=== PATIENT | male | born 1970 | race Caucasian/White ===

== ENCOUNTER 2023-03-19 21:02 | Outpatient (OUT) | payer OTHER, SELFPAY | END 2023-03-19 21:03 | disposition home or self-care (01) | LOC: SLEEP 21:03 | PROVIDERS: Family Provider Family Medicine; PCP Nurse Practitioner Family; Visit Provider Nurse Practitioner Family | DX: G47.33 Obstructive sleep apnea (adult) (pediatric) (principal) | CPT/HCPCS: 95810 ==

== ENCOUNTER 2023-04-14 20:50 | Outpatient (OUT) | payer OTHER, SELFPAY ==
--- OUTSIDE RECORDS SUMMARY | 2023-04-14 20:52 | XMS_ITS | CCD ---
Author Name Unknown Address [address] [facility] [address] [place] [address] Organization [facility] Care Team Providers Care Engine Lathe Set Up Operator Name Role Phone Rosario Bruno Unavailable ROSETTA Bruno Primary Care Provider ROSETTA Bruno Attending Provider [phone] Rosario Bruno Attending Unavailable Rosario Bruno Primary Care Unavailable Rosario Bruno Admitting Unavailable Asaad, Imad Unavailable Medications Current Medications Medication Drug Class(es) Dates Sig (Normalized) Sig (Original) empagliflozin 25 mg oral tablet (4 sources) Sodium-Glucose Cotransporter 2 Inhibitor Start: 03-14-2023 take 1 tablet by mouth every twenty-four hours Jardiance 25 MG 1 tablet Orally Once a day for 90 days Feb, Active polyethylene glycol 3350 038762 mg / potassium chloride 2970 mg / sodium bicarbonate 6740 mg / sodium chloride 5860 mg / sodium sulfate 38414 mg powder for oral solution (1 source) Osmotic Laxative Start: 03-26-2023 take 4000 mL by mouth once daily Golytely 236 GM 4000 ML Orally once daily for 1 days Mar, Active pravastatin sodium 10 mg oral tablet (4 sources) HMG-CoA Reductase Inhibitor take 1 tablet by mouth every twenty-four hours Pravastatin Sodium 10 MG 1 tablet Orally Once a day for 90 days Active Problems Problem Classification Problem Date Documented Da te Episodic/Chronic Diabetes mellitus without complication (8 sources) Type 2 diabetes mellitus without complication; Translations: [Type 2 diabetes mellitus without complications] Onset: 03-14-2023 Chronic Disorders of lipid metabolism (6 sources) Mixed hyperlipidemia; Translations: [Mixed hyperlipidemia] Onset: 03-14-2023 Chronic Other screening for suspected conditions (not mental disorders or infectious disease) (3 sources) Encounter for screening for malignant neoplasm of prostate; Translations: [Encounter for screening for malignant neoplasm of colon] Onset: 03-14-2023 Episodic Residual codes; unclassified (4 sources) Obstructive sleep apnea syndrome; Translations: [Obstructive sleep apnea (adult) (pediatric)] Chronic Residual codes; unclassified (1 source) Obstructive sleep apnea (adult) (pediatric) Chronic Substance-related disorders (5 sources) Nicotine dependence; Translations: [Nicotine dependence, cigarettes, uncomplicated] Chronic Results Test Name Value Interpretation Reference Range Facility A1C with Estimated Average G nicki 03-14-2023 Glucose [Mass/Vol] 217 mg/dL Normal [facility] Comment on above: Order Comment: Reaso n for Exam Type 2 diabetes mellitus without complication, without long- Result Comment: PERF ORMED BY: [facility] [address] [place] [address] PATHOLOGIST SUPERVISOR [employer] PADMA MONTOYA M.D. Performed By: #### C MP, LIPID, PSAS, A1C WTH eA, CBC, URMACRERAT #### [facility] [address] HbA1c (Bld) [Mass fraction] 9.2 % High 4.3-5.6 [facility] Comment on above: Order Comment: Reaso n for Exam Type 2 diabetes mellitus without complication, without long- Result Comment: Incr eased risk for diabetes: 5.7 - 6.4 diabetes: >6.4 glycemic control for adults with diabetes: <7.0 Performed By: #### C MP, LIPID, PSAS, A1C WTH eA, CBC, URMACRERAT #### [facility] [address] [place] [address] [place] Alanine aminotransferase [En zymatic activity/volume] in Serum or PlasmaOrdered By: Rosario Bruno on 03-14-2023 ALT [Catalytic activity/Vol] 17 U/L 7-52 [facility] Albumin [Mass/volume] in Ser um or Plasma by Bromocresol green (BCG) dye binding methoOrdered By: Rosario Bruno on 03-14-2023 Albumin BCG dye [Mass/Vol] 4.1 g/dL 3.5-5.7 [facility] Alkaline phosphatase [Enzyma tic activity/volume] in Serum or PlasmaOrdered By: Rosario Bruno on 03-14-2023 ALP [Catalytic activity/Vol] 75 U/L 34-104 [facility] Aspartate aminotransferase [ Enzymatic activity/volume] in Serum or PlasmaOrdered By: Rosario Bruno on 03-14-2023 AST [Catalytic activity/Vol] 18 U/L 13-39 [facility] Basophils Auto (Bld) [#/Vol] Ordered By: Rosario Bruno on 03-14-2023 Basophils (Bld) [#/Vol] 0.1 10*3/uL 0.0-0.2 [facility] Basophils/100 WBC Auto (Bld) Ordered By: Rosario Bruno on 03-14-2023 Basophils/100 WBC (Bld) 1.3 % . [facility] Bilirubin.total [Mass/volume ] in Serum or PlasmaOrdered By: Rosario Bruno on 03-14-2023 Bilirubin [Mass/Vol] 0.7 mg/dL 0.3-1.0 [facility] Calcium [Mass/volume] in Ser um or PlasmaOrdered By: Rosario Bruno on 03-14-2023 Calcium [Mass/Vol] 9.1 mg/dL 8.6-10.3 [facility] Carbon dioxide, total [Moles /volume] in Serum or PlasmaOrdered By: Rosario Bruno on 03-14-2023 CO2 [Moles/Vol] 28.5 mmol/L 21.0-31.0 [facility] Chloride [Moles/volume] in S robert or PlasmaOrdered By: Rosario Bruno on 03-14-2023 Chloride [Moles/Vol] 105 mmol/L 98-107 [facility] Cholesterol [Mass/volume] in Serum or PlasmaOrdered By: Rosario Bruno on 03-14-2023 Cholesterol [Mass/Vol] 133 mg/dL 140-200 [facility] Comment on above: Chol less than 200 m g/dl low riskChol 201-239 mg/dl borderline riskChol 240 mg/dl and greater high risk Cholesterol in LDL Calc [Mas s/Vol]Ordered By: Rosario Bruno on 03-14-2023 Cholesterol in LDL [Mass/Vol] 79 mg/dL 0-100 [facility] Comment on above: LDL ATP III CLASSIFI CATIONLDL less than 100 mg/dL OptimalLDL 100-129 mg/dL Near or above optimalLDL 130-159 mg/dL Borderline highLDL 160-189 mg/dL HighLDL greater than 189 mg/dL Very high Cholesterol in VLDL Calc [Ma ss/Vol]Ordered By: Rosario Bruno on 03-14-2023 Cholesterol in VLDL [Mass/Vol] 19 mg/dL [facility] Complete Blood Count Auto Di ffon 03-14-2023 Basophils (Bld) [#/Vol] 0.1 10*3/uL Normal 0.0-0.2 [facility] Comment on above: Order Comment: Reaso n for Exam Type 2 diabetes mellitus without complication, without long- Result Comment: PERF ORMED BY: [place] [address] PATHOLOGIST SUPERVIS[employer] PADMA MONTOYA M.D. Performed By: #### C MP, LIPID, PSAS, A1C WTH eA, CBC, URMACRERAT #### [facility] [address] Basophils/100 WBC (Bld) 1.3 % Normal . [facility] Comment on above: Order Comment: Reaso n for Exam Type 2 diabetes mellitus without complication, without long- Performed By: #### C MP, LIPID, PSAS, A1C WTH eA, CBC, URMACRERAT #### [facility] [address] [place] [address] [place] Eosinophils (Bld) [#/Vol] 0.2 10*3/uL Normal 0.0-0.45 [facility] Comment on above: Order Comment: Reaso n for Exam Type 2 diabetes mellitus without complication, without long- Performed By: #### C MP, LIPID, PSAS, A1C WTH eA, CBC, URMACRERAT #### [facility] [address] [place] [address] [place] Eosinophils/100 WBC (Bld) 3.8 % Normal . [facility] Comment on above: Order Comment: Reaso n for Exam Type 2 diabetes mellitus without complication, without long- Performed By: #### C MP, LIPID, PSAS, A1C WTH eA, CBC, URMACRERAT #### [address] Erythrocyte distribution width (RBC) [Ratio] 12.6 % Normal 12.0-14.8 [facility] Comment on above: Order Comment: Reaso n for Exam Type 2 diabetes mellitus without complication, without long- Performed By: #### C MP, LIPID, PSAS, A1C WTH eA, CBC, URMACRERAT #### [address] Hematocrit (Bld) [Volume fraction] 40.7 % Normal 38.8-50.0 [facility] Comment on above: Order Comment: Reaso n for Exam Type 2 diabetes mellitus without complication, without long- Performed By: #### C MP, LIPID, PSAS, A1C WTH eA, CBC, URMACRERAT #### [address] Hemoglobin (Bld) [Mass/Vol] 14.0 g/dL Normal 13.0-17.0 [facility] Comment on above: Order Comment: Reaso n for Exam Type 2 diabetes mellitus without complication, without long- Performed By: #### C MP, LIPID, PSAS, A1C WTH eA, CBC, URMACRERAT #### [address] Lymphocytes (Bld) [#/Vol] 1.5 10*3/uL Normal 1.00-4.8 [facility] Comment on above: Order Comment: Reaso n for Exam Type 2 diabetes mellitus without complication, without long- Performed By: #### C MP, LIPID, PSAS, A1C WTH eA, CBC, URMACRERAT #### [address] Lymphocytes/100 WBC (Bld) 27.1 % Normal . [facility] Comment on above: Order Comment: Reaso n for Exam Type 2 diabetes mellitus without complication, without long- Performed By: #### C MP, LIPID, PSAS, A1C WTH eA, CBC, URMACRERAT #### [facility] [address] MCH (RBC) [Entitic mass] 31.0 pg Normal 27.5-35.2 [facility] Comment on above: Order Comment: Reaso n for Exam Type 2 diabetes mellitus without complication, without long- Performed By: #### C MP, LIPID, PSAS, A1C WTH eA, CBC, URMACRERAT #### [address] MCV (RBC) [Entitic vol] 90.4 fL Normal 83.5-101 [facility] Comment on above: Order Comment: Reaso n for Exam Type 2 diabetes mellitus without complication, without long- Performed By: #### C MP, LIPID, PSAS, A1C WTH eA, CBC, URMACRERAT #### [address] Mean Corpuscular HGB Conc 34.3 g/dL Normal 32.5-35.6 [facility] Comment on above: Order Comment: Reaso n for Exam Type 2 diabetes mellitus without complication, without long- Performed By: #### C MP, LIPID, PSAS, A1C WTH eA, CBC, URMACRERAT #### [address] Monocytes (Bld) [#/Vol] 0.3 10*3/uL Normal 0.0-0.8 [facility] Comment on above: Order Comment: Reaso n for Exam Type 2 diabetes mellitus without complication, without long- Performed By: #### C MP, LIPID, PSAS, A1C WTH eA, CBC, URMACRERAT #### [address] Monocytes/100 WBC (Bld) 6.2 % Normal . [facility] Comment on above: Order Comment: Reaso n for Exam Type 2 diabetes mellitus without complication, without long- Performed By: #### C MP, LIPID, PSAS, A1C WTH eA, CBC, URMACRERAT #### [facility] [address] [place] [address] [place] Neutrophils (Bld) [#/Vol] 3.4 10*3/uL Normal 1.8-7.7 [facility] Comment on above: Order Comment: Reaso n for Exam Type 2 diabetes mellitus without complication, without long- Performed By: #### C MP, LIPID, PSAS, A1C WTH eA, CBC, URMACRERAT #### [facility] [address] [place] [address] [place] Neutrophils/100 WBC (Bld) 61.6 % Normal . [facility] Comment on above: Order Comment: Reaso n for Exam Type 2 diabetes mellitus without complication, without long- Performed By: #### C MP, LIPID, PSAS, A1C WTH eA, CBC, URMACRERAT #### [facility] [address] [place] [address] [place] NRBC% 0.2 /100{WBC} Normal 0-0.5 [facility] Comment on above: Order Comment: Reaso n for Exam Type 2 diabetes mellitus without complication, without long- Performed By: #### C MP, LIPID, PSAS, A1C WTH eA, CBC, URMACRERAT #### [facility] [address] [place] [address] [place] Platelet mean volume (Bld) [Entitic vol] 9.0 fL Normal 6.6-10.1 [facility] Comment on above: Order Comment: Reaso n for Exam Type 2 diabetes mellitus without complication, without long- Performed By: #### C MP, LIPID, PSAS, A1C WTH eA, CBC, URMACRERAT #### [facility] [address] [place] [address] [place] Platelets (Bld) [#/Vol] 187 10*3/uL Normal 150-450 [facility] Comment on above: Order Comment: Reaso n for Exam Type 2 diabetes mellitus without complication, without long- Performed By: #### C MP, LIPID, PSAS, A1C WTH eA, CBC, URMACRERAT #### [facility] [address] RBC (Bld) [#/Vol] 4.51 10*6/uL Normal 3.90-5.60 [facility] Comment on above: Order Comment: Reaso n for Exam Type 2 diabetes mellitus without complication, without long- Performed By: #### C MP, LIPID, PSAS, A1C WTH eA, CBC, URMACRERAT #### [address] WBC (Bld) [#/Vol] 5.5 10*3/uL Normal 4.1-10.5 [facility] Comment on above: Order Comment: Reaso n for Exam Type 2 diabetes mellitus without complication, without long- Performed By: #### C MP, LIPID, PSAS, A1C WTH eA, CBC, URMACRERAT #### [address] Comprehensive Metabolic Pane delores 03-14-2023 Albumin [Mass/Vol] 4.1 g/dL Normal 3.5-5.7 [facility] Comment on above: Order Comment: Reaso n for Exam Type 2 diabetes mellitus without complication, without long- Performed By: #### C MP, LIPID, PSAS, A1C WTH eA, CBC, URMACRERAT #### [address] Albumin/Globulin [Mass ratio] 1.6 {ratio} Normal [facility] Comment on above: Order Comment: Reaso n for Exam Type 2 diabetes mellitus without complication, without long- Performed By: #### C MP, LIPID, PSAS, A1C WTH eA, CBC, URMACRERAT #### [address] ALP [Catalytic activity/Vol] 75 U/L Normal 34-104 [facility] Comment on above: Order Comment: Reaso n for Exam Type 2 diabetes mellitus without complication, without long- Performed By: #### C MP, LIPID, PSAS, A1C WTH eA, CBC, URMACRERAT #### [facility] [address] ALT [Catalytic activity/Vol] 17 U/L Normal 7-52 [facility] Comment on above: Order Comment: Reaso n for Exam Type 2 diabetes mellitus without complication, without long- Performed By: #### C MP, LIPID, PSAS, A1C WTH eA, CBC, URMACRERAT #### [facility] [address] Anion gap [Moles/Vol] 7.7 mmol/L Normal 6.0-15.0 [facility] Comment on above: Order Comment: Reaso n for Exam Type 2 diabetes mellitus without complication, without long- Performed By: #### C MP, LIPID, PSAS, A1C WTH eA, CBC, URMACRERAT #### [facility] [address] AST [Catalytic activity/Vol] 18 U/L Normal 13-39 [facility] Comment on above: Order Comment: Reaso n for Exam Type 2 diabetes mellitus without complication, without long- Performed By: #### C MP, LIPID, PSAS, A1C WTH eA, CBC, URMACRERAT #### [facility] [address] Bilirubin [Mass/Vol] 0.7 mg/dL Normal 0.3-1.0 [facility] Comment on above: Order Comment: Reaso n for Exam Type 2 diabetes mellitus without complication, without long- Performed By: #### C MP, LIPID, PSAS, A1C WTH eA, CBC, URMACRERAT #### [facility] [address] [place] [address] [place] Calcium [Mass/Vol] 9.1 mg/dL Normal 8.6-10.3 [facility] Comment on above: Order Comment: Reaso n for Exam Type 2 diabetes mellitus without complication, without long- Performed By: #### C MP, LIPID, PSAS, A1C WTH eA, CBC, URMACRERAT #### [facility] [address] Chloride [Moles/Vol] 105 mmol/L Normal 98-107 [facility] Comment on above: Order Comment: Reaso n for Exam Type 2 diabetes mellitus without complication, without long- Performed By: #### C MP, LIPID, PSAS, A1C WTH eA, CBC, URMACRERAT #### [facility] [address] CO2 [Moles/Vol] 28.5 mmol/L Normal 21.0-31.0 [facility] Comment on above: Order Comment: Reaso n for Exam Type 2 diabetes mellitus without complication, without long- Performed By: #### C MP, LIPID, PSAS, A1C WTH eA, CBC, URMACRERAT #### [address] Creatinine [Mass/Vol] 1.03 mg/dL Normal 0.70-1.30 [facility] Comment on above: Order Comment: Reaso n for Exam Type 2 diabetes mellitus without complication, without long- Performed By: #### C MP, LIPID, PSAS, A1C WTH eA, CBC, URMACRERAT #### [facility] [address] [place] [address] [place] GFR/1.73 sq M.predicted MDRD (S/P/Bld) [Vol rate/Area] mL/min/{1.73_m2} Normal [facility] Comment on above: Order Comment: Reaso n for Exam Type 2 diabetes mellitus without complication, without long- Performed By: #### C MP, LIPID, PSAS, A1C WTH eA, CBC, URMACRERAT #### [facility] [address] [place] [address] [place] Globulin (S) [Mass/Vol] 2.5 g/dL Normal [facility] Comment on above: Order Comment: Reaso n for Exam Type 2 diabetes mellitus without complication, without long- Performed By: #### C MP, LIPID, PSAS, A1C WTH eA, CBC, URMACRERAT #### [facility] [address] [place] [address] [place] Glucose [Mass/Vol] 175 mg/dL High 70-100 [facility] Comment on above: Order Comment: Reaso n for Exam Type 2 diabetes mellitus without complication, without long- Result Comment: [facility] Glucose Reference Range is dependent on time and content of last meal. Glucose of more than 200 mg/dL in a nonstressed, ambulatory subject supports the diagnosis of Diabetes Mellitus. ADA recommended reference range Performed By: #### C MP, LIPID, PSAS, A1C WTH eA, CBC, URMACRERAT #### [facility] [address] [place] [address] [place] Potassium [Moles/Vol] 4.2 mmol/L Normal 3.5-5.1 [facility] Comment on above: Order Comment: Reaso n for Exam Type 2 diabetes mellitus without complication, without long- Performed By: #### C MP, LIPID, PSAS, A1C WTH eA, CBC, URMACRERAT #### [facility] [address] [place] [address] [place] Protein [Mass/Vol] 6.6 g/dL Normal 6.4-8.9 [facility] Comment on above: Order Comment: Reaso n for Exam Type 2 diabetes mellitus without complication, without long- Performed By: #### C MP, LIPID, PSAS, A1C WTH eA, CBC, URMACRERAT #### [facility] [address] [place] [address] [place] Sodium [Moles/Vol] 137 mmol/L Normal 136-145 [facility] Comment on above: Order Comment: Reaso n for Exam Type 2 diabetes mellitus without complication, without long- Performed By: #### C MP, LIPID, PSAS, A1C WTH eA, CBC, URMACRERAT #### [facility] [address] [place] [address] [place] Urea nitrogen [Mass/Vol] 12 mg/dL Normal 7-25 [facility] Comment on above: Order Comment: Reaso n for Exam Type 2 diabetes mellitus without complication, without long- Performed By: #### C MP, LIPID, PSAS, A1C WTH eA, CBC, URMACRERAT #### [facility] [address] [place] [id number] [place] Creatinine [Mass/volume] in Serum or PlasmaOrdered By: Rosario Bruno on 03-14-2023 Creatinine [Mass/Vol] 1.03 mg/dL 0.70-1.30 [facility] Creatinine [Mass/volume] in UrineOrdered By: Rosario Bruno on 03-14-2023 Creatinine (U) [Mass/Vol] 80.0 mg/dL 14.0-26.0 [facility] Eosinophils Auto (Bld) [#/Vo l]Ordered By: Rosario Bruno on 03-14-2023 Eosinophils (Bld) [#/Vol] 0.2 10*3/uL 0.0-0.45 [facility] Eosinophils/100 WBC Auto (Bl d)Ordered By: Rosario Bruno on 03-14-2023 Eosinophils/100 WBC (Bld) 3.8 % . [facility] Erythrocyte distribution wid th Auto (RBC) [Ratio]Ordered By: Rosario Bruno on 03-14-2023 Erythrocyte distribution width (RBC) [Ratio] 12.6 % 12.0-14.8 [facility] Globulin Calc (S) [Mass/Vol] Ordered By: Rosario Bruno on 03-14-2023 Globulin (S) [Mass/Vol] 2.5 g/dL [facility] Glucose [Mass/volume] in Ser um or PlasmaOrdered By: Rosario Bruno on 03-14-2023 Glucose [Mass/Vol] 175 mg/dL 70-100 [facility] Comment on above: ADA recommended refe rence rangeRandom Glucose Reference Range is dependent on time and content of last meal. Glucose of more than 200 mg/dL in a nonstressed, ambulatory subject supports the diagnosis of Diabetes Mellitus. Glucose mean value [Mass/vol ume] in Blood Estimated from glycated hemoglobinOrdered By: Rosario Bruno on 03-14-2023 Average glucose Estimated from glycated hemoglobin (Bld) [Mass/Vol] 217 mg/dL [facility] Hematocrit Auto (Bld) [Volum e fraction]Ordered By: Rosario Bruno on 03-14-2023 Hematocrit (Bld) [Volume fraction] 40.7 % 38.8-50.0 [facility] Hemoglobin A1c percentageOrd ered By: Rosario Bruno on 03-14-2023 HbA1c (Bld) [Mass fraction] 9.2 % 4.3-5.6 [facility] Comment on above: Increased risk for d iabetes: 5.7 - 6.4diabetes: >6.4glycemic control for adults with diabetes: <7.0 Hemoglobin [Mass/volume] in BloodOrdered By: Rosario Bruno on 03-14-2023 Hemoglobin (Bld) [Mass/Vol] 14.0 g/dL 13.0-17.0 [facility] Leukocytes [#/volume] correc salazar for nucleated erythrocytes in Blood by Automated counOrdered By: Rosario Bruno on 03-14-2023 WBC corrected for nucl RBC Auto (Bld) [#/Vol] 5.5 10*3/uL 4.1-10.5 [facility] Lipid Panelon 03-14-2023 Cholesterol [Mass/Vol] 133 mg/dL Low 140-200 [facility] Comment on above: Order Comment: Reaso n for Exam Type 2 diabetes mellitus without complication, without long- Result Comment: Chol less than 200 mg/dl low risk Chol 201-239 mg/dl borderline risk Chol 240 mg/dl and greater high risk Performed By: #### C MP, LIPID, PSAS, A1C WTH eA, CBC, URMACRERAT #### [facility] [address] Cholesterol in HDL [Mass/Vol] 35 mg/dL Normal 23-92 [facility] Comment on above: Order Comment: Reaso n for Exam Type 2 diabetes mellitus without complication, without long- Result Comment: HDL CHOL ATP-III CLASSIFICATION Cardiovascular Risk HDL > or equal to 60 mg/dL LOW HDL < 40 mg/dL HIGH Performed By: #### C MP, LIPID, PSAS, A1C WTH eA, CBC, URMACRERAT #### [facility] [address] [place] [address] [place] Cholesterol.total/Choles terol in HDL [Mass ratio] 3.8 {ratio} Normal <5.0 [facility] Comment on above: Order Comment: Reaso n for Exam Type 2 diabetes mellitus without complication, without long- Result Comment: PERF ORMED BY: [place] [address] PATHOLOGIST SUPER[employer] PADMA MONTOYA M.D. Performed By: #### C MP, LIPID, PSAS, A1C WTH eA, CBC, URMACRERAT #### [address] LDL Cholesterol,Calculated 79 mg/dL Normal 0-100 [facility] Comment on above: Order Comment: Reaso n for Exam Type 2 diabetes mellitus without complication, without long- Result Comment: LDL ATP III CLASSIFICATION LDL less than 100 mg/dL Optimal LDL 100-129 mg/dL Near or above optimal LDL 130-159 mg/dL Borderline high LDL 160-189 mg/dL High LDL greater than 189 mg/dL Very high Performed By: #### C MP, LIPID, PSAS, A1C WTH eA, CBC, URMACRERAT #### [address] Triglyceride w/Reflex 97 mg/dL Normal 0-149 [facility] Comment on above: Order Comment: Reaso n for Exam Type 2 diabetes mellitus without complication, without long- Result Comment: TRIG ATP III CLASSIFICATION TRIG less than 150 mg/dL Normal TRIG 150-199 mg/dL Borderline high TRIG 200-500 mg/dL High TRIG greater than 500 mg/dL Very high Standard traceable to the Center for Disease Conrtrol and Prevention (CDC) test method. Performed By: #### C MP, LIPID, PSAS, A1C WTH eA, CBC, URMACRERAT #### [facility] [address] VLDL CHOLESTEROL 19 mg/dL Normal [facility] Comment on above: Order Comment: Reaso n for Exam Type 2 diabetes mellitus without complication, without long- Performed By: #### C MP, LIPID, PSAS, A1C WTH eA, CBC, URMACRERAT #### [facility] [address] Lymphocytes Auto (Bld) [#/Vo l]Ordered By: Rosario Bruno on 03-14-2023 Lymphocytes (Bld) [#/Vol] 1.5 10*3/uL 1.00-4.8 [facility] Lymphocytes/100 WBC Auto (Bl d)Ordered By: Rosario Bruno on 03-14-2023 Lymphocytes/100 WBC (Bld) 27.1 % . [facility] MCH Auto (RBC) [Entitic mass ]Ordered By: Rosario Bruno on 03-14-2023 MCH (RBC) [Entitic mass] 31.0 pg 27.5-35.2 [facility] MCHC Auto (RBC) [Mass/Vol]Or dered By: Rosario Bruno on 03-14-2023 MCHC (RBC) [Mass/Vol] 34.3 g/dL 32.5-35.6 [facility] MCV Auto (RBC) [Entitic vol] Ordered By: Rosario Bruno on 03-14-2023 MCV (RBC) [Entitic vol] 90.4 fL 83.5-101 [facility] MicroAlb Creat Ratio,Uon Albumin DL <= 20 mg/L (U) [Mass/Vol] mg/dL Normal 0.0-1.8 [facility] Comment on above: Order Comment: Reaso n for Exam Type 2 diabetes mellitus without complication, without long- Performed By: #### C MP, LIPID, PSAS, A1C WTH eA, CBC, URMACRERAT #### [facility] [address] [place] [address] [place] Creatinine, Urine (Random) 80.0 mg/dL High 14.0-26.0 [facility] Comment on above: Order Comment: Reaso n for Exam Type 2 diabetes mellitus without complication, without long- Performed By: #### C MP, LIPID, PSAS, A1C WTH eA, CBC, URMACRERAT #### [facility] [address] Microalbumin/Creatinine Ratio Not performed Normal 0.0-30.0 [facility] Comment on above: Order Comment: Reaso n for Exam Type 2 diabetes mellitus without complication, without long- Result Comment: PERF ORMED BY: [facility] [address] [place] [address] PATHOLOGIST SUPERVISOR [employer] PADMA MONTOYA M.D. Performed By: #### C MP, LIPID, PSAS, A1C WTH eA, CBC, URMACRERAT #### [facility] [address] Microalbumin [Mass/volume] i n UrineOrdered By: Rosario Bruno on 03-14-2023 Albumin DL <= 20 mg/L (U) [Mass/Vol] mg/dL 0.0-1.8 [facility] Monocytes Auto (Bld) [#/Vol] Ordered By: Rosario Bruno on 03-14-2023 Monocytes (Bld) [#/Vol] 0.3 10*3/uL 0.0-0.8 [facility] Monocytes/100 WBC Auto (Bld) Ordered By: Rosario Bruno on 03-14-2023 Monocytes/100 WBC (Bld) 6.2 % . [facility] Neutrophils Auto (Bld) [#/Vo l]Ordered By: Rosario Brnuo on 03-14-2023 Neutrophils (Bld) [#/Vol] 3.4 10*3/uL 1.8-7.7 [facility] Neutrophils/100 WBC Auto (Bl d)Ordered By: Rosario Bruno on 03-14-2023 Neutrophils/100 WBC (Bld) 61.6 % . [facility] No Panel InformationOrdered By: Rosario Bruno on 03-14-2023 Estimated GFR (CKD-EPI) > 60.0 mL/Min [facility] Creatinine Clearance (Chem N/A [facility] Nucleated erythrocytes [Pres ence] in Blood by Automated countOrdered By: Rosario Bruno on 03-14-2023 Nucleated RBC Auto Ql (Bld) 0.2 /100{WBC} 0-0.5 [facility] PSA Screen (Yearly Only)on PSA Screen (Yearly Only) 0.120 ng/mL Normal 0.000-4.00 0 [facility] Comment on above: Order Comment: Reaso n for Exam Screening for prostate cancer Result Comment: Seri al tumor marker results determined by assays using different manufacturers or methods may not be comparable. [facility] photonics engineering technician and method: Domain [employer] DXI, CHEMILUMINESCENT IMMUNOASSAY. PERFORMED BY: [facility] [address] [place] [address] PATHOLOGIST SUPERVISOR [employer] PADMA MONTOYA M.D. Performed By: #### C MP, LIPID, PSAS, A1C WTH eA, CBC, URMACRERAT #### [facility] [address] Platelet mean volume Auto (B ld) [Entitic vol]Ordered By: Rosario Bruno on 03-14-2023 Platelet mean volume (Bld) [Entitic vol] 9.0 fL 6.6-10.1 [facility] Platelets Auto (Bld) [#/Vol] Ordered By: Rosario Bruno on 03-14-2023 Platelets (Bld) [#/Vol] 187 10*3/uL 150-450 [facility] Potassium [Moles/volume] in Serum or PlasmaOrdered By: Rosario Bruno on 03-14-2023 Potassium [Moles/Vol] 4.2 mmol/L 3.5-5.1 [facility] Prostate specific Ag [Mass/v olume] in Serum or PlasmaOrdered By: Rosario Bruno on 03-14-2023 Prostate specific Ag [Mass/Vol] 0.120 ng/mL 0.000-4.000 [facility] Comment on above: Serial tumor marker results determined by assays using different manufacturers or methods may not be comparable.[facility] photonics engineering technician and method:[employer] DXI, CHEMILUMINESCENT IMMUNOASSAY. Protein [Mass/volume] in Ser um or PlasmaOrdered By: Rosario Bruno on 03-14-2023 Protein [Mass/Vol] 6.6 g/dL 6.4-8.9 [facility] RBC Auto (Bld) [#/Vol]Ordere d By: Rosario Bruno on 03-14-2023 RBC (Bld) [#/Vol] 4.51 10*6/uL 3.90-5.60 [facility] Serum or plasma albumin/glob ulin mass ratioOrdered By: Rosario Bruno on 03-14-2023 Albumin/Globulin [Mass ratio] 1.6 {ratio} [facility] Serum or plasma anion gap de terminationOrdered By: Rosario Bruno on 03-14-2023 Anion gap [Moles/Vol] 7.7 mmol/L 6.0-15.0 [facility] Serum or plasma high density lipoprotein (HDL) cholesterol measurementOrdered By: Rosario Bruno on 03-14-2023 Cholesterol in HDL [Mass/Vol] 35 mg/dL 23- [facility] Comment on above: HDL CHOL ATP-III CLA SSIFICATION Cardiovascular RiskHDL > or equal to 60 mg/dL LOWHDL < 40 mg/dL HIGH Serum or plasma total choles terol/high density lipoprotein (HDL) cholesterol mass ratOrdered By: Rosario Bruno on 03-14-2023 Cholesterol.total/Choles terol in HDL [Mass ratio] 3.8 {ratio} <5.0 [facility] Sodium [Moles/volume] in Ser um or PlasmaOrdered By: Rosario Bruno on 03-14-2023 Sodium [Moles/Vol] 137 mmol/L 136-145 [facility] Triglyceride [Mass/volume] i n Serum or PlasmaOrdered By: Rosario Bruno on 03-14-2023 Triglyceride [Mass/Vol] 97 mg/dL 0-149 [facility] Comment on above: TRIG ATP III CLASSIF ICATIONTRIG less than 150 mg/dL NormalTRIG 150-199 mg/dL Borderline highTRIG 200-500 mg/dL High TRIG greater than 500 mg/dL Very highStandard traceable to the Center for Disease Conrtrol and Prevention (CDC) test method. Urea nitrogen [Mass/volume] in Serum or PlasmaOrdered By: Rosario Bruno on 03-14-2023 Urea nitrogen [Mass/Vol] 12 mg/dL 7- [facility] Urine microalbumin/creatinin e mass ratioOrdered By: Rosario Bruno on 03-14-2023 Albumin/Creatinine DL <= 20 mg/L (U) [Mass ratio] [facility] Comment on above: Test not performed WBC Auto (Bld) [#/Vol]Ordere d By: Rosario Bruno on 03-14-2023 WBC (Bld) [#/Vol] 5.5 10*3/uL 4.1-10.5 [facility] Vital Signs Date Time Vital Sign Value Performing Clinician Facility 03-12-2023 14:30-0500 Body height 180.34 cm Rosario Bruno Other [facility] Other 03-12-2023 14:30-0500 Body mass index (BMI) [Ratio] 30.12 kg/m2 Rosario Bruno Other [facility] Other 03-12-2023 14:30-0500 Body weight 97.98 kg Rosario Bruno Other [facility] Other 03-12-2023 14:30-0500 Diastolic blood pressure 70 mm[Hg] Rosario Bruno Other [facility] Other 03-12-2023 14:30-0500 SaO2% (BldA) [Mass fraction] 98 % Rosario Bruno Other [facility] Other 03-12-2023 14:30-0500 Systolic blood pressure 112 mm[Hg] Rosario Bruno Other [facility] Other Encounters Encounter Date Encounter Type Care Provider Facility Start: 03-25-2023 End: 03-25-2023 ambulatory Imad Asaad Other [facility] Other Start: 03-25-2023 Telephone encounter Garrybernardino Cazares [facility] Start: 03-18-2023 End: 03-18-2023 ambulatory Rosario Kiana Other [facility] Other Start: 03-18-2023 Telephone encounter Rosario Davies her [facility] Start: 03-14-2023 End: 03-14-2023 ambulatory Rosario Bruno Facility:[facility] Start: 03-14-2023 End: 03-14-2023 ambulatory CHIEF INFORMATION OFFICER Rosarioeverardo Bruno Work Phone: [facility] Work Phone: Start: 03-14-2023 End: 03-14-2023 Patient encounter procedure CHIEF INFORMATION OFFICERRalph Bruno Work Phone: [facility] [place] Work Phone: Start: 03-13-2023 End: 03-13-2023 ambulatory Rosario Kiana Other [facility] Other Start: 03-13-2023 Telephone encounter Rosario Davies her [facility] Start: 03-12-2023 End: 03-12-2023 ambulatory Rosario Kiana Other [facility] Other Start: 03-12-2023 Office outpatient ne w 30 minutes Rosario Kiana [facility] Payers Date Payer Category Payer Medicaid [id number] 2023 Self-pay Private Health Insurance [facility] [id number] Unknown [id number] Social History Date Type Detail Facility Sex Assigned At [facility] Other Start: 1970 Sex Assigned At Male [facility] Medical Equipment Procedure Code Equipment Code Equipment Origin al Text Equipment Identifier Dates One Touch Ultra Test Strips Start: 03-19-2023 Evaluation note 03-18-2023 Note Date & Type Note Facility 03-18-2023 Evaluation note Encounter Date Diagnosis Assessment Notes Mar, Type 2 diabetes mellitus without complication, without long-term current use of insulin (ICD-10 - E11.9) [facility] Other Evaluation note 03-13-2023 Note Date & Type Note Facility 03-13-2023 Evaluation note Encounter Date Diagnosis Assessment Notes Feb, Type 2 diabetes mellitus without complication, without long-term current use of insulin (ICD-10 - E11.9) [facility] Other Evaluation note 03-12-2023 Note Date & Type Note Facility 03-12-2023 Evaluation note Encounter Date Diagnosis Assessment Notes Feb, Type 2 diabetes mellitus without complication, without long-term current use of insulin (ICD-10 - E11.9) Due for A1c Prior to your visit today we reviewed your chart and outlined the testing and treatment needed for your care. We discussed possible complications of diabetes including risk of heart disease, stroke, and kidney disease. Your goal is to keep uou HgA1C below 7 (preferably <6.5) and your blood pressure less than 130/85 (and preferably < 120/80) and mataining a healthy weight with a BMI less than 26. We are working together to acheive these goals with the following plan; healthier diet, understanding your medications, and your compliance. Barriers to these goals have been discussed. You have been given educational handouts. Feb, Mixed hyperlipidemia (ICD-10 - E78.2) Due for labs. No recent labs. Has been taking Pravastatin Feb, Obstructive sleep apnea (ICD-10 - G47.33) Due for new testing has not had a CPAP in quite some time. Continues to have loud snoring and daytime somelence, Will send for new sleep study. Feb, Screening for prostate cancer (ICD-10 - Z12.5) Risks and benefits of PSA screening discussed with patient today. Patient wishes to get PSA screening done. PSA screening lab ordered today. Feb, Screening for colon cancer (ICD-10 - Z12.11) Patient due for screening colonoscopy. Referral sent to GI today. Feb, Cigarette nicotine dependence without complication (ICD-10 - F17.210) We discussed possible complications of smoking including risk of heart disease, stroke, lung disease, and increase risk of cancer. Your goal is to quit smoking. The availability, risks, and benefits of medication used to treat nicotine addiction as releveant to you have been discussed. We are working together to achieve these goals with the following plan; barriers to these goals have been discussed. You have been given relevant education handouts and a summary of your care plan. Your next follow-up visit for this problem is six months, we will continue to ask progress for quitting and willingness to quit at each appointment. [facility] Other Evaluation note Note Date & Type Note Facility Evaluation note No assessment information [facility] Work Phone: Evaluation note Note Date & Type Note Facility Evaluation note No Information [employer] Other History general Narrative - Reported Note Date & Type Note Facility History general Narrative - Reported Type Medical History Type 2 Diabetes Medical History Sleep Apnea Medical History Hyperlipidemia Surgical History Oral Surgery [facility] Other Reason for Referral Reason due for screeni ng Diagnosis 1 Screening for colon cancer (Z12.11) Referral Organization [facility] Morales rodas Referring Provider First Name Rosario Referring Provider Last Name Kiana Referring Provider Specialty Nurse Iggy gupta Referred Organization [facility] Gastroenterolo gy Referred Provider Milena Cazares Referred Address [address] [address] ,[place], [place],[address] Referred Provider Specialty Gastroentero logy Referral Priority Routine General Notes Shey Morgan 10:33:26 AM >received today, referral faxed P2P Chief Complaint and Reason for Visit Chief Complaint Z12.5/E11.9/E78.2 Advance Directives Advance Directive Response Recorded Date/ Time Advance Directives No February 9:40am Summary Purpose Family History No Family History Records Found Additional Source Comments REASON FOR VISIT (unrecogniz ed section and content) Medication denialestablishla b resultsMAIL PPW Care Teams (unrecognized sec tion and content) Team Status: Active Member Role Status Dates Rosario Bruno APRN WELDING PROCESS ENGINEER-C Primary Care Provider Active Team Status: Inactive Member Role Status Dates Rosario Bruno APRN WELDING PROCESS ENGINEER-C Primary Care Provider, Attending Provider Active Goals (unrecognized section and content) Goals may be documented in a n alternate section (unrecognized sect ion and content) No Status Records Found INFORMATION SOURCE (unrecogn ized section and content) DATE CREATED AUTHOR 03/15/2023 [facility] FOR RECORDS PERTAINING TO PATIENTS WHO ARE OR HAVE BEEN ENROLLED IN A CHEMICAL DEPENDENCY/SUBSTANCEABUSE PROGRAM, SOME INFORMATION MAY BE OMITTED. This clinical summary was aggregated from multiple sources. Caution should be exercised in using it in the provision of clinical care. This summary normalizes information from multiple sources, and as a consequence, information in this document may materially change the coding, format and clinical context of patient data. In addition, data may be omitted in some cases. CLINICAL DECISIONS SHOULD BE BASED ON THE PRIMARY CLINICAL RECORDS. [facility] [employer] [facility]. provides no warranty or guarantee of the accuracy or completeness of information in this document.
== END 2023-04-14 20:51 | disposition home or self-care (01) ==
LOC: SLEEP 20:50
PROVIDERS: Family Provider Family Medicine; PCP Nurse Practitioner Family; Visit Provider Nurse Practitioner Family
DX: G47.33 Obstructive sleep apnea (adult) (pediatric) (principal)
CPT/HCPCS: 95811

== ENCOUNTER 2023-12-28 09:13 | Emergency (ER) | payer OTHER, SELFPAY ==
--- OUTSIDE RECORDS SUMMARY | 2023-12-28 09:20 | XMS_ITS | CCD ---
Author Organization [facility] Care Team Providers Care Director Patient Financial Services Name Role Phone Rosario Bruno Unavailable ROSETTA Bruno Primary Care Provider ROSETTA Bruno Attending Provider [phone] Asaad, Imad Unavailable MD Sage Imbernardino Attending Provider [phone] ROSETTA Bruno Primary Care Provider MD Milena Cazares Attending Provider Asaad, Imad Admitting Unavailable Asaad, Imad Attending Unavailable Kiana Rosario Primary Care Unavailable Asaad, Imad Attending Unavailable Ameliarbacher, Rosario Primary Care Unavailable Asaad, Imad Admitting Unavailable Rohrbacher, Rosario Admitting Unavailable Rohrbacher, Rosario Primary Care Unavailable Ameliarbmariano Rosario Attending Unavailable Rohrbacher TECHNICIAN TEST SYSTEMS, Rosario Primary Care Provider FITO BRUNONIFER Primary Care Unavailable HERNAN HAMMOND Attending Unavailable AMELIARBACHERROSARIO Referring Unavailable AMELIARBACHERFITOROSARIO Primary Care Unavailable MARILU TRINH Attending Unavailable ROHRBACHER, ROSARIO Primary Care Unavailable RUSSELL BROWN Attending Unavailable AMELIARBACHERROSARIO Referring Unavailable ROHRBACHER, ROSARIO Primary Care Unavailable HERNAN HAMMOND Attending Unavailable Allergies Allergy Classification Reported Allergen(s) Allergy Type Date of Onset Reaction(s) Facility (2 sources) Lactose; Translations: [LACTOSE] Drug Allergy 10-28-2023 [facility] Repository (4 sources) Lactose Drug Allergy 10-28-2023 GI Upset [facility] (5 sources) Latex; Translations: [LATEX] Drug Allergy 11-26-2023 Itching [facility] Medications Current Medications Medication Drug Class(es) Dates Sig (Normalized) Sig (Original) Blood-Glucose Meter (Onetouch Ultra2 Meter) misc (1 source) Start: 10-24-2023 Blood-Glucose Meter (Onetouch Ultra2 Meter) misc Active 0 .ROUTE .COMPLEX 1 October 24, 2023 1:35pm USE TO TEST BLOOD GLUCOSE TWICE A DAY NEEDED FOR TYPE 2 DIABETES doxepin hydrochloride 10 mg oral capsule (5 sources) Tricyclic Antidepressant Start: 10-22-2023 take 1-2 capsules by mouth once daily at bedtime doxepin capsule 10 mg TAKE 1 TO 2 CAPSULES BY MOUTH EVERY DAY AT BEDTIME 10/22/2023 Active 0.5 ml dulaglutide 3 mg/ml auto-injector (9 sources) GLP-1 Receptor Agonist Start: 10-28-2023 inject 1.5 mg by subcutaneous injection every week Dulaglutide Active 1.5 MG SUBCUT every week 2.5 October 28, 2023 1:15pm Start: 07-23-2023 End: 07-23-2023 inject 0.75 mg by subcutaneous injection every week Dulaglutide Discontinued 0.75 MG SUBCUT every week 1.25 30 July 23, 2023 2:21pm July 23, 2023 2:32pm Start: 06-26-2023 End: 10-28-2023 Dulaglutide (Trulicity) 0.75 mg/0.5 mL pen injector Discontinued 0.75 MG SUBCUT every week October 13, 2023 11:24am October 28, 2023 1:20pm empagliflozin 25 mg oral tablet (13 sources) Sodium-Glucose Cotransporter 2 Inhibitor Start: 05-05-2023 End: 10-28-2023 empagliflozin (JARDIANCE) 25 mg tablet once daily. 10/28/2023 Active Start: 03-14-2023 take 1 tablet by marcio th every twenty-four hours Jardiance 25 MG 1 tablet Orally Once a day for 90 days Feb, Active FLUoxetine 20 mg oral capsule (8 sources) Serotonin Reuptake Inhibitor Start: 07-23-2023 End: 10-28-2023 FLUoxetine (PROZAC) 20 mg capsule once daily. 10/28/2023 Active Start: 06-25-2023 End: 07-23-2023 take 1 capsule by mouth once daily Fluoxetine (Prozac) 10 mg capsule Discontinued 10 MG PO Daily June 25, 2023 12:00am July 23, 2023 2:21pm folic acid 1 mg / vitamin b12 0.5 mg oral tablet (2 sources) Vitamin B12 Start: 05-05-2023 take 1 tablet by mouth once daily Vitamin D72-Lvrxz Acid (Foltrate) 0.5-1 mg tablet Active 1 TAB PO Daily May 05, 2023 1:00am Multivitamin (Daily Multi-Vitamin) tablet (2 sources) Start: 05-05-2023 take 1 tablet by mouth once daily Multivitamin (Daily Multi-Vitamin) tablet Active 1 TAB PO Daily May 05, 2023 1:00am Start: 05-05-2023 take 1 tablet by marcio th once daily Multivitamin (Daily Multi-Vitamin) tablet Active 1 TAB PO Daily May 05, 2023 12:00am polyethylene glycol 3350 027501 mg / potassium chloride 2970 mg / sodium bicarbonate 6740 mg / sodium chloride 5860 mg / sodium sulfate 30452 mg powder for oral solution (1 source) Osmotic Laxative Start: 03-26-2023 take 4000 mL by mouth once daily Golytely 236 GM 4000 ML Orally once daily for 1 days Mar, Active pravastatin sodium 10 mg oral tablet (12 sources) HMG-CoA Reductase Inhibitor Start: 05-05-2023 End: 10-28-2023 take 10 mg by mouth once daily Pravastatin Active 10 MG PO Daily 90 October 28, 2023 1:16pm ramipril 1.25 mg oral capsule (4 sources) Angiotensin Converting Enzyme Inhibitor ramipril (ALTACE) 1.25 mg capsule 1 capsule. Active Completed/Discontinued Medications Medication Drug Class(es) Dates Sig (Normalized) Sig (Original) amoxicillin 875 mg / clavulanate 125 mg oral tablet (1 source) Penicillin-class Antibacterial Start: 06-25-2023 End: 07-23-2023 take 1 tablet by mouth twice daily Amoxicillin-Pot Clavulanate Discontinued 1 TAB PO Twice daily 03 01June 25, 2023 12:00am July 23, 2023 2:08pm Blood-Glucose Meter (1 source) Start: 06-25-2023 End: 10-24-2023 Blood-Glucose Meter Discontinued 0 .Route 1 June 25, 2023 12:00am October 24, 2023 1:36pm Use to test blood glucose twice daily as needed Semaglutide (1 source) Start: 06-25-2023 End: 06-26-2023 Semaglutide (Ozempic) 0.25 mg or 0.5 mg (2 mg/3 mL) pen injector Discontinued 0.25 MG SUBCUT every week 1.84 June 25, 2023 12:00am June 26, 2023 2:25pm for 4 weeks Sod Picosulf-Mag Ox-Citric Ac (1 source) Start: 06-19-2023 End: 07-23-2023 take 1 dose by mouth once daily Sod Picosulf-Mag Ox-Citric Ac (Clenpiq) 10 mg-3.5 gram- 12 gram/175 mL solution Discontinued 175 ML PO Daily 350 0 June 19, 2023 12:00am July 23, 2023 2:08pm take first dose at 3PM evening before colonoscopy; 2nd dose at 9pm the night before colonoscopy Problems Problem Classification Problem Date Documented Date Episodic/Chronic Anxiety disorders (1 source) Anxiety; Translations: [Anxiety disorder, unspecified] 06-25-2023 Chronic Conditions associated with dizziness or vertigo (7 sources) Vertigo; Translations: [Dizziness and giddiness] Onset: 11-26-2023 11-26-2023 Episodic Diabetes mellitus with complications (1 source) Hyperglycemia due to diabetes mellitus; Translations: [Type 2 diabetes mellitus with hyperglycemia] 06-26-2023 Chronic Diabetes mellitus without complication (10 sources) Type 2 diabetes mellitus without complication; Translations: [Type 2 diabetes mellitus without complications] Onset: 03-14-2023 Chronic Disorders of lipid metabolism (8 sources) Mixed hyperlipidemia; Translations: [Mixed hyperlipidemia] Onset: 03-14-2023 Chronic Disorders of teeth and jaw (1 source) Infection of tooth; Translations: [Periapical abscess without sinus] 06-26-2023 Episodic Mood disorders (2 sources) Depressive disorder; Translations: [Depression] 06-26-2023 Chronic Other ear and sense organ disorders (1 source) Hearing loss of right ear; Translations: [Unspecified hearing loss, right ear] 07-23-2023 Chronic Other ear and sense organ disorders (1 source) Decreased hearing ; Translations: [Unspecified hearing loss, unspecified ear] 07-23-2023 Chronic Other ear and sense organ disorders (7 sources) Asymmetrical sensorineural hearing loss; Translations: [Sensorineural hearing loss, bilateral] Onset: 11-26-2023 11-26-2023 Chronic Other ear and sense organ disorders (1 source) Impacted cerumen; Translations: [Impacted cerumen, unspecified ear] 06-05-2023 Episodic Other ear and sense organ disorders (2 sources) Impacted cerumen in left ear; Translations: [Impacted cerumen, left ear] 11-26-2023 Episodic Other ear and sense organ disorders (7 sources) Tinnitus of left ear; Translations: [Tinnitus, left ear] Onset: 11-26-2023 11-26-2023 Episodic Other ear and sense organ disorders (1 source) Ear pressure sensation; Translations: [Other specified disorders of right ear] 11-28-2023 Episodic Other ear and sense organ disorders (1 source) Tinnitus of right ear; Translations: [Tinnitus, right ear] 12-02-2023 Episodic Other nervous system disorders (1 source) Neuropathy; Translations: [Polyneuropathy, unspecified] 06-05-2023 Chronic Other nervous system disorders (1 source) Polyneuropathy, unspecified; Translations: [Mononeuritis of unspecified site] 10-28-2023 Chronic Other nervous system disorders (1 source) Impairment of balance; Translations: [Other abnormalities of gait and mobility] 11-26-2023 Episodic Other screening for suspected conditions (not mental disorders or infectious disease) (4 sources) Encounter for screening for malignant neoplasm of prostate; Translations: [Encounter for screening for malignant neoplasm of colon] Onset: 03-14-2023 Episodic Other skin disorders (1 source) Skin lesion; Translations: [Disorder of the skin and subcutaneous tissue, unspecified] 06-04-2023 Episodic Other upper respiratory infections (1 source) Maxillary sinusitis; Translations: [Chronic maxillary sinusitis] 06-26-2023 Chronic Residual codes; unclassified (5 sources) Obstructive sleep apnea syndrome; Translations: [Obstructive sleep apnea (adult) (pediatric)] 10-22-2023 Chronic Residual codes; unclassified (2 sources) Obstructive sleep apnea (adult) (pediatric); Translations: [Obstructive sleep apnea (adult)(pediatric)] Chronic Substance-related disorders (7 sources) Nicotine dependence; Translations: [Nicotine dependence, cigarettes, uncomplicated] Chronic Unclassified (1 source) Encounter for screening for malignant neoplasm of colon; Translations: [Encounter for screening for malignant neoplasm of colon] Onset: 05-06-2023 Results Test Name Value Interpretation Reference Range Facility CNOVon 12-24-2023 CNOV Office Visit (OTAULO ) FREDDY SANDOVAL ([id number]) 1970 M Date Time Provider Department 12/24/23 1:00 PM HERNAN HAMMOND During your visit today, we recorded the following information about you: Hernan Hammond, Keo, CCC-A 12/24/2023 1:58 PM Signed [facility] [place] [facility] ADULT COCHLEAR IMPLANT CANDIDACY EVALUATION Audiometric Testing Name: Freddy Sandoval [facility]#: [id number] Date of Service: December 22, 2023 Date of : 1970 Age: [age] year old Referred by: Russell Brown CNP This patient was referred for an evaluation to determine cochlear implant candidacy. Relevant case history includes the following: HISTORY: Audiologic Audiometric testing was completed at the [facility] on 11/28/23 with the following results: asymmetric SNHL; profound SNHL in the left ear with no responses at the limits of equipment and mild to moderate high frequency hearing loss in the right ear Hearing loss: sudden hearing loss in the left ear 4 years ago; told it was due to infection; he had an infection in his tooth prior to dizziness and loss of hearing Tinnitus: tinnitus in the left ear (constant) Dizziness: Continuous balance issues since loss of hearing (notices he has difficulty balancing without visual cues, in the dark, with eyes closed, etc.); Slight room-spinning/ disoriented sensation when in loud environments. Symptoms improve upon leaving those environments. 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 He is not driving right now. His sister takes him to appointments. Occupational: semi-retired; not currently working Phone: uses speaker phone Television: increases tv volume Other Family Support: yes ; sister and friend can help him with listening practice; has smart phone that he can use for listening practice. Concerns: Denied AUDIOMETRIC TESTING HEARING AID TEST RESULTS Left Phonak Vidhya Lumity 90-UP and Right Phonak Audeo [id number] clinic hearing aids were programmed to the patient?s most recent audiogram. Devices were verified utilizing the [employer] equipment to NAL-NL 1 fitting methods. AIDED SII Meeting Target NAL-NL1 Gain RIGHT Ear CLINIC Device 93 Yes LEFT Ear CLINIC Device 14 as much as possible given Degree of Hearing loss A CNC word list was administered in the right aided and left aided condition with the Clinic's hearing aids. AIDED SPEECH TESTING The contralateral ear was Plugged and Muffed and Masked during testing. Speech perception testing was completed using recorded stimuli in quiet in the sound field at conversational level (60 nursing care partner); results were: Left SDT: could not detect that speech was present at 80 dB HL (limits of equipment) Vwqkynstc-Zpwfuku-Owir onant Words (CNC) Test Condition List # Phonemes Words Right Ear (Clinic TEJEDA) 2 95% 84% Left Ear (Clinic TEJEDA) (Right ear masked) 4 0% 0% Bilateral 1 99% 96% AZ BIO (quiet) Test Condition List # Score Right Ear 3 98% Left Ear Right ear masked (Right ear masked) 6 0% Bilateral 1 99% AZ BIO (+5 SNR) Test Condition List # Score Right Ear 4 88% Bilateral 2 84% INTERPRETATION OF RESULTS Patient reported that he could not hear any speech with the left hearing aid. He thinks he possibly heard a beeping sound from the hearing aid when speech was present. The tinnitus in his left ear increased in intensity when listening for speech. Speech perception testing suggests no measurable benefit from a hearing aid in the left ear in all conditions tested. SUMMARY AND RECOMMENDATIONS Based on the audiometric testing, Candidate Based on audiometric testing,this patient would receive more benefit from a cochlear implant in the LEFT ear than a hearing aid can provide in both speech in quiet and speech in noise. Results of speech testing today suggest that limited benefit is received from a hearing aid for speech understanding in the LEFT ear. Additionally, the patient is an audiologic candidate for bimodal stimulation. There are several benefits to binaural hearing that unilateral implantation simply will not provide. A primary advantage inclu (more content not included)... [facility]) FREDDY SANDOVAL ([id number]) 1970 M Date Time Provider Department 12/12/23 RUSSELL BROWN [facility] During your visit today, we recorded the following information about you: Jennie Rodgers 12/12/2023 10:03 AM Signed Freddy Sandoval called today. : 1970 Allergies: Lactose and Latex (home) Reason for call: Patient calling in to get scheduled as requested by Russell Brown APRN.CHARGE ENTRY CLERK. Patient has been scheduled for an Implant Eval with Dr. Hammond and also for an appointment with an distance learning coordinator. Patient advised of all appointment details. Please review patient's appointments to ensure that he has been scheduled appropriately. Patient originally requested to see Russell Brown. Contact patient if scheduled incorrectly. Thank you! Patient last appointment: 12/02/2023 The patients preferred pharmacy has been captured for this encounter? [facility] December 12, 2023 10:00 AM Russell Brown APRN.CHARGE ENTRY CLERK 12/12/2023 11:51 AM Signed appts are correct. Thank you, Russell Brown CNP Allergies As of Date: 12/12/2023 Noted Allergy Reaction LACTOSE 10/28/2023 8 - GI Upset LATEX 11/26/2023 9 - Itching Date Reviewed: 11/26/2023 Reviewed by: Elizabeth Paz LPN - Fully Assessed Reason for Visit: Appointment [186] Prescriptions as of 12/12/2023 - doxepin capsule 10 mg TAKE 1 TO 2 CAPSULES BY MOUTH EVERY DAY AT BEDTIME - TRULICITY 1.5 mg/0.5 mL pen injector INJECT 1.5 MG SUBCUTANEOUSLY ONCE A WEEK - empagliflozin (JARDIANCE) 25 mg tablet once daily. - FLUoxetine (PROZAC) 20 mg capsule once daily. - ramipril (ALTACE) 1.25 mg capsule 1 capsule. - pravastatin (PRAVACHOL) 10 mg tablet Take 10 mg by mouth once daily. 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 Please let him know that I did receive the results of his hearing test. He does presently have extreme hearing loss on the left. Basically, his left ear is not functioning in any noticeable way. As we discussed in the office he is welcome to meet with one of our distance learning coordinator to discuss cochlear implant surgery which potentially could help restore hearing in the left ear. If he is interested in seeing one of the doctors to discuss this option please assist with scheduling an appointment at the patient's earliest convenience with otology. He may also be able to discuss some of his balance difficulties with otology to see if any other further options are available to him. If he is not interested in surgical options he could consider a cross hearing aid. He basically would wear a device in both ears however all of the sound to be transmitted over to his right ear so that he can hear anything that is occurring on the left side of his body in his right ear. As we discussed during his office appointment the cross hearing aid could potentially help with his tinnitus management. If he has any questions regarding the test results or the plan please let me know. Russell Brown APRN.Elizabeth Boss LPN 12/02/2023 2:48 PM Signed Called patient twice. calls are being forwarded. No Answer. Unable to leave RAMESH Johnson Rosalynn, RN 12/12/2023 9:07 AM Signed Patient called back. Below message was relayed. Pt stated he would like to find out which one will his insurance cover. Advised to reach out to his insurance to inquire about coverage. Patient also inquiring what Russell recommends and which one will overall be better for him. Please advise. Russell Brown APRN.CNP 12/12/2023 9:30 AM Signed Please call patient. Please let him know because he is so young I would highly recommend that he sees the distance learning coordinator to discuss options including cochlear implant. They may also be able to shed further light on his dizziness. I have placed a consultation, please assist with an appointment at the patient's earliest convenience. Thank you, HUMBERTO Dumont Kristin R, APRN.HUMBERTO 12/12/2023 11:50 AM Signed Thank you, Russell Brown CNP Allergies As of Date: 12/02/2023 Noted Allergy Reaction LACTOSE 10/28/2023 8 - GI Upset LATEX 11/26/2023 9 - Itching Date Reviewed: 11/26/2023 Reviewed by: Elizabeth Paz LPN - Fully Assessed Reason for Visit: Results [95] Primary Visit Diagnosis:Asymmetric sensorineural deafness [H90.3] Other Visit Diagnosis:Tinnitus, right ear [H93.11] Order(s):CONSULT TO ENT [9008] Order #: [id number]: 1 FUTURE CONSULT TO ENT [9007] Order #: [id number]: 1 FUTURE Prescriptions as of 12/12/2023 - doxepin capsule 10 mg TAKE 1 TO 2 CAPSULES BY MOUTH EVERY DAY AT BEDTIME - TRULICITY 1.5 mg/0.5 mL pen injector INJECT 1.5 MG SUBCUTANEOUSLY ONCE A WEEK - empagliflozin (JARDIANCE) 25 mg tablet once daily. - FLUoxetine (PROZAC) 20 mg capsule once daily. - ramipril (ALTACE) 1.25 mg capsule 1 capsule. - pravastatin (PRAVACHOL) 10 mg tablet Take 10 mg by mouth once daily. 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] 11/26/2023 Letter Text Encounter Status:Closed by RUSSELL BROWN on 12/12/23 [facility] CNOVon 11-28-2023 CNOV Office Visit (CDISMN ) FREDDY SANDOVAL ([id number]) 1970 M Date Time Provider Department 11/28/23 11:30 AM [facility] During your visit today, we recorded the following information about you: Marilu Trinh AUD 11/28/2023 4:39 PM Signed [facility] [place] [facility] Department Section of Audiology AUDIOLOGIC EVALUATION REPORT Name: Freddy Sandoval [facility]#: [id number] Date of Service: 11/28/2023 Date of : 1970 Age: [age] year old Referred by: Self Referred for: Evaluation of suspected change in hearing, tinnitus, or balance. Referral documented: No referral on file Patient's major complaints: Reduced hearing in the left ear, Tinnitus in the left ear, Dizziness/vertigo/imba alyssa, Pressure/fullness in the right ear Freddy Sandoval was seen for a recheck audiologic evaluation. Previous audiologic evaluation was scheduled yesterday 11/26/2023. However, testing was deferred due impacted cerumen in the left ear. Cerumen removed by ENT Russell Brown CNP on 11/26/2023. Known history of sudden hearing loss in the left ear 4 years ago accompanied by vertigo, nausea and vomiting following tooth infection. Today the patient reported that MRI conducted at onset of sudden hearing loss in the left ear was inconclusive. Patient was reportedly later told that his tooth infection had gone to his ear and wiped out his hearing . Additionally, he reported the following: Hearing loss: No hearing in left ear since sudden loss 4 years ago. Denied perceived hearing loss in the right ear. Tinnitus: Constant tinnitus left ear; denied pulsatile Dizziness: Continuous balance issues since loss of hearing (notices he has difficulty balancing without visual cues); Slight room-spinning/ disoriented sensation when in loud environments. Symptoms improve upon leaving those environments. Otalgia: Denied Otorrhea:Denied Aural Pressure: Intermittent aural pressure/fullness in the right ear that he relates to ongoing sinus issues. 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 Family History of Hearing Loss: Mother at an older age. History of ear infections: History of ear infections as a child Otologic Surgical History: Denied History of chemotherapy/ radiation: Denied Head trauma: History of 5-6 concussions throughout his lifetime. Significant medical history: Type 2 diabetes. Hearing aids: Denied history of device use. Refer to audiogram under Procedures tab for results. IMPRESSIONS RIGHT EAR: Sensorineural hearing loss LEFT EAR: Sensorineural hearing loss AUDIOLOGIC EVALUATION Following is a brief interpretation of the obtained findings from the audiologic evaluation. Refer to the Auditory Test Record for complete audiometric results. The patient was counseled about the test findings and appropriate audiologic recommendations were made. SUMMARY: Audiogram can be viewed under Procedures tab. OTOSCOPY RIGHT EAR: Otoscopic inspection revealed ear canal was clear. LEFT EAR: Otoscopic inspection revealed ear canal was clear. TYMPANOMETRY Description of procedure: This test is an objective evaluation of middle ear function. CPT code: 56658 RIGHT EAR: Negative (-184 daPa) pressure with reduced TM compliance (mobility). LEFT EAR: Negative (-120 daPa) pressure with reduced TM compliance (mobility). ACOUSTIC REFLEXES Description of procedure: This test is an objective measure of auditory and facial nerve pathways. CPT code: 29443, 77809 RIGHT EAR PROBE EAR: (ipsi right stimulus ear; contralateral left stimulus ear): Acoustic Reflex Pattern Did not test. Acoustic Reflex Decay (left stimulus ear): Did not test. LEFT EAR PROBE EAR: (ipsi left stimulus ear; contralateral right stimulus ear): Acoustic Reflex Pattern Did not test. Acoustic Reflex Decay (right stimulus ear):Did not test. PURE TONE AUDIOMETRY AND SPEECH TESTING Description of procedure: This test is an objective evaluation hearing sensitivity via air and bone conduction and speech recognition testing. CPT code:25818 RIGHT EAR: Hearing Sensitivity: WNL 250-2000 Hz sloping to moderately severe SNHL at 8000 Hz. Word Recognition Score: Excellent (100%). WRS is consistent with hearing sensitivity. Words were presented at 55 dB HL approximates (45-55 dB HL) intensity level for average conversational speech.The NU-6 Ordered by Difficulty Word List (10 words) was used for testing. LEFT EAR: Hearing Sensitivity: No response at the levels of the equipment 125-8000 Hz. Word Recognition Score: Could not test due to degree of hearing loss. RECOMMENDATIONS * Continue medical follow-up with Russell Brown CNP. * Consider otologic referral to Otology for medical evaluation. * The patient was counseled regarding the need (more content not included)... Normal [facility] HEARING TEST/AUDIOGRAMon [facility] CNOVon 11-26-2023 CNOV Office Visit (OTOLCC ) FREDDY SANDOVAL ([id number]) 1970 M Date Time Provider Department 11/26/23 8:50 AM [facility] During your visit today, we recorded the following information about you: Pulse Respiration 95/minute 17/minute Russell Brown, FURNACE PUNCHER.CHARGE ENTRY CLERK 11/26/2023 3:37 PM Signed Mr. Sandoval is a 53 year old male who comes in for evaluation of hearing loss. Apparently 4 years ago he had sudden onset of hearing loss in the left ear. This was accompanied by tinnitus and vertigo. He was evaluated at that time at an outside vice president of talent acquisition and ENT office. He did have MRI which was negative for acoustic neuroma. There was significant infection from a dental infection that traveled to the ear. Unfortunately his hearing was basically absent in the left ear at that time. He was advised to obtain a cross hearing aid or cochlear implant however at the time this was not covered by his insurance so he has been not using any sort of amplification since that time for the left ear. His infection in the tooth eventually resolved but he isn't sure about the infection in the left ear. He noticed that he continues to have significant difficulties with his balance especially in a dark environment. He continues to have significant left-sided tinnitus. 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 He was referred to audiology for increased hearing loss in both ears. He was seen today and unfortunately noted to have significant cerumen impaction in the left ear. He was advised to have his ears cleaned and have repeat hearing testing once the earwax has been removed. He denies any other significant head or neck complaints at this time Past history : No past medical history on file. Current medication: No current outpatient medications on file. No current facility-administered medications for this visit. Allergies: ALLERGIES Allergen Reactions Lactose GI Upset Latex Itching Social history: Social History Tobacco Use Smoking status: Every Day Types: Cigarettes Smokeless tobacco: Current Types: Snuff Vaping Use Vaping status: Some Days Substances: Flavoring Devices: Disposable Substance Use Topics Alcohol use: Not Currently Drug use: Yes Types: Marijuana Comment: for sleep Family history: No family history on file. There are no exam notes on file for this visit. Physical exam: General Appearance: 53 year old male is alert, oriented, not in acute distress. Hearing is grossly normal, voice is clear. There is no tenderness with percussion over the paranasal sinuses. Eyes: PEERLA, extraocular movements are full. Neck: No masses palpated. Thyroid is not enlarged. Trachea is in the midline. Ears: Right ear canal is clean. Left ear canal has significant cerumen impaction which was removed with suction and alligator forceps. Both TMs are intact and mobile. Schulz is lateralizing to the right. Rinne is positive bilaterally. Air conduction is greater on the right than the left. Impression: Asymmetric left sensorineural hearing loss with history of sudden hearing loss in the remote past. Left-sided tinnitus. Left cerumen impaction. Plan of management: Left ear canal was cleaned. He is advised to have hearing testing. Based on hearing test we will discuss further options including possible consultation to otology to discuss cochlear implant versus cross hearing aid. 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 - FLUoxetine (PROZAC) 20 mg capsule once daily. - ramipril (ALTACE) 1.25 mg capsule 1 capsule. - pravastatin (PRAVACHOL) 10 mg tablet Take 10 mg by mouth once daily. 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 Office Visit (OTAULO ) FREDDY SANDOVAL ([id number]) 1970 M Date Time Provider Department 11/26/23 8:00 AM HERNAN HAMMOND During your visit today, we recorded the following information about you: Hernan Hammond, Keo, CCC-A 11/26/2023 8:19 AM Signed [facility] [place] [facility] Section of Audiology AUDIOLOGIC EVALUATION REPORT Name: Freddy Sandoval [facility]#: [id number] Date of Service: 11/26/2023 Date of : 1970 Age: [age] year old Referred by: Rosario Bruno, CHARGE ENTRY CLERK [address] [address] Referred for: Evaluation of suspected change in hearing, tinnitus, or balance. Referral documented: In an order in [facility] Patient's major complaints: Reduced hearing in the left ear; tinnitus, sudden hearing loss and vertigo 4 years ago (noted change in hearing and vertigo after tooth infection); MRI ruled out acoustic neuroma at the time and hearing test indicated no hearing in the left ear He could not afford treatment (CROS, Cochlear implant) at the time as it was not covered by his insurance. 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 He denied ear pain (0/10 in both ears), otorrhea, history of ear surgery, and chemotherapy/radiation . Freddy Sandoval was seen for an initial audiologic evaluation. Refer to audiogram under Procedures tab for results. Risk of Falls Documentation for over 65 years old: Does not apply IMPRESSIONS RIGHT EAR: Did not test LEFT EAR: Did not test due to cerumen impaction AUDIOLOGIC EVALUATION Following is a brief interpretation of the obtained findings from the audiologic evaluation. Refer to the Auditory Test Record for complete audiometric results. The patient was counseled about the test findings and appropriate audiologic recommendations were made. SUMMARY: Audiogram can be viewed under Procedures tab. OTOSCOPY RIGHT EAR: Otoscopic inspection revealed ear canal was clear but the TM appeared to be dull/parker. LEFT EAR: Otoscopic inspection revealed ear canal has significant amount of cerumen which appeared to be occluding preventing visualization of the tympanic membrane. TYMPANOMETRY Description of procedure: This test is an objective evaluation of middle ear function. CPT code: 99107 RIGHT EAR: Flat with minimal TM mobility consistent with possible presence of ME fluid. LEFT EAR: Reduced ear canal volume and flat tympanogram consistent with impacted cerumen. Discontinued testing after tympanometry. RECOMMENDATIONS * Continue medical follow-up with ENT for cerumen management. * Test hearing after cerumen management Keo Martinez, [facility] Abbrev- iation Definition Degree of hearing sensitivity dB range WNL within normal limits WNL 0 - 20 SNHL sensorineural hearing loss Mild 20-40 CHL conductive hearing loss Moderate 40-55 MHL mixed hearing loss Moderately-Severe 55-70 WRS word recognition score Severe 70-90 ME middle ear Profound 90 + TM tympanic membrane Referring Provider: ROSARIO BRUNO [[id number]] Allergies As of Date: 11/26/2023 (Not on File) Date Reviewed: Never Reviewed Primary Visit Diagnosis:Impacted cerumen of left ear [H61.22] Other Visit Diagnoses:Left-sided tinnitus [H93.12] Vertigo [R42] Order(s):HEARING TEST/AUDIOGRAM [[id number]] Order #: [id number]: 1 Problem List As Of Date: 11/26/2023 (None) Encounter Status:Closed by HERNAN HAMMOND on 11/26/23 [facility] Capillary blood glucose amy urement by glucometer (mass/volume)Ordered By: Milena Cazares on 11-04-2023 Glucose [Mass/Vol] 183 mg/dL Normal [facility] Comment on above: Random Glucose Refer ence Range is dependent on time and content of last meal. Glucose of more than 200 mg/dL in a nonstressed, ambulatory subject supports the diagnosis of Diabetes Mellitus. Result Comment: [place] om Glucose Reference Range is dependent on time and content of last meal. Glucose of more than 200 mg/dL in a nonstressed, ambulatory subject supports the diagnosis of Diabetes Mellitus. PERFORMED BY: [place] [address] PATHOLOGIST SANDER OPERATOR PADMA MONTOYA M.D. Performed By: #### G LULS #### Point of Care testing , Pathology Request for Lab Co rpon 11-04-2023 Pathology Request for Lab Amy Normal [facility] Comment on above: Order Comment: PATHO LOGY GI SPECIMEN Result Comment: See report. Scanned copy available in EMR. PERFORMED BY: [place] [address] PATHOLOGIST SANDER OPERATOR PADMA MONTOYA M.D. Performed By: #### P ATH TO [facility] #### [address] HbA1c HPLC (Bld) [Mass fract ion]on 10-28-2023 HbA1c (Bld) [Mass fraction] 9.2 % [facility] Capillary blood glucose amy urement by glucometer (mass/volume)Ordered By: Milena Cazares on 05-06-2023 Glucose [Mass/Vol] 170 mg/dL Normal [facility] Comment on above: Random Glucose Refer ence Range is dependent on time and content of last meal. Glucose of more than 200 mg/dL in a nonstressed, ambulatory subject supports the diagnosis of Diabetes Mellitus. Result Comment: [place] om Glucose Reference Range is dependent on time and content of last meal. Glucose of more than 200 mg/dL in a nonstressed, ambulatory subject supports the diagnosis of Diabetes Mellitus. PERFORMED BY: [facility] [place] [address] PATHOLOGIST SANDER OPERATOR PADMA MONTOYA M.D. Performed By: #### G SAUMYA #### Point of Care testing , Pito 05-06-2023 L Specimen: [id number] Received: 05/06/23 Status: ROSENDO Req Num: [id number] Spec Type: Surgical Subm Dr: Milena Cazares MD Tissues: A Colon Biopsy (RECTAL POLYP) Procedures: HE/2, Gross/Micro L4 Age/ Patient Sex Location Account Attending Physician Freddy Sandoval 53/M [id number] Milena Cazares MD SPEC NUM: [id number] RECD: 05/06/23 STATUS: ROSENDO MOORE NUM: [id number] CRISTOFER: 05/06/23 DR: Milena Cazares MD ENTERED: 05/06/23 [facility] DR: SPEC TYPE: Surgical DEPT: S ORDERED: HE/2, Gross/Micro L4 ORDERED: HE/2, Gross/Micro L4 Pathological Diagnosis Polyp, Rectum, Biopsy: Hyperplastic Polyp. Clinical Information Screening Gross Description Received in formalin labeled with the patient's name, date of and rectal polyp is a 1.3 x 1.0 x 0.2 cm aggregate of hays soft tissue and vegetative material. Entirely submitted in one cassette labeled A1. CPT Codes 42234 ---- ---- Specimen: [id number] Received: 05/06/23 Status: ROSENDO Moore Num: [id number] Spec Type: Surgical Subm Dr: Milena Cazares MD Tissues: A Colon Biopsy (RECTAL POLYP) Procedures: HE/2, Gross/Micro L4 ---- Patient: Freddy Sandoval [id number] (Continued) ---- Signed (signature on file) Morgan Cristina MD 05/08/232235 Normal [facility] A1C with Estimated Average G nickikayley 03-14-2023 Glucose [Mass/Vol] 217 mg/dL Normal [facility] Comment on above: Order Comment: Reaso n for Exam Type 2 diabetes mellitus without complication, without long- Result Comment: PERF ORMED BY: [place] [address] PATHOLOGIST SANDER OPERATOR PADMA MONTOYA M.D. Performed By: #### U RMACRERAT, CMP, LIPID, PSAS, A1C WT eA, CBC #### [facility] [address] Alanine aminotransferase [En zymatic activity/volume] in Serum or PlasmaOrdered By: Rosario Bruno on 03-14-2023 ALT [Catalytic activity/Vol] 17 U/L Normal 7-52 [facility] Comment on above: Order Comment: Reaso n for Exam Type 2 diabetes mellitus without complication, without long- Performed By: #### U RMACRERAT, CMP, LIPID, PSAS, A1C WTH eA, CBC #### [facility] [address] [id number] [place] Albumin [Mass/volume] in Ser um or Plasma by Bromocresol green (BCG) dye binding methoOrdered By: Rosario Bruno on 03-14-2023 Albumin BCG dye [Mass/Vol] 4.1 g/dL 3.5-5.7 [facility] Alkaline phosphatase [Enzyma tic activity/volume] in Serum or PlasmaOrdered By: Rosario Bruno on 03-14-2023 ALP [Catalytic activity/Vol] 75 U/L Normal 34-104 [facility] Comment on above: Order Comment: Reaso n for Exam Type 2 diabetes mellitus without complication, without long- Performed By: #### U RMACRERAT, CMP, LIPID, PSAS, A1C WTH eA, CBC #### [facility] [address] [place] [address] [place] Aspartate aminotransferase [ Enzymatic activity/volume] in Serum or PlasmaOrdered By: Rosario Bruno on 03-14-2023 AST [Catalytic activity/Vol] 18 U/L Normal 13-39 [facility] Comment on above: Order Comment: Reaso n for Exam Type 2 diabetes mellitus without complication, without long- Performed By: #### U RMACRERAT, CMP, LIPID, PSAS, A1C WTH eA, CBC #### [facility] [address] [id number] [place] Automated basophil %Ordered By: Rosario Bruno on 03-14-2023 Basophils/100 WBC (Bld) 1.3 % Normal . [facility] Comment on above: Order Comment: Reaso n for Exam Type 2 diabetes mellitus without complication, without long- Performed By: #### U RMACRERAT, CMP, LIPID, PSAS, A1C WTH eA, CBC #### [facility] [address] [id number] [place] Automated basophil countOrde red By: Rosario Bruno on 03-14-2023 Basophils (Bld) [#/Vol] 0.1 10*3/uL Normal 0.0-0.2 [facility] Comment on above: Order Comment: Reaso n for Exam Type 2 diabetes mellitus without complication, without long- Result Comment: PERF ORMED BY: [place] [address] PATHOLOGIST SANDER OPERATOR PADMA MONTOYA M.D. Performed By: #### U RMACRERAT, CMP, LIPID, PSAS, A1C WTH eA, CBC #### [facility] [address] [place] [address] Automated blood monocyte cou ntOrdered By: Rosario Bruno on 03-14-2023 Monocytes (Bld) [#/Vol] 0.3 10*3/uL Normal 0.0-0.8 [facility] Comment on above: Order Comment: Reaso n for Exam Type 2 diabetes mellitus without complication, without long- Performed By: #### U RMACRERAT, CMP, LIPID, PSAS, A1C WTH eA, CBC #### [facility] [address] [place] [address] Automated eosinophil %Ordere d By: Rosario Bruno on 03-14-2023 Eosinophils/100 WBC (Bld) 3.8 % Normal . [facility] Comment on above: Order Comment: Reaso n for Exam Type 2 diabetes mellitus without complication, without long- Performed By: #### U RMACRERAT, CMP, LIPID, PSAS, A1C WTH eA, CBC #### [facility] [address] Automated eosinophil countOr dered By: Rosario Bruno on 03-14-2023 Eosinophils (Bld) [#/Vol] 0.2 10*3/uL Normal 0.0-0.45 [facility] Comment on above: Order Comment: Reaso n for Exam Type 2 diabetes mellitus without complication, without long- Performed By: #### U RMACRERAT, CMP, LIPID, PSAS, A1C WTH eA, CBC #### [facility] [address] [place] [address] [place] Automated monocyte %Ordered By: Rosario Bruno on 03-14-2023 Monocytes/100 WBC (Bld) 6.2 % Normal . F [facility] Comment on above: Order Comment: Reaso n for Exam Type 2 diabetes mellitus without complication, without long- Performed By: #### U RMACRERAT, CMP, LIPID, PSAS, A1C WTH eA, CBC #### [facility] [address] [id number] [facility] Automated neutrophil %Ordere d By: Rosario Bruno on 03-14-2023 Neutrophils/100 WBC (Bld) 61.6 % Normal . [facility] Comment on above: Order Comment: Reaso n for Exam Type 2 diabetes mellitus without complication, without long- Performed By: #### U RMACRERAT, CMP, LIPID, PSAS, A1C WTH eA, CBC #### [facility] [address] [place] [address] [place] Bilirubin.total [Mass/volume ] in Serum or PlasmaOrdered By: Rosario Bruno on 03-14-2023 Bilirubin [Mass/Vol] 0.7 mg/dL Normal 0.3-1.0 [facility] Comment on above: Order Comment: Reaso n for Exam Type 2 diabetes mellitus without complication, without long- Performed By: #### U RMACRERAT, CMP, LIPID, PSAS, A1C WTH eA, CBC #### [facility] [address] [phone] [place] Calcium [Mass/volume] in Ser um or PlasmaOrdered By: Rosario Bruno on 03-14-2023 Calcium [Mass/Vol] 9.1 mg/dL Normal 8.6-10.3 [facility] Comment on above: Order Comment: Reaso n for Exam Type 2 diabetes mellitus without complication, without long- Performed By: #### U RMACRERAT, CMP, LIPID, PSAS, A1C WTH eA, CBC #### [facility] [address] [phone] [place] Carbon dioxide, total [Moles /volume] in Serum or PlasmaOrdered By: Rosario Bruno on 03-14-2023 CO2 [Moles/Vol] 28.5 mmol/L Normal 21.0-31.0 [facility] Comment on above: Order Comment: Reaso n for Exam Type 2 diabetes mellitus without complication, without long- Performed By: #### U RMACRERAT, CMP, LIPID, PSAS, A1C WTH eA, CBC #### [facility] [address] [phone] [place] Chloride [Moles/volume] in S robert or PlasmaOrdered By: Rosario Bruno on 03-14-2023 Chloride [Moles/Vol] 105 mmol/L Normal 98-107 [facility] Comment on above: Order Comment: Reaso n for Exam Type 2 diabetes mellitus without complication, without long- Performed By: #### U RMACRERAT, CMP, LIPID, PSAS, A1C WT eA, CBC #### [facility] [address] [phone] [place] Cholesterol [Mass/volume] in Serum or PlasmaOrdered By: Rosario Bruno on 03-14-2023 Cholesterol [Mass/Vol] 133 mg/dL Low 140-200 [facility] Comment on above: Chol less than 200 m g/dl low riskChol 201-239 mg/dl borderline riskChol 240 mg/dl and greater high risk Order Comment: Reaso n for Exam Type 2 diabetes mellitus without complication, without long- Result Comment: Chol less than 200 mg/dl low risk Chol 201-239 mg/dl borderline risk Chol 240 mg/dl and greater high risk Performed By: #### U RMACRERAT, CMP, LIPID, PSAS, A1C WTH eA, CBC #### [facility] [address] [place] [address] [place] Cholesterol in LDL Calc [Mas s/Vol]Ordered By: Rosario Bruno on 03-14-2023 Cholesterol in LDL [Mass/Vol] 79 mg/dL 0-100 [facility] Comment on above: LDL ATP III CLASSIFI CATIONLDL less than 100 mg/dL OptimalLDL 100-129 mg/dL Near or above optimalLDL 130-159 mg/dL Borderline highLDL 160-189 mg/dL HighLDL greater than 189 mg/dL Very high Cholesterol in VLDL Calc [Ma ss/Vol]Ordered By: Rosario Bruno on 03-14-2023 Cholesterol in VLDL [Mass/Vol] 19 mg/dL [facility] Complete Blood Count Auto Di ffon 03-14-2023 Mean Corpuscular HGB Conc 34.3 g/dL Normal 32.5-35.6 [facility] Comment on above: Order Comment: Reaso n for Exam Type 2 diabetes mellitus without complication, without long- Performed By: #### U RMACRERAT, CMP, LIPID, PSAS, A1C WTH eA, CBC #### [facility] [address] NRBC% 0.2 /100{WBC} Normal 0-0.5 [facility] Comment on above: Order Comment: Reaso n for Exam Type 2 diabetes mellitus without complication, without long- Performed By: #### U RMACRERAT, CMP, LIPID, PSAS, A1C WTH eA, CBC #### [facility] [address] Comprehensive Metabolic Pane pito 03-14-2023 Albumin [Mass/Vol] 4.1 g/dL Normal 3.5-5.7 [facility] Comment on above: Order Comment: Reaso n for Exam Type 2 diabetes mellitus without complication, without long- Performed By: #### U RMACRERAT, CMP, LIPID, PSAS, A1C WTH eA, CBC #### [facility] [address] [place] [address] [place] GFR/1.73 sq M.predicted MDRD (S/P/Bld) [Vol rate/Area] mL/min/{1.73_m2} Normal [facility] Comment on above: Order Comment: Reaso n for Exam Type 2 diabetes mellitus without complication, without long- Performed By: #### U RMACRERAT, CMP, LIPID, PSAS, A1C WTH eA, CBC #### [facility] [address] [place] [phone] [place] Creatinine [Mass/volume] in Serum or PlasmaOrdered By: Rosario Bruno on 03-14-2023 Creatinine [Mass/Vol] 1.03 mg/dL Normal 0.70-1.30 [facility] Comment on above: Order Comment: Reaso n for Exam Type 2 diabetes mellitus without complication, without long- Performed By: #### U RMACRERAT, CMP, LIPID, PSAS, A1C WTH eA, CBC #### [facility] [address] [place] [phone] [place] Creatinine [Mass/volume] in UrineOrdered By: Rosario Bruno on 03-14-2023 Creatinine (U) [Mass/Vol] 80.0 mg/dL 14.0-26.0 [facility] Erythrocyte distribution wid th [Ratio] by Automated countOrdered By: Rosario Bruno on 03-14-2023 Erythrocyte distribution width (RBC) [Ratio] 12.6 % Normal 12.0-14.8 [facility] Comment on above: Order Comment: Reaso n for Exam Type 2 diabetes mellitus without complication, without long- Performed By: #### U RMACRERAT, CMP, LIPID, PSAS, A1C WTH eA, CBC #### [facility] [address] [place] [phone] [place] Erythrocytes [#/volume] in B lood by Automated countOrdered By: Rosario Bruno on 03-14-2023 RBC (Bld) [#/Vol] 4.51 10*6/uL Normal 3.90-5.60 [facility] Comment on above: Order Comment: Reaso n for Exam Type 2 diabetes mellitus without complication, without long- Performed By: #### U RMACRERAT, CMP, LIPID, PSAS, A1C WTH eA, CBC #### [facility] [address] [place] [phone] [place] Glucose [Mass/volume] in Ser um or PlasmaOrdered By: Rosario Bruno on 03-14-2023 Glucose [Mass/Vol] 175 mg/dL High 70-100 [facility] Comment on above: ADA recommended refe rence rangeRandom Glucose Reference Range is dependent on time and content of last meal. Glucose of more than 200 mg/dL in a nonstressed, ambulatory subject supports the diagnosis of Diabetes Mellitus. Order Comment: Reaso n for Exam Type 2 diabetes mellitus without complication, without long- Result Comment: [facility] Glucose Reference Range is dependent on time and content of last meal. Glucose of more than 200 mg/dL in a nonstressed, ambulatory subject supports the diagnosis of Diabetes Mellitus. ADA recommended reference range Performed By: #### U RMACRERAT, CMP, LIPID, PSAS, A1C WTH eA, CBC #### [facility] [address] Glucose mean value [Mass/vol ume] in Blood Estimated from glycated hemoglobinOrdered By: Rosario Bruno on 03-14-2023 Average glucose Estimated from glycated hemoglobin (Bld) [Mass/Vol] 217 mg/dL [facility] Hematocrit [Volume Fraction] of Blood by Automated countOrdered By: Rosario Bruno on 03-14-2023 Hematocrit (Bld) [Volume fraction] 40.7 % Normal 38.8-50.0 [facility] Comment on above: Order Comment: Reaso n for Exam Type 2 diabetes mellitus without complication, without long- Performed By: #### U RMACRERAT, CMP, LIPID, PSAS, A1C WTH eA, CBC #### [facility] [address] [place] [address] [place] Hemoglobin A1c percentageOrd ered By: Rosario Bruno on 03-14-2023 HbA1c (Bld) [Mass fraction] 9.2 % High 4.3-5.6 [facility] Comment on above: Increased risk for d iabetes: 5.7 - 6.4diabetes: >6.4glycemic control for adults with diabetes: <7.0 Order Comment: Reaso n for Exam Type 2 diabetes mellitus without complication, without long- Result Comment: Incr eased risk for diabetes: 5.7 - 6.4 diabetes: >6.4 glycemic control for adults with diabetes: <7.0 Performed By: #### U RMACRERAT, CMP, LIPID, PSAS, A1C WTH eA, CBC #### [facility] [address] [place] [id number] [place] Hemoglobin [Mass/volume] in BloodOrdered By: Rosario Bruno on 03-14-2023 Hemoglobin (Bld) [Mass/Vol] 14.0 g/dL Normal 13.0-17.0 [facility] Comment on above: Order Comment: Reaso n for Exam Type 2 diabetes mellitus without complication, without long- Performed By: #### U RMACRERAT, CMP, LIPID, PSAS, A1C WTH eA, CBC #### [facility] [address] Leukocytes [#/volume] correc salazar for nucleated erythrocytes in Blood by Automated counOrdered By: Rosario Bruno on 03-14-2023 WBC corrected for nucl RBC Auto (Bld) [#/Vol] 5.5 10*3/uL 4.1-10.5 [facility] Leukocytes [#/volume] in Blo od by Automated countOrdered By: Rosario Bruno on 03-14-2023 WBC (Bld) [#/Vol] 5.5 10*3/uL Normal 4.1-10.5 [facility] Comment on above: Order Comment: Reaso n for Exam Type 2 diabetes mellitus without complication, without long- Performed By: #### U RMACRERAT, CMP, LIPID, PSAS, A1C WTH eA, CBC #### [facility] [address] Lipid Panelon 03-14-2023 LDL Cholesterol,Calculated 79 mg/dL Normal 0-100 [facility] Comment on above: Order Comment: Reaso n for Exam Type 2 diabetes mellitus without complication, without long- Result Comment: LDL ATP III CLASSIFICATION LDL less than 100 mg/dL Optimal LDL 100-129 mg/dL Near or above optimal LDL 130-159 mg/dL Borderline high LDL 160-189 mg/dL High LDL greater than 189 mg/dL Very high Performed By: #### U RMACRERAT, CMP, LIPID, PSAS, A1C WTH eA, CBC #### [facility] [address] Triglyceride w/Reflex 97 mg/dL Normal 0-149 [facility] Comment on above: Order Comment: Reaso n for Exam Type 2 diabetes mellitus without complication, without long- Result Comment: TRIG ATP III CLASSIFICATION TRIG less than 150 mg/dL Normal TRIG 150-199 mg/dL Borderline high TRIG 200-500 mg/dL High TRIG greater than 500 mg/dL Very high Standard traceable to the Center for Disease Conrtrol and Prevention (CDC) test method. Performed By: #### U RMACRERAT, CMP, LIPID, PSAS, A1C WTH eA, CBC #### [address] VLDL CHOLESTEROL 19 mg/dL Normal [facility] Comment on above: Order Comment: Reaso n for Exam Type 2 diabetes mellitus without complication, without long- Performed By: #### U RMACRERAT, CMP, LIPID, PSAS, A1C WTH eA, CBC #### [address] Lymphocytes [#/volume] in Bl ood by Automated countOrdered By: Rosario Bruno on 03-14-2023 Lymphocytes (Bld) [#/Vol] 1.5 10*3/uL Normal 1.00-4.8 [facility] Comment on above: Order Comment: Reaso n for Exam Type 2 diabetes mellitus without complication, without long- Performed By: #### U RMACRERAT, CMP, LIPID, PSAS, A1C WTH eA, CBC #### [address] Lymphocytes/100 leukocytes i n Blood by Automated countOrdered By: Rosario Bruno on 03-14-2023 Lymphocytes/100 WBC (Bld) 27.1 % Normal . [facility] Comment on above: Order Comment: Reaso n for Exam Type 2 diabetes mellitus without complication, without long- Performed By: #### U RMACRERAT, CMP, LIPID, PSAS, A1C WTH eA, CBC #### [place] [address] [place] MCH [Entitic mass] by Automa salazar countOrdered By: Rosario Bruno on 03-14-2023 MCH (RBC) [Entitic mass] 31.0 pg Normal 27.5-35.2 [facility] Comment on above: Order Comment: Reaso n for Exam Type 2 diabetes mellitus without complication, without long- Performed By: #### U RMACRERAT, CMP, LIPID, PSAS, A1C WTH eA, CBC #### [facility] [address] MCHC Auto (RBC) [Mass/Vol]Or dered By: Rosario Bruno on 03-14-2023 MCHC (RBC) [Mass/Vol] 34.3 g/dL 32.5-35.6 [facility] MCV [Entitic volume] by Auto mated countOrdered By: Rosario Bruno on 03-14-2023 MCV (RBC) [Entitic vol] 90.4 fL Normal 83.5-101 F [facility] Comment on above: Order Comment: Reaso n for Exam Type 2 diabetes mellitus without complication, without long- Performed By: #### U RMACRERAT, CMP, LIPID, PSAS, A1C WTH eA, CBC #### [facility] [address] [place] [address] [place] MicroAlb Creat Ratio,Uon Creatinine, Urine (Random) 80.0 mg/dL High 14.0-26.0 [facility] Comment on above: Order Comment: Reaso n for Exam Type 2 diabetes mellitus without complication, without long- Performed By: #### U RMACRERAT, CMP, LIPID, PSAS, A1C WTH eA, CBC #### [facility] [address] Microalbumin/Creatinine Ratio Not performed Normal 0.0-30.0 [facility] Comment on above: Order Comment: Reaso n for Exam Type 2 diabetes mellitus without complication, without long- Result Comment: PERF ORMED BY: [place] [address] PATHOLOGIST SANDER OPERATOR PADMA MONTOYA M.D. Performed By: #### U RMACRERAT, CMP, LIPID, PSAS, A1C WTH eA, CBC #### [facility] [address] Microalbumin [Mass/volume] i n UrineOrdered By: Rosario Bruno on 03-14-2023 Albumin DL <= 20 mg/L (U) [Mass/Vol] mg/dL Normal 0.0-1.8 [facility] Comment on above: Order Comment: Reaso n for Exam Type 2 diabetes mellitus without complication, without long- Performed By: #### U RMACRERAT, CMP, LIPID, PSAS, A1C WTH eA, CBC #### [facility] [address] [place] [address] Neutrophils [#/volume] in Bl ood by Automated countOrdered By: Rosario Bruno on 03-14-2023 Neutrophils (Bld) [#/Vol] 3.4 10*3/uL Normal 1.8-7.7 [facility] Comment on above: Order Comment: Reaso n for Exam Type 2 diabetes mellitus without complication, without long- Performed By: #### U RMACRERAT, CMP, LIPID, PSAS, A1C WT eA, CBC #### [facility] [address] [place] [address] No Panel InformationOrdered By: Rosario Bruno on 03-14-2023 Estimated GFR (CKD-EPI) > 60.0 mL/Min [facility] Creatinine Clearance (Chem N/A [facility] Nucleated erythrocytes [Pres ence] in Blood by Automated countOrdered By: Rosario Bruno on 03-14-2023 Nucleated RBC Auto Ql (Bld) 0.2 /100{WBC} 0-0.5 [facility] PSA Screen (Yearly Only)on PSA Screen (Yearly Only) 0.120 ng/mL Normal 0.000-4.00 0 [facility] Comment on above: Order Comment: Reaso n for Exam Screening for prostate cancer Result Comment: Larisa farooq tumor marker results determined by assays using different manufacturers or methods may not be comparable. [facility] web ui developer and method: [employer] UNICEL DXI, CHEMILUMINESCENT IMMUNOASSAY. PERFORMED BY: [place] [address] PATHOLOGIST SANDER OPERATOR PADMA MONTOYA M.D. Performed By: #### U RMACRERAT, CMP, LIPID, PSAS, A1C WTH eA, CBC #### [facility] [address] [place] [address] [place] Platelet mean volume [Entiti c volume] in Blood by Automated countOrdered By: Rosario Bruno on 03-14-2023 Platelet mean volume (Bld) [Entitic vol] 9.0 fL Normal 6.6-10.1 [facility] Comment on above: Order Comment: Reaso n for Exam Type 2 diabetes mellitus without complication, without long- Performed By: #### U RMACRERAT, CMP, LIPID, PSAS, A1C WTH eA, CBC #### [facility] [address] [place] [id number] [place] Platelets [#/volume] in Bloo d by Automated countOrdered By: Rosario Bruno on 03-14-2023 Platelets (Bld) [#/Vol] 187 10*3/uL Normal 150-450 [facility] Comment on above: Order Comment: Reaso n for Exam Type 2 diabetes mellitus without complication, without long- Performed By: #### U RMACRERAT, CMP, LIPID, PSAS, A1C WTH eA, CBC #### [facility] [address] [place] [id number] [place] Potassium [Moles/volume] in Serum or PlasmaOrdered By: Rosario Bruno on 03-14-2023 Potassium [Moles/Vol] 4.2 mmol/L Normal 3.5-5.1 [facility] Comment on above: Order Comment: Reaso n for Exam Type 2 diabetes mellitus without complication, without long- Performed By: #### U RMACRERAT, CMP, LIPID, PSAS, A1C WTH eA, CBC #### [facility] [address] [place] [id number] [place] Prostate specific Ag [Mass/v olume] in Serum or PlasmaOrdered By: Rosario Bruno on 03-14-2023 Prostate specific Ag [Mass/Vol] 0.120 ng/mL 0.000-4.000 [facility] Comment on above: Serial tumor marker results determined by assays using different manufacturers or methods may not be comparable.[facility] web ui developer and method:[employer] UNICEL DXI, CHEMILUMINESCENT IMMUNOASSAY. Protein [Mass/volume] in Ser um or PlasmaOrdered By: Rosario Bruno on 03-14-2023 Protein [Mass/Vol] 6.6 g/dL Normal 6.4-8.9 [facility] Comment on above: Order Comment: Reaso n for Exam Type 2 diabetes mellitus without complication, without long- Performed By: #### U RMACRERAT, CMP, LIPID, PSAS, A1C WTH eA, CBC #### [facility] [address] Serum globulin measurement b y calculation (mass/volume)Ordered By: Rosario Bruno on 03-14-2023 Globulin (S) [Mass/Vol] 2.5 g/dL Normal [facility] Comment on above: Order Comment: Reaso n for Exam Type 2 diabetes mellitus without complication, without long- Performed By: #### U RMACRERAT, CMP, LIPID, PSAS, A1C WTH eA, CBC #### [facility] [address] Serum or plasma albumin/glob ulin mass ratioOrdered By: Rosario Bruno on 03-14-2023 Albumin/Globulin [Mass ratio] 1.6 {ratio} Normal [facility] Comment on above: Order Comment: Reaso n for Exam Type 2 diabetes mellitus without complication, without long- Performed By: #### U RMACRERAT, CMP, LIPID, PSAS, A1C WTH eA, CBC #### [facility] [address] Serum or plasma anion gap de terminationOrdered By: Rosario Bruno on 03-14-2023 Anion gap [Moles/Vol] 7.7 mmol/L Normal 6.0-15.0 [facility] Comment on above: Order Comment: Reaso n for Exam Type 2 diabetes mellitus without complication, without long- Performed By: #### U RMACRERAT, CMP, LIPID, PSAS, A1C WTH eA, CBC #### [facility] [address] Serum or plasma high density lipoprotein (HDL) cholesterol measurementOrdered By: Rosario Bruno on 03-14-2023 Cholesterol in HDL [Mass/Vol] 35 mg/dL Normal 23-92 [facility] Comment on above: HDL CHOL ATP-III CLA SSIFICATION Cardiovascular RiskHDL > or equal to 60 mg/dL LOWHDL < 40 mg/dL HIGH Order Comment: Reaso n for Exam Type 2 diabetes mellitus without complication, without long- Result Comment: HDL CHOL ATP-III CLASSIFICATION Cardiovascular Risk HDL > or equal to 60 mg/dL LOW HDL < 40 mg/dL HIGH Performed By: #### U RMACRERAT, CMP, LIPID, PSAS, A1C WTH eA, CBC #### [facility] [address] Serum or plasma total choles terol/high density lipoprotein (HDL) cholesterol mass ratOrdered By: Rosario Bruno on 03-14-2023 Cholesterol.total/Choles terol in HDL [Mass ratio] 3.8 {ratio} Normal <5.0 [facility] Comment on above: Order Comment: Reaso n for Exam Type 2 diabetes mellitus without complication, without long- Result Comment: PERF ORMED BY: [place] [address] PATHOLOGIST SANDER OPERATOR PADMA MONTOYA M.D. Performed By: #### U RMACRERAT, CMP, LIPID, PSAS, A1C WTH eA, CBC #### [facility] [address] [place] [address] [place] Sodium [Moles/volume] in Ser um or PlasmaOrdered By: Rosario Bruno on 03-14-2023 Sodium [Moles/Vol] 137 mmol/L Normal 136-145 [facility] Comment on above: Order Comment: Reaso n for Exam Type 2 diabetes mellitus without complication, without long- Performed By: #### U RMACRERAT, CMP, LIPID, PSAS, A1C WTH eA, CBC #### [facility] [address] [place] [phone] [place] Triglyceride [Mass/volume] i n Serum or PlasmaOrdered By: Rosario Bruno on 03-14-2023 Triglyceride [Mass/Vol] 97 mg/dL 0-149 F [facility] Comment on above: TRIG ATP III CLASSIF ICATIONTRIG less than 150 mg/dL NormalTRIG 150-199 mg/dL Borderline highTRIG 200-500 mg/dL High TRIG greater than 500 mg/dL Very highStandard traceable to the Center for Disease Conrtrol and Prevention (CDC) test method. Urea nitrogen [Mass/volume] in Serum or PlasmaOrdered By: Rosario Bruno on 03-14-2023 Urea nitrogen [Mass/Vol] 12 mg/dL Normal 7-25 [facility] Comment on above: Order Comment: Reaso n for Exam Type 2 diabetes mellitus without complication, without long- Performed By: #### U RMACRERAT, CMP, LIPID, PSAS, A1C [facility] eA, CBC #### [facility] [address] Urine microalbumin/creatinin e mass ratioOrdered By: Rosario Bruno on 03-14-2023 Albumin/Creatinine DL <= 20 mg/L (U) [Mass ratio] TNP [facility] Comment on above: Test not performed Vital Signs Date Time Vital Sign Value Performing Clinician Facility 11-26-2023 09:05-0400 Heart rate 95 /min Russell Brown APRN.CNP Work Phone: [facility] 11-26-2023 09:05-0400 Respiratory rate 17 /min Russell Brown APRN.CHARGE ENTRY CLERK Work Phone: [facility] 11-26-2023 09:05-0400 SaO2% (BldA) [Mass fraction] 99 % Russell Brown APRN.CHARGE ENTRY CLERK Work Phone: [facility] 11-04-2023 12:50-0400 Diastolic blood pressure 69 mm[Hg] ROSETTA Bruno Work Phone: [facility] 11-04-2023 12:50-0400 Heart rate 66 /min ROSETTA Bruno Work Phone: [facility] 11-04-2023 12:50-0400 Respiratory rate 16 /min ROSETTA Bruno Work Phone: [facility] 11-04-2023 12:50-0400 SaO2% (BldA) [Mass fraction] 96 % FURNACE PUNCHER Rosario Dohertyrbacher Work Phone: [facility] 11-04-2023 12:50-0400 Systolic blood pressure 115 mm[Hg] FURNACE PUNCHER Rosario Ameliarbacher Work Phone: [facility] 11-04-2023 10:53-0400 Body height 180.34 cm FURNACE PUNCHER Rosario Dohertyrbacher Work Phone: [facility] 11-04-2023 10:53-0400 Body temperature 98.1 [degF] FURNACE PUNCHER Rosario Ameliarbacher Work Phone: [facility] 11-04-2023 10:53-0400 Body weight 102 kg FURNACE PUNCHER Rosario Barreraacher Work Phone: [facility] 10-28-2023 13:01-0400 Body height 180.34 cm FURNACE PUNCHER Rosario Dohertyrbacher Work Phone: [facility] 10-28-2023 13:01-0400 Body mass index (BMI) [Ratio] 32.8 kg/m2 FURNACE PUNCHERKayley Dohertyrbacher Work Phone: [facility] 10-28-2023 13:01-0400 Body weight 106.59 kg FURNACE PUNCHER Rosario Ameliadaquanacher Work Phone: [facility] 10-28-2023 13:01-0400 Diastolic blood pressure 74 mm[Hg] FURNACE PUNCHER Rosario Ameliarbacher Work Phone: [facility] 10-28-2023 13:01-0400 Heart rate 101 /min FURNACE PUNCHER Rosario Ameliarbacher Work Phone: [facility] 10-28-2023 13:01-0400 SaO2% (BldA) [Mass fraction] 96 % FURNACE PUNCHER Rosario Ameliarbacher Work Phone: [facility] 10-28-2023 13:01-0400 Systolic blood pressure 116 mm[Hg] FURNACE PUNCHERKayley Barreraacher Work Phone: [facility] 05-06-2023 09:26-0500 Diastolic blood pressure 68 mm[Hg] FURNACE PUNCHERKayley Dohertyrbacher Work Phone: [facility] 05-06-2023 09:26-0500 Heart rate 68 /min FURNACE PUNCHERKayley Dohertyrbacher Work Phone: [facility] 05-06-2023 09:26-0500 Respiratory rate 16 /min FURNACE PUNCHERKayley Dohertyrbacher Work Phone: [facility] 05-06-2023 09:26-0500 SaO2% (BldA) [Mass fraction] 98 % FURNACE PUNCHER Rosario Barreraacher Work Phone: [facility] 05-06-2023 09:26-0500 Systolic blood pressure 149 mm[Hg] FURNACE PUNCHERKayley Dohertyrbacher Work Phone: [facility] 05-06-2023 07:19-0500 Body height 180.34 cm FURNACE PUNCHERKayley Dohertyrbacher Work Phone: [facility] 05-06-2023 07:19-0500 Body weight 99.79 kg FURNACE PUNCHER Rosario Hollyacher Work Phone: [facility] 03-12-2023 14:30-0500 Body height 180.34 cm Rosario Artisr Other [facility] 03-12-2023 14:30-0500 Body mass index (BMI) [Ratio] 30.12 kg/m2 Rosario Bruno Other [facility] Other 03-12-2023 14:30-0500 Body weight 97.98 kg Rosario Bruno Other [facility] Other 03-12-2023 14:30-0500 Body weight 97.97 kg FURNACE PUNCHER Rosario Artismonster Work Phone: [facility] 03-12-2023 14:30-0500 Diastolic blood pressure 70 mm[Hg] Rosario Bruno Other [facility] 03-12-2023 14:30-0500 SaO2% (BldA) [Mass fraction] 98 % Rosario Bruno Other [facility] Other 03-12-2023 14:30-0500 Systolic blood pressure 112 mm[Hg] Rosario Bruno Other [facility] Encounters Encounter Date Encounter Type Care Provider Facility Start: 12-24-2023 End: 12-24-2023 ambulatory ROSARIO BRUNO Facility:[facility] Start: 12-12-2023 End: 12-12-2023 Telephone encounter Russell Brown APRN.CHARGE ENTRY CLERK Work Phone: Otolaryngology Comment on above: Appointment Start: 12-02-2023 End: 12-12-2023 Telephone encounter Russell Brown APRN.CHARGE ENTRY CLERK Work Phone: Otolaryngology Comment on above: Results Start: 11-28-2023 End: 11-28-2023 ambulatory ROSARIO BRUNO Facility:[facility] Start: 11-28-2023 End: 11-28-2023 Patient encounter procedure Marilu CROWLEY Work Phone: Audiology Comment on above: 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 [facility] Start: 11-26-2023 End: 11-26-2023 Patient encounter procedure Hernan Crowley, CCC-A Work Phone: Audiology Comment on above: Impacted cerumen of left ear (Primary Dx); Left-sided tinnitus; Vertigo Asymmetrical sensori neural hearing loss (Primary Dx); Tinnitus, left ear; Balance problem; Vestibular hypofunction of left ear; Impacted cerumen of left ear Start: 11-04-2023 Non-patient / Non-visit ROSETTA Bruno Work Phone: [facility] Work Phone: Start: 11-04-2023 End: 11-04-2023 Admission to same day surgery center ROSETTA Bruno Work Phone: [facility] Work Phone: Start: 11-04-2023 End: 11-04-2023 ambulatory ROSETTA Bruno Work Phone: [facility] Work Phone: Start: 10-28-2023 End: 10-28-2023 Patient encounter procedure ROSETTA Bruno Work Phone: [facility] Work Phone: Start: 05-06-2023 Non-patient / Non-visit ROSETTA Bruno Work Phone: [facility] Work Phone: Start: 05-06-2023 End: 05-06-2023 Admission to same day surgery center ROSETTA Bruno Work Phone: [facility] Work Phone: Start: 05-06-2023 End: 05-06-2023 ambulatory ROSETTA Bruno Work Phone: [facility] Work Phone: Start: 03-25-2023 End: 03-25-2023 ambulatory Imad Asaad Other [facility] Other Start: 03-25-2023 Telephone encounter Milena Sage [employer] Assembly Manager Start: 03-18-2023 End: 03-18-2023 ambulatory Rosario Bruno Other [facility] Other Start: 03-18-2023 Telephone encounter Rosario casas [facility] Start: 03-14-2023 End: 03-14-2023 Patient encounter procedure FURNACE PUNCHER Rosario Kiana Work Phone: [facility] [place] Work Phone: Start: 03-14-2023 End: 03-14-2023 ambulatory FURNACE PUNCHERKayley Ponce Kiana Work Phone: [facility] Work Phone: Start: 03-13-2023 End: 03-13-2023 ambulatory Rosario Dohertysanaz Other [facility] Other Start: 03-13-2023 Telephone encounter Rosario casas [facility] Start: 03-12-2023 End: 03-12-2023 ambulatory Rosario Dohertysanaz Other [facility] Other Start: 03-12-2023 Office outpatient ne w 30 minutes Rosario Bruno [facility] Start: 03-12-2023 End: 03-12-2023 Patient encounter procedure FURNACE PUNCHER Roasrioeverardo Bruno Work Phone: [facility] Work Phone: Procedures Date Procedure Procedure Detail Performing Clinician Start: 11-28-2023 HEARING TEST/AUDIOGRAM Marilu CROWLEY Work Phone: Start: 11-26-2023 HEARING TEST/AUDIOGRAM Hernan Crowley, [facility] Work Phone: Start: 11-04-2023 Screening colonoscopy A BRYSON Bruno Work Phone: Start: 05-06-2023 Screening colonoscopy A PRN Rosario Bruno Work Phone: Plan of Treatment Date Care Activity Detail Author Start: 01-14-2024 End: 01-14-2024 Patient encounter procedure 01/14/2024 2:30 PM EDT Office Visit Otolaryngology [address] 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]; Tinnitus, right ear [H93.11] Audiology Comment on above: Dx: Asymmetric senso rineural deafness [H90.3]; Tinnitus, right ear [H93.11] Start: 11-28-2023 End: 11-28-2023 Patient encounter procedure 11/28/2023 11:30 AM EDT Office Visit Audiology [address] [address] Marilu Trinh, KEO [address] [place] [address] Audiogram Audiology Comment on above: Audiogram Start: 11-16-2023 Covid-19 Vaccine () Covid-19 Vaccine ( season) [facility] Start: 11-16-2023 Covid-19 Vaccine ( season) Covid-19 Vaccine ( season) [facility] Start: 11-16-2023 Influenza vaccination Influenza Vacc ine (#1) [facility] Start: 11-04-2023 [facility] [facility] Start: 10-28-2023 Patient referral [facility] Work Phone: Start: 09-18-2023 Shingrix Vaccine (2 of 2) Shingrix Vaccine (2 of 2) [facility] Start: 05-06-2023 [facility] Start: 2015 Diabetes Screening Diabetes Screenin g [facility] Start: 2015 Screening for malignant neoplasm of colon [facility] Start: 04-12-2011 Pneumococcal vaccination Pneumococcal Vaccine (2 of 2 - PCV) [facility] Start: 2005 Lipid panel Lipid Screening [facility] Start: 1989 Hepatitis B Vaccine (1 of 3 - 19+ 3-dose series) Hepatitis B Vaccine (1 of 3 - 19+ 3-dose series) [facility] Start: 1989 Urine microalbumin profile DTaP,Tdap,Td Vaccine (1 - Tdap) [facility] Start: 01-07-1988 Anxiety Screening Anxiety Screening [facility] Start: 01-07-1988 Depression Screening Depression Scre ening [facility] Start: 01-07-1988 Hepatitis C screening Hepatitis C Sc reening [facility] Start: 01-07-1988 HIV screening HIV Screening [facility] Patient Education [facility] Work Phone: Patient referral [facility] Work Phone: Immunizations Immunization Date Immunization Notes Care Provider Fa ilya 02-04-2019 influenza virus vacc ine, unspecified formulation Hernan Crowley, [facility] Work Phone: [facility] Payers Date Payer Category Payer Self-pay 2023 Medicaid [facility] [id number] 2023-Present [phone] [place] [address] Medicaid [id number] 2023 Medicaid [id number] Private Health Insurance [facility] [id number] Unknown [id number] Unknown [id number] Unknown [id number] Social History Date Type Detail Facility Start: 11-26-2023 End: 11-28-2023 Sex Assigned At [facility] [address] Other Start: 1970 Sex Assigned At Male F [facility] Start: 05-06-2023 End: 11-04-2023 Tobacco smoking status NCIS Smoker (finding) [facility] Start: 11-26-2023 Tobacco smoking stat [facility] Smokes tobacco daily [facility] History of tobacco use Cigarette Smoker C [facility] Start: 11-26-2023 Tobacco use and exposure User of smokeless tobacco [facility] History of tobacco use Snuff User [facility] Start: 11-26-2023 Alcoholic beverage intake Ex-drinker (finding) [facility] Start: 11-26-2023 End: 11-28-2023 History of Social function [facility] Start: 1970 Sex assigned at Not on file C [facility] National Score (1-100), lower number is lower risk 80 [facility] Medical Equipment Procedure Code Equipment Code Equipment Origin al Text Equipment Identifier Dates One Touch Ultra Test Strips Start: 03-19-2023 Goals Date Patient Goal Desired Activity /State Clinical Notes 03-12-2023 to 12-24-2023 Telephone Encounter - Russell Brown APRN.[facility] 12/12/2023 11:51 AM EDTTelephone Encounter - Russell Brown APRN.[facility] 12/12/2023 11:51 AM Marilu Oh AUD - 11/28/2023 11:30 AM EDT Note Date & Type Note Facility 12-24-2023 Note HNO ID: [id number] Author: HERNAN HAMMOND AuD, [facility] Service: ? Author Type: Image Processing Engineer Type: Progress Notes Filed: 12/24/2023 13:58 Note Text: [facility] [place] [facility], Speech [facility] Balance Services ADULT COCHLEAR IMPLANT CANDIDACY EVALUATION Audiometric Testing Name: Freddy Sandoval [facility]#: [id number] Date of Service: December 22, 2023 Date of : 1970 Age: [age] year old Referred by: Russell Brown CNP This patient was referred for an evaluation to determine cochlear implant candidacy. Relevant case history includes the following: HISTORY: Audiologic Audiometric testing was completed at the [facility] on 11/28/23 with the following results: asymmetric SNHL; profound SNHL in the left ear with no responses at the limits of equipment and mild to moderate high frequency hearing loss in the right ear Hearing loss: sudden hearing loss in the left ear 4 years ago; told it was due to infection; he had an infection in his tooth prior to dizziness and loss of hearing Tinnitus: tinnitus in the left ear (constant) Dizziness: Continuous balance issues since loss of hearing (notices he has difficulty balancing without visual cues, in the dark, with eyes closed, etc.); Slight room-spinning/ disoriented sensation when in loud environments. Symptoms improve upon leaving those environments. 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 He is not driving right now. His sister takes him to appointments. Occupational: semi-retired; not currently working Phone: uses speaker phone Television: increases tv volume Other Family Support: yes ; sister and friend can help him with listening practice; has smart phone that he can use for listening practice. Concerns: Denied AUDIOMETRIC TESTING HEARING AID TEST RESULTS Left Phonak Vidhya Lumity 90-UP and Right Phonak Audeo [id number] clinic hearing aids were programmed to the patient?s most recent audiogram. Devices were verified utilizing the Audioscan verifit equipment to NAL-NL 1 fitting methods. AIDED SII Meeting Target NAL-NL1 Gain RIGHT Ear CLINIC Device 93 Yes LEFT Ear CLINIC Device 14 as much as possible given Degree of Hearing loss A CNC word list was administered in the right aided and left aided condition with the Clinic's hearing aids. AIDED SPEECH TESTING The contralateral ear was Plugged and Muffed and Masked during testing. Speech perception testing was completed using recorded stimuli in quiet in the sound field at conversational level (60 nursing care partner); results were: Left SDT: could not detect that speech was present at 80 dB HL (limits of equipment) Wwcmgvwek-Enekkzd-Bupxgphns Words (CNC) Test Condition List # Phonemes Words Right Ear (Clinic TEJEDA) 2 95% 84% Left Ear (Clinic TEJEDA) (Right ear masked) 4 0% 0% Bilateral 1 99% 96% AZ BIO (quiet) Test Condition List # Score Right Ear 3 98% Left Ear Right ear masked (Right ear masked) 6 0% Bilateral 1 99% AZ BIO (+5 SNR) Test Condition List # Score Right Ear 4 88% Bilateral 2 84% INTERPRETATION OF RESULTS Patient reported that he could not hear any speech with the left hearing aid. He thinks he possibly heard a beeping sound from the hearing aid when speech was present. The tinnitus in his left ear increased in intensity when listening for speech. Speech perception testing suggests no measurable benefit from a hearing aid in the left ear in all conditions tested. SUMMARY AND RECOMMENDATIONS Based on the audiometric testing, Candidate Based on audiometric testing,this patient would receive more benefit from a cochlear implant in the LEFT ear than a hearing aid can provide in both speech in quiet and speech in noise. Results of speech testing today suggest that limited benefit is received from a hearing aid for speech understanding in the LEFT ear. Additionally, the patient is an audiologic candidate for bimodal stimulation. There are several benefits to binaural hearing that unilateral implantation simply will not provide. A primary advantage includes improved speech perception ability in the presence of background noise. The natural auditory system relies on input to both ears in order to separate speech from background noise, which (more content not included)... [facility] 12-12-2023 Telephone encounter Note appts are correct. Thank you, Russell Brown CNP [facility] 12-12-2023 Miscellaneous Notes appts are correct. Thank you, Russell Brown CNP Freddy Sandoval called today. : 1970 Allergies: Lactose and Latex (home) Reason for call: Patient calling in to get scheduled as requested by Russell Brown APRN.CNP. Patient has been scheduled for an Implant Eval with Dr. Hammond and also for an appointment with an distance learning coordinator. Patient advised of all appointment details. Please review patient's appointments to ensure that he has been scheduled appropriately. Patient originally requested to see Russell Brown. Contact patient if scheduled incorrectly. Thank you! Patient last appointment: 12/02/2023 The patients preferred pharmacy has been captured for this encounter? DE[facility] Mandujano December 12, 2023 10:00 AM documented in this encounter [facility] 12-12-2023 Telephone encounter Note Thank you, Russell Brown CNP [facility] 12-12-2023 Miscellaneous Notes Thank you, Russell Brown CNP Please call patient. Please let him know because he is so young I would highly recommend that he sees the distance learning coordinator to discuss options including cochlear implant. They may also be able to shed further light on his dizziness. I have placed a consultation, please assist with an appointment at the patient's earliest convenience. Thank you, Russell Brown CNP Patient called back. Below message was relayed. Pt stated he would like to find out which one will his insurance cover. Advised to reach out to his insurance to inquire about coverage. Patient also inquiring what Russell recommends and which one will overall be better for him. Please advise. Called patient twice. calls are being forwarded. No Answer. Unable to leave RAMESH Johnson Please call patient. Please let him know that I did receive the results of his hearing test. He does presently have extreme hearing loss on the left. Basically, his left ear is not functioning in any noticeable way. As we discussed in the office he is welcome to meet with one of our distance learning coordinator to discuss cochlear implant surgery which potentially could help restore hearing in the left ear. If he is interested in seeing one of the doctors to discuss this option please assist with scheduling an appointment at the patient's earliest convenience with otology. He may also be able to discuss some of his balance difficulties with otology to see if any other further options are available to him. If he is not interested in surgical options he could consider a cross hearing aid. He basically would wear a device in both ears however all of the sound to be transmitted over to his right ear so that he can hear anything that is occurring on the left side of his body in his right ear. As we discussed during his office appointment the cross hearing aid could potentially help with his tinnitus management. If he has any questions regarding the test results or the plan please let me know. Russell Brown APRN.CHARGE ENTRY CLERK documented in this encounter [facility] 12-12-2023 Telephone encounter Note Freddy Sandoval called today. : 1970 Allergies: Lactose and Latex (home) Reason for call: Patient calling in to get scheduled as requested by Russell Brown APRN.CNP. Patient has been scheduled for an Implant Eval with Dr. Hammond and also for an appointment with an distance learning coordinator. Patient advised of all appointment details. Please review patient's appointments to ensure that he has been scheduled appropriately. Patient originally requested to see Russell Brown. Contact patient if scheduled incorrectly. Thank you! Patient last appointment: 12/02/2023 The patients preferred pharmacy has been captured for this encounter? DEB Mandujano December 12, 2023 10:00 AM [facility] 12-12-2023 Telephone encounter Note Please call patient. Please let him know because he is so young I would highly recommend that he sees the distance learning coordinator to discuss options including cochlear implant. They may also be able to shed further light on his dizziness. I have placed a consultation, please assist with an appointment at the patient's earliest convenience. Thank you, Russell Brown CNP [facility] 12-12-2023 Telephone encounter Note Patient called back. Below message was relayed. Pt stated he would like to find out which one will his insurance cover. Advised to reach out to his insurance to inquire about coverage. Patient also inquiring what Russell recommends and which one will overall be better for him. Please advise. [facility] 12-02-2023 Telephone encounter Note Called patient twice. calls are being forwarded. No Answer. Unable to leave RAMESH Johnson [facility] 12-02-2023 Telephone encounter Note Please call patient. Please let him know that I did receive the results of his hearing test. He does presently have extreme hearing loss on the left. Basically, his left ear is not functioning in any noticeable way. As we discussed in the office he is welcome to meet with one of our distance learning coordinator to discuss cochlear implant surgery which potentially could help restore hearing in the left ear. If he is interested in seeing one of the doctors to discuss this option please assist with scheduling an appointment at the patient's earliest convenience with otology. He may also be able to discuss some of his balance difficulties with otology to see if any other further options are available to him. If he is not interested in surgical options he could consider a cross hearing aid. He basically would wear a device in both ears however all of the sound to be transmitted over to his right ear so that he can hear anything that is occurring on the left side of his body in his right ear. As we discussed during his office appointment the cross hearing aid could potentially help with his tinnitus management. If he has any questions regarding the test results or the plan please let me know. Russell Brown APRN.CHARGE ENTRY CLERK [facility] 11-28-2023 History of Presen t illness Narrative Images from the original note were not included. [facility] [place] [facility] Neck Department Section of Audiology AUDIOLOGIC EVALUATION REPORT Name: Freddy Sandoval [facility]#: [id number] Date of Service: 11/28/2023 Date of : 1970 Age: [age] year old Referred by: Self Referred for: Evaluation of suspected change in hearing, tinnitus, or balance. Referral documented: No referral on file Patient's major complaints: Reduced hearing in the left ear, Tinnitus in the left ear, Dizziness/vertigo/imbalance, Pressure/fullness in the right ear Freddy Sandoval was seen for a recheck audiologic evaluation. Previous audiologic evaluation was scheduled yesterday 11/26/2023. However, testing was deferred due impacted cerumen in the left ear. Cerumen removed by ENT Russell Brown CNP on 11/26/2023. Known history of sudden hearing loss in the left ear 4 years ago accompanied by vertigo, nausea and vomiting following tooth infection. Today the patient reported that MRI conducted at onset of sudden hearing loss in the left ear was inconclusive. Patient was reportedly later told that his tooth infection had gone to his ear and wiped out his hearing . Additionally, he reported the following: Hearing loss: No hearing in left ear since sudden loss 4 years ago. Denied perceived hearing loss in the right ear. Tinnitus: Constant tinnitus left ear; denied pulsatile Dizziness: Continuous balance issues since loss of hearing (notices he has difficulty balancing without visual cues); Slight room-spinning/ disoriented sensation when in loud environments. Symptoms improve upon leaving those environments. Otalgia: Denied Otorrhea:Denied Aural Pressure: Intermittent aural pressure/fullness in the right ear that he relates to ongoing sinus issues. 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 Family History of Hearing Loss: Mother at an older age. History of ear infections: History of ear infections as a child Otologic Surgical History: Denied History of chemotherapy/ radiation: Denied Head trauma: History of 5-6 concussions throughout his lifetime. Significant medical history: Type 2 diabetes. Hearing aids: Denied history of device use. Refer to audiogram under Procedures tab for results. IMPRESSIONS RIGHT EAR: Sensorineural hearing loss LEFT EAR: Sensorineural hearing loss AUDIOLOGIC EVALUATION Following is a brief interpretation of the obtained findings from the audiologic evaluation. Refer to the Auditory Test Record for complete audiometric results. The patient was counseled about the test findings and appropriate audiologic recommendations were made. SUMMARY: Audiogram can be viewed under Procedures tab. OTOSCOPY RIGHT EAR: Otoscopic inspection revealed ear canal was clear. LEFT EAR: Otoscopic inspection revealed ear canal was clear. TYMPANOMETRY Description of procedure: This test is an objective evaluation of middle ear function. CPT code: 92653 RIGHT EAR: Negative (-184 daPa) pressure with reduced TM compliance (mobility). LEFT EAR: Negative (-120 daPa) pressure with reduced TM compliance (mobility). ACOUSTIC REFLEXES Description of procedure: This test is an objective measure of auditory and facial nerve pathways. CPT code: 08278, 90606 RIGHT EAR PROBE EAR: (ipsi right stimulus ear; contralateral left stimulus ear): Acoustic Reflex Pattern Did not test. Acoustic Reflex Decay (left stimulus ear): Did not test. LEFT EAR PROBE EAR: (ipsi left stimulus ear; contralateral right stimulus ear): Acoustic Reflex Pattern Did not test. Acoustic Reflex Decay (right stimulus ear):Did not test. PURE TONE AUDIOMETRY AND SPEECH TESTING Description of procedure: This test is an objective evaluation hearing sensitivity via air and bone conduction and speech recognition testing. CPT code:13847 RIGHT EAR: Hearing Sensitivity: WNL 250-2000 Hz sloping to moderately severe SNHL at 8000 Hz. Word Recognition Score: Excellent (100%). WRS is consistent with hearing sensitivity. Words were presented at 55 dB HL approximates (45-55 dB HL) intensity level for average conversational speech.The NU-6 Ordered by Difficulty Word List (10 words) was used for testing. LEFT EAR: Hearing Sensitivity: No response at the levels of the equipment 125-8000 Hz. Word Recognition Score: Could not test due to degree of hearing loss. RECOMMENDATIONS * Continue medical follow-up with Russell Brown CNP. * Consider otologic referral to Otology for medical evaluation. * The patient was counseled regarding the need to continue to monitor hearing and have regular hearing assessments. * The patient was counseled about hearing conservation and use of noise protectors. Information about hearing protection devices was provided to the patient. If custom HPDs are desired, please call [phone] to schedule an [facility] appointment. * Pending medical evaluation and clearance, call [phone] to schedule an appointment for an implantable hearing device evaluation to discuss SSD options. * Consider assessment of vestibular and balance system (Vestibular Battery). * Re-evaluation as medically indicated, or sooner, if a change in hearing is noted. Keo Burroughs, CCC/A Hearing Implant Fellow [facility] Abbrev- iation Definition Degree of hearing sensitivity dB range WNL within normal limits WNL 0 - 20 SNHL sensorineural hearing loss Mild 20-40 CHL conductive hearing loss Moderate 40-55 MHL mixed hearing loss Moderately-Severe 55-70 WRS word recognition score Severe 70-90 ME middle ear Profound 90 + TM tympanic membrane documented in this encounter [facility] 11-28-2023 Note HNO ID: [id number] Author: MARILU TRINH AUD Service: ? Author Type: Image Processing Engineer Type: Progress Notes Filed: 11/28/2023 16:39 Note Text: [facility] Head and Neck Department Section of Audiology AUDIOLOGIC EVALUATION REPORT Name: Freddy Sandoval [facility]#: [id number] Date of Service: 11/28/2023 Date of : 1970 Age: [age] year old Referred by: Self Referred for: Evaluation of suspected change in hearing, tinnitus, or balance. Referral documented: No referral on file Patient's major complaints: Reduced hearing in the left ear, Tinnitus in the left ear, Dizziness/vertigo/imbalance, Pressure/fullness in the right ear Freddy Sandoval was seen for a recheck audiologic evaluation. Previous audiologic evaluation was scheduled yesterday 11/26/2023. However, testing was deferred due impacted cerumen in the left ear. Cerumen removed by ENT Russell Brown CNP on 11/26/2023. Known history of sudden hearing loss in the left ear 4 years ago accompanied by vertigo, nausea and vomiting following tooth infection. Today the patient reported that MRI conducted at onset of sudden hearing loss in the left ear was inconclusive. Patient was reportedly later told that his tooth infection had gone to his ear and wiped out his hearing . Additionally, he reported the following: Hearing loss: No hearing in left ear since sudden loss 4 years ago. Denied perceived hearing loss in the right ear. Tinnitus: Constant tinnitus left ear; denied pulsatile Dizziness: Continuous balance issues since loss of hearing (notices he has difficulty balancing without visual cues); Slight room-spinning/ disoriented sensation when in loud environments. Symptoms improve upon leaving those environments. Otalgia: Denied Otorrhea:Denied Aural Pressure: Intermittent aural pressure/fullness in the right ear that he relates to ongoing sinus issues. 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 Family History of Hearing Loss: Mother at an older age. History of ear infections: History of ear infections as a child Otologic Surgical History: Denied History of chemotherapy/ radiation: Denied Head trauma: History of 5-6 concussions throughout his lifetime. Significant medical history: Type 2 diabetes. Hearing aids: Denied history of device use. Refer to audiogram under Procedures tab for results. IMPRESSIONS RIGHT EAR: Sensorineural hearing loss LEFT EAR: Sensorineural hearing loss AUDIOLOGIC EVALUATION Following is a brief interpretation of the obtained findings from the audiologic evaluation. Refer to the Auditory Test Record for complete audiometric results. The patient was counseled about the test findings and appropriate audiologic recommendations were made. SUMMARY: Audiogram can be viewed under Procedures tab. OTOSCOPY RIGHT EAR: Otoscopic inspection revealed ear canal was clear. LEFT EAR: Otoscopic inspection revealed ear canal was clear. TYMPANOMETRY Description of procedure: This test is an objective evaluation of middle ear function. CPT code: 76127 RIGHT EAR: Negative (-184 daPa) pressure with reduced TM compliance (mobility). LEFT EAR: Negative (-120 daPa) pressure with reduced TM compliance (mobility). ACOUSTIC REFLEXES Description of procedure: This test is an objective measure of auditory and facial nerve pathways. CPT code: 39347, 94024 RIGHT EAR PROBE EAR: (ipsi right stimulus ear; contralateral left stimulus ear): Acoustic Reflex Pattern Did not test. Acoustic Reflex Decay (left stimulus ear): Did not test. LEFT EAR PROBE EAR: (ipsi left stimulus ear; contralateral right stimulus ear): Acoustic Reflex Pattern Did not test. Acoustic Reflex Decay (right stimulus ear):Did not test. PURE TONE AUDIOMETRY AND SPEECH TESTING Description of procedure: This test is an objective evaluation hearing sensitivity via air and bone conduction and speech recognition testing. CPT code:14680 RIGHT EAR: Hearing Sensitivity: WNL 250-2000 Hz sloping to moderately severe SNHL at 8000 Hz. Word Recognition Score: Excellent (100%). WRS is consistent with hearing sensitivity. Words were presented at 55 dB HL approximates (45-55 dB HL) intensity level for average conversational speech.The NU-6 Ordered by Difficulty Word List (10 words) was used for testing. LEFT EAR: Hearing Sensitivity: No response at the levels of the equipment 125-8000 Hz. Word Recognition Score: Could not test due to degree of hearing loss. RECOMMENDATIONS * Continue medical follow-up with Russell Brown CNP. * Consider otologic referral to Otology for medical evaluation. * The patient was counseled regarding the need to continue to monitor hearing and have regular hearing assessments. * The patient was counseled about hearing conservation and use of noise protectors. Information about hearing protect (more content not included)... [facility] 11-26-2023 Note HNO ID: [id number] Author: RUSSELL BROWN APRN.HUMBERTO Service: ? Author Type: Nurse Practitioner Type: Progress Notes Filed: 11/26/2023 15:37 Note Text: Mr. Sandoval is a 53 year old male who comes in for evaluation of hearing loss. Apparently 4 years ago he had sudden onset of hearing loss in the left ear. This was accompanied by tinnitus and vertigo. He was evaluated at that time at an outside vice president of talent acquisition and ENT office. He did have MRI which was negative for acoustic neuroma. There was significant infection from a dental infection that traveled to the ear. Unfortunately his hearing was basically absent in the left ear at that time. He was advised to obtain a cross hearing aid or cochlear implant however at the time this was not covered by his insurance so he has been not using any sort of amplification since that time for the left ear. His infection in the tooth eventually resolved but he isn't sure about the infection in the left ear. He noticed that he continues to have significant difficulties with his balance especially in a dark environment. He continues to have significant left-sided tinnitus. 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 He was referred to audiology for increased hearing loss in both ears. He was seen today and unfortunately noted to have significant cerumen impaction in the left ear. He was advised to have his ears cleaned and have repeat hearing testing once the earwax has been removed. He denies any other significant head or neck complaints at this time Past history : No past medical history on file. Current medication: No current outpatient medications on file. No current facility-administered medications for this visit. Allergies: ALLERGIES Allergen Reactions Lactose GI Upset Latex Itching Social history: Social History Tobacco Use Smoking status: Every Day Types: Cigarettes Smokeless tobacco: Current Types: Snuff Vaping Use Vaping status: Some Days Substances: Flavoring Devices: Disposable Substance Use Topics Alcohol use: Not Currently Drug use: Yes Types: Marijuana Comment: for sleep Family history: No family history on file. There are no exam notes on file for this visit. Physical exam: General Appearance: 53 year old male is alert, oriented, not in acute distress. Hearing is grossly normal, voice is clear. There is no tenderness with percussion over the paranasal sinuses. Eyes: PEERLA, extraocular movements are full. Neck: No masses palpated. Thyroid is not enlarged. Trachea is in the midline. Ears: Right ear canal is clean. Left ear canal has significant cerumen impaction which was removed with suction and alligator forceps. Both TMs are intact and mobile. Schulz is lateralizing to the right. Rinne is positive bilaterally. Air conduction is greater on the right than the left. Impression: Asymmetric left sensorineural hearing loss with history of sudden hearing loss in the remote past. Left-sided tinnitus. Left cerumen impaction. Plan of management: Left ear canal was cleaned. He is advised to have hearing testing. Based on hearing test we will discuss further options including possible consultation to otology to discuss cochlear implant versus cross hearing aid. Russell Brown APRN.[facility] [place] 11-26-2023 History of Presen t illness Narrative Mr. Sandoval is a 53 year old male who comes in for evaluation of hearing loss. Apparently 4 years ago he had sudden onset of hearing loss in the left ear. This was accompanied by tinnitus and vertigo. He was evaluated at that time at an outside vice president of talent acquisition and ENT office. He did have MRI which was negative for acoustic neuroma. There was significant infection from a dental infection that traveled to the ear. Unfortunately his hearing was basically absent in the left ear at that time. He was advised to obtain a cross hearing aid or cochlear implant however at the time this was not covered by his insurance so he has been not using any sort of amplification since that time for the left ear. His infection in the tooth eventually resolved but he isn't sure about the infection in the left ear. He noticed that he continues to have significant difficulties with his balance especially in a dark environment. He continues to have significant left-sided tinnitus. 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 He was referred to audiology for increased hearing loss in both ears. He was seen today and unfortunately noted to have significant cerumen impaction in the left ear. He was advised to have his ears cleaned and have repeat hearing testing once the earwax has been removed. He denies any other significant head or neck complaints at this time Past history : No past medical history on file. Current medication: No current outpatient medications on file. No current facility-administered medications for this visit. Allergies: ALLERGIES Allergen Reactions Lactose GI Upset Latex Itching Social history: Social History Tobacco Use Smoking status: Every Day Types: Cigarettes Smokeless tobacco: Current Types: Snuff Vaping Use Vaping status: Some Days Substances: Flavoring Devices: Disposable Substance Use Topics Alcohol use: Not Currently Drug use: Yes Types: Marijuana Comment: for sleep Family history: No family history on file. There are no exam notes on file for this visit. Physical exam: General Appearance: 53 year old male is alert, oriented, not in acute distress. Hearing is grossly normal, voice is clear. There is no tenderness with percussion over the paranasal sinuses. Eyes: PEERLA, extraocular movements are full. Neck: No masses palpated. Thyroid is not enlarged. Trachea is in the midline. Ears: Right ear canal is clean. Left ear canal has significant cerumen impaction which was removed with suction and alligator forceps. Both TMs are intact and mobile. Schulz is lateralizing to the right. Rinne is positive bilaterally. Air conduction is greater on the right than the left. Impression: Asymmetric left sensorineural hearing loss with history of sudden hearing loss in the remote past. Left-sided tinnitus. Left cerumen impaction. Plan of management: Left ear canal was cleaned. He is advised to have hearing testing. Based on hearing test we will discuss further options including possible consultation to otology to discuss cochlear implant versus cross hearing aid. Russell Brown APRN.HUMBERTO documented in this encounter [facility] 11-26-2023 History of Presen t illness Narrative Images from the original note were not included. [facility] [place] [facility] Section of Audiology AUDIOLOGIC EVALUATION REPORT Name: Freddy Sandoval [facility]#: [id number] Date of Service: 11/26/2023 Date of : 1970 Age: [age] year old Referred by: Rosario Bruno, CHARGE ENTRY CLERK [address] [facility] [address] Referred for: Evaluation of suspected change in hearing, tinnitus, or balance. Referral documented: In an order in [facility] Patient's major complaints: Reduced hearing in the left ear; tinnitus, sudden hearing loss and vertigo 4 years ago (noted change in hearing and vertigo after tooth infection); MRI ruled out acoustic neuroma at the time and hearing test indicated no hearing in the left ear He could not afford treatment (CROS, Cochlear implant) at the time as it was not covered by his insurance. 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 He denied ear pain (0/10 in both ears), otorrhea, history of ear surgery, and chemotherapy/radiation. Freddy Sandoval was seen for an initial audiologic evaluation. Refer to audiogram under Procedures tab for results. Risk of Falls Documentation for over 65 years old: Does not apply IMPRESSIONS RIGHT EAR: Did not test LEFT EAR: Did not test due to cerumen impaction AUDIOLOGIC EVALUATION Following is a brief interpretation of the obtained findings from the audiologic evaluation. Refer to the Auditory Test Record for complete audiometric results. The patient was counseled about the test findings and appropriate audiologic recommendations were made. SUMMARY: Audiogram can be viewed under Procedures tab. OTOSCOPY RIGHT EAR: Otoscopic inspection revealed ear canal was clear but the TM appeared to be dull/parker. LEFT EAR: Otoscopic inspection revealed ear canal has significant amount of cerumen which appeared to be occluding preventing visualization of the tympanic membrane. TYMPANOMETRY Description of procedure: This test is an objective evaluation of middle ear function. CPT code: 40488 RIGHT EAR: Flat with minimal TM mobility consistent with possible presence of ME fluid. LEFT EAR: Reduced ear canal volume and flat tympanogram consistent with impacted cerumen. Discontinued testing after tympanometry. RECOMMENDATIONS * Continue medical follow-up with ENT for cerumen management. * Test hearing after cerumen management Hernan Hammond, Keo, [facility] [place] Abbrev- iation Definition Degree of hearing sensitivity dB range WNL within normal limits WNL 0 - 20 SNHL sensorineural hearing loss Mild 20-40 CHL conductive hearing loss Moderate 40-55 MHL mixed hearing loss Moderately-Severe 55-70 WRS word recognition score Severe 70-90 ME middle ear Profound 90 + TM tympanic membrane documented in this encounter [facility] 11-26-2023 Note HNO ID: [id number] Author: HERNAN HAMMOND AuD, CCC-A Service: ? Author Type: Image Processing Engineer Type: Progress Notes Filed: 11/26/2023 08:19 Note Text: [facility] [place] [facility] Section of Audiology AUDIOLOGIC EVALUATION REPORT Name: Freddy Sandoval CC#: [id number] Date of Service: 11/26/2023 Date of : 1970 Age: [age] year old Referred by: Rosario Bruno, CHARGE ENTRY CLERK [address] [facility] [address] Referred for: Evaluation of suspected change in hearing, tinnitus, or balance. Referral documented: In an order in [facility] Patient's major complaints: Reduced hearing in the left ear; tinnitus, sudden hearing loss and vertigo 4 years ago (noted change in hearing and vertigo after tooth infection); MRI ruled out acoustic neuroma at the time and hearing test indicated no hearing in the left ear He could not afford treatment (CROS, Cochlear implant) at the time as it was not covered by his insurance. 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 He denied ear pain (0/10 in both ears), otorrhea, history of ear surgery, and chemotherapy/radiation. Freddy Sandoval was seen for an initial audiologic evaluation. Refer to audiogram under Procedures tab for results. Risk of Falls Documentation for over 65 years old: Does not apply IMPRESSIONS RIGHT EAR: Did not test LEFT EAR: Did not test due to cerumen impaction AUDIOLOGIC EVALUATION Following is a brief interpretation of the obtained findings from the audiologic evaluation. Refer to the Auditory Test Record for complete audiometric results. The patient was counseled about the test findings and appropriate audiologic recommendations were made. SUMMARY: Audiogram can be viewed under Procedures tab. OTOSCOPY RIGHT EAR: Otoscopic inspection revealed ear canal was clear but the TM appeared to be dull/parker. LEFT EAR: Otoscopic inspection revealed ear canal has significant amount of cerumen which appeared to be occluding preventing visualization of the tympanic membrane. TYMPANOMETRY Description of procedure: This test is an objective evaluation of middle ear function. CPT code: 41490 RIGHT EAR: Flat with minimal TM mobility consistent with possible presence of ME fluid. LEFT EAR: Reduced ear canal volume and flat tympanogram consistent with impacted cerumen. Discontinued testing after tympanometry. RECOMMENDATIONS * Continue medical follow-up with ENT for cerumen management. * Test hearing after cerumen management Hernan Hammond, eKo, CCC-A [place] Abbrev- iation Definition Degree of hearing sensitivity dB range WNL within normal limits WNL 0 - 20 SNHL sensorineural hearing loss Mild 20-40 CHL conductive hearing loss Moderate 40-55 MHL mixed hearing loss Moderately-Severe 55-70 WRS word recognition score Severe 70-90 ME middle ear Profound 90 + TM tympanic membrane [facility] 11-04-2023 Procedure note [facility] 05-06-2023 Procedure note [facility] 03-18-2023 Evaluation note Encounter Date Diagnosis Assessment Notes Mar, Type 2 diabetes mellitus without complication, without long-term current use of insulin (ICD-10 - E11.9) [facility] Other 12-28-2023 Evaluation note* Encounter Date Diagnosis Assessment Notes Treatment Notes Treatment Clinical Notes Feb, Type 2 diabetes mellitus without complication, without long-term current use of insulin (ICD-10 - E11.9) [facility] Other 12-27-2023 Evaluation note* Encounter Date Diagnosis Assessment Notes Treatment Notes Treatment Clinical Notes Feb, Type 2 diabetes mellitus without [...] and willingness to quit at each appointment. [place] [employer] Other Evaluation noteNo assessment information available [facility] Work Phone: Evaluation noteNo InformationNortPho[facility] Other Evaluation note* Diagnosis Onset Date Resolution Status Cigarette nicotine dependence without complication acute Depression acute Mixed hyperlipidemia acute Neuropathy acute Obstructive sleep apnea acut e [id number] [facility] Work Phone: Evaluation note* Diagnosis Impacted cerumen of left ear- Primary Impacted cerumen Left-sided tinnitus Unspecified tinnitus Vertigo Dizziness and giddiness [facility] Diagnosis Asymmetrical sensorineural hearing loss- Primary Sensorineural hearing loss, asymmetrical Tinnitus, left ear Balance problem Other symptoms involving nervous and musculoskeletal systems Vestibular hypofunction of left ear Impacted cerumen of left ear Impacted cerumen [facility] Asymmetric SNHL (sensorineural hearing loss)- Primary Sensorineural hearing loss, asymmetrical Tinnitus of left ear Unspecified tinnitus Ear pressure, right Dizziness Dizziness and giddiness [facility] Diagnosis Asymmetric sensorineural deafness- Primary Tinnitus, right ear [facility] Author Milena Cazares [facility] May 06, 2023 8:28am Note Date/Time May 06, 2023 8:28am [facility] ENTER [address] [place] [address] Gastroenterology H&P Signed Patient: Freddy Sandoval MR#: [id number] : 1970 Acct:[id number] Age/Sex: 53 / M Adm Date: 4 Loc: Room: Type: [facility] Attending Dr: Milena Cazares MD Copies to: MD Rosario Bowen APRN, CHARGE ENTRY CLERK~ Date of Service: 05/06/2023 HISTORY & PHYSICAL: Patient's history with special attention to the cardiovascular, pulmonary systems and the current problem was reviewed with the patient immediately prior to the procedure. Present medications and doses reviewed in the EMR. Allergies and pertinent laboratory tests were also reviewedat this time in the EMR. The physical examination, as below, was then performed. Indication, assessment and HPI: 53-year-old man here for screening colonoscopy Family history of GI malignancy? No PHYSICAL EXAMINATION Mouth and Pharynx : Moist mucus membranes, normal dentition Cardiac: Regular rate, regular rhythm Pulmonary: Clear to auscultation bilaterally, no wheezing Neurological: Alert and oriented x3, no focal deficits noted Abdomen: Abdomen soft, non-tender REVIEW OF SYSTEMS Constitutional: Denies malaise, fevers Cardiovascular: Denies chest pain, palpitations Respiratory: Denies shortness of breath, wheezing Gastrointestinal: Per HPI Genitourinary: Denies dysuria, polyuria Musculoskeletal: Denies joint swelling, joint stiffness Neurological: Denies numbness, tingling Integumentary: Denies rashes, skin lesions Endocrine: Denies fatigue, weight loss Written informed consent obtained from the patient. Risks (including but not limited to perforation, infection, bloating, bleeding, need for emergent surgeryand loss of life), benefits and alternatives explained and questions answered. The patient verbalized understanding. Based on history patient is an appropriate candidate for the procedure. Milena Cazares M.D. Documented By: Milena Cazares MD 05/06/23826 Signed By: <Electronically signed by Milena Cazares MD> 05/06/[address] [facility] Work Phone: History and physical note Author Milena Cazares [facility] November 04, 2023 11:54am Note Date/Time November 04, 2023 11 :54am [facility] [address] [place] [address] Gastroenterology H&P Signed Patient: Freddy Sandoval MR#: [id number] : 1970 Acct:[id number] Age/Sex: 53 / M Adm Date: 4 Loc: Room: Type: [facility] Attending Dr: Milena Cazares MD Copies to: MD Rosario Bowen APRN, CHARGE ENTRY CLERK~ Date of Service: 11/04/2023 HISTORY & PHYSICAL: Patient's history with special attention to the cardiovascular, pulmonary systems and the current problem was reviewed with the patient immediately prior to the procedure. Present medications and doses reviewed in the EMR. Allergies and pertinent laboratory tests were also reviewedat this time in the EMR. The physical examination, as below, was then performed. Indication, assessment and HPI: 53-year-old man here for screening colonoscopy Family history of GI malignancy? No PHYSICAL EXAMINATION General appearance: NAD Skin: No jaundice Head: NC/AT Eyes: Anicteric Neck: Supple Lungs: Normal respiratory effort, no use of accessory muscles Abdomen: nondistended Neuro: Ox3. REVIEW OF SYSTEMS Constitutional: Denies malaise, fevers Cardiovascular: Denies chest pain, palpitations Respiratory: Denies shortness of breath, wheezing Gastrointestinal: As per HPI Genitourinary: Denies dysuria, polyuria Musculoskeletal: Denies joint swelling, joint stiffness Neurological: Denies confusion, numbness, tingling Endocrine: Denies fatigue Written informed consent obtained from the patient. Risks (including but not limited to perforation, infection, bloating, bleeding, need for emergent surgeryand loss of life), benefits and alternatives explained and questions answered. The patient verbalized understanding. Based on history patient is an appropriate candidate for the procedure. Milena Cazares M.D. Documented By: Milena Cazares MD 11/04/23 1153 Signed By: <Electronically signed by Milena Cazares MD> 11/04/[address] [facility] Work Phone: History general Narrative - Reported* Type Description Date Medical History Type 2 Diabetes Medical History Sleep Apnea Medical History Hyperlipidemia Surgical History Oral Surgery [facility] Other Hospital Discharge instructions Additional Instructions DISCHARGE INSTRUCTIONS FOR COLONOSCOPY WHAT TO EXPECT: - You may feel full, gassy or cramping after your procedure. In some cases, this may be from a few hours to a day. Walking may help relieve the discomfort. - If you have polyp(s) removed you may note some minor bloody discharge after your first bowel movements. - You should begin to recover from anesthesia within 1 hour of the procedure, however may feel groggy for the next 24 hours. DO's AND DON'Ts: - Call your doctor right away if you have a hard abdomen, severe pain, are passing lots of bright red blood or clots. - Call your doctor if you develop any rashes, hives or difficulty breathing. - Let your doctor know if you have not had a bowel movement by 3 days after your procedure. - If you take 81 mg aspirin for your heart it is safe to resume this medication. - If you take other blood thinner medications your doctor will instruct you when these can safely be resumed. - Do NOT drive for 24 hours. - Do NOT operate machinery such as power tools, lawn mowers, snow blowers, sewing machines, etc. for 24 hours. - Avoid alcoholic beverages and drugs for allergies, nerves, or sleep. - Do NOT stay alone. Do NOT leave your child unattended. - Do NOT make important personal or business decisions or sign any legal documents. - Eat solid foods and drink liquids in smaller amounts than usual until normal appetite returns. If you should experience an upset stomach, liquids high in sugar content (soda, Elmer-Aid, non-acid juices) are recommended. - You can resume normal activities tomorrow. FOLLOW UP & RECOMMENDATIONS: -Notify the doctor if you have any problems. -Repeat colonoscopy due to inadequate prep -Office number [phone]. [facility] Work Phone: Reason for Referral Specialty Diagnoses / Procedures Referred By Contac t Referred To Contact Ent - Otolaryngology Diagnoses Asymmetric sensorineural deafness Tinnitus, right ear Procedures CONSULT TO ENT Russell Brown APRN.[place] [address] [place] [address] Dante Moon MD [address] [place] [address] Referral ID Status Reason Start Date Expiration Date Visits Requested Visits Authorized [id number] Ref Not Required PCP Requested Referral 12/12/2023 12/11/2024 1 1 Specialty Diagnoses / Procedures Referred By Contac t Referred To Contact Ent - Otolaryngology Diagnoses Asymmetric sensorineural deafness Tinnitus, right ear Procedures CONSULT TO ENT Russell Brown APRN.CHARGE ENTRY CLERK [facility] [address] [address] Lorena Antony MD [address] [place] [id number] Referral ID Status Reason Start Date Expiration Date Visits Requested Visits Authorized [id number] Ref Not Required PCP Requested Referral 12/02/2023 12/01/2024 1 1 Specialty Diagnoses / Procedures Referred By Contac t Referred To Contact Procedures HEARING TEST/AUDIOGRAM COMPRE AUDIOMETRY THRESHOLD JUDYAL Hernan Cancino, AuD, CCC-A [address] [place] [address], [address] [place] [address] [facility] [place] [address] Referral ID Status Reason Start Date Expiration Date Visits Requested Visits Authorized [id number] New Request Auto-Generat ed Referral 11/26/2023 11/26/2024 1 1 Reason due for screeni ng Diagnosis 1 Screening for colon cancer (Z12.11) Referral Organization [facility] [facility] Referring Provider First Name Rosario Referring Provider Last Name Kiana Referring Provider Specialty Nurse Iggy gupta Referred Organization [facility] Gastroenterolo gy Referred Provider Milena Cazares Referred Address [address],[facility] [address] ,[place], [place],[address] Referred Provider Specialty Gastroentero logy Referral Priority Routine General Notes Shey Morgan 10:33:26 AM >received today, referral faxed P2P Chief Complaint and Reason for Visit Chief Complaint Z12.5/E11.9/E78.2 Chief Complaint Establish Z12.5/E11.9/E78.2 Screening Screening Chief Complaint follow up Screening Screening Reason for Visit Cigarette nicotine d ependence without complication Depression Mixed hyperlipidemia Neuropathy Obstructive sleep apnea [id number] Advance Directives No Advanced Directives Records Found Advance Directive Response Recorded Date/ Time Advance Directives No February 9:40am Advance Directive Response Recorded Date/ Time Advance Directives No February 10:40am Summary Purpose Family History No Family History Records Found Additional Source Comments REASON FOR VISIT (unrecogniz ed section and content) Reason Comments Earwax Reason Comments Hearing Loss Reason Comments Results Reason Comments Appointment Care Teams (unrecognized sec tion and content) Team Status: Active Member Role Status Dates Rosario Bruno APRN [employer] Primary Care Provider Active Team Status: Inactive Member Role Status Dates Rosario Bruno APRN [employer] Primary Care Provider, Attending Provider Active Team Status: Inactive Member Role Status Dates Rosario Bruno APRN [employer] Attending Provider Act romel Start: March 12, 2023 End: March 12, 2023 Team Status: Inactive Member Role Status Dates Rosario Bruno APRN [employer] Primary Care Provider, Attending Provider Active Start: March 14, 2023 End: March 14, 2023 Team Status: Inactive Member Role Status Dates Rosario Bruno APRN [employer] Primary Care Provider Active Start: May 062023 End: May 06, 2023 Milena Cazares MD Attending Provider Active Start: May 06, 2023 End: May 06, 2023 Team Status: Active Member Role Status Dates Rosario Bruno APRN [employer] Primary Care Provider Active Start: May 062023 Milena Cazares MD Attending Provider, Other Provider Active Start: May 06, 2023 Team Status: Inactive Member Role Status Dates Rosario Bruno APRN [employer] Primary Care Provider, Attending Provider Active Start: October 28, 2023 End: October 28, 2023 Team Status: Inactive Member Role Status Dates Rosario Bruno APRN [employer] Primary Care Provider Active Start: November 04, 2023 End: November 04, 2023 Milena Cazares MD Attending Provider Active Start: November 04, 2023 End: November 04, 2023 Team Status: Active Member Role Status Dates Rosario Bruno APRN [employer] Primary Care Provider Active Start: October Milena Cazares MD Attending Provider, Other Provider Active Start: November 04, 2023 Director Patient Financial Services Relationship Specialty Start Date End Date Rosario Bruno NP [address] [place], [place] [id number] PCP - General Nurse Practitioner 07/30/23 Director Patient Financial Services Relationship Specialty Start Date End Date Rosario Bruno NP [address] [place] [id number] PCP - General Nurse Practitioner 07/30/23 Director Patient Financial Services Relationship Specialty Start Date End Date Rosario Bruno NP [address] [place] [id number] PCP - General Nurse Practitioner 07/30/23 Director Patient Financial Services Relationship Specialty Start Date End Date Rosario Bruno NP [address] [facility] [address] PCP - General Nurse Practitioner 07/30/23 Director Patient Financial Services Relationship Specialty Start Date End Date Rosario Bruno NP [address] [facility] [place] [address] PCP - General Nurse Practitioner 07/30/23 Goals (unrecognized section and content) Goals may be documented in a n alternate section (unrecognized sect ion and content) No Status Records FoundNo Status Records Found INFORMATION SOURCE (unrecogn ized section and content) DATE CREATED AUTHOR 11/11/2023 [facility] DATE CREATED AUTHOR AUTHOR'S JESSICA ATION 12/26/2023 [facility] Source Comments (unrecognize d section and content) In the event this informatio n is protected by the Federal Confidentiality of Alcohol and Drug Abuse Patient Records regulations: The Federal rules restrict any use of the information to criminally investigate or prosecute any alcohol or drug abuse patient.[facility] the event this information is protected by the Federal Confidentiality of Alcohol and Drug Abuse Patient Records regulations: The Federal rules restrict any use of the information to criminally investigate or prosecute any alcohol or drug abuse patient.[facility] the event this information is protected by the Federal Confidentiality of Alcohol and Drug Abuse Patient Records regulations: The Federal rules restrict any use of the information to criminally investigate or prosecute any alcohol or drug abuse patient.[facility] the event this information is protected by the Federal Confidentiality of Alcohol and Drug Abuse Patient Records regulations: The Federal rules restrict any use of the information to criminally investigate or prosecute any alcohol or drug abuse patient.[facility] the event this information is protected by the Federal Confidentiality of Alcohol and Drug Abuse Patient Records regulations: The Federal rules restrict any use of the information to criminally investigate or prosecute any alcohol or drug abuse patient.[facility] FOR RECORDS PERTAINING TO PATIENTS WHO [...] BE BASED ON THE PRIMARY CLINICAL RECORDS. [facility]. provides no warranty or guarantee of the accuracy or completeness of information in this document.
[2023-12-28 09:27] VITALS: BP 102/81; PULSE 90; TEMP 36.8; O2SAT 99; BMI 35.8
[2023-12-28 09:45] LABS: Glucometer 275 mg/dL (74-106)
--- NOTE | 2023-12-28 09:47 | ED.EXTPRO1 ---
HPI - Extremity Problem General Chief complaint: Extremity Problem, Nontraumatic Stated complaint: LOWER EXTREMITY, RIGHT, TOE Time Seen by Provider: 12/28/23 09:29 Source: patient Mode of arrival: walk-in Limitations: no limitations History of Present Illness HPI Narrative: The patient is a diabetic type II with what he mentioned not well-controlled diabetes coming to the ER with a right foot ulcer that he noticed over the last 3 days, although he thinks it could have been before that He denies any trauma or any bleeding at any time he also denies any fever or chills or any localized pain because he have neuropathy in his feet Related Data Allergies Allergy/AdvReac Type Severity Reaction Status Date / Time No Known Drug Allergies Allergy Verified 12/28/23 09:47 Review of Systems ROS Status of ROS 10 or more systems reviewed and unremarkable except as noted in history and below PFSH PFSH Social History Little interest or pleasure in doing things: not at all Feeling down, depressed, or hopeless: not at all Exam Narrative Exam Narrative: Nurses notes and vital signs reviewed and patient is not hypoxic. Bilateral lower extremity examination: The patient have a good anterior tibial pulse on the left foot in addition to no ulcers or any pathology detected On the right foot the patient have an ulcer at the solar aspect of the toe measuring 1 cm in diameter it is a not show any acute signs of infection at the moment there is no redness surrounding it and there is no induration on the dorsum of the big toe the patient had redness and mild warmth mostly limited to the distal interphalangeal joint The anterior tibial pulse in the right foot is dopplerable General: Well-appearing and in no apparent distress. Skin: Warm, dry, no pallor noted. No rash. Head: Normocephalic, atraumatic. Neck: Supple, non-tender. Eye: Pupils are equal, round and EOMI. No scleral icterus. Ears, Nose, Mouth, and Throat: TM are clear, no nasal mucosal hypertrophy. Oral mucosa is moist, no posterior oropharynx erythema, uvula is mid-line Cardiovascular: Regular Rate and Rhythm without murmur, gallop or rub. Respiratory: No accessory muscle use or respiratory distress. Lungs are clear to auscultation, no wheezing, rales or rhonchi Chest Wall: no tenderness Back: No midline thoracic or lumbar vertebral tenderness. No CVA tenderness GI: Abdomen is soft, non-distended. Normal bowel sounds. No masses appreciated. No tenderness to palpation. No rebound, guarding, or rigidity noted. Neurological: A&O x4. No cranial nerve dysfunction observed. No truncal ataxia. Moves all extremities. Sensation intact. Psychiatric: Cooperative and interactive. Normal mood and affect. Constitutional Vital Signs, click to edit/add: Last Vital Signs Temp 98.2 F 12/28/23 09:27 Pulse 90 12/28/23 09:27 Resp 18 12/28/23 09:27 BP 102/81 12/28/23 09:27 Pulse Ox 99 12/28/23 09:27 Course Vital Signs Vital signs: Vital Signs Temperature 98.2 F 12/28/23 09:27 Pulse Rate 90 12/28/23 09:27 Respiratory Rate 18 12/28/23 09:27 Blood Pressure 102/81 12/28/23 09:27 Pulse Oximetry 99 12/28/23 09:27 Temperature 98.2 F 12/28/23 09:27 Pulse Rate 90 12/28/23 09:27 Respiratory Rate 18 12/28/23 09:27 Blood Pressure 102/81 12/28/23 09:27 Pulse Oximetry 99 12/28/23 09:27 MDM - Extremity (Nontraumatic) MDM Narrative Medical decision making narrative: The patient presented with a diabetic foot ulcer with a mild cellulitis of the right big toe and there is no signs of systemic infection The patient was started on Bactrim and Keflex treatment and provided with a postop shoes and dressing with referred to podiatry as outpatient I spoke extensively with the patient regarding monitoring and making sure that his symptoms will get better and there is no progression of his redness or any new signs of infection Patient to follow-up with podiatry as outpatient within few days The patient is to follow up with primary care physician in next 2-3 days or to return to the emergency department should any of the signs or symptoms worsen or new symptoms develop. The patient agrees with the following Diagnosis and Treatment plan and the patient will be discharged home. Lab Data Labs: Lab Results 12/28/23 Range/Units 09:25 POC Glucose 275 H (74-106) mg/dL Discharge Plan Discharge Chief Complaint: Extremity Problem, Nontraumatic Clinical Impression: Diabetic foot ulcer Qualifiers: Diabetic foot ulcer location: toe Diabetes mellitus type: type 2 Laterality: right Non-pressure ulcer stage: limited to breakdown of skin Qualified Code(s): E11.621 - Type 2 diabetes mellitus with foot ulcer Cellulitis Qualifiers: Site of cellulitis: extremity Site of cellulitis of extremity: toe Laterality: right Qualified Code(s): L03.031 - Cellulitis of right toe Patient Disposition: Home, Self-Care Time of Disposition Decision: 09:45 Condition: Good Print Language: Tristanian Referrals: SILVINA HARRELL [Primary Care Provider] - 1 week
[2023-12-28] MEDS: BACITRACIN 0.9 GM PACKET 1 PACKET TOPICAL (10:08)
[2023-12-28] MEDS: SULFAMETHOXAZOLE/TRIMETHOPRIM 800-160 MG TABLET 1 TAB PO (10:09)
[2023-12-28] MEDS: CEPHALEXIN 500 MG CAPSULE PO (10:09)
== END 2023-12-28 10:13 | disposition home or self-care (01) ==
PROVIDERS: Emergency Provider Emergency Medicine; Family Provider Family Medicine; PCP Nurse Practitioner Family
DX: E11.621 Type 2 diabetes mellitus with foot ulcer (principal); L03.031 Cellulitis of right toe
CPT/HCPCS: 36415; 99284

== ENCOUNTER 2023-12-30 11:19 | Outpatient (OUT) | payer OTHER, SELFPAY ==
--- NOTE | 2023-12-30 | XR_ITS ---
The [address] [address] Patient Name: PAPITO SANDOVAL MRN: [id number] date: 1970 Sex: M Assigned Patient Location: [facility] Current Patient Location: Accession/Order Number: [id number] Exam Date: 12/30/2023 11:37 Report Date: 12/31/2023 07:48 At the request of: AMANDA LERNER Procedure: XR foot RT min 3V PROCEDURE: XR foot RT min 3V COMPARISON: None. HISTORY: RIGHT FOOT PAIN FINDINGS: BONES:No acute fracture or dislocation. Mild degenerative changes with marginal osteophyte formation. No focal lytic or sclerotic changes SOFT TISSUES:Soft tissue swelling of the first toe EFFUSION:None visible. OTHER: Negative. XR/XR foot RT min 3V IMPRESSION: No plain film evidence of osteomyelitis Electronically authenticated by: DAVID WASHINGTON Date: 12/31/2023 07:48
--- OUTSIDE RECORDS SUMMARY | 2023-12-30 11:39 | XMS_ITS | CCD ---
Author Organization [facility] Care Team Providers Care Bioengineer Name Role Phone Rosario Bruno Unavailable ROSETTA Bruno Primary Care Provider ROSETTA Bruno Attending Provider Asaad, Imad Unavailable MD Sage Imbernardino Attending Provider [phone] ROSETTA Bruno Primary Care Provider MD Milena Cazares Attending Provider Asaad, Imad Admitting Unavailable Asaad, Imad Attending Unavailable Kiana Rosario Primary Care Unavailable Asaad, Imad Attending Unavailable Ameliarbacher, Rosario Primary Care Unavailable Asaad, Imad Admitting Unavailable Rohrbacher, Rosario Admitting Unavailable Rohrbacher, Rosario Primary Care Unavailable Ameliarbmariano Rosario Attending Unavailable Rohrbacher FLOW FLOOR ATTENDANT, Rosario Primary Care Provider [phone] FITO BRUNONIFER Primary Care Unavailable HERNAN HAMMOND Attending Unavailable AMELIARBACHERROSARIO Referring Unavailable AMELIARBACHERFITOROSARIO Primary Care Unavailable MARILU TRINH Attending Unavailable ROHRBACHER, ROSARIO Primary Care Unavailable RUSSELL BROWN Attending Unavailable AMELIARBACHERROSARIO Referring Unavailable ROHRBACHER, ROSARIO Primary Care Unavailable HERNAN HAMMOND Attending Unavailable Allergies Allergy Classification Reported Allergen(s) Allergy Type Date of Onset Reaction(s) Facility (2 sources) Lactose; Translations: [LACTOSE] Drug Allergy 10-28-2023 [facility] Repository (5 sources) Lactose Drug Allergy 10-28-2023 GI Upset [facility] (6 sources) Latex; Translations: [LATEX] Drug Allergy 11-26-2023 Itching [facility] Medications Current Medications Medication Drug Class(es) Dates Sig (Normalized) Sig (Original) Blood-Glucose Meter (Onetouch Ultra2 Meter) misc (1 source) Start: 10-24-2023 Blood-Glucose Meter (Onetouch Ultra2 Meter) misc Active 0 .ROUTE .COMPLEX 1 October 24, 2023 1:35pm USE TO TEST BLOOD GLUCOSE TWICE A DAY NEEDED FOR TYPE 2 DIABETES doxepin hydrochloride 10 mg oral capsule (6 sources) Tricyclic Antidepressant Start: 10-22-2023 take 1-2 capsules by mouth once daily at bedtime doxepin capsule 10 mg TAKE 1 TO 2 CAPSULES BY MOUTH EVERY DAY AT BEDTIME 10/22/2023 Active 0.5 ml dulaglutide 3 mg/ml auto-injector (10 sources) GLP-1 Receptor Agonist Start: 10-28-2023 inject [...] 2023 1:20pm empagliflozin 25 mg oral tablet (14 sources) Sodium-Glucose Cotransporter 2 Inhibitor Start: 05-05-2023 End: 10-28-2023 empagliflozin (JARDIANCE) 25 mg tablet once daily. 10/28/2023 Active Start: 03-14-2023 take 1 tablet by marcio th every twenty-four hours Jardiance 25 MG 1 tablet Orally Once a day for 90 days Feb, Active FLUoxetine 20 mg oral capsule (9 sources) Serotonin Reuptake Inhibitor Start: 07-23-2023 End: [...] 1 tablet by mouth once daily Vitamin F62-Lmcgq Acid (Foltrate) 0.5-1 mg tablet Active 1 [...] May 05, 2023 12:00am polyethylene glycol 3350 051828 mg / potassium chloride 2970 mg / sodium bicarbonate 6740 mg / sodium chloride 5860 mg / sodium sulfate 99186 mg powder for oral solution (1 source) Osmotic Laxative Start: 03-26-2023 take 4000 mL by mouth once daily Golytely 236 GM 4000 ML Orally once daily for 1 days Mar, Active pravastatin sodium 10 mg oral tablet (13 sources) HMG-CoA Reductase Inhibitor Start: 05-05-2023 End: 10-28-2023 take 10 mg by mouth once daily Pravastatin Active 10 MG PO Daily October 28, 2023 1:16pm ramipril 1.25 mg oral capsule (5 sources) Angiotensin Converting Enzyme Inhibitor ramipril (ALTACE) [...] Chronic Conditions associated with dizziness or vertigo (9 sources) Vertigo; Translations: [Dizziness and giddiness] Onset: [...] Chronic Other ear and sense organ disorders (9 sources) Asymmetrical sensorineural hearing loss; Translations: [Sensorineural hearing loss, bilateral] Onset: 11-26-2023 11-26-2023 Chronic Other ear and sense organ disorders (1 source) Impacted cerumen; Translations: [Impacted cerumen, unspecified ear] 06-05-2023 Episodic Other ear and sense organ disorders (2 sources) Impacted cerumen in left ear; Translations: [Impacted cerumen, left ear] 11-26-2023 Episodic Other ear and sense organ disorders (9 sources) Tinnitus of left ear; Translations: [Tinnitus, [...] CNOV Office Visit (OTAULO ) FREDDY SANDOVAL ([id number]) 1970 M Date Time Provider Department 12/24/23 1:00 PM HERNAN HAMMOND During your visit today, we recorded the following information about you: Hernan Hammond, Bowen, CCC-A 12/24/2023 1:58 PM Signed [facility] Section of Allied Hearing, Speech and Balance Services ADULT COCHLEAR IMPLANT CANDIDACY EVALUATION Audiometric Testing Name: Freddy Sandoval [facility]#: [id number] Date of Service: December 22, 2023 Date of : 1970 Age: [age] year old Referred by: Russell Brown CNP This patient was referred for an evaluation to determine cochlear implant candidacy. 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 Devices were verified utilizing the [employer] equipment to NAL-NL 1 fitting methods. AIDED [...] the sound field at conversational level (60 general internal medicine doctor); results were: Left SDT: could not detect that speech was present at 80 dB HL (limits of equipment) Nurcmsmml-Axxviih-Jfhm onant Words (CNC) Test Condition List # [...] advantage inclu (more content not included)... [facility] FREDDY SANDOVAL ([id number]) 1970 M Date Time Provider Department 12/12/23 RUSSELL BROWN [facility] During your visit today, we recorded the following information about you: Jennie Rodgers 12/12/2023 10:03 AM Signed Freddy Sandoval called today. : 1970 Allergies: Lactose and Latex (home) Reason for call: Patient calling in to get scheduled as requested by Russell Brown APRN.PROOF TECHNICIAN HELPER. Patient has been scheduled for an Implant Eval with Dr. Hammond and also for an appointment with an nuclear monitoring technician. Patient advised of all appointment details. Please review patient's appointments to ensure that he has been scheduled appropriately. Patient originally requested to see Russell Brown. Contact patient if scheduled incorrectly. Thank you! Patient last appointment: 12/02/2023 The patients preferred pharmacy has been captured for this encounter? [facility] December 12, 2023 10:00 AM Russell Brown APRN.PROOF TECHNICIAN HELPER 12/12/2023 11:51 AM Signed appts are correct. [...] Encounter Status:Closed by RUSSELL BROWN on 12/12/23 [facility] FREDDY SANDOVAL ([id number]) 1970 M Date Time Provider Department 12/02/23 [facility] During your visit today, we [...] welcome to meet with one of our nuclear monitoring technician to discuss cochlear implant surgery which potentially [...] would highly recommend that he sees the nuclear monitoring technician to discuss options including cochlear implant. They [...] [H93.11] Order(s):CONSULT TO ENT [9008] Order #: [id number]: 1 FUTURE CONSULT TO ENT [9007] Order #: [id number]: 1 FUTURE Prescriptions as of 12/12/2023 - [...] Encounter Status:Closed by RUSSELL BROWN on 12/12/23 [facility] CNOVon 11-28-2023 CNOV Office Visit (CDISMN ) FREDDY SANDOVAL ([id number]) 1970 M Date Time Provider Department 11/28/23 11:30 AM [facility] TRINH [facility] During your visit today, we recorded the following information about you: Marilu Trinh AUD 11/28/2023 4:39 PM Signed [facility] Head and Neck Department Section of Audiology AUDIOLOGIC EVALUATION REPORT Name: Freddy Sandoval [facility]#: [id number] Date of Service: 11/28/2023 Date of : [...] evaluation of middle ear function. CPT code: 51909 RIGHT EAR: Negative (-184 daPa) pressure with reduced TM compliance (mobility). LEFT EAR: Negative (-120 daPa) pressure with reduced TM compliance (mobility). ACOUSTIC REFLEXES Description of procedure: This test is an objective measure of auditory and facial nerve pathways. CPT code: 04540, 73478 RIGHT EAR PROBE EAR: (ipsi right stimulus [...] bone conduction and speech recognition testing. CPT code:00271 RIGHT EAR: Hearing Sensitivity: WNL 250-2000 Hz [...] the need (more content not included)... Normal [facility] HEARING TEST/AUDIOGRAMon [facility] CNOVon 11-26-2023 CNOV Office Visit (OTOLCC ) FREDDY SANDOVAL ([id number]) 1970 M Date Time Provider Department 11/26/23 8:50 AM [facility]OWN [facility] During your visit today, we recorded the following information about you: Pulse Respiration 95/minute 17/minute Russell Brown, FOREMAN/PROJECT MANAGER.PROOF TECHNICIAN HELPER 11/26/2023 3:37 PM Signed Mr. Sandoval is a 53 year old male who comes in for evaluation of hearing loss. Apparently 4 years ago he had sudden onset of hearing loss in the left ear. This was accompanied by tinnitus and vertigo. He was evaluated at that time at an outside van helper and ENT office. 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 Russell Brown APRN.PROOF TECHNICIAN HELPER Allergies As of Date: 11/26/2023 Noted Allergy [...] by RUSSELL BROWN on 11/26/23 [facility] Office Visit (OTAULO ) FREDDY SANDOVAL ([id number]) 1970 M Date Time Provider Department 11/26/23 8:00 AM HERNAN HAMMOND During your visit today, we recorded the following information about you: Hernan Hammond, Bowen, CCC-A 11/26/2023 8:19 AM Signed [facility] Head and Neck Department Section of Audiology AUDIOLOGIC EVALUATION REPORT Name: Freddy Sandoval [facility]#: [id number] Date of Service: 11/26/2023 Date of : 1970 Age: [age] year old Referred by: Rosario Bruno, PROOF TECHNICIAN HELPER [address] [address] Referred for: Evaluation of suspected change in hearing, tinnitus, or balance. 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 He [...] evaluation of middle ear function. CPT code: 23984 RIGHT EAR: Flat with minimal TM mobility consistent with possible presence of ME fluid. LEFT EAR: Reduced ear canal volume and flat tympanogram consistent with impacted cerumen. Discontinued testing after tympanometry. RECOMMENDATIONS * Continue medical follow-up with ENT for cerumen management. * Test hearing after cerumen management Bowen Martinez, [facility] Abbrev- iation Definition Degree of hearing sensitivity dB range WNL within normal limits WNL 0 - 20 SNHL sensorineural hearing loss Mild 20-40 CHL conductive hearing loss Moderate 40-55 MHL mixed hearing loss Moderately-Severe 55-70 WRS word recognition score Severe 70-90 ME middle ear Profound 90 + TM tympanic membrane Referring Provider: ROSARIO BRUNO [[id number]] Allergies As of Date: 11/26/2023 (Not on File) Date Reviewed: Never Reviewed Primary Visit Diagnosis:Impacted cerumen of left ear [H61.22] Other Visit Diagnoses:Left-sided tinnitus [H93.12] Vertigo [R42] Order(s):HEARING TEST/AUDIOGRAM [7108704] Order #: [id number]: 1 Problem List As Of Date: 11/26/2023 (None) Encounter Status:Closed by HERNAN HAMMOND on 11/26/23 [facility] Capillary blood glucose amy urement by glucometer (mass/volume)Ordered By: Milena Cazares on 11-04-2023 Glucose [Mass/Vol] 183 mg/dL Normal [facility] Comment on above: Random Glucose Refer ence Range is dependent on time and content of last meal. Glucose of more than 200 mg/dL in a nonstressed, ambulatory subject supports the diagnosis of Diabetes Mellitus. Result Comment: [place] om Glucose Reference Range is dependent on time and content of last meal. Glucose of more than 200 mg/dL in a nonstressed, ambulatory subject supports the diagnosis of Diabetes Mellitus. PERFORMED BY: [place] [address] PATHOLOGIST AUTO RADIATOR SPECIALIST PADMA MONTOYA M.D. Performed By: #### G LULS #### Point of Care testing , Pathology Request for Lab Co rpon 11-04-2023 Pathology Request for Lab Amy Normal [facility] Comment on above: Order Comment: PATHO LOGY GI SPECIMEN Result Comment: See report. Scanned copy available in EMR. PERFORMED BY: [place] [address] PATHOLOGIST AUTO RADIATOR SPECIALIST PADMA MONTOYA M.D. Performed By: #### P ATH TO [facility] #### [address] HbA1c HPLC (Bld) [Mass fract ion]on 10-28-2023 HbA1c (Bld) [Mass fraction] 9.2 % [facility] Capillary blood glucose amy urement by glucometer (mass/volume)Ordered By: Milena Cazares on 05-06-2023 Glucose [Mass/Vol] 170 mg/dL Normal [facility] Comment on above: Random Glucose Refer ence Range is dependent on time and content of last meal. Glucose of more than 200 mg/dL in a nonstressed, ambulatory subject supports the diagnosis of Diabetes Mellitus. Result Comment: [place] om Glucose Reference Range is dependent on time and content of last meal. Glucose of more than 200 mg/dL in a nonstressed, ambulatory subject supports the diagnosis of Diabetes Mellitus. PERFORMED BY: [facility] [place] [address] PATHOLOGIST AUTO RADIATOR SPECIALIST PADMA MONTOYA M.D. Performed By: #### G SAUMYA #### Point of Care testing , Pito 05-06-2023 L Specimen: [id number] Received: 05/06/23 Status: ROSENDO Req Num: [id number] Spec Type: Surgical Subm Dr: Milena Cazares MD Tissues: A Colon Biopsy (RECTAL POLYP) Procedures: HE/2, Gross/Micro L4 Age/ Patient Sex Location Account Attending Physician Freddy Sandoval 53/M [id number] Milena Cazares MD SPEC NUM: [id number] RECD: 05/06/23 STATUS: ROSENDO MOORE NUM: [id number] CRISTOFER: 05/06/23 DR: Milena Cazares MD ENTERED: 05/06/23 [facility] DR: SPEC TYPE: Surgical DEPT: S ORDERED: [...] in one cassette labeled A1. CPT Codes 31265 ---- ---- Specimen: [id number] Received: 05/06/23 Status: ROSENDO Moore Num: [id number] Spec Type: Surgical Subm Dr: Milena Cazares MD Tissues: A Colon Biopsy (RECTAL POLYP) Procedures: HE/2, Gross/Micro L4 ---- Patient: Freddy Sandoval [id number] (Continued) ---- Signed (signature on file) Morgan Cristina MD 05/08/232235 Normal [facility] A1C with Estimated Average G nickikayley 03-14-2023 Glucose [Mass/Vol] 217 mg/dL Normal [facility] Comment on above: Order Comment: Reaso n for Exam Type 2 diabetes mellitus without complication, without long- Result Comment: PERF ORMED BY: [place] [address] PATHOLOGIST AUTO RADIATOR SPECIALIST PADMA MONTOYA M.D. Performed By: #### U RMACRERAT, CMP, LIPID, PSAS, A1C WT eA, CBC #### [facility] [address] Alanine aminotransferase [En zymatic activity/volume] in Serum or PlasmaOrdered By: Rosario Bruno on 03-14-2023 ALT [Catalytic activity/Vol] 17 U/L Normal 7-52 [facility] Comment on above: Order Comment: Reaso n for Exam Type 2 diabetes mellitus without complication, without long- Performed By: #### U RMACRERAT, CMP, LIPID, PSAS, A1C WTH eA, CBC #### [facility] [address] [place] [id number] [place] Albumin [Mass/volume] in Ser um or Plasma by Bromocresol green (BCG) dye binding methoOrdered By: Rosario Bruno on 03-14-2023 Albumin BCG dye [Mass/Vol] 4.1 g/dL 3.5-5.7 [facility] Alkaline phosphatase [Enzyma tic activity/volume] in Serum or PlasmaOrdered By: Rosario Bruno on 03-14-2023 ALP [Catalytic activity/Vol] 75 U/L Normal 34-104 [facility] Comment on above: Order Comment: Reaso n for Exam Type 2 diabetes mellitus without complication, without long- Performed By: #### U RMACRERAT, CMP, LIPID, PSAS, A1C WTH eA, CBC #### [facility] [address] [place] [address] [place] Aspartate aminotransferase [ Enzymatic activity/volume] in Serum or PlasmaOrdered By: Rosario Bruno on 03-14-2023 AST [Catalytic activity/Vol] 18 U/L Normal 13-39 [facility] Comment on above: Order Comment: Reaso n for Exam Type 2 diabetes mellitus without complication, without long- Performed By: #### U RMACRERAT, CMP, LIPID, PSAS, A1C WTH eA, CBC #### [facility] [address] [place] [id number] [place] Automated basophil %Ordered By: Rosario Bruno on 03-14-2023 Basophils/100 WBC (Bld) 1.3 % Normal . F [facility] Comment on above: Order Comment: Reaso n for Exam Type 2 diabetes mellitus without complication, without long- Performed By: #### U RMACRERAT, CMP, LIPID, PSAS, A1C WTH eA, CBC #### [facility] [address] [phone] [place] Automated basophil countOrde red By: Rosario Bruno on 03-14-2023 Basophils (Bld) [#/Vol] 0.1 10*3/uL Normal 0.0-0.2 [facility] Comment on above: Order Comment: Reaso n for Exam Type 2 diabetes mellitus without complication, without long- Result Comment: PERF ORMED BY: [place] [address] PATHOLOGIST AUTO RADIATOR SPECIALIST PADMA MONTOYA M.D. Performed By: #### U RMACRERAT, CMP, LIPID, PSAS, A1C WTH eA, CBC #### [facility] [address] [place] [address] Automated blood monocyte cou ntOrdered By: Rosario Bruno on 03-14-2023 Monocytes (Bld) [#/Vol] 0.3 10*3/uL Normal 0.0-0.8 [facility] Comment on above: Order Comment: Reaso n for Exam Type 2 diabetes mellitus without complication, without long- Performed By: #### U RMACRERAT, CMP, LIPID, PSAS, A1C WTH eA, CBC #### [facility] [address] [place] [address] Automated eosinophil %Ordere d By: Rosario Bruno on 03-14-2023 Eosinophils/100 WBC (Bld) 3.8 % Normal . [facility] Comment on above: Order Comment: Reaso n for Exam Type 2 diabetes mellitus without complication, without long- Performed By: #### U RMACRERAT, CMP, LIPID, PSAS, A1C WTH eA, CBC #### [facility] [address] Automated eosinophil countOr dered By: Rosario Bruno on 03-14-2023 Eosinophils (Bld) [#/Vol] 0.2 10*3/uL Normal 0.0-0.45 [facility] Comment on above: Order Comment: Reaso n for Exam Type 2 diabetes mellitus without complication, without long- Performed By: #### U RMACRERAT, CMP, LIPID, PSAS, A1C WTH eA, CBC #### [facility] [address] [place] [address] [place] Automated monocyte %Ordered By: Rosario Bruno on 03-14-2023 Monocytes/100 WBC (Bld) 6.2 % Normal . F [facility] Comment on above: Order Comment: Reaso n for Exam Type 2 diabetes mellitus without complication, without long- Performed By: #### U RMACRERAT, CMP, LIPID, PSAS, A1C WTH eA, CBC #### [facility] [address] [phone] [facility] Automated neutrophil %Ordere d By: Rosario Bruno on 03-14-2023 Neutrophils/100 WBC (Bld) 61.6 % Normal . [facility] Comment on above: Order Comment: Reaso n for Exam Type 2 diabetes mellitus without complication, without long- Performed By: #### U RMACRERAT, CMP, LIPID, PSAS, A1C WTH eA, CBC #### [facility] [address] [place] [address] [place] Bilirubin.total [Mass/volume ] in Serum or PlasmaOrdered By: Rosario Bruno on 03-14-2023 Bilirubin [Mass/Vol] 0.7 mg/dL Normal 0.3-1.0 [facility] Comment on above: Order Comment: Reaso n for Exam Type 2 diabetes mellitus without complication, without long- Performed By: #### U RMACRERAT, CMP, LIPID, PSAS, A1C WTH eA, CBC #### [facility] [address] [place] [phone] [place] Calcium [Mass/volume] in Ser um or PlasmaOrdered By: Rosario Bruno on 03-14-2023 Calcium [Mass/Vol] 9.1 mg/dL Normal 8.6-10.3 [facility] Comment on above: Order Comment: Reaso n for Exam Type 2 diabetes mellitus without complication, without long- Performed By: #### U RMACRERAT, CMP, LIPID, PSAS, A1C WTH eA, CBC #### [facility] [address] [place] [phone] [place] Carbon dioxide, total [Moles /volume] in Serum or PlasmaOrdered By: Rosario Bruno on 03-14-2023 CO2 [Moles/Vol] 28.5 mmol/L Normal 21.0-31.0 [facility] Comment on above: Order Comment: Reaso n for Exam Type 2 diabetes mellitus without complication, without long- Performed By: #### U RMACRERAT, CMP, LIPID, PSAS, A1C WTH eA, CBC #### [facility] [address] [place] [phone] [place] Chloride [Moles/volume] in S robert or PlasmaOrdered By: Rosario Bruno on 03-14-2023 Chloride [Moles/Vol] 105 mmol/L Normal 98-107 [facility] Comment on above: Order Comment: Reaso n for Exam Type 2 diabetes mellitus without complication, without long- Performed By: #### U RMACRERAT, CMP, LIPID, PSAS, A1C WT eA, CBC #### [facility] [address] [place] [phone] [place] Cholesterol [Mass/volume] in Serum or PlasmaOrdered By: Rosario Bruno on 03-14-2023 Cholesterol [Mass/Vol] 133 mg/dL Low 140-200 [facility] Comment on above: Chol less than [...] LIPID, PSAS, A1C WTH eA, CBC #### [facility] [address] [place] [address] [place] Cholesterol in LDL Calc [Mas s/Vol]Ordered By: Rosario Bruno on 03-14-2023 Cholesterol in LDL [Mass/Vol] 79 mg/dL 0-100 [facility] Comment on above: LDL ATP III CLASSIFI CATIONLDL less than 100 mg/dL OptimalLDL 100-129 mg/dL Near or above optimalLDL 130-159 mg/dL Borderline highLDL 160-189 mg/dL HighLDL greater than 189 mg/dL Very high Cholesterol in VLDL Calc [Ma ss/Vol]Ordered By: Rosario Bruno on 03-14-2023 Cholesterol in VLDL [Mass/Vol] 19 mg/dL [facility] Complete Blood Count Auto Di ffon 03-14-2023 Mean Corpuscular HGB Conc 34.3 g/dL Normal 32.5-35.6 [facility] Comment on above: Order Comment: Reaso n for Exam Type 2 diabetes mellitus without complication, without long- Performed By: #### U RMACRERAT, CMP, LIPID, PSAS, A1C WTH eA, CBC #### [facility] [address] NRBC% 0.2 /100{WBC} Normal 0-0.5 [facility] Comment on above: Order Comment: Reaso n for Exam Type 2 diabetes mellitus without complication, without long- Performed By: #### U RMACRERAT, CMP, LIPID, PSAS, A1C WTH eA, CBC #### [facility] [address] Comprehensive Metabolic Pane pito 03-14-2023 Albumin [Mass/Vol] 4.1 g/dL Normal 3.5-5.7 [facility] Comment on above: Order Comment: Reaso n for Exam Type 2 diabetes mellitus without complication, without long- Performed By: #### U RMACRERAT, CMP, LIPID, PSAS, A1C WTH eA, CBC #### [facility] [address] [place] [address] [place] GFR/1.73 sq M.predicted MDRD (S/P/Bld) [Vol rate/Area] mL/min/{1.73_m2} Normal [facility] Comment on above: Order Comment: Reaso n for Exam Type 2 diabetes mellitus without complication, without long- Performed By: #### U RMACRERAT, CMP, LIPID, PSAS, A1C WTH eA, CBC #### [facility] [address] [id number] [place] Creatinine [Mass/volume] in Serum or PlasmaOrdered By: Rosario Bruno on 03-14-2023 Creatinine [Mass/Vol] 1.03 mg/dL Normal 0.70-1.30 [facility] Comment on above: Order Comment: Reaso n for Exam Type 2 diabetes mellitus without complication, without long- Performed By: #### U RMACRERAT, CMP, LIPID, PSAS, A1C WTH eA, CBC #### [facility] [address] [id number] [place] Creatinine [Mass/volume] in UrineOrdered By: Rosario Bruno on 03-14-2023 Creatinine (U) [Mass/Vol] 80.0 mg/dL 14.0-26.0 [facility] Erythrocyte distribution wid th [Ratio] by Automated countOrdered By: Rosario Bruno on 03-14-2023 Erythrocyte distribution width (RBC) [Ratio] 12.6 % Normal 12.0-14.8 [facility] Comment on above: Order Comment: Reaso n for Exam Type 2 diabetes mellitus without complication, without long- Performed By: #### U RMACRERAT, CMP, LIPID, PSAS, A1C WTH eA, CBC #### [facility] [address] [id number] [place] Erythrocytes [#/volume] in B lood by Automated countOrdered By: Rosario Bruno on 03-14-2023 RBC (Bld) [#/Vol] 4.51 10*6/uL Normal 3.90-5.60 [facility] Comment on above: Order Comment: Reaso n for Exam Type 2 diabetes mellitus without complication, without long- Performed By: #### U RMACRERAT, CMP, LIPID, PSAS, A1C WTH eA, CBC #### [facility] [address] [id number] [place] Glucose [Mass/volume] in Ser um or PlasmaOrdered By: Rosario Bruno on 03-14-2023 Glucose [Mass/Vol] 175 mg/dL High 70-100 [facility] Comment on above: ADA recommended refe rence rangeRandom Glucose Reference Range is dependent on time and content of last meal. Glucose of more than 200 mg/dL in a nonstressed, ambulatory subject supports the diagnosis of Diabetes Mellitus. Order Comment: Reaso n for Exam Type 2 diabetes mellitus without complication, without long- Result Comment: [facility] Glucose Reference Range is dependent on time and content of last meal. Glucose of more than 200 mg/dL in a nonstressed, ambulatory subject supports the diagnosis of Diabetes Mellitus. ADA recommended reference range Performed By: #### U RMACRERAT, CMP, LIPID, PSAS, A1C WTH eA, CBC #### [facility] [address] Glucose mean value [Mass/vol ume] in Blood Estimated from glycated hemoglobinOrdered By: Rosario Bruno on 03-14-2023 Average glucose Estimated from glycated hemoglobin (Bld) [Mass/Vol] 217 mg/dL [facility] Hematocrit [Volume Fraction] of Blood by Automated countOrdered By: Rosario Bruno on 03-14-2023 Hematocrit (Bld) [Volume fraction] 40.7 % Normal 38.8-50.0 [facility] Comment on above: Order Comment: Reaso n for Exam Type 2 diabetes mellitus without complication, without long- Performed By: #### U RMACRERAT, CMP, LIPID, PSAS, A1C WTH eA, CBC #### [facility] [address] [place] [address] [place] Hemoglobin A1c percentageOrd ered By: Rosario Bruno on 03-14-2023 HbA1c (Bld) [Mass fraction] 9.2 % High 4.3-5.6 [facility] Comment on above: Increased risk for d [...] LIPID, PSAS, A1C WTH eA, CBC #### [facility] [address] [id number] [place] Hemoglobin [Mass/volume] in BloodOrdered By: Rosario Bruno on 03-14-2023 Hemoglobin (Bld) [Mass/Vol] 14.0 g/dL Normal 13.0-17.0 [facility] Comment on above: Order Comment: Reaso n for Exam Type 2 diabetes mellitus without complication, without long- Performed By: #### U RMACRERAT, CMP, LIPID, PSAS, A1C WTH eA, CBC #### [facility] [address] Leukocytes [#/volume] correc salazar for nucleated erythrocytes in Blood by Automated counOrdered By: Rosario Bruno on 03-14-2023 WBC corrected for nucl RBC Auto (Bld) [#/Vol] 5.5 10*3/uL 4.1-10.5 [facility] Leukocytes [#/volume] in Blo od by Automated countOrdered By: Rosario Bruno on 03-14-2023 WBC (Bld) [#/Vol] 5.5 10*3/uL Normal 4.1-10.5 [facility] Comment on above: Order Comment: Reaso n for Exam Type 2 diabetes mellitus without complication, without long- Performed By: #### U RMACRERAT, CMP, LIPID, PSAS, A1C WTH eA, CBC #### [facility] [address] Lipid Panelon 03-14-2023 LDL Cholesterol,Calculated 79 mg/dL Normal 0-100 [facility] Comment on above: Order Comment: [...] LIPID, PSAS, A1C WTH eA, CBC #### [facility] [address] Triglyceride w/Reflex 97 mg/dL Normal 0-149 [facility] Comment on above: Order Comment: [...] LIPID, PSAS, A1C WTH eA, CBC #### [address] VLDL CHOLESTEROL 19 mg/dL Normal [facility] Comment on above: Order Comment: Reaso n for Exam Type 2 diabetes mellitus without complication, without long- Performed By: #### U RMACRERAT, CMP, LIPID, PSAS, A1C WTH eA, CBC #### [address] Lymphocytes [#/volume] in Bl ood by Automated countOrdered By: Rosario Bruno on 03-14-2023 Lymphocytes (Bld) [#/Vol] 1.5 10*3/uL Normal 1.00-4.8 [facility] Comment on above: Order Comment: Reaso n for Exam Type 2 diabetes mellitus without complication, without long- Performed By: #### U RMACRERAT, CMP, LIPID, PSAS, A1C WTH eA, CBC #### [address] Lymphocytes/100 leukocytes i n Blood by Automated countOrdered By: Rosario Bruno on 03-14-2023 Lymphocytes/100 WBC (Bld) 27.1 % Normal . [facility] Comment on above: Order Comment: Reaso n for Exam Type 2 diabetes mellitus without complication, without long- Performed By: #### U RMACRERAT, CMP, LIPID, PSAS, A1C WTH eA, CBC #### [place] [address] [place] MCH [Entitic mass] by Automa salazar countOrdered By: Rosario Bruno on 03-14-2023 MCH (RBC) [Entitic mass] 31.0 pg Normal 27.5-35.2 [facility] Comment on above: Order Comment: Reaso n for Exam Type 2 diabetes mellitus without complication, without long- Performed By: #### U RMACRERAT, CMP, LIPID, PSAS, A1C WTH eA, CBC #### [facility] [address] MCHC Auto (RBC) [Mass/Vol]Or dered By: Rosario Bruno on 03-14-2023 MCHC (RBC) [Mass/Vol] 34.3 g/dL 32.5-35.6 [facility] MCV [Entitic volume] by Auto mated countOrdered By: Rosario Bruno on 03-14-2023 MCV (RBC) [Entitic vol] 90.4 fL Normal 83.5-[address] [facility] Comment on above: Order Comment: Reaso n for Exam Type 2 diabetes mellitus without complication, without long- Performed By: #### U RMACRERAT, CMP, LIPID, PSAS, A1C WTH eA, CBC #### [facility] [address] [place] [address] [place] MicroAlb Creat Ratio,Uon Creatinine, Urine (Random) 80.0 mg/dL High 14.0-26.0 [facility] Comment on above: Order Comment: Reaso n for Exam Type 2 diabetes mellitus without complication, without long- Performed By: #### U RMACRERAT, CMP, LIPID, PSAS, A1C WTH eA, CBC #### [facility] [address] Microalbumin/Creatinine Ratio Not performed Normal 0.0-30.0 [facility] Comment on above: Order Comment: Reaso n for Exam Type 2 diabetes mellitus without complication, without long- Result Comment: PERF ORMED BY: [place] [id number] PATHOLOGIST AUTO RADIATOR SPECIALIST PADMA MONTOYA M.D. Performed By: #### U RMACRERAT, CMP, LIPID, PSAS, A1C WTH eA, CBC #### [facility] [address] Microalbumin [Mass/volume] i n UrineOrdered By: Rosario Bruno on 03-14-2023 Albumin DL <= 20 mg/L (U) [Mass/Vol] mg/dL Normal 0.0-1.8 [facility] Comment on above: Order Comment: Reaso n for Exam Type 2 diabetes mellitus without complication, without long- Performed By: #### U RMACRERAT, CMP, LIPID, PSAS, A1C WTH eA, CBC #### [facility] [address] [place] [address] Neutrophils [#/volume] in Bl ood by Automated countOrdered By: Rosario Bruno on 03-14-2023 Neutrophils (Bld) [#/Vol] 3.4 10*3/uL Normal 1.8-7.7 [facility] Comment on above: Order Comment: Reaso n for Exam Type 2 diabetes mellitus without complication, without long- Performed By: #### U RMACRERAT, CMP, LIPID, PSAS, A1C WT eA, CBC #### [facility] [address] [place] [address] No Panel InformationOrdered By: Rosario Bruno on 03-14-2023 Estimated GFR (CKD-EPI) > 60.0 mL/Min [facility] Creatinine Clearance (Chem N/A [facility] Nucleated erythrocytes [Pres ence] in Blood by Automated countOrdered By: Rosario Bruno on 03-14-2023 Nucleated RBC Auto Ql (Bld) 0.2 /100{WBC} 0-0.5 [facility] PSA Screen (Yearly Only)on PSA Screen (Yearly Only) 0.120 ng/mL Normal 0.000-4.00 0 [facility] Comment on above: Order Comment: Reaso n for Exam Screening for prostate cancer Result Comment: Larisa farooq tumor marker results determined by assays using different manufacturers or methods may not be comparable. [facility] infantry assaultman and method: [facility] UNICEL DXI, CHEMILUMINESCENT IMMUNOASSAY. PERFORMED BY: [place] [address] PATHOLOGIST AUTO RADIATOR SPECIALIST PADMA MONTOYA M.D. Performed By: #### U RMACRERAT, CMP, LIPID, PSAS, A1C WTH eA, CBC #### [facility] [address] [place] [address] [place] Platelet mean volume [Entiti c volume] in Blood by Automated countOrdered By: Rosario Bruno on 03-14-2023 Platelet mean volume (Bld) [Entitic vol] 9.0 fL Normal 6.6-10.1 [facility] Comment on above: Order Comment: Reaso n for Exam Type 2 diabetes mellitus without complication, without long- Performed By: #### U RMACRERAT, CMP, LIPID, PSAS, A1C WTH eA, CBC #### [facility] [address] [phone] [place] Platelets [#/volume] in Bloo d by Automated countOrdered By: Rosario Bruno on 03-14-2023 Platelets (Bld) [#/Vol] 187 10*3/uL Normal 150-450 [facility] Comment on above: Order Comment: Reaso n for Exam Type 2 diabetes mellitus without complication, without long- Performed By: #### U RMACRERAT, CMP, LIPID, PSAS, A1C WTH eA, CBC #### [facility] [address] [phone] [place] Potassium [Moles/volume] in Serum or PlasmaOrdered By: Rosario Bruno on 03-14-2023 Potassium [Moles/Vol] 4.2 mmol/L Normal 3.5-5.1 [facility] Comment on above: Order Comment: Reaso n for Exam Type 2 diabetes mellitus without complication, without long- Performed By: #### U RMACRERAT, CMP, LIPID, PSAS, A1C WTH eA, CBC #### [facility] [address] [phone] [place] Prostate specific Ag [Mass/v olume] in Serum or PlasmaOrdered By: Rosario Bruno on 03-14-2023 Prostate specific Ag [Mass/Vol] 0.120 ng/mL 0.000-4.000 [facility] Comment on above: Serial tumor marker results determined by assays using different manufacturers or methods may not be comparable.[facility] infantry assaultman and method:DAVID UNICEL DXI, CHEMILUMINESCENT IMMUNOASSAY. Protein [Mass/volume] in Ser um or PlasmaOrdered By: Rosario Bruno on 03-14-2023 Protein [Mass/Vol] 6.6 g/dL Normal 6.4-8.9 [facility] Comment on above: Order Comment: Reaso n for Exam Type 2 diabetes mellitus without complication, without long- Performed By: #### U RMACRERAT, CMP, LIPID, PSAS, A1C WTH eA, CBC #### [facility] [address] Serum globulin measurement b y calculation (mass/volume)Ordered By: Rosario Bruno on 03-14-2023 Globulin (S) [Mass/Vol] 2.5 g/dL Normal [facility] Comment on above: Order Comment: Reaso n for Exam Type 2 diabetes mellitus without complication, without long- Performed By: #### U RMACRERAT, CMP, LIPID, PSAS, A1C WTH eA, CBC #### [facility] [address] Serum or plasma albumin/glob ulin mass ratioOrdered By: Rosario Bruno on 03-14-2023 Albumin/Globulin [Mass ratio] 1.6 {ratio} Normal [facility] Comment on above: Order Comment: Reaso n for Exam Type 2 diabetes mellitus without complication, without long- Performed By: #### U RMACRERAT, CMP, LIPID, PSAS, A1C WTH eA, CBC #### [facility] [address] Serum or plasma anion gap de terminationOrdered By: Rosario Bruno on 03-14-2023 Anion gap [Moles/Vol] 7.7 mmol/L Normal 6.0-15.0 [facility] Comment on above: Order Comment: Reaso n for Exam Type 2 diabetes mellitus without complication, without long- Performed By: #### U RMACRERAT, CMP, LIPID, PSAS, A1C WTH eA, CBC #### [facility] [address] Serum or plasma high density lipoprotein (HDL) cholesterol measurementOrdered By: Rosario Bruno on 03-14-2023 Cholesterol in HDL [Mass/Vol] 35 mg/dL Normal 23-92 [facility] Comment on above: HDL CHOL ATP-III CLA [...] LIPID, PSAS, A1C WTH eA, CBC #### [facility] [address] Serum or plasma total choles terol/high density lipoprotein (HDL) cholesterol mass ratOrdered By: Rosario Bruno on 03-14-2023 Cholesterol.total/Choles terol in HDL [Mass ratio] 3.8 {ratio} Normal <5.0 [facility] Comment on above: Order Comment: Reaso n for Exam Type 2 diabetes mellitus without complication, without long- Result Comment: PERF ORMED BY: [place] [address] PATHOLOGIST AUTO RADIATOR SPECIALIST PADMA MONTOYA M.D. Performed By: #### U RMACRERAT, CMP, LIPID, PSAS, A1C WTH eA, CBC #### [facility] [address] [place] [address] [place] Sodium [Moles/volume] in Ser um or PlasmaOrdered By: Rosario Bruno on 03-14-2023 Sodium [Moles/Vol] 137 mmol/L Normal 136-145 [facility] Comment on above: Order Comment: Reaso n for Exam Type 2 diabetes mellitus without complication, without long- Performed By: #### U RMACRERAT, CMP, LIPID, PSAS, A1C WTH eA, CBC #### [facility] [address] [phone] [place] Triglyceride [Mass/volume] i n Serum or PlasmaOrdered By: Rosario Bruno on 03-14-2023 Triglyceride [Mass/Vol] 97 mg/dL 0-[address] [facility] Comment on above: TRIG ATP III CLASSIF ICATIONTRIG less than 150 mg/dL NormalTRIG 150-199 mg/dL Borderline highTRIG 200-500 mg/dL High TRIG greater than 500 mg/dL Very highStandard traceable to the Center for Disease Conrtrol and Prevention (CDC) test method. Urea nitrogen [Mass/volume] in Serum or PlasmaOrdered By: Rosario Bruno on 03-14-2023 Urea nitrogen [Mass/Vol] 12 mg/dL Normal 7-25 [facility] Comment on above: Order Comment: Reaso n for Exam Type 2 diabetes mellitus without complication, without long- Performed By: #### U RMACRERAT, CMP, LIPID, PSAS, A1C [facility] eA, CBC #### [facility] [address] Urine microalbumin/creatinin e mass ratioOrdered By: Rosario Bruno on 03-14-2023 Albumin/Creatinine DL <= 20 mg/L (U) [Mass ratio] TNP [facility] Comment on above: Test not performed Vital Signs Date Time Vital Sign Value Performing Clinician Facility 11-26-2023 09:05-0400 Heart rate 95 /min Russell Brown APRN.CNP Work Phone: [facility] 11-26-2023 09:05-0400 Respiratory rate 17 /min Russell Brown APRN.PROOF TECHNICIAN HELPER Work Phone: [facility] 11-26-2023 09:05-0400 SaO2% (BldA) [Mass fraction] 99 % Russell Brown APRN.PROOF TECHNICIAN HELPER Work Phone: [facility] 11-04-2023 12:50-0400 Diastolic blood pressure 69 mm[Hg] ROSETTA Bruno Work Phone: [facility] 11-04-2023 12:50-0400 Heart rate 66 /min ROSETTA Bruno Work Phone: [facility] 11-04-2023 12:50-0400 Respiratory rate 16 /min ROSETTA Bruno Work Phone: [facility] 11-04-2023 12:50-0400 SaO2% (BldA) [Mass fraction] 96 % FOREMAN/PROJECT MANAGER Rosario Dohertyrbacher Work Phone: [facility] 11-04-2023 12:50-0400 Systolic blood pressure 115 mm[Hg] FOREMAN/PROJECT MANAGER Rosario Ameliarbacher Work Phone: [facility] 11-04-2023 10:53-0400 Body height 180.34 cm FOREMAN/PROJECT MANAGER Rosario Dohertyrbacher Work Phone: [facility] 11-04-2023 10:53-0400 Body temperature 98.1 [degF] FOREMAN/PROJECT MANAGER Rosario Ameliarbacher Work Phone: [facility] 11-04-2023 10:53-0400 Body weight 102 kg FOREMAN/PROJECT MANAGER Rosario Barreraacher Work Phone: [facility] 10-28-2023 13:01-0400 Body height 180.34 cm FOREMAN/PROJECT MANAGER Rosario Dohertyrbacher Work Phone: [facility] 10-28-2023 13:01-0400 Body mass index (BMI) [Ratio] 32.8 kg/m2 FOREMAN/PROJECT MANAGERKayley Dohertyrbacher Work Phone: [facility] 10-28-2023 13:01-0400 Body weight 106.59 kg FOREMAN/PROJECT MANAGER Rosario Ameliadaquanacher Work Phone: [facility] 10-28-2023 13:01-0400 Diastolic blood pressure 74 mm[Hg] FOREMAN/PROJECT MANAGER Rosario Ameliarbacher Work Phone: [facility] 10-28-2023 13:01-0400 Heart rate 101 /min FOREMAN/PROJECT MANAGER Rosario Ameliarbacher Work Phone: [facility] 10-28-2023 13:01-0400 SaO2% (BldA) [Mass fraction] 96 % FOREMAN/PROJECT MANAGER Rosario Ameliarbacher Work Phone: [facility] 10-28-2023 13:01-0400 Systolic blood pressure 116 mm[Hg] FOREMAN/PROJECT MANAGERKayley Barreraacher Work Phone: [facility] 05-06-2023 09:26-0500 Diastolic blood pressure 68 mm[Hg] FOREMAN/PROJECT MANAGERKayley Dohertyrbacher Work Phone: [facility] 05-06-2023 09:26-0500 Heart rate 68 /min FOREMAN/PROJECT MANAGERKayley Dohertyrbacher Work Phone: [facility] 05-06-2023 09:26-0500 Respiratory rate 16 /min FOREMAN/PROJECT MANAGERKayley Dohertyrbacher Work Phone: [facility] 05-06-2023 09:26-0500 SaO2% (BldA) [Mass fraction] 98 % FOREMAN/PROJECT MANAGER Rosario Barreraacher Work Phone: [facility] 05-06-2023 09:26-0500 Systolic blood pressure 149 mm[Hg] FOREMAN/PROJECT MANAGERKayley Dohertyrbacher Work Phone: [facility] 05-06-2023 07:19-0500 Body height 180.34 cm FOREMAN/PROJECT MANAGERKayley Dohertyrbacher Work Phone: [facility] 05-06-2023 07:19-0500 Body weight 99.79 kg FOREMAN/PROJECT MANAGER Rosario Hollyacher Work Phone: [facility] 03-12-2023 14:30-0500 Body height 180.34 cm Rosario Artisr Other [facility] 03-12-2023 14:30-0500 Body mass index (BMI) [Ratio] 30.12 kg/m2 Rosario Bruno Other [employer] Other 03-12-2023 14:30-0500 Body weight 97.98 kg Rosario Bruno Other [facility] [employer] Other 03-12-2023 14:30-0500 Body weight 97.97 kg ROSETTA Rosario Artisnaldo Work Phone: [facility] 03-12-2023 14:30-0500 Diastolic blood pressure 70 mm[Hg] Rosario Barrerakaterinanaldo Other [facility] 03-12-2023 14:30-0500 SaO2% (BldA) [Mass fraction] 98 % Rosario Barrerakaterinanaldo Other 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); Tinnitus of left ear; Vertigo Start: 12-12-2023 End: 12-12-2023 Telephone encounter Russell Brown APRN.PROOF TECHNICIAN HELPER Work Phone: Otolaryngology Comment on above: Appointment Start: 12-02-2023 End: 12-12-2023 Telephone encounter Russell Brown APRN.PROOF TECHNICIAN HELPER Work Phone: Otolaryngology Comment on above: Results Start: 11-28-2023 End: 11-28-2023 ambulatory ROSARIO BRUNO Facility:[facility] Start: 11-28-2023 End: 11-28-2023 Patient encounter procedure Marilu CROWLEY Work Phone: Audiology Comment on above: 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); Tinnitus of left ear; Ear pressure, right; Dizziness Start: 11-26-2023 End: 11-26-2023 ambulatory ROSARIO BRUNO Facility:[facility] Start: 11-26-2023 End: 11-26-2023 Patient encounter procedure Hernan Hammond [facility] Work Phone: Audiology Comment on above: Impacted cerumen of left ear (Primary Dx); Left-sided tinnitus; Vertigo Asymmetrical sensori neural hearing loss (Primary Dx); Tinnitus, left ear; Balance problem; Vestibular hypofunction of left ear; Impacted cerumen of left ear Start: 11-04-2023 Non-patient / Non-visit ROSETTA Bruno Work Phone: [facility] Work Phone: Start: 11-04-2023 End: 11-04-2023 Admission to same day surgery center ROSETTA Bruno Work Phone: [facility] Work Phone: Start: 11-04-2023 End: 11-04-2023 ambulatory ROSETTA Bruno Work Phone: [facility] Work Phone: Start: 10-28-2023 End: 10-28-2023 Patient encounter procedure ROSETTA Bruno Work Phone: [facility] Work Phone: Start: 05-06-2023 Non-patient / Non-visit ROSETTA Bruno Work Phone: [facility] Work Phone: Start: 05-06-2023 End: 05-06-2023 Admission to same day surgery center ROSETTA Bruno Work Phone: [facility] Work Phone: Start: 05-06-2023 End: 05-06-2023 ambulatory FOREMAN/PROJECT MANAGER Rosario Kiana Work Phone: [facility] Work Phone: Start: 03-25-2023 End: 03-25-2023 ambulatory Imad Asaad Other [employer] Other Start: 03-25-2023 Telephone encounter Imad Asaad [facility] [employer] Start: 03-18-2023 End: 03-18-2023 ambulatory Rosario Kiana Other [employer] Other Start: 03-18-2023 Telephone encounter Rosario Dohertyalvino her [facility] Start: 03-14-2023 End: 03-14-2023 Patient encounter procedure FOREMAN/PROJECT MANAGER Rosarioeverardo Bruno Work Phone: [facility] [place] Work Phone: Start: 03-14-2023 End: 03-14-2023 ambulatory FOREMAN/PROJECT MANAGER Rosario Kiana Work Phone: [facility] Work Phone: Start: 03-13-2023 End: 03-13-2023 ambulatory Rosario Kiana Other [employer] Other Start: 03-13-2023 Telephone encounter Rosario Keke [facility] Start: 03-12-2023 End: 03-12-2023 ambulatory Rosario Kiana Other [employer] Other Start: 03-12-2023 Office outpatient ne w 30 minutes Rosario Bruno [facility] Start: 03-12-2023 End: 03-12-2023 Patient encounter procedure FOREMAN/PROJECT MANAGER Rosario Bruno Work Phone: [facility] Work Phone: Procedures Date Procedure Procedure Detail Performing Clinician Start: 11-28-2023 HEARING TEST/AUDIOGRAM Marilu CROWLEY Work Phone: Start: 11-26-2023 HEARING TEST/AUDIOGRAM Hernan Crowley, CCC-A Work Phone: Start: 11-04-2023 Screening colonoscopy A PRN Rosario Bruno Work Phone: Start: 05-06-2023 Screening colonoscopy A PRN Rosario Bruno Work Phone: Plan of Treatment Date Care Activity Detail Author Start: 01-14-2024 End: 01-14-2024 Patient encounter procedure 01/14/2024 2:30 PM EDT Office Visit Otolaryngology [address] [address] [place] [address] [place] [address], [place] [address] Implant Eval review Otolaryngology Comment on above: Implant Eval review Start: 12-31-2023 End: 12-31-2023 Patient encounter procedure 12/31/2023 10:30 AM EDT Office Visit Otolaryngology [address] [address] [place] [address] [place] [address] Implant Eval review Otolaryngology Comment on above: Implant Eval review Start: 12-24-2023 End: 12-24-2023 Patient encounter procedure 12/24/2023 1:00 PM EDT Office Visit Audiology [address] 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]; Tinnitus, right ear [H93.11] Audiology Comment on above: Dx: Asymmetric senso rineural deafness [H90.3]; Tinnitus, right ear [H93.11] Start: 11-28-2023 End: 11-28-2023 Patient encounter procedure 11/28/2023 11:30 AM EDT Office Visit Audiology [address] [address] Marilu Trinh, AUD [address] [place] [address] Audiogram Audiology Comment on above: Audiogram Start: 11-16-2023 Covid-19 Vaccine ( season) Covid-19 Vaccine ( season) [facility] Start: 11-16-2023 Covid-19 Vaccine () Covid-19 Vaccine () [facility] Start: 11-16-2023 Influenza vaccination Influenza Vacc ine (#1) [facility] Start: 11-04-2023 [facility] Start: 10-28-2023 Patient referral [facility] Work Phone: Start: 09-18-2023 Shingrix Vaccine (2 of 2) Shingrix Vaccine (2 of 2) [facility] Start: 05-06-2023 [facility] Start: 2015 Diabetes Screening Diabetes Screenin g [facility] Start: 2015 Screening for malignant neoplasm of colon [facility] Start: 04-12-2011 Pneumococcal vaccination Pneumococcal Vaccine (2 of 2 - PCV) [facility] Start: 2005 Lipid panel Lipid Screening [facility] Start: 1989 Hepatitis B Vaccine (1 of 3 - 19+ 3-dose series) Hepatitis B Vaccine (1 of 3 - 19+ 3-dose series) [facility] Start: 1989 Urine microalbumin profile DTaP,Tdap,Td Vaccine (1 - Tdap) [facility] Start: 01-07-1988 Anxiety Screening Anxiety Screening [facility] Start: 01-07-1988 Depression Screening Depression Scre ening [facility] Start: 01-07-1988 Hepatitis C screening Hepatitis C Sc jeff [facility] Start: 01-07-1988 HIV screening HIV Screening [facility] Patient Education [facility] Work Phone: Patient referral [facility] Work Phone: Immunizations Immunization Date Immunization Notes Care Provider Blane caraballo 02-04-2019 influenza virus vacc ine, unspecified formulation Hernan Hammond AuD, [facility] Work Phone: [facility] Payers Date Payer Category Payer Self-pay 2023 Medicaid [facility] [id number] 2023-Present [phone] [place] [address] Medicaid [id number] 2023 Medicaid [id number] Private Health Insurance [facility] [id number] Unknown [id number] Unknown [id number] Unknown [id number] Social History Date Type Detail Facility Start: 11-26-2023 End: 11-28-[address] [facility] [employer] Other Start: 1970 Sex Assigned At Male F [facility] Start: 05-06-2023 End: 11-04-2023 Tobacco smoking status NHIS Smoker (finding) [facility] Start: 11-26-2023 Tobacco smoking stat us NMIS Smokes tobacco daily [facility] History of tobacco use Cigarette Smoker C [facility] Start: 11-26-2023 Tobacco use and exposure User of smokeless tobacco [facility] History of tobacco use Snuff User [facility] Start: 11-26-2023 Alcoholic beverage intake Ex-drinker (finding) [facility] Start: 11-26-2023 End: 11-28-2023 History of Social function [facility] Start: 1970 Sex assigned at Not on file C [facility] National Score (1-100), lower number is lower risk 80 [facility] Medical Equipment Procedure Code Equipment Code Equipment Origin al Text Equipment Identifier Dates One Touch Ultra Test Strips Start: 03-19-2023 Goals Date Patient Goal Desired Activity /State Clinical Notes 03-12-2023 to 12-24-2023 Hernan Hammond, Bowen, RAMO-A - 12/24/2023 1:00 PM EDTTelephone Encounter - Russell Brown APRN.HUMBERTO - 12/12/2023 11:51 AM EDTTelephone Encounter - Jennie Rodgers - 12/12/2023 9:57 AM EDT Note Date & Type Note Facility 12-24-2023 History of Presen t illness Narrative Images from the original note were not included. [facility] Section of Allied Hearing, Speech and Balance Services ADULT COCHLEAR IMPLANT CANDIDACY EVALUATION Audiometric Testing Name: Freddy Sandoval [facility]#: [id number] Date of Service: December 22, 2023 Date of : 1970 Age: [age] year old Referred by: Russell Brown CNP This patient was referred for an evaluation to determine cochlear implant candidacy. 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 Devices were verified utilizing the AudioscE.M.A.R.C. equipment to NAL-NL 1 fitting methods. AIDED [...] the sound field at conversational level (60 general internal medicine doctor); results were: Left SDT: could not detect that speech was present at 80 dB HL (limits of equipment) Quokkyynf-Alblltn-Gstseyvhr Words (CNC) Test Condition List # Phonemes [...] to separate speech from background noise, which is the norm rather than an exception. With input to both ears, an individual is also able to perceive sound at a softer level, thereby further improving speech understanding over the use of only one ear. Another advantage involves sound localization ability. With only one ear, the ability to identify where a sound is coming from is very difficult. This can be a safety concern in situations where a sound source needs to be quickly identified. Overall, in order for these advantages to be achieved, the brain relies on the differences in the signal arriving at both ears to provide localization ability, noise suppression, and improved speech understanding. For this patient, the use both a cochlear implant and a hearing aid is the best option for optimal auditory performance. Potential Candidate Left Hearing Preservation No (*Hearing preservation candidates have low-frequency (125, 250, 500 Hz) air thresholds of less than 80 dB ) EAS candidate: No Pre-Activation Audio: No Activation: 2 Weeks Bimodal candidate: Yes The patient appears cognitively able to use auditory cues and is able to undergo an extensive rehabilitation process. He is able to participate in a post-cochlear implant rehabilitation program in order to achieve benefit from the cochlear implant device. This case will be discussed at the next scheduled Hearing Implant Program (HIP) team meeting. The patient understands that determination of candidacy is an interdisciplinary process and final determination of candidacy will be communicated via certified mail following team review. TOTAL TIME: 60 minutes Evaluation of auditory status: 15 minutes programming/verifying hearing aid(s) + 40 minutes aided testing = 55 minutes TOTAL Hernan Vovos, AuD, CCC/A copied to: MD Tereza Bartholomew, HIP Coordinator documented in this encounter [facility] 12-24-2023 Note HNO ID: [id number] Author: HERNAN HAMMOND AuD, CCC-A Service: ? Author Type: Potato Chip Fryer Type: Progress Notes Filed: 12/24/2023 13:58 Note Text: [facility], Speech and Balance Services ADULT COCHLEAR IMPLANT CANDIDACY EVALUATION Audiometric Testing Name: Freddy Sandoval [facility]#: [id number] Date of Service: December 22, 2023 Date of : 1970 Age: [age] year old Referred by: Russell Brown CNP This patient was referred for an evaluation to determine cochlear implant candidacy. 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 Devices were verified utilizing the AudioscE.M.A.R.C. equipment to NAL-NL 1 fitting methods. AIDED [...] the sound field at conversational level (60 general internal medicine doctor); results were: Left SDT: could not detect that speech was present at 80 dB HL (limits of equipment) Flwjrgeci-Qqleuzx-Txcxkhqcl Words (CNC) Test Condition List # Phonemes [...] background noise, which (more content not included)... [facility] 12-12-2023 Telephone encounter Note appts are correct. Thank you, Russell Brown CNP [facility] 12-12-2023 Miscellaneous Notes appts are correct. Thank you, Russell Brown CNP Freddy Sandoval called today. : 1970 Allergies: Lactose and Latex (home) Reason for call: Patient calling in to get scheduled as requested by Russell Brown APRN.CNP. Patient has been scheduled for an Implant Eval with Dr. Hammond and also for an appointment with an nuclear monitoring technician. Patient advised of all appointment details. Please review patient's appointments to ensure that he has been scheduled appropriately. Patient originally requested to see Russell Brown. Contact patient if scheduled incorrectly. Thank you! Patient last appointment: 12/02/2023 The patients preferred pharmacy has been captured for this encounter? [facility] December 12, 2023 10:00 AM documented in this encounter [facility] 12-12-2023 Telephone encounter Note Thank you, Russell Brown CNP [facility] 12-12-2023 Miscellaneous Notes Thank you, Russell Brown CNP Please call patient. Please let him know because he is so young I would highly recommend that he sees the nuclear monitoring technician to discuss options including cochlear implant. They [...] welcome to meet with one of our nuclear monitoring technician to discuss cochlear implant surgery which potentially [...] plan please let me know. Russell Brown APRN.CNP documented in this encounter [facility] 12-12-2023 Telephone encounter Note Freddy Sandoval called today. : 1970 Allergies: Lactose and Latex (home) Reason for call: Patient calling in to get scheduled as requested by Russell Brown APRN.CNP. Patient has been scheduled for an Implant Eval with Dr. Hammond and also for an appointment with an nuclear monitoring technician. Patient advised of all appointment details. Please review patient's appointments to ensure that he has been scheduled appropriately. Patient originally requested to see Russell Brown. Contact patient if scheduled incorrectly. Thank you! Patient last appointment: 12/02/2023 The patients preferred pharmacy has been captured for this encounter? [facility]ano December 12, 2023 10:00 AM [facility] 12-12-2023 Telephone encounter Note Please call patient. Please let him know because he is so young I would highly recommend that he sees the nuclear monitoring technician to discuss options including cochlear implant. They may also be able to shed further light on his dizziness. I have placed a consultation, please assist with an appointment at the patient's earliest convenience. Thank you, Russell Brown CNP [facility] 12-12-2023 Telephone encounter Note Patient called back. Below message was relayed. Pt stated he would like to find out which one will his insurance cover. Advised to reach out to his insurance to inquire about coverage. Patient also inquiring what Russell recommends and which one will overall be better for him. Please advise. [facility] 12-02-2023 Telephone encounter Note Called patient twice. calls are being forwarded. No Answer. Unable to leave RAMESH Johnson [facility] 12-02-2023 Telephone encounter Note Please call patient. Please let him know that I did receive the results of his hearing test. He does presently have extreme hearing loss on the left. Basically, his left ear is not functioning in any noticeable way. As we discussed in the office he is welcome to meet with one of our nuclear monitoring technician to discuss cochlear implant surgery which potentially [...] plan please let me know. Russell Brown APRN.PROOF TECHNICIAN HELPER T [facility] 11-28-2023 History of Presen t illness Narrative Images from the original note were not included. [facility] Head and Neck Department Section of Audiology AUDIOLOGIC EVALUATION REPORT Name: Freddy Sandoval [facility]#: [id number] Date of Service: 11/28/2023 Date of : [...] evaluation of middle ear function. CPT code: 34498 RIGHT EAR: Negative (-184 daPa) pressure with reduced TM compliance (mobility). LEFT EAR: Negative (-120 daPa) pressure with reduced TM compliance (mobility). ACOUSTIC REFLEXES Description of procedure: This test is an objective measure of auditory and facial nerve pathways. CPT code: 69614, 91287 RIGHT EAR PROBE EAR: (ipsi right stimulus [...] bone conduction and speech recognition testing. CPT code:77451 RIGHT EAR: Hearing Sensitivity: WNL 250-2000 Hz [...] If custom HPDs are desired, please call [phone] to schedule an EARMOLD IMPRESSION appointment. * Pending medical evaluation and clearance, call [phone] to schedule an appointment for an implantable hearing device evaluation to discuss SSD options. * Consider assessment of vestibular and balance system (Vestibular Battery). * Re-evaluation as medically indicated, or sooner, if a change in hearing is noted. Bowen Burroughs, CCC/A Hearing Implant Fellow [facility] Abbrev- iation Definition Degree of hearing sensitivity dB range WNL within normal limits WNL 0 - 20 SNHL sensorineural hearing loss Mild 20-40 CHL conductive hearing loss Moderate 40-55 MHL mixed hearing loss Moderately-Severe 55-70 WRS word recognition score Severe 70-90 ME middle ear Profound 90 + TM tympanic membrane documented in this encounter [facility] 11-28-2023 Note HNO ID: [id number] Author: MARILU TRINH AUD Service: ? Author Type: Potato Chip Fryer Type: Progress Notes Filed: 11/28/2023 16:39 Note Text: [facility] Head [facility] Neck Department Section of Audiology AUDIOLOGIC EVALUATION REPORT Name: Freddy Sandoval [facility]#: [id number] Date of Service: 11/28/2023 Date of : [...] evaluation of middle ear function. CPT code: 09541 RIGHT EAR: Negative (-184 daPa) pressure with reduced TM compliance (mobility). LEFT EAR: Negative (-120 daPa) pressure with reduced TM compliance (mobility). ACOUSTIC REFLEXES Description of procedure: This test is an objective measure of auditory and facial nerve pathways. CPT code: 58069, 83646 RIGHT EAR PROBE EAR: (ipsi right stimulus [...] bone conduction and speech recognition testing. CPT code:03189 RIGHT EAR: Hearing Sensitivity: WNL 250-2000 Hz [...] about hearing protect (more content not included)... [facility] 11-26-2023 Note HNO ID: [id number] Author: RUSSELL BROWN APRN.HUMBERTO Service: ? Author [...] evaluated at that time at an outside van helper and ENT office. 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 Russell Brown APRN.[facility] 11-26-2023 History of Presen t illness Narrative Mr. Sandoval is a 53 year old male who comes in for evaluation of hearing loss. Apparently 4 years ago he had sudden onset of hearing loss in the left ear. This was accompanied by tinnitus and vertigo. He was evaluated at that time at an outside van helper and ENT office. 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 Russell Brown APRN.PROOF TECHNICIAN HELPER documented in this encounter [facility] 11-26-2023 History of Presen t illness Narrative Images from the original note were not included. [facility] Head [facility] Neck Department Section of Audiology AUDIOLOGIC EVALUATION REPORT Name: Freddy Sandoval [facility]#: [id number] Date of Service: 11/26/2023 Date of : 1970 Age: [age] year old Referred by: Rosario Bruno, PROOF TECHNICIAN HELPER [address] [facility] [address] Referred for: Evaluation of suspected change in hearing, tinnitus, or balance. 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 He [...] evaluation of middle ear function. CPT code: 00347 RIGHT EAR: Flat with minimal TM mobility consistent with possible presence of ME fluid. LEFT EAR: Reduced ear canal volume and flat tympanogram consistent with impacted cerumen. Discontinued testing after tympanometry. RECOMMENDATIONS * Continue medical follow-up with ENT for cerumen management. * Test hearing after cerumen management Bowen Martinez CCC-A [facility] Abbrev- iation Definition Degree of hearing sensitivity dB range WNL within normal limits WNL 0 - 20 SNHL sensorineural hearing loss Mild 20-40 CHL conductive hearing loss Moderate 40-55 MHL mixed hearing loss Moderately-Severe 55-70 WRS word recognition score Severe 70-90 ME middle ear Profound 90 + TM tympanic membrane documented in this encounter [facility] 11-26-2023 Note HNO ID: [id number] Author: HERNAN HAMMOND AuD, CCC-A Service: ? Author Type: Potato Chip Fryer Type: Progress Notes Filed: 11/26/2023 08:19 Note Text: [facility] Head and Neck Department Section of Audiology AUDIOLOGIC EVALUATION REPORT Name: Freddy Sandoval CC#: [id number] Date of Service: 11/26/2023 Date of : 1970 Age: [age] year old Referred by: Rosario Bruno, PROOF TECHNICIAN HELPER [address] [facility] [address] Referred for: Evaluation of suspected change in hearing, tinnitus, or balance. 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 He [...] evaluation of middle ear function. CPT code: 72012 RIGHT EAR: Flat with minimal TM mobility consistent with possible presence of ME fluid. LEFT EAR: Reduced ear canal volume and flat tympanogram consistent with impacted cerumen. Discontinued testing after tympanometry. RECOMMENDATIONS * Continue medical follow-up with ENT for cerumen management. * Test hearing after cerumen management Hernan Hammond, AuD, CCC-A [facility] Abbrev- iation Definition Degree of hearing sensitivity dB range WNL within normal limits WNL 0 - 20 SNHL sensorineural hearing loss Mild 20-40 CHL conductive hearing loss Moderate 40-55 MHL mixed hearing loss Moderately-Severe 55-70 WRS word recognition score Severe 70-90 ME middle ear Profound 90 + TM tympanic membrane [facility] 11-04-2023 Procedure note [facility] 05-06-2023 Procedure note [facility] 03-18-2023 Evaluation note Encounter Date Diagnosis Assessment Notes Mar, Type 2 diabetes mellitus without complication, without long-term current use of insulin (ICD-10 - E11.9) [facility] Other 12-28-2023 Evaluation note* Encounter Date Diagnosis Assessment Notes Treatment Notes Treatment Clinical Notes Feb, Type 2 diabetes mellitus without complication, without long-term current use of insulin (ICD-10 - E11.9) [facility] Other 12-27-2023 Evaluation note* Encounter Date Diagnosis [...] and willingness to quit at each appointment. [facility] Other Evaluation noteNo assessment information available [facility] Work Phone: Evaluation noteNo [employer] Other Evaluation note* Diagnosis Onset Date Resolution Status Cigarette nicotine dependence without complication acute Depression acute Mixed hyperlipidemia acute Neuropathy acute Obstructive sleep apnea toya borja [id number] acute [facility] Work Phone: Evaluation note* Diagnosis Impacted cerumen of left ear- Primary Impacted cerumen Left-sided tinnitus Unspecified tinnitus Vertigo Dizziness and giddiness documented in [facility] Diagnosis Asymmetrical sensorineural hearing loss- Primary Sensorineural hearing loss, asymmetrical Tinnitus, left ear Balance problem Other symptoms involving nervous and musculoskeletal systems Vestibular hypofunction of left ear Impacted cerumen of left ear Impacted cerumen [facility] Diagnosis Asymmetric SNHL (sensorineural hearing loss)- Primary Sensorineural hearing loss, asymmetrical Tinnitus of left ear Unspecified tinnitus Ear pressure, right Dizziness Dizziness and giddiness documented [facility] Diagnosis Asymmetric sensorineural deafness- Primary Tinnitus, right ear [facility] Diagnosis Asymmetric SNHL (sensorineural hearing loss)- Primary Sensorineural hearing loss, asymmetrical Tinnitus of left ear Unspecified tinnitus Vertigo Dizziness and giddiness documented [facility] Author Milena Cazares [facility] May 06, 2023 8:28am Note Date/Time May 06, 2023 8:28am [facility] [address] [place] [address] Gastroenterology H&P Signed Patient: Freddy Sandoval MR#: [id number] : 1970 Acct:[id number] Age/Sex: 53 / M Adm Date: 4 Loc: Room: Type: [facility] Attending Dr: Milena Cazares MD Copies to: MD Rosario Bowen APRN, HUMBERTO~ Date of Service: 05/06/2023 HISTORY & PHYSICAL: [...] <Electronically signed by Milena Cazares MD> 05/06/23827 [facility] Work Phone: History and physical note Author Milena Cazares [facility] November 04, 2023 11:54am Note Date/Time November 04, 2023 11 :54am [facility] [address] [place] [address] Gastroenterology H&P Signed Patient: Freddy Sandoval MR#: [id number] : 1970 Acct:[id number] Age/Sex: 53 / M Adm Date: 4 Loc: Room: Type: [facility] Attending Dr: Milena Cazares MD Copies to: MD Rosario Bowen APRN, PROOF TECHNICIAN HELPER~ Date of Service: 11/04/2023 HISTORY & PHYSICAL: [...] <Electronically signed by Milena Cazares MD> 11/04/23 1151 [facility] Work Phone: History general Narrative - Reported* Type Description Date Medical History Type 2 Diabetes Medical History Sleep Apnea Medical History Hyperlipidemia Surgical History Oral Surgery [facility] Other Hospital Discharge instructions Additional Instructions DISCHARGE [...] colonoscopy due to inadequate prep -Office number [phone]. [facility] Work Phone: Reason for Referral Specialty Diagnoses / Procedures Referred By Contac t Referred To Contact Ent - Otolaryngology Diagnoses Asymmetric sensorineural deafness Tinnitus, right ear Procedures CONSULT TO ENT Russell Brown APRN.PROOF TECHNICIAN HELPER [address] [place] [address] Dante Moon MD [address] [place] [id number] Referral ID Status Reason Start Date Expiration Date Visits Requested Visits Authorized [id number] Ref Not Required PCP Requested Referral 12/12/2023 12/11/2024 1 1 Specialty Diagnoses / Procedures Referred By Contac t Referred To Contact Ent - Otolaryngology Diagnoses Asymmetric sensorineural deafness Tinnitus, right ear Procedures CONSULT TO ENT Russell Brown APRN.PROOF TECHNICIAN HELPER [address] [place] [address] Lorena Antony MD [address] [place] [address] Referral ID Status Reason Start Date Expiration Date Visits Requested Visits Authorized [id number] Ref Not Required PCP Requested Referral 12/02/2023 12/01/2024 1 1 Specialty Diagnoses / Procedures Referred By Oli pappas Referred To Contact Procedures HEARING TEST/AUDIOGRAM COMPRE AUDIOMETRY THRESHOLD EVAL Hernan Cancino, AuD, CCC-A [address] [facility], [address] [place] [address] [facility] [address] [place] [address] Referral ID Status Reason Start Date Expiration Date Visits Requested Visits Authorized [id number] New Request Auto-Generat ed Referral 11/26/2023 11/26/2024 1 1 Reason due for screeni ng Diagnosis 1 Screening for colon cancer (Z12.11) Referral Organization [facility] Referring Provider First Name Rosario Referring Provider Last Name Kiana Referring Provider Specialty Nurse Pract itioner Referred Organization [facility] Referred Provider Milena Cazares Referred Address [address] [place] [phone] Referred Provider Specialty Gastroentero logy Referral Priority Routine General Notes Shey Morgan 10:33:26 AM >received today, referral faxed P2P Chief Complaint and Reason for Visit Chief Complaint Z12.5/E11.9/E78.2 Chief Complaint Establish Z12.5/E11.9/E78.2 Screening Screening Chief Complaint follow up Screening Screening Reason for Visit Cigarette nicotine d ependence without complication Depression Mixed hyperlipidemia Neuropathy Obstructive sleep apnea [id number] Advance Directives Advance Directive Response Recorded Date/ [...] Member Role Status Dates Rosario Bruno APRN FLOW FLOOR ATTENDANT-C Primary Care Provider Active Team Status: Inactive Member Role Status Dates Rosario Bruno APRN FLOW FLOOR ATTENDANT-C Primary Care Provider, Attending Provider Active Team Status: Inactive Member Role Status Dates Rosario Bruno APRN FLOW FLOOR ATTENDANT-C Attending Provider Act romel Start: March 12, 2023 End: March 12, 2023 Team Status: Inactive Member Role Status Dates Rosario Bruno APRN FLOW FLOOR ATTENDANT-C Primary Care Provider, Attending Provider Active Start: March 14, 2023 End: March 14, 2023 Team Status: Inactive Member Role Status Dates Rosario Bruno APRN FLOW FLOOR ATTENDANT-C Primary Care Provider Active Start: May 062023 End: May 06, 2023 Milena Cazares MD Attending Provider Active Start: May 06, 2023 End: May 06, 2023 Team Status: Active Member Role Status Dates Rosario Bruno APRN FLOW FLOOR ATTENDANT-C Primary Care Provider Active Start: May 062023 Milena Cazares MD Attending Provider, Other Provider Active Start: May 06, 2023 Team Status: Inactive Member Role Status Dates Rosario Bruno APRN FLOW FLOOR ATTENDANT-C Primary Care Provider, Attending Provider Active Start: October 28, 2023 End: October 28, 2023 Team Status: Inactive Member Role Status Dates Rosario Bruno APRN FLOW FLOOR ATTENDANT-C Primary Care Provider Active Start: November 04, 2023 End: November 04, 2023 Milena Cazares MD Attending Provider Active Start: November 04, 2023 End: November 04, 2023 Team Status: Active Member Role Status Dates Rosario Bruno APRN FLOW FLOOR ATTENDANT-C Primary Care Provider Active Start: October Milena Cazares MD Attending Provider, Other Provider Active Start: November 04, 2023 Bioengineer Relationship Specialty Start Date End Date Rosario Bruno NP [address] [place] [address] PCP - General Nurse Practitioner 07/30/23 Bioengineer Relationship Specialty Start Date End Date Rosario Bruno NP [address] [place] [address] PCP - General Nurse Practitioner 07/30/23 Bioengineer Relationship Specialty Start Date End Date Rosario Bruno NP [address] [place] [place] [address] PCP - General Nurse Practitioner 07/30/23 Bioengineer Relationship Specialty Start Date End Date Rosario Bruno NP [address] [place] [address] PCP - General Nurse Practitioner 07/30/23 Bioengineer Relationship Specialty Start Date End Date Rosario Bruno NP [address] [place] [address] PCP - General Nurse Practitioner 07/30/23 Goals (unrecognized section and content) Goals may be documented in a n alternate section (unrecognized sect ion and content) No Status Records FoundNo Status Records Found INFORMATION SOURCE (unrecogn ized section and content) DATE CREATED AUTHOR 11/11/2023 [facility] DATE CREATED AUTHOR AUTHOR'S ORGANIZ ATION 12/26/2023 [facility] Source Comments (unrecognize d section and content) In the event this informatio n is protected by the Federal Confidentiality of Alcohol and Drug Abuse Patient Records regulations: The Federal rules restrict any use of the information to criminally investigate or prosecute any alcohol or drug abuse patient.[facility] the event this information is protected by the Federal Confidentiality of Alcohol and Drug Abuse Patient Records regulations: The Federal rules restrict any use of the information to criminally investigate or prosecute any alcohol or drug abuse patient.[facility] Company[facility] the event this information is protected by the Federal Confidentiality of Alcohol and Drug Abuse Patient Records regulations: The Federal rules restrict any use of the information to criminally investigate or prosecute any alcohol or drug abuse patient.[facility] Company[facility] the event this information is protected by the Federal Confidentiality of Alcohol and Drug Abuse Patient Records regulations: The Federal rules restrict any use of the information to criminally investigate or prosecute any alcohol or drug abuse patient.[facility] Company[facility] the event this information is protected by the Federal Confidentiality of Alcohol and Drug Abuse Patient Records regulations: The Federal rules restrict any use of the information to criminally investigate or prosecute any alcohol or drug abuse patient.[facility] Company[facility] the event this information is protected by the Federal Confidentiality of Alcohol and Drug Abuse Patient Records regulations: The Federal rules restrict any use of the information to criminally investigate or prosecute any alcohol or drug abuse patient.[facility] FOR RECORDS PERTAINING TO PATIENTS WHO ARE [...] BE BASED ON THE PRIMARY CLINICAL RECORDS. [facility] [employer] [facility]. provides no warranty or guarantee of the accuracy or completeness of information in this document.
== END 2023-12-30 11:20 | disposition home or self-care (01) ==
LOC: RAD 11:19
PROVIDERS: Family Provider Family Medicine; PCP Nurse Practitioner Family; Visit Provider Podiatrist Foot & Ankle Surgery
DX: M79.671 Pain in right foot (principal)
CPT/HCPCS: 73630

== ENCOUNTER 2024-01-13 15:29 | Outpatient (OUT) | payer OTHER, SELFPAY | END 2024-01-13 15:30 | disposition home or self-care (01) | LOC: WC 15:29 | PROVIDERS: Family Provider Family Medicine; PCP Nurse Practitioner Family; Visit Provider Physician Assistant | DX: E11.621 Type 2 diabetes mellitus with foot ulcer (principal); L97.518 Non-pressure chronic ulcer of other part of right foot with other specified severity | CPT/HCPCS: G0463 ==

== ENCOUNTER 2024-02-03 15:50 | Outpatient (OUT) | payer OTHER, SELFPAY | END 2024-02-03 15:51 | disposition home or self-care (01) | LOC: WC 15:50 | PROVIDERS: Family Provider Family Medicine; PCP Nurse Practitioner Family; Visit Provider Physician Assistant | DX: E11.621 Type 2 diabetes mellitus with foot ulcer (principal); L97.518 Non-pressure chronic ulcer of other part of right foot with other specified severity | CPT/HCPCS: 11042 ==

== ENCOUNTER 2024-04-14 15:39 | Outpatient (OUT) | payer OTHER, SELFPAY ==
--- NOTE | 2024-04-14 15:53 | XR_ITS ---
[address] [address] Patient Name: PAPITO SANDOVAL MRN: [id number] date: 1970 Sex: M Assigned Patient Location: [facility] Current Patient Location: Accession/Order Number: [id number] Exam Date: 04/14/2024 15:48 Report Date: 04/16/2024 07:15 At the request of: SILVINA HARRELL Procedure: XR shoulder RT min 2V PROCEDURE: XR shoulder RT min 2V COMPARISON: None. HISTORY: Right shoulder pain, M25.511 FINDINGS: BONES:No fracture, acute abnormality, or significant arthropathy. SOFT TISSUES:Negative. No visible soft tissue swelling. EFFUSION:None visible. OTHER: Negative. XR/XR shoulder RT min 2V IMPRESSION: No acute cardiopulmonary process Electronically authenticated by: DAVID WASHINGTON Date: 04/16/2024 07:15
== END 2024-04-14 15:40 | disposition home or self-care (01) ==
LOC: RAD 15:39
PROVIDERS: Family Provider Family Medicine; PCP Nurse Practitioner Family; Visit Provider Nurse Practitioner Family
DX: M25.511 Pain in right shoulder (principal)
CPT/HCPCS: 73030

== ENCOUNTER 2024-05-21 10:08 | Outpatient (OUT) | payer OTHER, SELFPAY ==
[2024-05-21 11:06] LABS: Creatinine Urine Random 67.34 mg/dL (20.00-300.00); Microalbumin Urine Random <1.3 mg/dL (<=30.0)
[2024-05-21 11:10] LABS: Chol HDL Ratio 3.3; Cholesterol 139 mg/dL (<=200); HDL Cholesterol 42 mg/dL (40-60); Triglycerides 150 mg/dL (<=150)
[2024-05-21 11:18] LABS: Estimated Average Glucose 243 mg/dL; Glycohemoglobin A1C 10.1 % (4.5-6.2)
== END 2024-05-21 10:09 | disposition home or self-care (01) ==
LOC: LAB 10:10
PROVIDERS: Family Provider Family Medicine; PCP Nurse Practitioner Family; Visit Provider Nurse Practitioner Family
DX: E11.9 Type 2 diabetes mellitus without complications (principal)
CPT/HCPCS: 36415; 80061; 82043; 82570; 83036

== ENCOUNTER 2024-06-02 17:49 | Emergency (ER) | payer OTHER, SELFPAY ==
[2024-06-02 18:06] VITALS: BP 115/76; PULSE 93; TEMP 36.8; O2SAT 98; BMI 32.8
--- NOTE | 2024-06-02 19:23 | ED.GENADUL1 ---
HPI HPI - General Adult General Chief complaint: Skin/Abscess/Foreign Body Stated complaint: possible pressure ulcer on left foot Time Seen by Provider: 06/02/24 18:25 Source: patient Mode of arrival: walk-in History of Present Illness HPI narrative: 54-year male presented to the emergency department for an area of erythema on the dorsum of his left foot which has been there for 2 days. No history of trauma. He is diabetic and recently had a similar lesion on the plantar aspect of his left great toe which is now healed up. He had taken antibiotics. He tried to see his process engineering technician but was unable to do so and tried to see his PCP and was unable to do so. No drainage or fever. He did not want the infection to get worse so he came here. Related Data Previous Rx's ?Medication ?Instructions ?Recorded bacitracin 500 unit/gram topical 1 applic topical BID #14 grams 12/28/23 ointment cephalexin 500 mg capsule 500 mg PO Q8H 7 days #21 caps 12/28/23 sulfamethoxazole 800 1 tab PO BID 7 days #14 tabs 12/28/23 mg-trimethoprim 160 mg tablet (Bactrim DS) cephalexin 500 mg capsule 500 mg PO QID 10 days #40 caps 06/02/24 sulfamethoxazole 800 1 tab PO BID 10 days #20 tabs 06/02/24 mg-trimethoprim 160 mg tablet (Bactrim DS) Allergies Allergy/AdvReac Type Severity Reaction Status Date / Time No Known Drug Allergies Allergy Verified 12/28/23 09:47 Opioid HPI Opioid Management Most Recent Opioid Data: No Data to Display Review of Systems ROS Narrative A ten point review of systems is negative except as noted above. PFSH PFSH Social History Little interest or pleasure in doing things: not at all Feeling down, depressed, or hopeless: not at all Exam Narrative Exam Narrative: Nurses note and vital signs reviewed and patient is not hypoxic. General: The patient appears well and in no apparent distress. Patient is resting comfortably on cart. Skin: Warm, dry, no pallor noted. There is a quarter sized area of erythema on the dorsum of his left foot. No open area or drainage. The left great toe lesion has healed completely. No other lesions are noted. No lymphangitis or calf swelling Head: Normocephalic, atraumatic Eye: Normal conjunctiva, no drainage Ears, Nose, Mouth, and Throat: oral mucosa is moist. Nares patent. Cardiovascular: Regular Rate and Rhythm, lungs are clear to auscultation, no wheezing, rales or rhonchi Back: non-tender GI: Nontender Musculoskeletal: The patient has no evidence of calf tenderness, no pitting edema, symmetrical pulses noted bilaterally Neurological: A&O, normal speech Psychiatric: Cooperative Constitutional Vital Signs, click to edit/add: Last Vital Signs Temp 98.2 F 06/02/24 18:06 Pulse 93 H 06/02/24 18:06 Resp 18 06/02/24 18:06 BP 115/76 06/02/24 18:06 Pulse Ox 98 06/02/24 18:06 Course Vital Signs Vital signs: Vital Signs Temperature 98.2 F 06/02/24 18:06 Pulse Rate 93 H 06/02/24 18:06 Respiratory Rate 18 06/02/24 18:06 Blood Pressure 115/76 06/02/24 18:06 Pulse Oximetry 98 06/02/24 18:06 Temperature 98.2 F 06/02/24 18:06 Pulse Rate 93 H 06/02/24 18:06 Respiratory Rate 18 06/02/24 18:06 Blood Pressure 115/76 06/02/24 18:06 Pulse Oximetry 98 06/02/24 18:06 Medical Decision Making [facility] Narrative Medical decision making narrative: He is prescribed Bactrim and Keflex. There is no indication for x-rays or blood work. I have no clinical suspicion of osteomyelitis. He will follow-up with his process engineering technician when he is able to do so. Treatment diagnosis and follow-up were discussed with the patient. The patient has [employer] that he has at home that he can utilize. Differential Diagnosis Differential Diagnosis: Cellulitis, abscess Discharge Plan Discharge Chief Complaint: Skin/Abscess/Foreign Body Clinical Impression: Cellulitis Qualifiers: Site of cellulitis: extremity Site of cellulitis of extremity: toe Laterality: right Qualified Code(s): L03.031 - Cellulitis of right toe Patient Disposition: Home, Self-Care Time of Disposition Decision: 19:21 Condition: Good Mode of Transportation: Private Vehicle Prescriptions / Home Meds: New sulfamethoxazole-trimethoprim [Bactrim DS] 800-160 mg tablet 1 tab PO BID 10 Days Qty: 20 0RF cephalexin 500 mg capsule 500 mg PO QID 10 Days Qty: 40 0RF No Action sulfamethoxazole-trimethoprim [Bactrim DS] 800-160 mg tablet 1 tab PO BID 7 Days Qty: 14 0RF cephalexin 500 mg capsule 500 mg PO Q8H 7 Days Qty: 21 0RF bacitracin 500 unit/gram ointment 1 applic topical BID Qty: 14 0RF Print Language: Colombian Instructions: Cellulitis (ED) Referrals: SILVINA HARRELL [Primary Care Provider] - 1 week Irineo Salter DPM [Physician] - 1 week
[2024-06-02] MEDS: CEPHALEXIN 500 MG CAPSULE PO (19:41)
[2024-06-02] MEDS: SULFAMETHOXAZOLE/TRIMETHOPRIM 800-160 MG TABLET 1 TAB PO (19:41)
== END 2024-06-02 19:45 | disposition home or self-care (01) ==
PROVIDERS: Emergency Provider Emergency Medicine; Family Provider Family Medicine; PCP Nurse Practitioner Family
DX: L03.031 Cellulitis of right toe (principal); E11.9 Type 2 diabetes mellitus without complications
CPT/HCPCS: 99283

== ENCOUNTER 2024-06-10 13:36 | Outpatient (OUT) | payer OTHER, SELFPAY | END 2024-06-10 13:37 | disposition home or self-care (01) | LOC: WC 13:37 | PROVIDERS: Family Provider Family Medicine; PCP Nurse Practitioner Family; Visit Provider Physician Assistant | DX: E11.621 Type 2 diabetes mellitus with foot ulcer (principal); L97.518 Non-pressure chronic ulcer of other part of right foot with other specified severity; L97.422 Non-pressure chronic ulcer of left heel and midfoot with fat layer exposed | CPT/HCPCS: G0463 ==

== ENCOUNTER 2024-06-28 13:00 | Outpatient (OUT) | payer OTHER, SELFPAY ==
--- NOTE | 2024-06-28 13:00 | CA_ITS ---
[facility] Test Date: 2024-06-28 Pat Name: PAPITO SANDOVAL Department: Room: - Gender: Male Seat Trimmer: : 1970 Requested By: Rubia Trujillo Order Number: [id number] Reading MD: NERISSA LIVINGSTON M.D. Interpretive Statements Summary of the findings: Right leg: ANGELITO= 1.33; TBI= 0.65. Doppler waveforms demonstrate monophasic flow at the posterior tibial and dorsalis pedis arteries. Left leg: ANGELITO= 1.89; TBI= 0.66. Doppler waveforms demonstrate monophasic flow at the posterior tibial and dorsalis pedis arteries. Segmental pressures: Segmental pressures are normal on the right with calcified vessels on the left. Pulse volume recordings: PVRs at the high thigh, below knee, and ankle levels show normal waveforms. Conclusion: Right ankle-brachial indices are suggestive of normal overall arterial flow at rest. Left ankle-brachial indices are suggestive of calcified vessels. Toe-brachial indices are suggestive of bilateral PAD. Pulse volume recordings indicate good overall resting arterial flow. The study shows evidence of PAD with preserved overall arterial flow at rest and calcified left sided arteries. Additional testing such as duplex ultrasound would help further characterize the disease. Electronically Signed On 06-28-2024 20:14:27 EDT by NERISSA LIVINGSTON M.D.
== END 2024-06-28 13:01 | disposition home or self-care (01) ==
LOC: CARD 13:00
PROVIDERS: Family Provider Family Medicine; PCP Nurse Practitioner Family; Visit Provider Physician Assistant
DX: R09.89 Other specified symptoms and signs involving the circulatory and respiratory systems (principal)
CPT/HCPCS: 93923

== ENCOUNTER 2024-06-29 13:23 | Outpatient (OUT) | payer OTHER, SELFPAY | END 2024-06-29 13:24 | disposition home or self-care (01) | LOC: WC 13:23 | PROVIDERS: Family Provider Family Medicine; PCP Nurse Practitioner Family; Visit Provider Physician Assistant | DX: E11.621 Type 2 diabetes mellitus with foot ulcer (principal); L97.518 Non-pressure chronic ulcer of other part of right foot with other specified severity; L97.422 Non-pressure chronic ulcer of left heel and midfoot with fat layer exposed | CPT/HCPCS: G0463 ==

== ENCOUNTER 2024-07-13 13:30 | Outpatient (OUT) | payer OTHER, SELFPAY | END 2024-07-13 13:31 | disposition home or self-care (01) | LOC: WC 13:30 | PROVIDERS: Family Provider Family Medicine; PCP Nurse Practitioner Family; Visit Provider Physician Assistant | DX: E11.621 Type 2 diabetes mellitus with foot ulcer (principal); L97.518 Non-pressure chronic ulcer of other part of right foot with other specified severity; L97.422 Non-pressure chronic ulcer of left heel and midfoot with fat layer exposed | CPT/HCPCS: 11043 ==

== ENCOUNTER 2024-08-04 13:58 | Outpatient (OUT) | payer OTHER, SELFPAY ==
--- OUTSIDE RECORDS SUMMARY | 2024-08-04 14:00 | XMS_ITS | Encounter Summary ---
Author Organization [facility] Address [address] [place] [address] Care Team Providers Care Life Agent Name Role Phone HollykaterinaRosario hitchcock [place] CUSTOMER SERVICE CONSULTANT Primary Care Provider Source Comments In the event this information is protected by the Federal Confidentiality of Alcohol and Drug AbusePatient Records regulations: The Federal rules restrict any use of the information to criminally investigate or prosecute any alcohol or drug abuse patient.[facility] Encounter Details Date Type Department Care Team (Late st Contact Info) Description 03/31/2024 Patient Msg [facility] [address] [place] [id number] Provider, Ccf Update Social History Tobacco Use Types Packs/Day Years Used Date Smoking Tobacco: Every Day Cigarettes Smokeless Tobacco: Current Snuff Alcohol Use Standard Drinks/Week Comments Not Currently 0 (1 standard drink = 0.6 oz pur e alcohol) Area Deprivation Index Answer Date Gregory rded National Score (1-100), lower number is lower ri sk 80 11/28/2023 State Score (1-10), lower number is lower risk 7 11/28/2023 Data from: https://www.neighborhoodatlas.medicine.[facility].edu/. Last address used for calculation [address] [place] [address] 11/28/2023 Sex and Gender Information Value Date Recorded Sex Assigned at Not on file Legal Sex Male 8:48 PM EDT Gender Identity Not on file Sexual Orientation Not on file documented as of this encounter Plan of Treatment Not on file documented as of this encounter Visit Diagnoses Not on filedocumented in this encounter Care Teams Life Agent Relationship Specialty Start Date End Date Rosario Bruno NP [address] [place] [address] PCP - General Nurse Practitioner 07/30/23 documented as of this encounter
--- OUTSIDE RECORDS SUMMARY | 2024-08-04 14:00 | XMS_ITS | Clinical Summary ---
Author Organization [facility] Address [address] [place] [address] Care Team Providers Care Regional Hr Manager Name Role Phone Rosario Bruno NP Primary Care Provider Allergies Active Allergy Reactions Criticality Noted Date Comments Lactose GI intolerance 06/04/2023 Latex Itching 11/26/2023 Medications doxepin (SINEquan) 10 MG capsuleIndication s:Primary insomnia TAKE 1 TO 2 CAPSULES BY MOUTH EVERY DAY AT BEDTIME 60 capsule 2 4 Active Blood Glucose Monitoring Suppl (ONE TOUCH ULTRA 2) w/Device kit 4 Active Cobalamin Combinations (Vitamin E39-Mrdka Acid) 500-400 MCG tablet Take 1 tablet by mouth Daily 4 Active Auvelity 45-105 MG tablet controlled-releas e Take 1 tablet by mouth in the morning and 1 tablet before bedtime. 4 Active empagliflozin (Jardiance) 25 MG Take 25 mg by mouth in the morning. 4 Active FLUoxetine (PROzac) 40 MG capsule Take 40 mg by mouth Daily 4 Active pravastatin (Pravachol) 10 MG tablet Take 10 mg by mouth Daily Active OneTouch Ultra test strip 1 each by Other route if needed 4 Active metFORMIN (Glucophage) 500 MG tablet Take 500 mg by mouth in the morning and 500 mg in the evening. Take with meals. PATIENT NOT SURE OF STRENGHT. Active Dulaglutide (Trulicity) 3 MG/0.5ML solution auto-injectorIndi cations:Type 2 diabetes mellitus with hyperglycemia, without long-term current use of insulin ([facility]) Inject 3 mg under the skin every 7 (seven) days 6 mL 1 5 09/08/19 25 Active insulin glargine (Toujeo Solostar, 1 unit dial,) 300 UNIT/ML injectionIndicati ons:Type 2 diabetes mellitus with hyperglycemia, without long-term current use of insulin (CMS/HCC) Inject 30 Units under the skin at bedtime 9 mL 1 5 12/07/19 25 Active Continuous Glucose Sensor (FreeStyle Carina 3 Plus Sensor) miscIndications:T ype 2 diabetes mellitus with hyperglycemia, without long-term current use of insulin (CMS/HCC) 1 Bar Every 15 Days 6 each 1 5 09/08/19 25 Active Encounters Date Type Department Care Team Description 07/14/2024 10:20 AM EDT Office Visit [facility] [address] [place] [phone] Devora Arvizu MD Type 2 diabetes mellitus with hyperglycemia, without long-term current use of insulin ([facility]) (Primary Dx); Vitamin D deficiency; Encounter for dietary consultation 07/14/2024 Bamboo flowsheet [facility] [address] [place] [address] Devora Arvizu MD 07/12/2024 [facility] [address] [place] [address] Devora Arvizu MD 06/09/2024 10:40 AM EDT Office Visit [facility] [address] [place] [address] Devora Arvizu MD Type 2 diabetes mellitus with hyperglycemia, without long-term current use of insulin ([facility]) (Primary Dx); Vitamin D deficiency; Encounter for dietary consultation; Class 1 obesity due to excess calories with serious comorbidity and body mass index (BMI) of 33.0 to 33.9 in adult 06/09/2024 Bamboo flowsheet [facility] [address] [place] [phone] Devora Arvizu MD from Last 3 Months Family History Medical History Relation Name Comments Diabetes Mother Heart disease Mother Lupus Mother Relation Name Status Comments Mother Social History Tobacco Use Types Packs/Day Years Used Date Smoking Tobacco: Never Assessed Sex and Gender Information Value Date Recorded Sex Assigned at Not on file Legal Sex Male 3:19 PM EDT Gender Identity Not on file Sexual Orientation Not on file Last Filed Vital Signs Vital Sign Reading Time Taken Comments Blood Pressure 110/70 07/14/2024 10:37 AM EDT Pulse 92 07/14/2024 10:37 AM EDT Temperature - - Respiratory Rate 18 07/14/2024 10:37 AM EDT Oxygen Saturation 99% 07/14/2024 10:37 AM EDT Inhaled Oxygen Concentration - - Weight 110 kg (243 lb) 07/14/2024 10:37 AM EDT Height 180.3 cm (5' 11 ) 07/14/2024 10:37 AM EDT Body Mass Index 33.89 07/14/2024 10:37 AM EDT Plan of Treatment Upcoming Encounters Date Type Department Care Team (Late st Contact Info) Description 11/10/2024 10:10 AM EDT [facility] [address] [place] [address] Devora Arvizu MD [address] [place] [address] Procedures Procedure Name Priority Date/Time Associated Diagnosis Comments POCT GLYCOSYLATED HEMOGLOBIN (HGB A1C) Routine 07/14/2024 10:40 AM EDT Type 2 diabetes mellitus with hyperglycemia, without long-term current use of insulin ([facility]) POCT GLUCOSE Routine 07/14/2024 10:40 AM EDT Type 2 diabetes mellitus with hyperglycemia, without long-term current use of insulin ([facility]) TESTOSTERONE, FREE Routine 07/12/2024 8: 03 AM EDT C-PEPTIDE Routine 07/12/2024 8:00 AM EDT Type 2 diabetes mellitus with hyperglycemia, without long-term current use of insulin ([facility]) RENAL FUNCTION PANEL Routine 07/09/2024 8:08 AM EDT Type 2 diabetes mellitus with hyperglycemia, without long-term current use of insulin ([facility]) LIPID PANEL Routine 07/09/2024 8:08 AM EDT Type 2 diabetes mellitus with hyperglycemia, without long-term current use of insulin ([facility]) MICROALBUMIN / CREATININE URINE RATIO Routine 07/09/2024 8:08 AM EDT Type 2 diabetes mellitus with hyperglycemia, without long-term current use of insulin ([facility]) VITAMIN D 25 HYDROXY TOTAL Routine 07/09/2024 8:08 AM EDT Type 2 diabetes mellitus with hyperglycemia, without long-term current use of insulin ([facility]) POCT GLUCOSE Routine 06/09/2024 10:31 AM EDT Type 2 diabetes mellitus with hyperglycemia, without long-term current use of insulin ([facility]) from Last 3 Months Results * POCT glycosylated hemoglobin (Hb A1C) docked device (07/14/2024 10:40 AM EDT) Hemoglobin A1C 7.3 Blood Venous blood specimen / Unknown 07/14/2024 10:40 AM EDT us Devora Arvizu MD POINT OF CARE TEST ENTER/EDIT ORDERABLES Final Result * POCT glucose manually resulted (07/14/2024 10:40 AM EDT) Only the most recent of2 resultswithin the time period is included. Glucose Blood, POC 164 mg/dL Blood Capillary blood specimen / Unknown 07/14/2024 10:40 AM EDT us Devora Arvizu MD POINT OF CARE TEST ENTER/EDIT ORDERABLES Final Result * TESTOSTERONE, FREE (07/12/2024 8:03 AM EDT) us Devora Arvizu MD LAB BLOOD ORDERABLES Final Re sult * C-peptide (07/12/2024 8:00 AM EDT) Blood Venous blood specimen / Unknown Devora Arvizu MD LAB BLOOD ORDERABLES Final Re sult Performing Organization Address [facility] de Phone Number [facility] * Microalbumin / creatinine urine ratio (07/09/2024 8:08 AM EDT) Urine Urine specimen obtained by clean catch procedure / Unknown Devora Arvizu MD LAB URINE ORDERABLES Final Re sult Performing Organization Address [facility] de Phone Number [facility] * Vitamin D 25 hydroxy Total (07/09/2024 8:08 AM EDT) Blood Venous blood specimen / Unknown Devora Arvizu MD LAB BLOOD ORDERABLES Final Re sult Performing Organization Address [facility] de Phone Number [facility] * Renal function panel (07/09/2024 8:08 AM EDT) Blood Venous blood specimen / Unknown Devora Arvizu MD LAB BLOOD ORDERABLES Final Re sult Performing Organization Address [facility] de Phone Number [facility] * Lipid panel (07/09/2024 8:08 AM EDT) Blood Venous blood specimen / Unknown Devora Arivzu MD LAB BLOOD ORDERABLES Final Re sult Performing Organization Address [facility] de Phone Number [facility] from Last 3 Months Insurance Care Teams Regional Hr Manager Relationship Specialty Start Date End Date Rosario Bruno NP [address] [place] [id number] PCP - General Family Medicine 08/01/23
--- OUTSIDE RECORDS SUMMARY | 2024-08-04 14:00 | XMS_ITS | Clinical Summary ---
Author Organization [facility] Address [address] [place], [place] [id number] Care Team Providers Care Shampoo Technician Name Role Phone Rosario Bruno WILDLIFE OFFICER Primary Care Provider Allergies Active Allergy Reactions Criticality Noted Date Comments Lactose GI Upset 10/28/2023 Latex Itching 11/26/2023 Medications doxepin capsule 10 mg TAKE 1 TO 2 CAPSULES BY MOUTH EVERY DAY AT BEDTIME 4 Active TRULICITY 1.5 mg/0.5 mL pen injector INJECT 1.5 MG SUBCUTANEOUSLY ONCE A WEEK Active empagliflozin (JARDIANCE) 25 mg tablet once daily. 4 Active FLUoxetine (PROZAC) 20 mg capsule once daily. 4 Active pravastatin (PRAVACHOL) 10 mg tablet Take 10 mg by mouth once daily. Active Active Problems Problem Noted Date Diagnosed Date Anxiety 02/04/2024 Assessment & Plan (02/04/2024 8:57 AM EST): Assessment: Pt. reports mood is stable with medication Depression 02/04/2024 Assessment & Plan (02/04/2024 8:58 AM EST): Assessment: Pt. reports mood is stable with medication Mixed hyperlipidemia 02/04/2024 Assessment & Plan (02/04/2024 8:56 AM EST): Assessment: Managed with Statin , Follows with PCP Nicotine dependence, cigaret jake, with unspecified nicotine-induced disorders 02/04/2024 Assessment & Plan (02/04/2024 8:59 AM EST): Assessment: Cigarette smoker for 30 years, was at 3 ppd, now down to 1 ppd Cessation with strategies encouraged. Obstructive sleep apnea 02/04/2024 Assessment & Plan (02/04/2024 8:58 AM EST): Assessment: Compliant with CPAP Type 2 diabetes mellitus wit h diabetic neuropathy, unspecified 02/04/2024 Assessment & Plan (02/04/2024 8:56 AM EST): Assessment: Managed with empagliflozin (JARDIANCE) , dulaglutide (TRULICITY) weekly injection, last dose Friday01/31/2024 Pt. aware to hold dulaglutide (TRULICITY) weekly injection one full week prior to scheduled surgery date Managed by PCP updated HgbA1c, BMP Marijuana use 02/04/2024 Assessment & Plan (02/04/2024 9:00 AM EST): Assessment: Nightly for sleep, gummies Pt. aware cessation week prior to surgery Obesity (BMI 30-39.9) 02/04/2024 Assessment & Plan (02/04/2024 9:03 AM EST): Assessment: Body mass index is 33.52 kg/m . Weight reduction encouraged. Asymmetrical sensorineural hearing loss 11/26/19 24 Tinnitus, left ear 11/26/2023 Vestibular hypofunction of left ear 11/26/2023 Encounters Date Type Department Care Team Description 05/11/2024 Telephone [facility] [place] [address] [place] [address] Tereza Issa Quotation Checker - Other from Last 3 Months Immunizations Immunization Administration Dates Next Due COVID-19 original vaccine, a ge 12+ yr, monovalent ([employer] - PURPLE TOP) 07/20/2020,06/27/2020 influenza (IIV4) vaccine, ag e 6 mo - 64 yr, quadrivalent, PF (AFLURIA, FLUARIX, FLULAVAL, FLUZONE) 02/04/2019 pneumococcal conjugate (PCV2 0) vaccine, 20 valent (PREVNAR 20) 12/31/2023 pneumococcal polysaccharide (PPV23) vaccine, 23 valent (PNEUMOVAX 23) 04/12/2010 zoster (RZV) vaccine, recombinant (SHINGRIX) 11/2023 Family History Medical History Relation Comments Arthritis Father Diabetes Mother Systemic Lupus Erythematosus Mother Relation Status Comments Father Mother Social History Tobacco Use Types Packs/Day [...] is lower risk 7 11/28/2023 Data from: https://www.neighborhoodatlas.medicine.[facility].edu/. Last address used for calculation [address] 11/28/2023 Sex and Gender Information Value Date Recorded Sex Assigned at Not on file Legal Sex Male 8:48 PM EDT Gender Identity Not on file Sexual Orientation Not on file Last Filed Vital Signs Vital Sign Reading Time Taken Comments Blood Pressure 103/66 02/04/2024 8:10 AM EST MAP : 78 Pulse 82 02/04/2024 8:10 AM EST Temperature 36.2 C (97.1 F) 02/04/2024 8:10 AM EST Respiratory Rate 18 02/04/2024 8:10 AM EST Oxygen Saturation 98% 02/04/2024 8:10 AM EST Inhaled Oxygen Concentration - - Weight 109 kg (240 lb 4.8 oz) 02/04/2024 8:10 AM EST Height 180.3 cm (5' 11 ) 02/04/2024 8:10 AM EST Body Mass Index 33.52 02/04/2024 8:10 AM EST Plan of Treatment Health Maintenance Due Date Last Done Comments Diabetic Foot Exam 01/07/1980 Dilated Retinal Exam 01/07/1980 Urine Albumin:Creatinine Ratio 01/07/1980 Annual PCP Team Chronic Disease Visit 01/07/1988 HIV Screening 01/07/1988 Hepatitis C Screening 01/07/1988 LDL Cholesterol 01/07/1988 DTaP,Tdap,Td Vaccine (1 - Tdap) 1989 Hepatitis B Vaccine (1 of 3 - 19+ 3-dose series) 1989 CT Colonography 2015 Cologuard (FIT-DNA) 2015 Colonoscopy 2015 Colorectal Cancer Screening 2015 Fecal Occult Blood 2015 Sigmoidoscopy 2015 Shingrix Vaccine (2 of 2) 09/18/2023 07/24/2023 Covid-19 Vaccine (3 - season) 11/16/202308/2020, 06/27/2020 HbA1C 05/06/2024 02/04/2024 Influenza Vaccine (Season Ended) 2024 02/05/20 Pneumococcal Vaccine: 50+ Completed 12/31/2023, Procedures Procedure Name Priority Date/Time Associated Diagnosis Comments HEMOGLOBIN A1C Routine 02/04/2024 9:21 AM EST Pre-op evaluation from Last 3 Months or Most Recently Relevant to Health Maintenance Results * (ABNORMAL) HEMOGLOBIN A1C (02/04/2024 9:21 AM EST) Hemoglobin A1C 10.1(H) 4.3 - 5.6 % 02/04/2024 4:40 PM EST [facility] Comment:Vietnamese Diabetes As sociation guidelines indicate that patients with HgbA1c in the range 5.7-6.4% are at increased risk for development of diabetes, and intervention by lifestyle modification may be beneficial. HgbA1c greater or equal to 6.5% is considered diagnostic of diabetes. Estimated Average Glucose 243 mg/dL 02/04/2024 4:40 PM EST [facility] Comment:eAG: (Estimated aver age glucose) is a calculated value from HgbA1c and is litigation claim representative of the average blood glucose level in the last 2-3 month period. Blood BLOOD SPECIMEN / Unknown Venipuncture / Unknown 02/04/2024 9:21 AM EST 02/04/2024 9:21 AM EST us Nia Cervantes MOLD PARTER.MANAGER PERSONAL LABORATORY Final Resul t [facility] [address] [place] [address], from Last 3 Months or Most Recently Relevant to Health Maintenance Insurance [facility] Care Teams Shampoo Technician Relationship Specialty Start Date End Date Rosario Bruno NP [address] [place] [address] PCP - General Nurse Practitioner 07/30/23
--- OUTSIDE RECORDS SUMMARY | 2024-08-04 14:00 | XMS_ITS | Encounter Summary ---
Author Organization [facility] Address [address] [place] [address] Care Team Providers Care Agriculture Teacher Name Role Phone Kiana Rosario Dalton DYE RANGE TENDER Primary Care Provider Encounter Details Date Type Department Care Team (Late st Contact Info) Description 07/12/2024 Orders Only [facility] [address] [place] [phone] Devora Arvizu MD [address] [place] [address] Social History Tobacco Use Types Packs/Day Years Used Date Smoking Tobacco: Never Assessed Sex and Gender Information Value Date Recorded Sex Assigned at Not on file Legal Sex Male 3:19 PM EDT Gender Identity Not on file Sexual Orientation Not on file documented as of this encounter Plan of Treatment Upcoming Encounters Date Type Department Care Team (Late st Contact Info) Description 11/10/2024 10:10 AM EDT Office Visit [facility] [address] [place] [phone] Devora Arvizu MD [address] [place] [address] documented as of this encounter Procedures Procedure Name Priority Date/Time Associated Diagnosis Comments TESTOSTERONE, FREE Routine 07/12/2024 8:03 AM EDT documented in this encounter Results * TESTOSTERONE, FREE (07/12/2024 8:03 AM EDT) us Devora Arvizu MD LAB BLOOD ORDERABLES Final Re sult documented in this encounter Visit Diagnoses Not on filedocumented in this encounter Care Teams Agriculture Teacher Relationship Specialty Start Date End Date Rosario Bruno, RADHAMES [facility] [place] [phone] PCP - General Family Medicine 08/01/23 documented as of this encounter
--- OUTSIDE RECORDS SUMMARY | 2024-08-04 14:00 | XMS_ITS | Encounter Summary ---
Author Organization [facility] Address [address] [place] [address] Care Team Providers Care Business Librarian Name Role Phone Rosario Bruno Dalton COUNSELING DEPARTMENT CHAIR Primary Care Provider Source Comments In the event this information is protected by the Federal Confidentiality of Alcohol and Drug AbusePatient Records regulations: The Federal rules restrict any use of the information to criminally investigate or prosecute any alcohol or drug abuse patient.[facility] Reason for Visit * Reason Comments HIP 01/13/24 Encounter Details Date Type Department Care Team (Late st Contact Info) Description 01/13/2024 Patient Update Audiology [address] [address] Lorena Antony MD [address] [place] [address] [address] [place] [address] HIP 01/13/24 Social History Tobacco Use Types Packs/Day Years [...] is lower risk 7 11/28/2023 Data from: https://www.neighborhoodatlas.medicine.[facility]/. Last address used for calculation [address] 11/28/2023 Sex and Gender Information Value Date Recorded Sex Assigned at Not on file Legal Sex Male 8:48 PM EDT Gender Identity Not on file Sexual Orientation Not on file documented as of this encounter Miscellaneous Notes * Multi-Disc Team Plan - Tereza Issa - 01/15/2024 3:26 PM EDT Codes for pre-determination: 67410 Cochlear implant device implantation, with or without mastoidectomy L8614 Cochlear device, includes all internal and external components Patient was approved for left cochlear implant at Hearing Implant Program team meeting on January 15, 2024. Recommended internal device: 632/632. Audiogram date Latest Speech Audiometry Last edited by Marilu Hou AUD on 11/28/2023 4:31 PM Speech Audiometry Ear Method DISTRICT LEADER SAT SRT [facility] Test/List Score (%) Intensity Mask/Noise Notes right recorded 15 15 NU-6 Difficulty 100 55 left recorded 80 NR: SAT/SRT at 110 Comments: CNT LE WRS due to degree of hearing loss. Cochlear implant evaluation date 12/24/[address] Hammond Qualifying Score in ear to be implanted: Luxpcqwrz-Brwjxbp-Zecfhovxb Words (CNC) Test Condition List # Phonemes [...] Right Ear 4 88% Bilateral 2 84% Imaging MRI future CT CT Brain Report - Impression No resulted procedures found. EAS CANDIDATE? No. HEARING PRESERVATION CANDIDATE? No. Okay for 2 week activation, no further audiograms required. PRE-OP VESTIBULAR TESTING: Yes, future Bimodal VACCINATION NEEDS: No Immunization History Administered Date(s) Administered COVID-19 original vaccine, age 12+ yr, monovalent ([employer] Resistant [employer] - PURPLE TOP) 06/27/2020 07/20/2020 influenza (IIV4) vaccine, age 6 mo - 64 yr, quadrivalent, PF (AFLURIA, FLUARIX, FLULAVAL, FLUZONE) 02/04/2019 pneumococcal conjugate (PCV20) vaccine, 20 valent (PREVNAR 20) 12/31/2023 pneumococcal polysaccharide (PPV23) vaccine, 23 valent (PNEUMOVAX 23) 04/12/2010 zoster (RZV) vaccine, recombinant (SHINGRIX) 07/24/2023 Tereza Issa *Hearing preservation candidates have low-frequency (125, 250, 500 Hz) air thresholds of less than 80 dB documented in this encounter Plan of Treatment Not on file documented as of this encounter Visit Diagnoses Not on filedocumented in this encounter Care Teams Business Librarian Relationship Specialty Start Date End Date Rosario Bruno NP [address] [place] [address] PCP - General Nurse Practitioner 07/30/23 documented as of this encounter
--- OUTSIDE RECORDS SUMMARY | 2024-08-04 14:00 | XMS_ITS | Encounter Summary ---
Author Organization [facility] Address [address] [place] [address] Phone Care Team Providers Care Satellite Tv Technician Name Role Phone Generic Provider, No Assigned Pcp Primary Car e Provider Unavailable Encounter Details Date Type Department Care Team (Late st Contact Info) Description 06/18/2024 Scanned Document [facility] 4 [address] [facility] [address] [place] [phone] Sharan Dubose MD [address] [facility] [address] [place] [address] Social History Tobacco Use Types Packs/Day Years Used Date Smoking Tobacco: Every Day Cigarettes Passive Smoke Exposure: Current Smokeless Tobacco: Current Chew Alcohol Use Standard Drinks/Week Comments Not Currently 0 (1 standard drink = 0.6 oz pur e alcohol) Sex and Gender Information Value Date Recorded Sex Assigned at Not on file Legal Sex Male 3:33 PM EST Gender Identity Not on file Sexual Orientation Not on file COVID-19 Exposure Response Date Recorded In the last 10 days, have yo u been in contact with someone who was confirmed or suspected to have Coronavirus/COVID-19? No / Unsure 06/17/2024 12:47 PM EDT documented as of this encounter Plan of Treatment Not on file documented as of this encounter Visit Diagnoses Not on filedocumented in this encounter Additional Health Concerns Assessment Noted Time A fall risk assessment has been complete d for the patient 05/24/2024 10:04 AM EDT documented as of this encounter Care Teams Satellite Tv Technician Relationship Specialty Start Date End Date Generic Provider, No Assigned Pcp, [place] [address] PCP - General Rn Ambulatory 06/09/24 documented as of this encounter
== END 2024-08-04 13:59 | disposition home or self-care (01) ==
LOC: WC 13:58
PROVIDERS: Family Provider Family Medicine; PCP Nurse Practitioner Family; Visit Provider Physician Assistant
DX: E11.621 Type 2 diabetes mellitus with foot ulcer (principal); L97.518 Non-pressure chronic ulcer of other part of right foot with other specified severity; L97.422 Non-pressure chronic ulcer of left heel and midfoot with fat layer exposed
CPT/HCPCS: G0463

== ENCOUNTER 2024-08-11 10:50 | Outpatient (OUT) | payer OTHER, SELFPAY ==
--- NOTE | 2024-08-11 10:53 | US_ITS ---
The [address] [address] Patient Name: PAPITO SANDOVAL MRN: [id number] date: 1970 Sex: M Assigned Patient Location: [place] Current Patient Location: Accession/Order Number: [id number] Exam Date: 08/11/2024 11:28 Report Date: 08/11/2024 11:31 At the request of: SILVINA HARRELL Procedure: US right upper quadrant LIMITED RIGHT UPPER QUADRANT ABDOMINAL ULTRASOUND CLINICAL HISTORY: Right upper quadrant abdominal pain, nausea and diarrhea COMPARISON: None The gallbladder is physiologically distended without shadowing calculi, wall thickening or pericholecystic fluid. No intra- or extrahepatic biliary dilatation is evident. The common duct measures 2 mm. The liver parenchyma shows coarsened increased echogenicity suggesting fatty infiltration. Potential fatty sparing is seen near the gallbladder fossa. There is appropriate hepatopetal flow within the main portal vein. The pancreas shows no significant sonographic abnormality. Cursory evaluation of the right kidney reveals no hydronephrosis or fluid within Patino's pouch. US/US right upper quadrant IMPRESSION: NO GALLBLADDER PATHOLOGY. FATTY LIVER. Impression dictated by: Yesenia Duenas M.D. 08/11/2024 11:31 AM Dictation Location: [place] [address] Electronically authenticated by: [id number] Date: 08/11/2024 11:31
--- OUTSIDE RECORDS SUMMARY | 2024-08-11 11:09 | XMS_ITS | CCD ---
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 Name Role Phone Rosario Bruno Unavailable ROSETTA Bruno Primary Care Provider ROSETTA rBuno Attending Provider [phone] Milena Cazares Unavailable MD Milena Cazares Attending Provider ROSETTA Bruno Primary Care Provider MD Milena Cazares Attending Provider Rohrbmariano STILL CLEANER TUBE, Rosario Primary Care Provider Kiana STILL CLEANER TUBE, Rosario Hoffman Primary Care Provider LORENA BEARD Attending Unavailable ROHRBACHER, ROSARIO Primary Care Unavailable HERNAN HAMMOND Attending Unavailable ROHRBACHER, ROSARIO Primary Care Unavailable MARILU HOU Attending Unavailable ROHRBACHER, ROSARIO Referring Unavailable ROHRBACHER, ROSARIO Primary Care Unavailable RUSSELL PARRA Attending Unavailable ROHRBACHER, ROSARIO Primary Care Unavailable HERNAN HAMMOND Attending Unavailable ROHRBACHER, ROSARIO Referring Unavailable ROHRBACHER, ROSARIO Primary Care Unavailable NUPUR LAI Attending Unavailable ROHRBACHER, ROSARIO Primary Care Unavailable LORENA BEARD Referring Unavailable ROHRBACHER, ROSARIO Primary Care Unavailable NIA MONTOYA Referring Unavailable ROHRBACHER, ROSARIO Primary Care Unavailable CARVALHOENEDINA BERNSTEIN, LORENA Referring Unavailable ROHRBACHER, ROSARIO Primary Care Unavailable JO-ANN MAHAJAN Attending Unavailable ROHRBACHER, ROSARIO Primary Care Unavailable Unavailable Primary Care Provider Unavailabl e ELI DUBOSE Attending Unavailable Generic Provider MD, No Assigned Pcp Primary Car e Provider Unavailable ELI DUBOSE Referring Unavailable GENERIC PROVIDER, NO ASSIGNED PCP Primary Care Unavailable ELI DUBOSE Referring Unavailable GENERIC PROVIDER, NO ASSIGNED PCP Primary Care Unavailable ELI DUBOSE Referring Unavailable GENERIC PROVIDER, NO ASSIGNED PCP Primary Care Unavailable ELI DUBOSE Referring Unavailable GENERIC PROVIDER, NO ASSIGNED PCP Primary Care Unavailable Rosario Bruno APRN Primary Care Provider Gurinder Millan MD Attending Provider Devora Arvizu MD Attending Provider DEVORA ARVIZU Attending Unavailable JONATHAN ARVIZUMAMargareth F Referring Unavailable NOLBERTO, AHMAD F Attending Unavailable JONATHAN ARVIZUMAMargareth F Referring Unavailable Asaad, Imad Attending Unavailable Rosario Bruno Primary Care Unavailable Asaad, Imad Admitting Unavailable Rosario Bruno Primary Care Unavailable Jonathan Arvizumamargareth Admitting Unavailable Devora Arvizu Attending Unavailable Rosario Bruno Primary Care Unavailable Gurinder Millan Admitting Unavailab le Gurinder Millan Attending Unavailab le Allergies Allergy Classification Reported Allergen(s) Allergy Type Date of Onset Reaction(s) Facility (15 sources) Lactose; Translations: [LACTOSE] Drug Allergy 4 GI Upset [facility] (15 sources) Latex; Translations: [LATEX] Drug Allergy 4 Itching [facility] (5 sources) Lactose (non-medical use) Allergy to substance 4 GI intolerance [facility] (5 sources) Latex Allergy to substance 4 Itching [facility] (1 source) Lactose Drug Allergy 5 [facility] Repository Medications Current Medications Medication Drug Class(es) Dates Sig (Normalized) Sig (Original) Auvelity 45-105 MG tablet controlled-release (5 sources) Start: 02-11-2024 take 1 tablet by mouth in the morning Auvelity 45-105 MG tablet controlled-release Take 1 tablet by mouth in the morning and 1 tablet before bedtime. 02/11/2024 Active Auvelity 45-105 mg tablet, IR and ER, biphasic (5 sources) Start: 02-11-2024 take 1 tablet by mouth twice daily Auvelity 45-105 mg tablet, IR and ER, biphasic Take 1 tablet by mouth twice a day. 02/11/2024 Active Blood Glucose Monitoring Suppl (ONE TOUCH ULTRA 2) w/Device kit (5 sources) Start: 06-25-2023 Blood Glucose Monitoring Suppl (ONE TOUCH ULTRA 2) w/Device kit 06/25/2023 Active Start: 06-25-2023 Blood Glucose Monitoring Suppl (ONE TOUCH ULTRA 2) w/Device kit USE TO TEST BLOOD GLUCOSE TWICE A DAY NEEDED FOR TYPE 2 DIABETES 06/25/2023 Active Blood-Glucose Meter (Onetouc h Ultra2 Meter) [facility] (7 sources) Start: 05-13-2024 Blood-Glucose Meter (Onetouch Ultra2 Meter) [facility] Active 0 .ROUTE .COMPLEX 1 May 13, 2024 12:04pm USE TO TEST BLOOD GLUCOSE TWICE A DAY NEEDED FOR TYPE 2 DIABETES Start: 10-24-2023 End: 05-13-2024 Blood-Glucose Meter (Onetouc h Ultra2 Meter) [facility] Discontinued 0 .ROUTE .COMPLEX 1 October 24, 2023 1:35pm May 13, 2024 12:04pm USE TO TEST BLOOD GLUCOSE TWICE A DAY NEEDED FOR TYPE 2 DIABETES Start: 10-24-2023 Blood-Glucose Meter (Onetouch Ultra2 Meter) [facility] Active 0 .ROUTE .COMPLEX 1 October 24, 2023 1:35pm USE TO TEST BLOOD GLUCOSE TWICE A DAY NEEDED FOR TYPE 2 DIABETES Continuous Glucose Sensor (FreeStyle Carina 3 Plus Sensor) misc (5 sources) Start: 06-09-2024 End: 09-07-2024 Continuous Glucose Sensor (FreeStyle Carina 3 Plus Sensor) [facility] Indications: Type 2 diabetes mellitus with hyperglycemia, without long-term current use of insulin ([facility]) 1 Bar Every 15 Days 6 each 1 06/09/2024 09/07/2024 Active Dextromethorphan-Bu propion (3 sources) Start: 04-14-2024 take 1 tablet by mouth once daily Dextromethorphan-Bu propion (Auvelity) 45-105 mg tablet, IR and ER, biphasic Active 1 TAB PO daily April 14, 2024 1:00am doxepin hydrochloride 10 mg oral capsule (20 sources) Tricyclic Antidepressant Start: 02-23-2024 take 1 capsule by mouth once daily at bedtime as needed Doxepin 10 mg capsule Active 10 MG PO Daily at bedtime as needed April 14, 2024 1:00am Start: 10-22-2023 End: 02-13-2024 Doxepin 10 mg capsule Discon tinued 10 MG PO As Directed October 22, 2023 12:00am February 13, 2024 12:06pm 0.5 ml dulaglutide 3 mg/ml auto-injector (20 sources) GLP-1 Receptor Agonist Start: 06-02-2024 Dulaglutide 1.5 mg/0 .5 mL pen injector Active 3 MG SUBCUT every week 5 June 02, 2024 11:56am Start: 04-14-2024 End: 05-12-2024 Dulaglutide (Trulicity) 0.75 mg/0.5 mL pen injector Discontinued 0.75 MG SUBCUT every week 2.5 April 14, 2024 1:00am May 12, 2024 2:07pm Start: 10-28-2023 End: 06-09-2024 Dulaglutide 1.5 mg/0.5 mL pe n injector Discontinued 1.5 MG SUBCUT every week 2.5 May 12, 2024 2:07pm June 02, 2024 11:57am Start: 07-23-2023 End: 07-23-2023 Dulaglutide 1.5 mg/0.5 mL pe n injector Discontinued 0.75 MG SUBCUT every week 1.25 July 23, 2023 2:21pm July 23, 2023 2:32pm Start: 07-23-2023 End: 07-23-2023 inject 0.75 mg by subcutaneous injection every week Dulaglutide Discontinued 0.75 MG SUBCUT every week 1.25 July 23, 2023 2:21pm July 23, 2023 2:32pm Start: 06-26-2023 End: 10-28-2023 Dulaglutide (Trulicity) 0.75 mg/0.5 mL pen injector Discontinued 0.75 MG SUBCUT every week July 23, 2023 12:00am October 13, 2023 11:24am Dulaglutide (Trulicity) 3 MG/0.5ML solution auto-injector (5 sources) Start: 06-09-2024 End: 09-07-2024 Dulaglutide (Trulicity) 3 MG/0.5ML solution auto-injector Indications: Type 2 diabetes mellitus with hyperglycemia, without long-term current use of insulin (CMS/HCC) Inject 3 mg under the skin every 7 (seven) days 6 mL 1 06/09/2024 09/07/2024 Active FLUoxetine 40 mg oral capsule (20 sources) Serotonin Reuptake Inhibitor Start: 02-19-2024 take 1 capsule by mouth once daily FLUoxetine (PROzac) 40 MG capsule Take 40 mg by mouth Daily 02/19/2024 Active Start: 07-23-2023 End: 02-13-2024 take 1 capsule by mouth once daily Fluoxetine 20 mg capsule Discontinued 20 MG PO Daily 90 90 October 28, 2023 1:16pm February 13, 2024 12:07pm Start: 06-25-2023 End: 07-23-2023 take 1 capsule by mouth once daily Fluoxetine (Prozac) 10 mg capsule Discontinued 10 MG PO Daily 30 June 25, 2023 12:00am July 23, 2023 2:21pm folic acid 0.8 mg / vitamin b12 1 mg disintegrating oral tablet (10 sources) Vitamin B12 Start: 05-05-2023 take 1 tablet by mouth once daily Cobalamin Combinations (Vitamin Z81-Ljboh Acid) 500-400 MCG tablet Take 1 tablet by mouth Daily 05/05/2023 Active Start: 05-05-2023 take 1 tablet by [facility] once daily Vitamin O60-Cmrhe Acid (Foltrate) 0.5-1 mg tablet Active 1 TAB PO Daily May 05, 2023 1:00am 1.5 ml insulin glargine 300 unt/ml pen injector (5 sources) Insulin Analog Start: 06-09-2024 End: 12-06-2024 inject 30 [IU] by subcutaneous injection at bedtime insulin glargine (Tounitin Solostar, 1 unit dial,) 300 UNIT/ML injection Indications: Type 2 diabetes mellitus with hyperglycemia, without long-term current use of insulin (CMS/HCC) Inject 30 Units under the skin at bedtime 9 mL 1 06/09/2024 12/06/2024 Active Insulin Glargine U-300 Conc (Toujeo Max U-300 Solostar) 300 unit/mL (3 mL) insulin pen (3 sources) Start: 06-09-2024 inject 30 [IU] by subcutaneous injection once daily at bedtime Insulin Glargine U-300 Conc (Toujeo Max U-300 Solostar) 300 unit/mL (3 mL) insulin pen Active 30 UNIT SUBCUT Daily at bedtime June 09, 2024 12:00am osmotic 24 hr metFORMIN hydrochloride 1000 mg extended release oral tablet (14 sources) Biguanide Start: 07-29-2024 take 1 tablet by mouth twice daily Metformin 1,000 mg tablet extended release 24hr Active 1000 MG PO Twice daily 180 90 July 29, 2024 12:00am Start: 04-14-2024 End: 07-29-2024 take 1 tablet by mouth twice daily at mealtime Metformin 1,000 mg tablet Discontinued 1000 MG PO Twice daily with meals 180 90 April 14, 2024 1:00am July 29, 2024 1:25pm take 1 tablet by marcio th in the morning metFORMIN (Glucophage) 500 MG tablet Take 500 mg by mouth in the morning and 500 mg in the evening. Take with meals. PATIENT NOT SURE OF STRENGHT. Active Multivitamin (Daily Multi-Vitamin) tablet (5 sources) Start: 05-05-2023 take 1 tablet by mouth once daily Multivitamin (Daily Multi-Vitamin) tablet Active 1 TAB PO Daily May 05, 2023 1:00am Start: 05-05-2023 take 1 tablet by marcio th once daily Multivitamin (Daily Multi-Vitamin) tablet Active 1 TAB PO Daily May 05, 2023 12:00am polyethylene glycol 3350 924221 mg / potassium chloride 2970 mg / sodium bicarbonate 6740 mg / sodium chloride 5860 mg / sodium sulfate 32396 mg powder for oral solution (1 source) Osmotic Laxative Start: 03-26-2023 take 4000 mL by mouth once daily Golytely 236 GM 4000 ML Orally once daily for 1 days Mar, Active ramipril 1.25 mg oral capsule (9 sources) Angiotensin Converting Enzyme Inhibitor End: 02-04-2024 ramipril (ALTACE) 1.25 mg capsule 1 capsule. 02/04/2024 Discontinued Completed/Discontinued Medications Medication Drug Class(es) Dates Sig (Normalized) Sig (Original) amoxicillin 875 mg / clavulanate 125 mg oral tablet (4 sources) Penicillin-class Antibacterial Start: 06-25-2023 End: 07-23-2023 take 1 tablet by mouth twice daily Amoxicillin-Pot Clavulanate 875-125 mg tablet Discontinued 1 TAB PO Twice daily 03 01June 25, 2023 12:00am July 23, 2023 2:08pm Blood-Glucose Meter (1 source) Start: 06-25-2023 End: 10-24-2023 Blood-Glucose Meter Discontinued 0 .Route June 25, 2023 12:00am October 24, 2023 1:36pm Use to test blood glucose twice daily as needed Blood-Glucose Meter kit (3 sources) Start: 06-25-2023 End: 10-24-2023 Blood-Glucose Meter kit Discontinued 0 .Route June 25, 2023 12:00am October 24, 2023 1:36pm Use to test blood glucose twice daily as needed empagliflozin 25 mg oral tablet (20 sources) Sodium-Glucose Cotransporter 2 Inhibitor Start: 05-05-2023 End: 04-14-2024 take 1 tablet by mouth once daily Empagliflozin 25 mg tablet Discontinued 25 MG PO Daily October 28, 2023 1:16pm April 14, 2024 2:49pm Start: 03-14-2023 take 1 tablet by marcio th every twenty-four hours Jardiance 25 MG 1 tablet Orally Once a day for 90 days Feb, Active pravastatin sodium 10 mg oral tablet (20 sources) HMG-CoA Reductase Inhibitor Start: 05-05-2023 End: 04-16-2024 take 1 tablet by mouth once daily Pravastatin 10 mg tablet Discontinued 10 MG PO Daily April 14, 2024 2:48pm April 16, 2024 9:47am Semaglutide (7 sources) Start: 02-13-2024 End: 04-14-2024 Semaglutide (Ozempic) 0.25 mg or 0.5 mg (2 mg/3 mL) pen injector Discontinued 0.25 MG SUBCUT every week 3 February 13, 2024 1:00am April 14, 2024 2:34pm for 4 weeks Start: 06-25-2023 End: 06-26-2023 Semaglutide (Ozempic) 0.25 m g or 0.5 mg (2 mg/3 mL) pen injector Discontinued 0.25 MG SUBCUT every week 1.84 30 June 25, 2023 12:00am June 26, 2023 2:25pm for 4 weeks Sod Picosulf-Mag Ox-Citric Ac (4 sources) Start: 06-19-2023 End: 07-23-2023 take 1 dose by mouth once daily Sod Picosulf-Mag Ox-Citric Ac (Clenpiq) 10 mg-3.5 gram- 12 gram/175 mL solution Discontinued 175 ML PO Daily 350 0 June 19, 2023 12:00am July 23, 2023 2:08pm take first dose at 3PM evening before colonoscopy; 2nd dose at 9pm the night before colonoscopy 24 hr venlafaxine 37.5 mg extended release oral capsule (3 sources) Serotonin and Norepinephrine Reuptake Inhibitor Start: 02-13-2024 End: 04-14-2024 Venlafaxine (Effexor Xr) 37.5 mg capsule,extended release 24hr Discontinued 37.5 MG PO .3 TIMES PER DAY February 13, 2024 1:00am April 14, 2024 2:35pm Problems Active Problems Problem Classification Problem Date Documented Da te Episodic/Chronic Abdominal pain (2 sources) Right upper quadrant pain; Translations: [Right upper quadrant pain] 07-29-2024 Episodic Administrative/social admission (4 sources) Patient encounter status; Translations: [Dietary counseling and surveillance] 06-09-2024 Episodic Anxiety disorders (11 sources) Anxiety; Translations: [Anxiety disorder, unspecified] Onset: 02-04-2024 06-25-2023 Chronic Chronic ulcer of skin (4 sources) Non-pressure chronic ulcer of other part of right foot with unspecified severity; Translations: [Ulcer of right foot] 07-22-2024 Chronic Diabetes mellitus with complications (20 sources) Hyperglycemia due to diabetes mellitus; Translations: [Type 2 diabetes mellitus with hyperglycemia] Onset: 02-04-2024 06-26-2023 Chronic Diabetes mellitus without complication (14 sources) Type 2 diabetes mellitus without complication; Translations: [Type 2 diabetes mellitus without complications] Chronic Disorders of lipid metabolism (17 sources) Mixed hyperlipidemia; Translations: [Mixed hyperlipidemia] Onset: 02-04-2024 Chronic Disorders of teeth and jaw (4 sources) Infection of tooth; Translations: [Periapical abscess without sinus] 06-26-2023 Episodic Immunizations and screening for infectious disease (1 source) Encounter for immunization; Translations: [Other specified vaccinations against streptococcus pneumoniae [pneumococcus]] 12-31-2023 Episodic Miscellaneous mental health disorders (1 source) Primary insomnia; Translations: [Primary insomnia] 11-18-2023 Chronic Mood disorders (12 sources) Depressive disorder; Translations: [Depression] Onset: 02-04-2024 06-26-2023 Chronic Nutritional deficiencies (4 sources) Vitamin D deficiency; Translations: [Vitamin D deficiency, unspecified] 06-09-2024 Chronic Other ear and sense organ disorders (4 sources) Hearing loss of right ear; Translations: [Unspecified hearing loss, right ear] 07-23-2023 Chronic Other ear and sense organ disorders (4 sources) Decreased hearing ; Translations: [Unspecified hearing loss, unspecified ear] 07-23-2023 Chronic Other ear and sense organ disorders (20 sources) Asymmetrical sensorineural hearing loss; Translations: [Sensorineural hearing loss, bilateral] Onset: 11-26-2023 11-26-2023 Chronic Other ear and sense organ disorders (3 sources) Sensorineural hearing loss, bilateral; Translations: [Sensorineural hearing loss, bilateral] 12-31-2023 Chronic Other ear and sense organ disorders (4 sources) Impacted cerumen; Translations: [Impacted cerumen, unspecified ear] [...] Translations: [Tinnitus, right ear] 12-02-2023 Episodic Other gastrointestinal disorders (1 source) Diarrhea; Translations: [Diarrhea, unspecified] 07-29-2024 Episodic Comment on above: Concerned its relate d to ozempic use Other gastrointestinal disorders (1 source) Diarrhea, unspecified; Translations: [Diarrhea] 07-29-2024 Episodic Other nervous system disorders (4 sources) Neuropathy; Translations: [Polyneuropathy, unspecified] 06-05-2023 Chronic Other nervous system disorders (1 source) Polyneuropathy, unspecified; Translations: [Mononeuritis of unspecified site] 10-28-2023 Chronic Other nervous system disorders (7 sources) Impairment of balance; Translations: [Other abnormalities of gait and mobility] 11-26-2023 Episodic Other nervous system disorders (13 sources) Abnormal gait; Translations: [Unsteadiness on feet] 05-24-2024 Episodic Other nervous system disorders (4 sources) Unsteadiness on feet; Translations: [Unsteadiness on feet] Onset: 05-24-2024 Episodic Other non-traumatic joint disorders (4 sources) Pain in right shoulder; Translations: [Right shoulder pain] 04-14-2024 Episodic Other nutritional; endocrine; and metabolic disorders (7 sources) Body mass index 30+ - obesity; Translations: [Obesity, unspecified] Onset: 02-04-2024 02-04-2024 Chronic Other nutritional; endocrine; and metabolic disorders (2 sources) Obesity caused by energy imbalance; Translations: [Class 1 obesity due to excess calories with serious comorbidity and body mass index (BMI) of 33.0 to 33.9 in adult] 06-09-2024 Chronic Other skin disorders (4 sources) Skin lesion; Translations: [Disorder of the skin and subcutaneous tissue, unspecified] 06-04-2023 Episodic Other upper respiratory infections (4 sources) Maxillary sinusitis; Translations: [Chronic maxillary sinusitis] 06-26-2023 Chronic Peripheral and visceral atherosclerosis (2 sources) Peripheral vascular disease, unspecified; Translations: [Peripheral arterial disease] 07-22-2024 Chronic Residual codes; unclassified (16 sources) Obstructive sleep apnea syndrome; Translations: [Obstructive sleep apnea (adult) (pediatric)] Onset: 02-04-2024 10-22-2023 Chronic Residual codes; unclassified (4 sources) Obstructive sleep apnea (adult) (pediatric); Translations: [Obstructive sleep apnea (adult)(pediatric)] Onset: 05-24-2024 Chronic Residual codes; unclassified (3 sources) Memory impairment; Translations: [Other amnesia] 02-19-2024 Episodic Substance-related disorders (19 sources) Nicotine dependence; Translations: [Nicotine dependence, cigarettes, uncomplicated] Onset: 02-04-2024 Chronic Past or Other Problems Problem Classification Problem Date Documented Da te Episodic/Chronic Conditions associated with dizziness or vertigo (20 sources) Vertigo; Translations: [Dizziness and giddiness] Onset: 11-26-2023 11-26-2023 Episodic Other ear and sense organ disorders (20 sources) Tinnitus of left ear; Translations: [Tinnitus, left ear] Onset: 11-26-2023 11-26-2023 Episodic Other screening for suspected conditions (not mental disorders or infectious disease) (3 sources) Encounter for screening for malignant neoplasm of prostate; Translations: [Encounter for screening for malignant neoplasm of colon] Onset: 11-04-2023 Episodic Substance-related disorders (7 sources) Marijuana user; Translations: [Cannabis use, unspecified, uncomplicated] Onset: 02-04-2024 02-04-2024 Episodic Unclassified (5 sources) Onset: 05-24-2024 05-24-2024 Results Test Name Value Interpretation Reference Range Facility Glucose (Bld) [Mass/Vol]Orde red By: Angelia Woods on 07-14-2024 Glucose Blood, POC 164 mg/dL [facility] - Hematology and Cell countson 07-14-2024 HbA1c (Bld) [Mass fraction] 7.3 % [facility] No Panel InformationOrdered By: Angelia Woods on 07-14-2024 [facility] Albumin [Mass/volume] in Ser um or Plasma by Bromocresol green (BCG) dye binding methoOrdered By: Devora Arvizu on 07-08-2024 Albumin BCG dye [Mass/Vol] Albumin [Mass/volume] in Serum or Plasma by Bromocresol green (BCG) dye binding metho 3.5-5.7 [facility] C-PeptideOrdered By: Devora silvestre on 07-08-2024 C-Peptide 3.0 ng/mL 1.1-4.4 [facility] Comment on above: Result Comment: C-Pe ptide reference interval is for fasting patients. Performed at: [facility] [address] [id number] Reliability Technician: Blaine Keenan PhD, Phone: [phone] PERFORMED BY: [facility] [address] [place] [address] PATHOLOGIST JEWELRY MODEL MAKER KEITH MOSER M.D. Performed By: #### V [id number], LIPID, RENAL, URMACRERAT #### [place] [address] [place] #### CPEP #### [facility] , C-Peptide reference interval is for fasting patients.Performed at: - [facility] [address] [id number] Director: Blaine Keenan PhD, Phone: [phone] Calcium [Mass/volume] in Ser um or PlasmaOrdered By: Devora Arvizu on 07-08-2024 Calcium [Mass/Vol] Calcium [Mass/volume ] in Serum or Plasma 8.6-10.3 [facility] Carbon dioxide, total [Moles /volume] in Serum or PlasmaOrdered By: Devora Arvizu on 07-08-2024 CO2 [Moles/Vol] Carbon dioxide, tota l [Moles/volume] in Serum or Plasma High 21.0-31.0 [facility] Chloride [Moles/volume] in S robert or PlasmaOrdered By: Devora Arvizu on 07-08-2024 Chloride [Moles/Vol] Chloride [Moles/volume] in Serum or Plasma 98-107 [facility] Cholesterol [Mass/volume] in Serum or PlasmaOrdered By: Devora Arvizu on 07-08-2024 Cholesterol [Mass/Vol] Cholesterol [Mass/volume] in Serum or Plasma Low 140-200 [facility] Comment on above: Chol less than 200 m g/dl low riskChol 201-239 mg/dl borderline riskChol 240 mg/dl and greater high risk Cholesterol in HDL [Mass/vol ume] in Serum or PlasmaOrdered By: Devora Arvizu on 07-08-2024 Cholesterol in HDL [Mass/Vol] Serum or plasma high density lipoprotein (HDL) cholesterol measurement 23- [facility] Comment on above: HDL CHOL ATP-III CLA SSIFICATION Cardiovascular RiskHDL > or equal to 60 mg/dL LOWHDL < 40 mg/dL HIGH Cholesterol in LDL Calc [Mas s/Vol]Ordered By: Devora Arvizu on 07-08-2024 Cholesterol in LDL [Mass/Vol] Cholesterol in LDL [Mass/volume] in Serum or Plasma by calculation 0-100 [facility] Comment on above: LDL ATP III CLASSIFI CATIONLDL less than 100 mg/dL OptimalLDL 100-129 mg/dL Near or above optimalLDL 130-159 mg/dL Borderline highLDL 160-189 mg/dL HighLDL greater than 189 mg/dL Very high Cholesterol in VLDL Calc [Ma ss/Vol]Ordered By: Devora Arvizu on 07-08-2024 Cholesterol in VLDL [Mass/Vol] Cholesterol in VLDL [Mass/volume] in Serum or Plasma by calculation [facility] Creatinine [Mass/volume] in Serum or PlasmaOrdered By: Devora Arvizu on 07-08-2024 Creatinine [Mass/Vol] Creatinine [Mass/volume] in Serum or Plasma 0.70-1.30 [facility] Creatinine [Mass/volume] in UrineOrdered By: Devora Arvizu on 07-08-2024 Creatinine (U) [Mass/Vol] Creatinine [Mass/volume] in Urine [facility] Comment on above: No reference range e stablished Glucose [Mass/volume] in Ser um or PlasmaOrdered By: Devora Arvizu on 07-08-2024 Glucose [Mass/Vol] Glucose [Mass/volume ] in Serum or Plasma High 70-100 [facility] Comment on above: ADA recommended refe rence rangeRandom Glucose Reference Range is dependent on time and content of last meal. Glucose of more than 200 mg/dL in a nonstressed, ambulatory subject supports the diagnosis of Diabetes Mellitus. Lipid Panelon 07-08-2024 Cholesterol [Mass/Vol] 138 mg/dL Low 140-200 [facility] Comment on above: Result Comment: Chol less than 200 mg/dl low risk Chol 201-239 mg/dl borderline risk Chol 240 mg/dl and greater high risk Performed By: #### V [id number], LIPID, RENAL, URMACRERAT #### [address] #### CPEP #### [facility] , Cholesterol in HDL [Mass/Vol] 41 mg/dL Normal 23-92 [facility] Comment on above: Result Comment: HDL CHOL ATP-III CLASSIFICATION Cardiovascular Risk HDL > or equal to 60 mg/dL LOW HDL < 40 mg/dL HIGH Performed By: #### V [id number], LIPID, RENAL, URMACRERAT #### [place] [address] [place] #### CPEP #### [facility] , Cholesterol.total/Choles terol in HDL [Mass ratio] 3.4 {ratio} Normal <5.0 [facility] Comment on above: Performed By: #### V [id number], LIPID, RENAL, URMACRERAT #### [address] #### CPEP #### [facility] , LDL Cholesterol,Calculated 67 mg/dL Normal 0-100 [facility] Comment on above: Result Comment: LDL ATP III CLASSIFICATION LDL less than 100 mg/dL Optimal LDL 100-129 mg/dL Near or above optimal LDL 130-159 mg/dL Borderline high LDL 160-189 mg/dL High LDL greater than 189 mg/dL Very high Performed By: #### V [id number], LIPID, RENAL, URMACRERAT #### [place] [address] [place] #### CPEP #### [facility] , Triglyceride w/Reflex 149 mg/dL Normal 0-149 [facility] Comment on above: Result Comment: TRIG ATP III CLASSIFICATION TRIG less than 150 mg/dL Normal TRIG 150-199 mg/dL Borderline high TRIG 200-500 mg/dL High TRIG greater than 500 mg/dL Very high Standard traceable to the Center for Disease Conrtrol and Prevention (CDC) test method. Performed By: #### V [id number], LIPID, RENAL, URMACRERAT #### [place] [address] [place] #### CPEP #### [facility] , VLDL CHOLESTEROL 29 mg/dL Normal [facility] Comment on above: Performed By: #### V [id number], LIPID, RENAL, URMACRERAT #### [facility] [address] [place] [address] #### CPEP #### [facility] , MicroAlb Creat Ratio,Uon Albumin DL <= 20 mg/L (U) [Mass/Vol] mg/dL Normal 0.0-1.8 [facility] Comment on above: Performed By: #### V [id number], LIPID, RENAL, URMACRERAT #### [facility] [address] [place] [address] #### CPEP #### [facility] , Creatinine, Urine (Random) 69.00 mg/dL Normal [facility] Comment on above: Result Comment: No r eference range established Performed By: #### V [id number], LIPID, RENAL, URMACRERAT #### [address] #### CPEP #### [facility] , Microalbumin/Creatinine Ratio Not performed Normal 0.0-30.0 [facility] Comment on above: Result Comment: PERF ORMED BY: [place] [address] PATHOLOGIST JEWELRY MODEL MAKER KEITH MOSER M.D. Performed By: #### V [id number], LIPID, RENAL, URMACRERAT #### [facility] [address] [place] [address] [place] #### CPEP #### [facility] , Microalbumin [Mass/volume] i n UrineOrdered By: Devora Arvizu on 07-08-2024 Albumin DL <= 20 mg/L (U) [Mass/Vol] Microalbumin [Mass/volume] in Urine 0.0-1.8 [facility] No Panel InformationOrdered By: Devora Arvizu on 07-08-2024 Estimated GFR (CKD-EPI) > 60.0 mL/Min [facility] Creatinine Clearance (Chem N/A [facility] Phosphate [Mass/volume] in S robert or PlasmaOrdered By: Devora Arvizu on 07-08-2024 Phosphate [Mass/Vol] Phosphate [Mass/volume] in Serum or Plasma 2.5-4.5 [facility] Potassium [Moles/volume] in Serum or PlasmaOrdered By: Devora Shawgh on 07-08-2024 Potassium [Moles/Vol] Potassium [Moles/volume] in Serum or Plasma 3.5-5.1 [facility] Renal Function Panelon 07-08 Albumin [Mass/Vol] 4.5 g/dL Normal 3.5-5.7 [facility] Comment on above: Performed By: #### V [id number], LIPID, RENAL, URMACRERAT #### [place] [address] [place] #### CPEP #### [facility] , Anion gap [Moles/Vol] 10.0 mmol/L Normal 6.0-15.0 [facility] Comment on above: Performed By: #### V [id number], LIPID, RENAL, URMACRERAT #### [address] #### CPEP #### [facility] , Calcium [Mass/Vol] 9.5 mg/dL Normal 8.6-10.3 [facility] Comment on above: Performed By: #### V [id number], LIPID, RENAL, URMACRERAT #### [place] [address] [place] #### CPEP #### [facility] , Chloride [Moles/Vol] 102 mmol/L Normal 98-107 [facility] Comment on above: Performed By: #### V [id number], LIPID, RENAL, URMACRERAT #### [address] #### CPEP #### [facility] , CO2 [Moles/Vol] 32.8 mmol/L High 21.0-31.0 [facility] Comment on above: Performed By: #### V [id number], LIPID, RENAL, URMACRERAT #### [place] [address] [place] #### CPEP #### [facility] , Creatinine [Mass/Vol] 1.05 mg/dL Normal 0.70-1.30 [facility] Comment on above: Performed By: #### V [id number], LIPID, RENAL, URMACRERAT #### [address] #### CPEP #### [facility] , GFR/1.73 sq M.predicted MDRD (S/P/Bld) [Vol rate/Area] mL/min/{1.73_m2} Normal [facility] Comment on above: Performed By: #### V [id number], LIPID, RENAL, URMACRERAT #### [address] #### CPEP #### [facility] , Glucose [Mass/Vol] 158 mg/dL High 70-100 [facility] Comment on above: Result Comment: [facility] Glucose Reference Range is dependent on time and content of last meal. Glucose of more than 200 mg/dL in a nonstressed, ambulatory subject supports the diagnosis of Diabetes Mellitus. ADA recommended reference range Performed By: #### V [id number], LIPID, RENAL, URMACRERAT #### [place] [address] [place] #### CPEP #### [facility] , Phosphate [Mass/Vol] 3.6 mg/dL Normal 2.5-4.5 [facility] Comment on above: Performed By: #### V [id number], LIPID, RENAL, URMACRERAT #### [facility] [address] [place] [address] [place] #### CPEP #### [facility] , Potassium [Moles/Vol] 4.8 mmol/L Normal 3.5-5.1 [facility] Comment on above: Performed By: #### V [id number], LIPID, RENAL, URMACRERAT #### [facility] [address] [place] [address] [place] #### CPEP #### [facility] , Sodium [Moles/Vol] 140 mmol/L Normal 136-145 [facility] Comment on above: Performed By: #### V [id number], LIPID, RENAL, URMACRERAT #### [facility] [address] [place] [address] [place] #### CPEP #### [facility] , Urea nitrogen [Mass/Vol] 12 mg/dL Normal 7-25 [facility] Comment on above: Performed By: #### V [id number], LIPID, RENAL, URMACRERAT #### [facility] [address] [place] [address] [place] #### CPEP #### [facility] , Serum or plasma anion gap de terminationOrdered By: Devora Arvizu on 07-08-2024 Anion gap [Moles/Vol] Serum or plasma an ion gap determination 6.0-15.0 [facility] Serum or plasma total choles terol/high density lipoprotein (HDL) cholesterol mass ratOrdered By: Devora Arvizu on 07-08-2024 Cholesterol.total/Choles terol in HDL [Mass ratio] Serum or plasma total cholesterol/high density lipoprotein (HDL) cholesterol mass rat <5.0 [facility] Sodium [Moles/volume] in Ser um or PlasmaOrdered By: Devora Arvizu on 07-08-2024 Sodium [Moles/Vol] Sodium [Moles/volume ] in Serum or Plasma 136-145 [facility] Triglyceride [Mass/volume] i n Serum or PlasmaOrdered By: Devora Arvizu on 07-08-2024 Triglyceride [Mass/Vol] Triglyceride [Mass/volume] in Serum or Plasma 0-149 [facility] Comment on above: TRIG ATP III CLASSIF ICATIONTRIG less than 150 mg/dL NormalTRIG 150-199 mg/dL Borderline highTRIG 200-500 mg/dL High TRIG greater than 500 mg/dL Very highStandard traceable to the Center for Disease Conrtrol and Prevention (CDC) test method. Urea nitrogen [Mass/volume] in Serum or PlasmaOrdered By: Devora Arvizu on 07-08-2024 Urea nitrogen [Mass/Vol] Urea nitrogen [Mass/volume] in Serum or Plasma 7-25 [facility] Urine microalbumin/creatinin e mass ratioOrdered By: Devora Arvizu on 07-08-2024 Albumin/Creatinine DL <= 20 mg/L (U) [Mass ratio] Urine microalbumin/creatini ne mass ratio [facility] Comment on above: Test not performed Vitamin D 25 Hydroxy Totalon 07-08-2024 Vitamin D 25 Hydroxy Total 30.5 ng/mL Normal 30-100 [facility] Comment on above: Result Comment: CALOS MIN D STATUS 25(OH)VITAMIN D RANGE (ng/mL) Deficient <20 Insufficient 20 to <30 Sufficient 30 to 100 Reference: Chelita MF,Abdirizak NC, Alycia TEJEDA, et al. Evaluation,treatment, and prevention of vitamin D deficiency; an Endocrine Society clinical practice guideline. JCEM. 2010; 96(7):1911-30. PERFORMED BY: [place] [address] PATHOLOGIST JEWELRY MODEL MAKER KEITH MOSER M.D. Performed By: #### V [id number], LIPID, RENAL, URMACRERAT #### [address] #### CPEP #### [facility] , Vitamin D+Metabolites [Mass/ volume] in Serum or PlasmaOrdered By: Devora Arvizu on 07-08-2024 Vitamin D+Metabolites [Mass/Vol] Vitamin D+Metabolites [Mass/volume] in Serum or Plasma 30-100 [facility] Comment on above: VITAMIN D STATUS 25( OH)VITAMIN D RANGE (ng/mL) Deficient <20 Insufficient 20 to <30Sufficient 30 to 100Reference: Chelita MF,Abdirizak NC, Alycia TEJEDA, et al. Evaluation,treatment, and prevention of vitamin D deficiency; an Endocrine Society clinical practice guideline. JCEM. 2010; 96(7):1911-30. MR BRAIN WO IV CONTRASTon MR BRAIN WO IV CONTRAST Interpreted By: Kolby Matias, STUDY: MR BRAIN WO IV CONTRAST; 07/01/2024 5:24 pm INDICATION: Signs/Symptoms:The patient has history of hearing loss and unsteady gait.. ,R26.81 Unsteadiness on feet COMPARISON: None. ACCESSION NUMBER(S): [id number] ORDERING CLINICIAN: ELI DUBOSE TECHNIQUE: Multiplaner, multisequence MRI were obtained without contrast FINDINGS: Parenchyma: Multiple small punctate foci of white matter demyelination are present. Some changes are periventricular in distribution. Ventricles: There is no hydrocephalus. Extra-axial spaces: No abnormal extra-axial fluid collection. Basal cisterns are patent. Vessels: T2 flow voids are maintained. Orbits: The imaged orbits are unremarkable. Paranasal sinuses and mastoid air cells: Diffuse mucoperiosteal thickening is present within the paranasal sinuses. Skull: There is normal T1 marrow signal without evidence of aggressive lesion. Soft tissues: Unremarkable IMPRESSION: 1. Negative brain MRI examination for acute change. 2. Multiple small punctate foci of white matter demyelination are present. Some changes are periventricular in distribution. These changes are nonspecific and statistically are most commonly related underlying microvascular change such as from the patient's uncontrolled diabetes. That being stated, given the some changes are periventricular in nature a primary demyelinating process is not excluded. MACRO: None Signed by: Kolby Matias 07/02/2024 7:54 AM Dictation workstation: [id number] [facility] MR CERVICAL SPINE WO IV CONT RASTon 07-01-2024 MR CERVICAL SPINE WO IV CONTRAST Interpreted By: Kolby Matias, STUDY: MR CERVICAL SPINE WO IV CONTRAST; 07/01/2024 5:27 pm INDICATION: Signs/Symptoms:The patient has an unsteady gait and urinary incontinence.. ,R26.81 Unsteadiness on feet ACCESSION NUMBER(S): [id number] ORDERING CLINICIAN: ELI DUBOSE TECHNIQUE: Multiplanar, multisequence MRI images were obtained through the cervical spine without contrast. FINDINGS: Alignment: Anatomic relationship between the dens, the anterior arch of C1, the foramen magnum is unremarkable. The atlantooccipital and atlantoaxial joint spaces measure within normal limits. There is straightening of the cervical curvature which can be seen with positioning. Vertebrae: Overall T1 marrow signal is normal. Vertebral body height is maintained. Modic degenerative endplate changes type 2 are present at C5. Disc: There is mild loss of disc height and disc desiccation. Spinal cord:There are no areas of abnormal signal that can be correlated in two planes. Overall signal is therefore considered normal normal. Spinal canal: The AP diameter of the spinal canal measures 9 mm at C 5-C6 secondary to disc material encroachment. C2-C3: There is no significant lateral recess, neural foraminal, or spinal canal narrowing. C3-C4: There is there is a mild broad-based disc protrusion with a more prominent right paracentral segment. There is gbrykeuz-eg-eedohu right neural foraminal narrowing.. C4-C5: There is a mild broad-based disc protrusion. There is mild right neural foraminal narrowing.. C5-C6: There is a mild broad-based disc protrusion. There is mild to moderate left and moderate to severe right neural foraminal narrowing. C6-C7: There is a mild broad-based disc protrusion. There is mild bilateral neural foraminal narrowing. C7-T1: There is no significant lateral recess, neural foraminal, or spinal canal narrowing. Soft tissues: The prevertebral and posterior paraspinous soft tissues are within normal limits. IMPRESSION: 1. There are diffuse degenerative changes cervical spine. This includes izmkajoq-cn-nwllza neural foraminal narrowing on the right at C3-C4 and on the right at C5-C6.. MACRO: None Signed by: Kolby Matias 07/02/2024 8:00 AM Dictation workstation: [id number] [facility] MR LUMBAR SPINE WO IV CONTRA STon 07-01-2024 MR LUMBAR SPINE WO IV CONTRAST Interpreted By: Kolby Matias, STUDY: MRI of the lumbar spine without IV contrast; 07/01/2024 5:27 pm INDICATION: Signs/Symptoms:The patient has an unsteady gait and urinary incontinence.. ,R26.81 Unsteadiness on feet COMPARISON: None. ACCESSION NUMBER(S): [id number] ORDERING CLINICIAN: ELI DUBOSE TECHNIQUE: Multiplanar, multisequence imaging obtained through the lumbar spine without contrast FINDINGS: The L5-S1 level be defined as axial T2 series 13 image 18. Alignment: There is no significant subluxation. Vertebrae: T1 marrow signal is normal. Vertebral body height is maintained. Discs: There is mild loss of disc height and disc desiccation at L5-S1. Spinal cord: Signal within the spinal cord is normal. The conus medullaris terminates at L1. Spinal canal: There is no significant spinal canal narrowing. L1-L2: There is no significant lateral recess, neural foraminal narrowing or spinal canal narrowing. L2-L3: There is no significant lateral recess, neural foraminal narrowing or spinal canal narrowing. L3-L4: There is a very mild circumferential disc bulge. There is mild right neural foraminal narrowing. L4-L5: There is a mild circumferential disc bulge. There is mild to moderate right neural foraminal narrowing. L5-S1: There is a mild circumferential disc bulge. There are degenerative changes of the facet joints, especially on the right. There is very mild bilateral neural foraminal narrowing. Soft tissues: The paraspinal soft tissues are normal. IMPRESSION: 1. There are mild degenerative changes of the lower lumbar spine. This includes mild to moderate right neural foraminal narrowing at L4-L5. MACRO: None Signed by: Kolby Matias 07/02/2024 8:06 AM Dictation workstation: [id number] [facility] EMG & nerve conductionon Impression: NEUROLOGY Isaak Sorenson MD - 06/17/2024 IMPRESSION: Impression: [facility] Work Phone: EMG & nerve conductionOrdere d By: Isaak Sorenson on 06-17-2024 [facility] Work Phone: Glucose (Bld) [Mass/Vol]Orde red By: Angelia Woods on 06-09-2024 Glucose Blood, POC 228 mg/dL [facility] Cholesterol in LDL Calc [Mas s/Vol]on 05-21-2024 Cholesterol in LDL [Mass/Vol] Cholesterol in LDL [Mass/volume] in Serum or Plasma by calculation [facility] Comment on above: <100 mg/dl [id number] 0-129 mg/dl NEAR OR ABOVE [id number] mg/dl BORDERLINE [id number] mg/dl HIGH>190 mg/dl VERY HIGH Cholesterol in VLDL Calc [Ma ss/Vol]on 05-21-2024 Cholesterol in VLDL [Mass/Vol] Cholesterol in VLDL [Mass/volume] in Serum or Plasma by calculation [facility] Glucose mean value [Mass/vol ume] in Blood Estimated from glycated hemoglobinon 05-21-2024 Average glucose Estimated from glycated hemoglobin (Bld) [Mass/Vol] Glucose mean value [Mass/volume] in Blood Estimated from glycated hemoglobin [facility] Hemoglobin A1c percentageon 05-21-2024 HbA1c (Bld) [Mass fraction] Hemoglobin A1c percentage High 4.5-6.2 [facility] Comment on above: ADA RECOMMENDED LIMI T 4.0 - 6.0ADA THERAPEUTIC TARGET < 7.0ACTION SUGGESTED> 7.0 Laboratory - Chemistry and C hemistry - challengeon 05-21-2024 Cholesterol [Mass/Vol] 139 mg/dL <=200 Fi [facility] Cholesterol in HDL [Mass/Vol] 42 mg/dL 40-60 [facility] Comment on above: > or =60 mg/dl - LOW CARDIOVASCULAR RISK<40 mg/dl - HIGH CARDIOVASCULAR RISK Triglyceride [Mass/Vol] 150 mg/dL <=150 F [facility] Microalbumin [Mass/volume] i n Urineon 05-21-2024 Albumin DL <= 20 mg/L (U) [Mass/Vol] Microalbumin [Mass/volume] in Urine <=30.0 [facility] No Panel Informationon 05-21 Urine Random Creatinine 67.34 mg/dL 20.00-300.0 0 [facility] Serum or plasma total choles terol/high density lipoprotein (HDL) cholesterol mass you 05-21-2024 Cholesterol.total/Choles terol in HDL [Mass ratio] Serum or plasma total cholesterol/high density lipoprotein (HDL) cholesterol mass [facility] Comment on above: 3.3 - 4.4 LOW RISK4. 4 - 7.1 AVERAGE RISK7.1 - 11.0 MODERATE RISK>11.0 [facility] Tele[facility] (HNQ) FREDDY JORGE ([id number]) 1970 M Date Time Provider Department 05/11/24 SHIRA ISSA HNQ During your visit today, we recorded the following information about you: Shira Issa 05/11/2024 9:22 AM Signed Reaching out to Freddy to see if he is interested in pursuing the cochlear implant again and whether his PCP feels that his diabetes is under control. Dr. Rhoda Bernstein needs his latest HgA1c result and for him to schedule a CT. Left vm. 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 - FLUoxetine (PROZAC) 20 mg capsule once daily. - pravastatin (PRAVACHOL) 10 mg tablet Take 10 mg by mouth once daily. 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] 11/26/2023 Anxiety [F41.9] 02/04/2024 Depression [F32.A] 02/04/2024 Mixed hyperlipidemia [E78.2] 02/04/2024 Nicotine dependence, cigarettes, with unspecifi*02/04/2024 Obstructive sleep apnea [G47.33] 02/04/2024 Type 2 diabetes mellitus with diabetic neuropat*02/04/2024 Marijuana use [F12.90] 02/04/2024 Obesity (BMI 30-39.9) [E66.9] 02/04/2024 Encounter Status:Closed by SHIRA ISSA on 05/11/24 [facility] CNOVon 02-05-2024 CNOV Office Visit (CDISMN ) FREDDY JORGE ([id number]) 1970 M Date Time Provider Department 02/05/24 10:00 AM [facility] During your visit today, we recorded the following information about you: Nupur Lai AUD 02/05/2024 12:55 PM Addendum [facility] [facility], Speech and Balance Services Audiology Device Selection Shared Medical Appointment (SMA) Patient Name: Freddy Jorge Date of : 1970 Visit Date: 02/05/2024 Referred by: Lorena Bernstein MD Patient signed the Shared Medical Waiver Form prior to the start of the session, acknowledging that the appointment was a group session and that all information presented in the group by other participants will be kept confidential. The patient was unaccompanied to today's visit. This visit was a 120 minute session that covered a variety of topics including cochlear implant expectations, device-specific information including the selected steel buffer, processor style and accessory options, and recommendations for next steps regarding hearing devices. AUDIOLOGIC AND MEDICAL HISTORY (obtained today and from previous chart notes): This patient was referred for the Audiology Device Selection SMA following completion of an audiologic evaluation, cochlear implant evaluation (results below), and an individual consultation with Lorena Bernstein MD. Recall the patient has asymmetric sensorineural hearing loss and is a candidate for cochlear implant in the left ear. The patient has had hearing loss for 4 year(s) and has not been wearing amplification. The patient does not have residual hearing that could be amplified acoustically in the ear to be implanted, if preserved. Based on the unaided audiogram, a contralateral hearing aid is recommended for bimodal configuration. Audiometric testing was completed at the [facility] on 11/28/2023 with the following results: RIGHT EAR: Hearing Sensitivity: WNL 250-2000 Hz [...] test due to degree of hearing loss. The patient completed a cochlear implant evaluation with Keo Overton on 12/24/2023. Aided speech perception scores revealed: Ogbzsmvfz-Halsmcp-Kdr sonant Words (CNC) Test Condition List # Phonemes [...] Right Ear 4 88% Bilateral 2 84% COUNSELING: At the time of this SMA, the patient has completed all pertinent medical and audiologic testing for cochlear implantation. They were approved for cochlear implantation at the HIP Team meeting on 01/15/2024. With respect to steel buffer, the care team selected [employer] and a [id number] Slim Modiolar electrode array. Today's appointment consisted of counseling from the mechanical technical service specialist regarding the following aspects of cochlear implantation: How cochlear implants work and how this differs from traditional amplification Expectations for a cochlear implant recipient relative to speech understanding, sound awareness, etc. We reviewed advantages and limitations of cochlear implantation versus traditional amplification. Need for on-going special services and follow-up programming visits after implantation. Recommendations regarding bimodal listening and new hearing aid technology, if appropriate. Potential for hearing preservation and use of an acoustic component, if warranted. The importance of aural rehabilitation to success with a cochlear implant. Based on the discussion among the mechanical technical service specialist and the patient, the following device was selected: [employer] Nucleus 8 ([id number]) in sand (color). Selected accessories include Mini Will 2+, Aqua Kit, and USB Vp Care Management. We do not expect that amplification of residual hearing may be possible post-op. An acoustic component was not ordered. Patient was made aware that the implant kit may include wireless accessories and/or Made for iPhone or Android compatibility that requires pairing/setup. This setup is not included in the programming of the cochlear implant system and patient is aware of responsibility for managing the setup of these devices, including that the setup fee is not covered by insurance. The patient wi (more content not included)... Normal [facility] Anuradha 02-05-2024 [facility] Telephone (OTOLCR) FREDDY JORGE ([id number]) 1970 M Date Time Provider Department 02/05/24 LORENA BEARD OTOLCHAPINCITO During your visit today, we recorded the following information about you: Lorena Beard MD 02/06/2024 12:13 PM Signed I spoke with the patient on the phone. I informed him that his cochlear implant will be postponed because preop labs show that his diabetes is not under good control. I informed him that I had spoken with Dr. Meza his PCP and that he should follow up with Dr. Meza's office for further management of his diabetes before we can reschedule the surgery in 2024. 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 He agreed to get a temporal bone CT to further characterize the left ear. Electronically signed by: Lorena Bernstein MD 02/06/2024 12:10 PM Allergies As of Date: 02/05/2024 Noted Allergy Reaction LACTOSE 10/28/2023 8 - GI Upset LATEX 11/26/2023 9 - Itching Date Reviewed: 02/04/2024 Reviewed by: Shonna Dominguez RN - Fully Assessed Prescriptions as of 03/30/2024 - doxepin capsule 10 mg TAKE 1 TO 2 CAPSULES BY MOUTH EVERY DAY AT BEDTIME - TRULICITY 1.5 mg/0.5 mL pen injector INJECT 1.5 MG SUBCUTANEOUSLY ONCE A WEEK - empagliflozin (JARDIANCE) 25 mg tablet once daily. - FLUoxetine (PROZAC) 20 mg capsule once daily. - pravastatin (PRAVACHOL) 10 mg tablet Take 10 mg by mouth once daily. 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 Basic metabolic 2000 panelon 02-04-2024 Anion gap [Moles/Vol] 11 mmol/L Normal 8-15 [facility] [place] Comment on above: Order Comment: Speci men Type: BLOOD SPECIMENOrdering Facility: [facility] Address: [address] [place] [address] Performed By: #### 2 4321-2 ####[facility] LABCLIA [id number] [place] [address] [place] Calcium [Mass/Vol] 9.7 mg/dL Normal 8.5-10.2 [facility] Comment on above: Order Comment: Speci men Type: BLOOD SPECIMENOrdering Facility: [facility] Address: [address] [place] [address] Performed By: #### 2 4321-2 ####[facility] LABCLIA [id number] [place] [address] [place] Chloride [Moles/Vol] 97 mmol/L Low 98-107 [facility] Comment on above: Order Comment: Speci men Type: BLOOD SPECIMENOrdering Facility: [facility] Address: [address] [place] [address] Performed By: #### 2 4321-2 ####[facility] LABCLIA [id number] [place] [address] [place] CO2 [Moles/Vol] 26 mmol/L Normal 22-30 [facility] Comment on above: Order Comment: Speci men Type: BLOOD SPECIMENOrdering Facility: [facility] Address: [address] [place], [place] [id number] Performed By: #### 2 4321-2 ####[facility] LABCLIA [id number] [place] [id number] [place] Creatinine [Mass/Vol] 0.90 mg/dL Normal 0.73-1.22 [facility] [place] Comment on above: Order Comment: Speci men Type: BLOOD SPECIMENOrdering Facility: [facility] Address: [address] [place] [address] Performed By: #### 2 4321-2 ####[facility] LABIA [id number] [place] [address] [place] Creatinine and Glomerular filtration rate.predicted panel (S/P/Bld) 101 mL/min/1.73m??? Normal >=60 [facility] Comment on above: Order Comment: Marv keith Type: BLOOD SPECIMENOrdering Facility: [facility] Address: [address] [place] [address] Result Comment: Harini mated Glomerular Filtration Rate (eGFR) is calculated using the 2020 CKD-EPI creatinine equation. This equation utilizes serum creatinine, sex, and age as parameters. The creatinine assay has traceable calibration to isotope dilution-mass spectrometry. Refer to KDIGO guidelines for clinical interpretation. In patients with unstable renal function, e.g. those with acute kidney injury, the eGFR may not accurately reflect actual GFR. Performed By: #### 2 4321-2 ####[facility] LABIA [id number] [place] [address] [place] Glucose [Mass/Vol] 249 mg/dL High 74-99 [facility] Comment on above: Order Comment: Marv sagar Type: BLOOD SPECIMENOrdering Facility: [facility] Address: [address] [place] [address] Result Comment: The [place] Diabetes Association (ADA) provides guidance for cutoff values for fasting glucose and random glucose. The ADA defines fasting as no caloric intake for at least 8 hours. Fasting plasma glucose results between 100 to 125 mg/dL indicate increased risk for diabetes (prediabetes). Fasting plasma glucose results greater than or equal to 126 mg/dL meet the criteria for diagnosis of diabetes. In the absence of unequivocal hyperglycemia, results should be confirmed by repeat testing. In a patient with classic symptoms of hyperglycemia or hyperglycemic crisis, random plasma glucose results greater than or equal to 200 mg/dL meet the criteria for diagnosis of diabetes. Reference: Standards of Medical Care in Diabetes 2016, [place] Diabetes Association. Diabetes Care. 2016.39(Suppl 1). Performed By: #### 2 4321-2 ####[facility] LABCLIA [id number] [place] [address] [place] Potassium [Moles/Vol] 4.6 mmol/L Normal 3.7-5.1 [facility] [place] Comment on above: Order Comment: Speci men Type: BLOOD SPECIMENOrdering Facility: [facility] Address: [address] [place] [address] Performed By: #### 2 4321-2 ####[facility] LABCLIA [id number] [place] [address] [place] Sodium [Moles/Vol] 134 mmol/L Low 136-144 [facility] Comment on above: Order Comment: Speci men Type: BLOOD SPECIMENOrdering Facility: [facility] Address: [address] [place] [address] Performed By: #### 2 4321-2 ####[facility] LABCLIA [id number] [place] [address] [place] Urea nitrogen [Mass/Vol] 15 mg/dL Normal 9-24 [facility] Comment on above: Order Comment: Speci men Type: BLOOD SPECIMENOrdering Facility: [facility] Address: [address] [place] [address] Performed By: #### 2 4321-2 ####[facility] LABCLIA [id number] [place] [address] [place] CBC panel Auto (Bld)on 02-03 Erythrocyte distribution width (RBC) [Ratio] 12.0 % Normal 11.5-15.0 [facility] Comment on above: Order Comment: Speci men Type: BLOOD SPECIMENOrdering Facility: [facility] Address: [address] [place] [address] Performed By: #### 5 8410-2 ####[facility] LABIA [id number] [place] [id number] [address] [place] Hematocrit (Bld) [Volume fraction] 49.1 % Normal 39.0-51.0 [facility] Comment on above: Order Comment: Speci men Type: BLOOD SPECIMENOrdering Facility: [facility] Address: [address] [place] [address] Performed By: #### 5 8410-2 ####[facility] LABCLIA [id number] [place] [address] [place] Hemoglobin (Bld) [Mass/Vol] 16.6 g/dL Normal 13.0-17.0 [facility] Comment on above: Order Comment: Speci men Type: BLOOD SPECIMENOrdering Facility: [facility] Address: [address] [place] [address] Performed By: #### 5 8410-2 ####[facility] LABCLIA [id number] [place] [address] [place] MCH (RBC) [Entitic mass] 30.3 pg Normal 26.0-34.0 [facility] Comment on above: Order Comment: Speci men Type: BLOOD SPECIMENOrdering Facility: [facility] Address: [address] [place] [address] Performed By: #### 5 8410-2 ####[facility] LABCLIA [id number] [place] [address] [place] MCHC (RBC) [Mass/Vol] 33.8 g/dL Normal 30.5-36.0 [facility] [place] Comment on above: Order Comment: Speci men Type: BLOOD SPECIMENOrdering Facility: [facility] Address: [address] [place] [address] Performed By: #### 5 8410-2 ####[facility] LABCLIA [id number] [place] [address] [place] MCV (RBC) [Entitic vol] 89.8 fL Normal 80.0-100.0 [facility] Comment on above: Order Comment: Speci men Type: BLOOD SPECIMENOrdering Facility: [facility] Address: [address] [place] [address] Performed By: #### 5 8410-2 ####[facility] LABIA [id number] [place] [address] [place] Nucleated RBC (Bld) [#/Vol] 10*3/uL Normal <0.01 [facility] Comment on above: Order Comment: Speci men Type: BLOOD SPECIMENOrdering Facility: [facility] Address: [address] [place] [address] Performed By: #### 5 8410-2 ####[facility] LABIA [id number] [place] [address] [place] Platelet mean volume (Bld) [Entitic vol] 10.3 fL Normal 9.0-12.7 [facility] Comment on above: Order Comment: Speci men Type: BLOOD SPECIMENOrdering Facility: [facility] Address: [address] [place] [address] Performed By: #### 5 8410-2 ####[facility] LABIA [id number] [place] [address] [place] Platelets (Bld) [#/Vol] 212 10*3/uL Normal 150-400 [facility] Comment on above: Order Comment: Speci men Type: BLOOD SPECIMENOrdering Facility: [facility] Address: [address] [place] [address] Performed By: #### 5 8410-2 ####[facility] LABIA [id number] [place] [address] [place] RBC (Bld) [#/Vol] 5.47 10*6/uL Normal 4.20-6.[address] [facility] Comment on above: Order Comment: Speci men Type: BLOOD SPECIMENOrdering Facility: [facility] Address: [address] [place] [address] Performed By: #### 5 8410-2 ####[facility] LABCLIA [id number] [place] [id number] [place] WBC (Bld) [#/Vol] 6.92 10*3/uL Normal 3.70-11.[address] [facility] Comment on above: Order Comment: Speci men Type: BLOOD SPECIMENOrdering Facility: [facility] Address: [address] [place] [address] Performed By: #### 5 8410-2 ####[facility] LABCLIA [id number] [place] [id number] [place] ECG COMPLETEon 02-04-2024 ECG COMPLETE Ventricular Rate : 7 1 BPM Atrial Rate : 71 BPM P-R Interval : 184 ms QRS Duration : 94 ms Q-T Interval : 378 ms QTC Calculation(Bazett) : 410 ms Calculated P Edison : 58 degrees Calculated R Edison : 62 degrees Calculated T Edison : 39 degrees NORMAL SINUS RHYTHM NORMAL ECG Confirmed by ARASELI COONEY MD ([id number]) on 02/25/2024 11:59:07 AM NAME : FREDDY JORGE PID : [id number] : 1970 Gender : Male Race : ORD : [id number] Procedure Date : Feb 04 2024 08:44:41 Edit Date : Feb 25 2024 11:59:14 Diagnosis: NORMAL SINUS RHYTHM NORMAL ECG Confirmed by ARASELI COONEY MD ([id number]) on 02/25/2024 11:59:07 AM Test Reason : pre op Location : 545 : [facility] Overread By : ARASELI COONEY MD Edited By : ARASELI COONEY MD Referred By : LORENA BEARD Acquired by : Liz nuñez [facility] HISTORY PHYSICALon HISTORY PHYSICAL HNO ID: [id number] Author: NIA MONTOYA APRN.CNP Service: ? Author Type: Nurse Practitioner Type: H&P Filed: 02/06/2024 16:59 Note Text: [facility] HISTORY AND PHYSICAL EXAMINATION SERVICE DATE: 02/04/2024 SERVICE TIME: 8:36 AM PRIMARY CARE PHYSICIAN: Rosario Bruno NP Assessment Patient has the following medical conditions which may affect ace-operative course: Type 2 diabetes mellitus with diabetic neuropathy, unspecified (HCC) Assessment: Managed with empagliflozin (JARDIANCE) , dulaglutide (TRULICITY) weekly injection, last dose Friday01/31/2024 Pt. aware to hold dulaglutide (TRULICITY) weekly injection one full week prior to scheduled surgery date Managed by PCP updated HgbA1c, BMP Mixed hyperlipidemia Assessment: Managed with Statin , Follows with PCP Anxiety Assessment: Pt. reports mood is stable with medication Depression Assessment: Pt. reports mood is stable with medication Obstructive sleep apnea Assessment: Compliant with CPAP Nicotine dependence, cigarettes, with unspecified nicotine-induced disorders Assessment: Cigarette smoker for 30 years, was at 3 ppd, now down to 1 ppd Cessation with strategies encouraged. Marijuana use Assessment: Nightly for sleep, gummies Pt. aware cessation week prior to surgery Obesity (BMI 30-39.9) Assessment: Body mass index is 33.52 kg/m?. Weight reduction encouraged. Fallon Activity Status Index: METS: Walk indoors, such as around the house (1.75 METs) Do light work around the house, such as dusting or washing dishes (2.70 METs) Take care of self; that is eating, dressing, bathing, using the toilet (2.75 METs) Walk a block or two on level ground (2.75 METs) Do moderate work around the house, such as vacuuming, sweeping floors, or carrying in groceries (3.50 METs) Do yardwork, such as raking leaves, weeding, or pushing a power mower (4.50 METs) Climb a flight of stairs or walk up a hill (5.50 METs) DASI Score: 23.45 Patient denies any chest pain or undue shortness of breath with the above physical activity. Clinical Frailty Scale: 3. Well, with treated comorbid disease ANESTHESIA FINDINGS: Intubation History: No history of difficult intubation Significant Anesthesia Considerations: none Airway History: Pt. denies any family history of adverse anesthetic events including MH. No history of difficult airway I - PHYSICAL EVALUATION AIRWAY Patient intubated: No. Mallampati: III. TM distance: >3 FB. Neck ROM: full ROM without neurological symptoms. Mouth opening: adequate. Short neck: yes. Thick neck: yes [place] present: yes (mustache/ short salinas) Lip Bite Test: III Microretrognathia/Will ronagthia/Recessed Chin: No DENTAL Dentures, upper: partial. Dentures, lower: partial. II - ANESTHESIA PLAN Anesthetic plan additional comments: *PACC/TCI - anesthesia choice. Beta Sharad Monitoring Plan Post Procedure Analgesic Plan Prepared for Surgery: NOT optimally prepared for surgery. Consult: Surgeon for review of HgbA1c result [lab forwarded]. See 02/05/2024 [TELEPHONE] dialogue that includes cochlear implant will be postponed because preop labs show that his diabetes is not under good control. I informed him that I had spoken with Dr. Meza his PCP and that he should follow up with Dr. Meza's office for further management of his diabetes before we can reschedule the surgery in 2024. CONSULTS: Planned Anesthetic: anesthesia choice The Following Tests/Procedures Have Been Initiated: Orders Placed This Encounter BMP Standing Status: Future Number of Occurrences: 1 Standing Expiration Date: 05/05/2024 Complete Blood Count Standing Status: Future Number of Occurrences: 1 Standing Expiration Date: 05/05/2024 Hemoglobin A1C Standing Status: Future Number of Occurrences: 1 Standing Expiration Date: 05/05/2024 ECG (IN OFFICE) REASON FOR VISIT: Freddy Jorge is a 54 year old male who is scheduled for Procedure(s): IMPLANT COCHLEAR DEVICE W/ MASTOIDECTOMY (Left) at the request of Dr. Lorena Bernstein for consultation. My final recommendation will be communicated back to the requesting physician by way of shared medical record or letter. Subjective COVID-19 Immunization Status Overdue - Covid-19 Vaccine () Overdue since 11/16/2023 07/20/2020 Imm Admin: COVID-19 original vaccine, age 12+ yr, monovalent (PFIZER-BIONTECH - PURPLE TOP) 06/27/2020 Imm Admin: COVID-19 original vaccine, age 12+ yr, monovalent (PFIZER-BIONTECH - PURPLE TOP) CHIEF COMPLAINT: surgery HPI: Patient is a 54 year old male with Asymmetrical sensorineural hearing loss, Sensorineural hearing loss (SNHL) of both ears that is recommended for surgery. He currently denies any pain, illnesses or infections. He reports an almost healed diabetic foot ulcer on right great toe; Follows with Dr. Torres (more content not included)... Normal [facility] HbA1c (Bld)on 02-04-2024 Average glucose Estimated from glycated hemoglobin (Bld) [Mass/Vol] 243 mg/dL Normal [facility] Comment on above: Order Comment: Marv keith Type: BLOOD SPECIMENOrdering Facility: [facility] Address: [address] [place] [address] Result Comment: eAG: (Estimated average glucose) is a calculated value from HgbA1c and is manufacturer's representative of the average blood glucose level in the last 2-3 month period. Performed By: #### 5 5454-3 ####[facility] LABIA [id number] [place] [address] [place] HbA1c (Bld) [Mass fraction] 10.1 % High 4.3-5.6 [facility] Comment on above: Order Comment: Marv keith Type: BLOOD SPECIMENOrdering Facility: [facility] Address: [address] [place] [address] Result Comment: [place] Diabetes Association guidelines indicate that patients with HgbA1c in the range 5.7-6.4% are at increased risk for development of diabetes, and intervention by lifestyle modification may be beneficial. HgbA1c greater or equal to 6.5% is considered diagnostic of diabetes. Performed By: #### 5 5454-3 ####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 No abnormal mass or abnormal enhancement. Finance Advisor: FEROZ Transcribe Date/Time: Feb 04 2024 2:43P Dictated by : MARCUS DEVINE MD This examination was interpreted and the report reviewed and electronically signed by: MAHESH WARREN MD on Feb 04 2024 3:39PM [facility] DIVISION OF RADIOLOGY * * *Final Report* * * DATE OF EXAM: Feb 04 2024 2:34PM [facility] 0295 - MRI BRAIN WO/W IVCON / PROCEDURE REASON: multiple diagnoses * * * * Physician Interpretation * * * * EXAMINATION: MRI BRAIN WO/W IVCON CLINICAL HISTORY: Left sided hearing loss with vertigo. Consideration for cochlear implant. TECHNIQUE: IAC protocol. MQ: MRBWOW_2 Contrast: 20 mL mL Dotarem IV COMPARISON: None. 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 The right inner ear structures appear to be within normal limits on the axial CISS sequence. There is no evidence of a mass in the region of either IAC or elsewhere in the posterior fossa. There is no abnormal enhancement is noted in the basilar cisterns, along the course of the 7/8 cranial nerve complexes, or in the region of the inner ear complexes. Acute Change: There is no evidence of an acute intracranial process. Hemorrhage: No evidence of prior parenchymal hemorrhage on the provided images. Mass Lesion/ Mass Effect: No evidence of an intracranial mass or extra-axial fluid collection. No abnormal parenchymal or leptomeningeal enhancement is noted following contrast administration. No significant mass effect. Chronic Change: The white matter is within normal limits of signal intensity for age. Parenchyma: No significant volume loss for age. The brain parenchyma is otherwise within normal limits of signal intensity and morphology. Ventricles: Normal caliber and morphology. Skull Base: Hypothalamic and pituitary region are grossly normal. Craniocervical junction is normal. No significant marrow replacement process. Vasculature: Major intracranial arterial structures, and dural venous sinuses show typical flow void, suggesting patency by spin echo criteria. Other: There are scattered areas of infiltrate thickening in the bilateral maxillary sinuses, ethmoid air cells, and left sphenoid sinus. The mastoid air cells are clear. The orbits and extracranial soft tissues are unremarkable. DIVISION OF RADIOLOGY Provider, Sea Bernal [facility] - 02/04/2024 * * *Final Report* * * DATE OF EXAM: Feb 04 2024 2:34PM [facility] 0295 - MRI BRAIN WO/W IVCON / PROCEDURE REASON: multiple diagnoses * * * * Physician Interpretation * * * * EXAMINATION: MRI BRAIN WO/W IVCON CLINICAL HISTORY: Left sided hearing loss with vertigo. Consideration for cochlear implant. TECHNIQUE: IAC protocol. MQ: MRBWOW_2 Contrast: 20 mL mL Dotarem IV COMPARISON: None. 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 The right inner ear structures appear to be within normal limits on the axial CISS sequence. There is no evidence of a mass in the region of either IAC or elsewhere in the posterior fossa. There is no abnormal enhancement is noted in the basilar cisterns, along the course of the 7/8 cranial nerve complexes, or in the region of the inner ear complexes. Acute Change: There is no evidence of an acute intracranial process. Hemorrhage: No evidence of prior parenchymal hemorrhage on the provided images. Mass Lesion/ Mass Effect: No evidence of an intracranial mass or extra-axial fluid collection. No abnormal parenchymal or leptomeningeal enhancement is noted following contrast administration. No significant mass effect. Chronic Change: The white matter is within normal limits of signal intensity for age. Parenchyma: No significant volume loss for age. The brain parenchyma is otherwise within normal limits of signal intensity and morphology. Ventricles: Normal caliber and morphology. Skull Base: Hypothalamic and pituitary region are grossly normal. Craniocervical junction is normal. No significant marrow replacement process. Vasculature: Major intracranial arterial structures, and dural venous sinuses show typical flow void, suggesting patency by spin echo criteria. Other: There are scattered areas of infiltrate thickening in the bilateral maxillary sinuses, ethmoid air cells, and left sphenoid sinus. The mastoid air cells are clear. The orbits and extracranial soft tissues are unremarkable. 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 No abnormal mass or abnormal enhancement. Finance Advisor: FEROZ Transcribe Date/Time: Feb 04 2024 2:43P Dictated by : MARCUS DEVINE MD This examination was interpreted and the report reviewed and electronically signed by: MAHESH WARREN MD on Feb 04 2024 3:39PM [facility] Radiology Study observation (narrative) [facility] MR Brain WO and W contrast I VOrdered By: [facility] Provider on 02-04-2024 [facility] MRI BRAIN WO/W IVCONon 02-03 MRI BRAIN WO/W IVCON * * *Final Report* * * DATE OF EXAM: Feb 04 2024 2:34PM [facility] - MRI BRAIN WO/W IVCON / PROCEDURE REASON: multiple diagnoses * * * * Physician Interpretation * * * * EXAMINATION: MRI BRAIN WO/W IVCON CLINICAL HISTORY: Left sided hearing loss with vertigo. Consideration for cochlear implant. TECHNIQUE: IAC protocol. MQ: MRBWOW_2 Contrast: 20 mL mL Dotarem IV COMPARISON: None. 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 The right inner ear structures appear to be within normal limits on the axial CISS sequence. There is no evidence of a mass in the region of either IAC or elsewhere in the posterior fossa. There is no abnormal enhancement is noted in the basilar cisterns, along the course of the 7/8 cranial nerve complexes, or in the region of the inner ear complexes. Acute Change: There is no evidence of an acute intracranial process. Hemorrhage: No evidence of prior parenchymal hemorrhage on the provided images. Mass Lesion/ Mass Effect: No evidence of an intracranial mass or extra-axial fluid collection. No abnormal parenchymal or leptomeningeal enhancement is noted following contrast administration. No significant mass effect. Chronic Change: The white matter is within normal limits of signal intensity for age. Parenchyma: No significant volume loss for age. The brain parenchyma is otherwise within normal limits of signal intensity and morphology. Ventricles: Normal caliber and morphology. Skull Base: Hypothalamic and pituitary region are grossly normal. Craniocervical junction is normal. No significant marrow replacement process. Vasculature: Major intracranial arterial structures, and dural venous sinuses show typical flow void, suggesting patency by spin echo criteria. Other: There are scattered areas of infiltrate thickening in the bilateral maxillary sinuses, ethmoid air cells, and left sphenoid sinus. The mastoid air cells are clear. The orbits and extracranial soft tissues are unremarkable. 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 No abnormal mass or abnormal enhancement. Finance Advisor: PSCB Transcribe Date/Time: Feb 04 2024 2:43P Dictated by : MARCUS DEVINE MD This examination was interpreted and the report reviewed and electronically signed by: MAHESH WARREN MD on Feb 04 2024 3:39PM EST [id number] Normal [facility] [id number] 01-15-2024 [id number] HNO ID: [id number] Author: ?, ?, ? Service: ? Author Type: ? Type: [id number] Filed: 01/15/2024 15:31 Note Text: Codes for pre-determination: 72937 Cochlear implant device implantation, with or without mastoidectomy L8614 Cochlear device, includes all internal and external components Patient was approved for left cochlear implant at Hearing Implant Program team meeting on January 15, 2024. Recommended internal device: 632/632. Audiogram date Latest Speech Audiometry Last edited by Marilu Hou AUD on 11/28/2023 4:31 PM Speech Audiometry Ear Method FOLD SKIVER SAT SRT [facility] Test/List Score (%) Intensity Mask/Noise Notes right recorded 15 15 NU-6 Difficulty 100 55 left recorded 80 NR: SAT/SRT at 110 Comments: CNT LE WRS due to degree of hearing loss. Cochlear implant evaluation date 12/24/[address] Hammond Qualifying Score in ear to be implanted: Uzccznymp-Kkkwtfr-Bov sonant Words (CNC) Test Condition List # Phonemes [...] COVID-19 original vaccine, age 12+ yr, monovalent ([employer] - PURPLE TOP) 06/27/2020 07/20/2020 influenza (IIV4) vaccine, age 6 mo - 64 yr, quadrivalent, PF (AFLURIA, FLUARIX, FLULAVAL, FLUZONE) 02/04/2019 pneumococcal conjugate (PCV20) vaccine, 20 valent (PREVNAR 20) 12/31/2023 pneumococcal polysaccharide (PPV23) vaccine, 23 valent (PNEUMOVAX 23) 04/12/2010 zoster (RZV) vaccine, recombinant (SHINGRIX) 07/24/2023 Shira Issa *Hearing preservation candidates have low-frequency (125, 250, 500 Hz) air thresholds of less than [address] [facility] CNOVon 01-15-2024 CNOV Office Visit (SHRUTIUCR ) FREDDY JORGE ([id number]) 1970 M Date Time Provider Department 01/15/24 4:00 PM JO-ANN MAHAJAN During your visit today, we recorded the following information about you: Jo-Ann Mahajan, PhD 01/16/2024 7:38 AM Addendum [facility] Section of Audiology Cochlear Implant Candidacy Vestibular Test Battery Name: Freddy Jorge [facility]#: [id number] Date of Service: 01/15/2024 Date of : 1970 Age: [age] year old Referred by: Lorena Carvalho MD And is a patient of Rosario Bruno NP Referred for: Cochlear implant candidacy vestibular and balance evaluation. Referral documented: In an order in Epic Pretest Instructions: All pretest instructions were completed prior to testing: no alcohol, no medication for dizziness/motion sickness, no sedatives (sleep aids, tranquilizers, antihistamines), no eye makeup and only have a light meal prior to testing. Impressions and Recommendations OVERALL IMPRESSIONS: normal peripheral vestibular responses in the right ear. Abnormal peripheral vestibular responses in the left ear based on 70% caloric weakness, reduced cervical vestibular evoked myogenic potentials (VEMP) amplitude and abnormal vestibulo-ocular reflex (VOR) gain with evidence of corrective saccades on video head impulse test (vHIT) of the semi-circular canals. Based on these findings, there are no vestibular contraindications for cochlear implant candidacy considerations the left ear. The remainder of today's evaluation revealed the following: - Normal observation of gait and transfers. - Normal score (>/= 10 points) obtained on the modified Dynamic Gait Index (mDGI) indicating normal gait performance with varying gait speeds and horizontal and vertical head movements. - Postural control findings demonstrate a vestibular dysfunction pattern indicating difficulty in using vestibular information alone for maintenance of stance observed during the Modified Clinical Test of Sensory Integration on Balance (mCTSIB). Abnormal increased body sway and/or fall reactions observed during the eyes closed, foam condition. RECOMMENDATIONS: - Continue medical follow up with Lorena Carvalho MD and the Hearing Implant Team - Consider referral to vestibular and balance therapy to address imbalance concerns (uncompensated left vestibulopathy). - Consider re-evaluation as medically indicated. - Consider maintaining a healthy sleep schedule in addition to diet, hydration, and exercise. The results and recommendations were explained to Freddy Jorge and he expressed understanding of the information. History Present Illness Freddy Jorge is seen today for cochlear implantation candidacy evaluation. HIP team is current considering a left cochlear implant. Freddy reports past vertigo when he experienced sudden hearing loss in his left ear 4 years ago and imbalance. He describes imbalance that occurs sometimes with movement and only lasts for seconds. He denies symptoms of imbalance in a dark or dimly lit room. Freddy has not fallen two or more times in the past year or fallen once with with injury and denies a fear of falling. Freddy is not currently using an ambulatory device. Aforementioned symptoms are impacting Freddy's quality of life: he senses that people are noticing his imbalance. Please refer to summary of past medical history section for further details of presenting symptoms, signs and relevant past medical history. Symptom Ratin-4/10 today (0 = no symptoms, 10 = severe symptoms). SUMMARY OF PAST MEDICAL HISTORY: - Sudden onset hearing loss left ear 4 year ago with tinnitus and vertigo. Significant imbalance, nausea and vomiting at the time of onset. He went to the ER and reports brown/black discharge from ear. - difficulties with balance in the dark. - Slight spinning when in loud environments. Based on review of the patient's past medical history and chief complaint, the following clinical questions were explored during today's appointment: any vestibular contraindications for left sided CI? Plan for today's objective vestibular testing based on these clinical questions: Video Head Impulse Test (VHIT) and Vestibular Evoked Myogenic Potentials (VEMPs), caloric irrigations. Medical History: ACTIVE PROBLEM LIST Asymmetrical Sensorineural Hearing Loss Tinnitus, Left Ear Vestibular Hypofunction of Left Ear Medications: Current Outpatient Medications on File Prior to Visit Medication Sig doxepin capsule 10 mg TAKE 1 TO 2 CAPSULES BY MOUTH EVERY DAY AT BEDTIME TRULICITY 1.5 mg/0.5 mL pen injector INJECT 1.5 MG SUBCUTANEOUSLY ONCE A WEEK empagliflozin (JARDIANCE) 25 mg tablet once daily. FLUoxetine (PROZAC) 20 mg capsule once daily. ramipril (ALTACE) 1.25 mg capsule 1 capsule. pravastatin (PRAVACHOL) 1 (more content not included)... Normal [facility] CNOVon 12-31-2023 CNOV Office Visit (OTOLCR ) FREDDY JORGE ([id number]) 1970 M Date Time Provider Department 12/31/23 10:30 AM LORENA BEARD OTOLCR During your visit today, we recorded the following information about you: Adarsh Garciaiqua 01/02/2024 2:54 PM Addendum OTOLOGY AND NEUROTOLOGY NEW PATIENT VISIT Date: 12/31/2023 Requested by: Russell Parra APRN.[place]/ Keo Burroughs, [facility] PCP: Rosario Bruno NP Chief complaint: Ear Problem (New.. Self Referred c/o hearing loss c ringing, dizziness,imbalance x 5 yrs. Denies otalgia/otorrhea) History of present illness: Freddy Jorge is a 53 year old male who was seen for cochlear implant. Patient was seen by Otolaryngology on . Based on the note from this visit patient suffered sudden onset of hearing loss in the left ear approximately 4 years ago. This was accompanied by tinnitus and vertigo. He was evaluated at that time at an outside mechanical technical service specialist and ENT office. MRI was completed in which results were negative for acoustic neuroma. Per Epic history Mr. Jorge had a dental infection that traveled to the ear. Unfortunately his hearing was basically absent in the left ear at that time. He was advised to obtain a cross hearing aid or cochlear implant however at the time this was not covered by his insurance. As of 11/26/23 patient had not been using any sort of amplification since that time for the left ear. His infection in the tooth eventually resolved but he was not sure about the infection in the left ear at the time of this visit. Patient reported having difficulties with his balance especially in dark environments. Continuous balance issues since loss of hearing (notices he has difficulty balancing without visual cues); Slight room-spinning/ disoriented sensation when in loud environments. Symptoms improve upon leaving those environments. 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 Family history of hearing loss includes his mother at an older age. Hearing loss: sudden hearing loss left ear began 4 years ago Better ear is right Use phone? Yes Aided: neither one Tinnitus: yes constant in left ear Vertigo: Yes Imbalance: Yes, since loss of hearing Ear pain: No Ear drainage: No Prior ear surgery/trauma: No Prevnar: No Pneumovax: No ACTIVE PROBLEM LIST Asymmetrical Sensorineural Hearing Loss Tinnitus, Left Ear Vestibular Hypofunction of Left Ear No past medical history on file. No past surgical history on file. Social History Tobacco Use Smoking status: Every Day Types: Cigarettes Smokeless tobacco: Current Types: Snuff Vaping Use Vaping status: Some Days Substances: Flavoring Devices: Disposable Substance Use Topics Alcohol use: Not Currently Drug use: Yes Types: Marijuana Comment: for sleep ALLERGIES Allergen Reactions Lactose GI Upset Latex Itching Current Outpatient Medications on File Prior to Visit Medication Sig doxepin capsule 10 mg TAKE 1 TO 2 CAPSULES BY MOUTH EVERY DAY AT BEDTIME TRULICITY 1.5 mg/0.5 mL pen injector INJECT 1.5 MG SUBCUTANEOUSLY ONCE A WEEK empagliflozin (JARDIANCE) 25 mg tablet once daily. FLUoxetine (PROZAC) 20 mg capsule once daily. ramipril (ALTACE) 1.25 mg capsule 1 capsule. pravastatin (PRAVACHOL) 10 mg tablet Take 10 mg by mouth once daily. No current facility-administered medications on file prior to visit. Review of system: Positive: As above Negative: Fever, shortness of breath There were no vitals taken for this visit. Appearance: Non-syndromic, cooperative, and calm Communication: Voice has adequate volume; No stridor or aesthenia Head/Face: Head and facial contours are symmetric Facial nerve 1/6 bilateral Skin: no skin lesions or scarring on face Ophthalmic: Full ocular motility intact; pupils symmetric; no nystagmus Ears: AD: Normal : Normal Marline Schulz AD [phone] Nose: Dorsum straight; Nostrils clear Oral Cavity: Dentition good Oropharynx: Uvula midline; Mucosa pink and moist Neck: No LAD; thyroid without masses or enlargement Lymphatic: No lymphadenopathy or masses Neuro/Psych.: Alert and oriented x 3 Cranial nerves intact, except for hearing Data Review: Audio:Audiograms 11/28/2023 (After cerumen impaction was removed) 11/26/2023 (Did not test due to cerumen impaction) ASSESSMENT: (H90.3) Asymmetrical sensorineural hearing loss (primary encounter diagnosis) (H93.12) Tinnitus, left ear (R26.89) Balance problem (H83.2X2) Vestibular hypofunction of left ear (H90.3) Sensorineural hearing loss (SNHL) of both ears (Z23) Need for pneumococcal vaccine I discussed the nature of hearing loss and options for management with the help of diagrams and imaging studies. I discussed cochlear implant surg (more content not included)... Normal [facility] CNOVon 12-24-2023 CNOV Office Visit (OTAULO ) FREDDY JORGE ([id number]) 1970 M Date Time Provider Department 12/24/23 1:00 PM HERNAN HAMMOND During your visit today, we recorded the following information about you: Hernan Hammond, Keo, CCC-A 12/24/2023 1:58 PM Signed [facility] Section of Allied Hearing, Speech and Balance Services ADULT COCHLEAR IMPLANT CANDIDACY EVALUATION Audiometric Testing Name: Freddy Jorge [facility]#: [id number] Date of Service: December 22, 2023 Date of : 1970 Age: [age] year old Referred by: Russell Parra CNP This patient was referred for an evaluation to determine cochlear implant candidacy. 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) Otologic/medical Previous Surgeries: Denied Headaches: recent migraines Medical Conditions: Diabetes, high cholesterol, sleep apnea History of chemotherapy/radiatio n: Denied Head trauma: 5-6 concussions in lifetime Seizures: Denied Amplification Has never worn amplification Communication limitations/participa tion restrictions Social: difficulty understanding speech in a [...] Vidhya Lumity 90-UP and Right Phonak Audeo C46-Xcvuzd clinic hearing aids were programmed to the [...] the sound 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 [facility] [place] [facility]OT[facility] FREDDY JORGE ([id number]) 1970 M Date Time Provider Department 12/12/23 [facility] During your visit today, we recorded the following information about you: Jennie Rodgers 12/12/2023 10:03 AM Signed Freddy Jorge called today. : 1970 Allergies: Lactose and Latex (home) Reason for call: Patient calling in to get scheduled as requested by Russell Parra APRN.LENDING CONSULTANT. Patient has been scheduled for an Implant Eval with Dr. Hammond and also for an appointment with an research laboratory technician. Patient advised of all appointment details. Please review patient's appointments to ensure that he has been scheduled appropriately. Patient originally requested to see Russell Parra. Contact patient if scheduled incorrectly. Thank you! Patient last appointment: 12/02/2023 The patients preferred pharmacy has been captured for this encounter? no DEB Art December 12, 2023 10:00 AM Russell Parra APRN.[place] 12/12/2023 11:51 AM Signed appts are correct. Thank you, Russell Parra CNP Allergies As of Date: 12/12/2023 Noted [...] ear [H83.2X2] 11/26/2023 Encounter Status:Closed by RUSSELL PARRA on 12/12/[address] [facility] FREDDY JORGE ([id number]) 1970 M Date Time Provider Department 12/02/23 RUSSELL PARRA [facility] During your visit today, we recorded the following information about you: Russell aPrra APRN.[facility] 12/02/2023 7:46 AM Signed Please call patient. Please let him know that I did receive the results of his hearing test. He does presently have extreme hearing loss on the left. Basically, his left ear is not functioning in any noticeable way. As we discussed in the office he is welcome to meet with one of our research laboratory technician to discuss cochlear implant surgery which [...] the plan please let me know. Russell Parra APRN.Elizabeth Boss LPN 12/02/2023 2:48 PM Signed [...] be better for him. Please advise. Russell Parra APRN.[place] 12/12/2023 9:30 AM Signed Please call patient. Please let him know because he is so young I would highly recommend that he sees the research laboratory technician to discuss options including cochlear implant. They may also be able to shed further light on his dizziness. I have placed a consultation, please assist with an appointment at the patient's earliest convenience. Thank you, [place] Dumont Kristin R, APRN.[facility] 12/12/2023 11:50 AM Signed Thank you, Russell Parra CNP Allergies As of Date: 12/02/2023 Noted Allergy Reaction LACTOSE 10/28/2023 8 - GI Upset LATEX 11/26/2023 9 - Itching Date Reviewed: 11/26/2023 Reviewed by: Elizabeth Paz LPN - Fully Assessed Reason for Visit: Results [95] Primary Visit Diagnosis:Asymmetric sensorineural deafness [H90.3] Other Visit Diagnosis:Tinnitus, right ear [H93.11] Order(s):CONSULT TO ENT [9008] Order #: [id number]: 1 FUTURE CONSULT TO ENT [9007] Order #: [id number]: 1 FUTURE Prescriptions as of 12/12/2023 - [...] 11/26/2023 Letter Text Encounter Status:Closed by RUSSELL PARRA on 12/12/23 [facility] CNOVon 11-28-2023 CNOV Office Visit (CDISMN ) FREDDY JORGE ([id number]) 1970 M Date Time Provider Department 11/28/23 11:30 AM [facility] During your visit today, we recorded the following information about you: Marilu Hou AUD 11/28/2023 4:39 PM Signed [facility] Head [facility] Neck Department Section of Audiology AUDIOLOGIC EVALUATION REPORT Name: Freddy Jorge [facility]#: [id number] Date of Service: 11/28/2023 Date of : 1970 Age: [age] year old Referred by: Self Referred for: Evaluation of suspected change in hearing, tinnitus, or balance. Referral documented: No referral on file Patient's major complaints: Reduced hearing in the left ear, Tinnitus in the left ear, Dizziness/vertigo/imb alance, Pressure/fullness in the right ear Freddy oJrge was seen for a recheck audiologic evaluation. Previous audiologic evaluation was scheduled yesterday 11/26/2023. However, testing was deferred due impacted cerumen in the left ear. Cerumen removed by ENT Russell Parra CNP on 11/26/2023. Known history of sudden [...] evaluation of middle ear function. CPT code: 70369 RIGHT EAR: Negative (-184 daPa) pressure with reduced TM compliance (mobility). LEFT EAR: Negative (-120 daPa) pressure with reduced TM compliance (mobility). ACOUSTIC REFLEXES Description of procedure: This test is an objective measure of auditory and facial nerve pathways. CPT code: 66986, 30307 RIGHT EAR PROBE EAR: (ipsi right stimulus [...] bone conduction and speech recognition testing. CPT code:28369 RIGHT EAR: Hearing Sensitivity: WNL 250-2000 Hz [...] RECOMMENDATIONS * Continue medical follow-up with Russell Parra CNP. * Consider otologic referral to Otology for medical evaluation. * The patient was counseled regarding the need (more content not included)... Normal [facility] HEARING TEST/AUDIOGRAMon [facility] CNOVon 11-26-2023 CNOV Office Visit (OTOLCC ) LORIFREDDY JENSEN Ralph ([id number]) 1970 M Date Time Provider Department 11/26/23 8:50 AM RUSSELL PARRA OTOLCC During your visit today, we recorded the following information about you: Pulse Respiration 95/minute 17/minute Russell Parra APRN.LENDING CONSULTANT 11/26/2023 3:37 PM Signed Mr. Jorge is a 53 year old male who comes in for evaluation of hearing loss. Apparently 4 years ago he had sudden onset of hearing loss in the left ear. This was accompanied by tinnitus and vertigo. He was evaluated at that time at an outside mechanical technical service specialist and ENT office. 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 Russell Parra APRN.LENDING CONSULTANT Allergies As of Date: 11/26/2023 Noted Allergy Reaction LACTOSE 10/28/2023 8 - GI Upset LATEX 11/26/2023 9 - Itching Date Reviewed: 11/26/2023 Reviewed by: Elizabeth Paz LPN - Fully Assessed Reason for Visit: Earwax [1178] Primary Visit Diagnosis:Asymmetrica l sensorineural hearing loss [H90.3] Other Visit Diagnoses:Tinnitus, [...] ear [H83.2X2] 11/26/2023 Encounter Status:Closed by RUSSELL PARRA on 11/26/23 [facility] CN Office Visit (OTAMAJORO ) FREDDY JORGE ([id number]) 1970 M Date Time Provider Department 11/26/23 8:00 AM HERNAN HAMMOND During your visit today, we recorded the following information about you: Hernan Hammond, Keo, CCC-A 11/26/2023 8:19 AM Signed [facility] Head [facility] Neck Department Section of Audiology AUDIOLOGIC EVALUATION REPORT Name: Freddy Jorge CC#: [id number] Date of Service: 11/26/2023 Date of : 1970 Age: [age] year old Referred by: Rosario Bruno, LENDING CONSULTANT [address] [facility] [address] Referred for: Evaluation of suspected change in [...] a child - 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 He denied ear pain (0/10 in both ears), otorrhea, history of ear surgery, and chemotherapy/radiatio n. Freddy Jorge was seen for an initial audiologic evaluation. [...] evaluation of middle ear function. CPT code: 67831 RIGHT EAR: Flat with minimal TM mobility consistent with possible presence of ME fluid. LEFT EAR: Reduced ear canal volume and flat tympanogram consistent with impacted cerumen. Discontinued testing after tympanometry. RECOMMENDATIONS * Continue medical follow-up with ENT for cerumen management. * Test hearing after cerumen management Hernan Hammond, Keo, CCC-A BEVERLY Abbrev- iation Definition Degree of hearing sensitivity dB range WNL within normal limits WNL 0 - 20 SNHL sensorineural hearing loss Mild 20-40 CHL conductive hearing loss Moderate 40-55 MHL mixed hearing loss Moderately-Severe 55-70 WRS word recognition score Severe 70-90 ME middle ear Profound 90 + TM tympanic membrane Referring Provider: ROSARIO BRUNO [[id number]] Allergies As of Date: 11/26/2023 (Not on File) Date Reviewed: Never Reviewed Primary Visit Diagnosis:Impacted cerumen of left ear [H61.22] Other Visit Diagnoses:Left-sided tinnitus [H93.12] Vertigo [R42] Order(s):HEARING TEST/AUDIOGRAM [9658759] Order #: [id number]: 1 Problem List As Of Date: 11/26/2023 (None) Encounter Status:Closed by HERNAN HAMMOND on 11/26/[address] [facility] HEARING TEST/AUDIOGRAMon [facility] Capillary blood glucose amy urement by glucometer (mass/volume)Ordered By: Milena Cazares on 11-04-2023 Glucose [Mass/Vol] 183 mg/dL Normal [facility] Comment on above: Random Glucose Refer ence Range is dependent on time and content of last meal. Glucose of more than 200 mg/dL in a nonstressed, ambulatory subject supports the diagnosis of Diabetes Mellitus. Result Comment: [place] om Glucose Reference Range is dependent on time and content of last meal. Glucose of more than 200 mg/dL in a nonstressed, ambulatory subject supports the diagnosis of Diabetes Mellitus. PERFORMED BY: [place] [address] PATHOLOGIST JEWELRY MODEL MAKER PADMA MONTOYA M.D. Performed By: #### G LULS #### Point of Care testing , Pathology Request for Lab Co rpon 11-04-2023 Pathology Request for Lab Amy Normal [facility] Comment on above: Order Comment: PATHO LOGY GI SPECIMEN Result Comment: See report. Scanned copy available in EMR. PERFORMED BY: [place] [address] PATHOLOGIST JEWELRY MODEL MAKER PADMA MONTOYA M.D. Performed By: #### P ATH TO [facility] #### [address] HbA1c HPLC (Bld) [Mass fract ion]on 10-28-2023 HbA1c (Bld) [Mass fraction] 9.2 % [facility] Glucose Glucometer (BldC) [M ass/Vol]Ordered By: Milena Cazares on 05-06-2023 Glucose [Mass/Vol] 170 mg/dL [facility] Comment on above: Random Glucose Refer ence Range is dependent on time and content of last meal. Glucose of more than 200 mg/dL in a nonstressed, ambulatory subject supports the diagnosis of Diabetes Mellitus. Alanine aminotransferase [En zymatic activity/volume] in Serum or PlasmaOrdered By: Rosario Bruno on 03-14-2023 ALT [Catalytic activity/Vol] 17 U/L 7-52 [facility] Albumin [Mass/volume] in Ser um or Plasma by Bromocresol green (BCG) dye binding methoOrdered By: Rosario Bruno on 03-14-2023 Albumin BCG dye [Mass/Vol] 4.1 g/dL 3.5-5.7 [facility] Alkaline phosphatase [Enzyma tic activity/volume] in Serum or PlasmaOrdered By: Rosario Bruno on 03-14-2023 ALP [Catalytic activity/Vol] 75 U/L 34-104 [facility] Aspartate aminotransferase [ Enzymatic activity/volume] in Serum or PlasmaOrdered By: Rosario Bruno on 03-14-2023 AST [Catalytic activity/Vol] 18 U/L 13-39 [facility] Basophils Auto (Bld) [#/Vol] Ordered By: Rosario Bruno on 03-14-2023 Basophils (Bld) [#/Vol] 0.1 10*3/uL 0.0-0.2 [facility] Basophils/100 WBC Auto (Bld) Ordered By: Rosario Bruno on 03-14-2023 Basophils/100 WBC (Bld) 1.3 % . [facility] Bilirubin.total [Mass/volume ] in Serum or PlasmaOrdered By: Rosario Bruno on 03-14-2023 Bilirubin [Mass/Vol] 0.7 mg/dL 0.3-1.0 [facility] Calcium [Mass/volume] in Ser um or PlasmaOrdered By: Rosario Bruno on 03-14-2023 Calcium [Mass/Vol] 9.1 mg/dL 8.6-10.3 [facility] Carbon dioxide, total [Moles /volume] in Serum or PlasmaOrdered By: Rosario Bruno on 03-14-2023 CO2 [Moles/Vol] 28.5 mmol/L 21.0-31.0 [facility] Chloride [Moles/volume] in S robert or PlasmaOrdered By: Rosario Bruno on 03-14-2023 Chloride [Moles/Vol] 105 mmol/L 98-107 [facility] Cholesterol [Mass/volume] in Serum or PlasmaOrdered By: Rosario Bruno on 03-14-2023 Cholesterol [Mass/Vol] 133 mg/dL 140-200 [facility] Comment on above: Chol less than 200 m g/dl low riskChol 201-239 mg/dl borderline riskChol 240 mg/dl and greater high risk Cholesterol in LDL Calc [Mas s/Vol]Ordered By: Rosario Bruno on 03-14-2023 Cholesterol in LDL [Mass/Vol] 79 mg/dL 0-100 [facility] Comment on above: LDL ATP III CLASSIFI CATIONLDL less than 100 mg/dL OptimalLDL 100-129 mg/dL Near or above optimalLDL 130-159 mg/dL Borderline highLDL 160-189 mg/dL HighLDL greater than 189 mg/dL Very high Cholesterol in VLDL Calc [Ma ss/Vol]Ordered By: Rosario Bruno on 03-14-2023 Cholesterol in VLDL [Mass/Vol] 19 mg/dL [facility] Creatinine [Mass/volume] in Serum or PlasmaOrdered By: Rosario Bruno on 03-14-2023 Creatinine [Mass/Vol] 1.03 mg/dL 0.70-1.30 [facility] Creatinine [Mass/volume] in UrineOrdered By: Rosario Bruno on 03-14-2023 Creatinine (U) [Mass/Vol] 80.0 mg/dL 14.0-26.0 [facility] Eosinophils Auto (Bld) [#/Vo l]Ordered By: Rosario Bruno on 03-14-2023 Eosinophils (Bld) [#/Vol] 0.2 10*3/uL 0.0-0.45 [facility] Eosinophils/100 WBC Auto (Bl d)Ordered By: Rosario Bruno on 03-14-2023 Eosinophils/100 WBC (Bld) 3.8 % . [facility] Erythrocyte distribution wid th Auto (RBC) [Ratio]Ordered By: Rosario Bruno on 03-14-2023 Erythrocyte distribution width (RBC) [Ratio] 12.6 % 12.0-14.8 [facility] Globulin Calc (S) [Mass/Vol] Ordered By: Rsoario Bruno on 03-14-2023 Globulin (S) [Mass/Vol] 2.5 g/dL [facility] Glucose [Mass/volume] in Ser um or PlasmaOrdered By: Rosario Bruno on 03-14-2023 Glucose [Mass/Vol] 175 mg/dL 70-100 [facility] Comment on above: ADA recommended refe rence rangeRandom Glucose Reference Range is dependent on time and content of last meal. Glucose of more than 200 mg/dL in a nonstressed, ambulatory subject supports the diagnosis of Diabetes Mellitus. Glucose mean value [Mass/vol ume] in Blood Estimated from glycated hemoglobinOrdered By: Rosario Bruno on 03-14-2023 Average glucose Estimated from glycated hemoglobin (Bld) [Mass/Vol] 217 mg/dL [facility] Hematocrit Auto (Bld) [Volum e fraction]Ordered By: Rosario Bruno on 03-14-2023 Hematocrit (Bld) [Volume fraction] 40.7 % 38.8-50.0 [facility] Hemoglobin A1c percentageOrd ered By: Rosario Bruno on 03-14-2023 HbA1c (Bld) [Mass fraction] 9.2 % 4.3-5.6 [facility] Comment on above: Increased risk for d iabetes: 5.7 - 6.4diabetes: >6.4glycemic control for adults with diabetes: <7.0 Hemoglobin [Mass/volume] in BloodOrdered By: Rosario Bruno on 03-14-2023 Hemoglobin (Bld) [Mass/Vol] 14.0 g/dL 13.0-17.0 [facility] Leukocytes [#/volume] correc salazar for nucleated erythrocytes in Blood by Automated counOrdered By: Rosario Bruno on 03-14-2023 WBC corrected for nucl RBC Auto (Bld) [#/Vol] 5.5 10*3/uL 4.1-10.5 [facility] Lymphocytes Auto (Bld) [#/Vo l]Ordered By: Rosario Bruno on 03-14-2023 Lymphocytes (Bld) [#/Vol] 1.5 10*3/uL 1.00-4.8 [facility] Lymphocytes/100 WBC Auto (Bl d)Ordered By: Rosario Bruno on 03-14-2023 Lymphocytes/100 WBC (Bld) 27.1 % . [facility] MCH Auto (RBC) [Entitic mass ]Ordered By: Rosario Bruno on 03-14-2023 MCH (RBC) [Entitic mass] 31.0 pg 27.5-35.2 [facility] MCHC Auto (RBC) [Mass/Vol]Or dered By: Rosario Bruno on 03-14-2023 MCHC (RBC) [Mass/Vol] 34.3 g/dL 32.5-35.6 [facility] MCV Auto (RBC) [Entitic vol] Ordered By: Rosario Bruno on 03-14-2023 MCV (RBC) [Entitic vol] 90.4 fL 83.5-101 [facility] Microalbumin [Mass/volume] i n UrineOrdered By: Rosario Bruno on 03-14-2023 Albumin DL <= 20 mg/L (U) [Mass/Vol] mg/dL 0.0-1.8 [facility] Monocytes Auto (Bld) [#/Vol] Ordered By: Rosario Bruno on 03-14-2023 Monocytes (Bld) [#/Vol] 0.3 10*3/uL 0.0-0.8 [facility] Monocytes/100 WBC Auto (Bld) Ordered By: Rosario Bruno on 03-14-2023 Monocytes/100 WBC (Bld) 6.2 % . [facility] Neutrophils Auto (Bld) [#/Vo l]Ordered By: Rosario Bruno on 03-14-2023 Neutrophils (Bld) [#/Vol] 3.4 10*3/uL 1.8-7.7 [facility] Neutrophils/100 WBC Auto (Bl d)Ordered By: Rosario Bruno on 03-14-2023 Neutrophils/100 WBC (Bld) 61.6 % . [facility] No Panel InformationOrdered By: Rosario Bruno on 03-14-2023 Estimated GFR (CKD-EPI) > 60.0 mL/Min [facility] Creatinine Clearance (Chem N/A [facility] Nucleated erythrocytes [Pres ence] in Blood by Automated countOrdered By: Rosario Bruno on 03-14-2023 Nucleated RBC Auto Ql (Bld) 0.2 /100{WBC} 0-0.5 [facility] Platelet mean volume Auto (B ld) [Entitic vol]Ordered By: Rosario Bruno on 03-14-2023 Platelet mean volume (Bld) [Entitic vol] 9.0 fL 6.6-10.1 [facility] Platelets Auto (Bld) [#/Vol] Ordered By: Rosario Bruno on 03-14-2023 Platelets (Bld) [#/Vol] 187 10*3/uL 150-450 [facility] Potassium [Moles/volume] in Serum or PlasmaOrdered By: Rosario Bruno on 03-14-2023 Potassium [Moles/Vol] 4.2 mmol/L 3.5-5.1 [facility] Prostate specific Ag [Mass/v olume] in Serum or PlasmaOrdered By: Rosario Bruno on 03-14-2023 Prostate specific Ag [Mass/Vol] 0.120 ng/mL 0.000-4.000 [facility] Comment on above: Serial tumor marker results determined by assays using different manufacturers or methods may not be comparable.[facility] Laboratory steel buffer and method:[employer] DXI, CHEMILUMINESCENT IMMUNOASSAY. Protein [Mass/volume] in Ser um or PlasmaOrdered By: Rosario Bruno on 03-14-2023 Protein [Mass/Vol] 6.6 g/dL 6.4-8.9 [facility] RBC Auto (Bld) [#/Vol]Ordere d By: Rosario Bruno on 03-14-2023 RBC (Bld) [#/Vol] 4.51 10*6/uL 3.90-5.60 [facility] Serum or plasma albumin/glob ulin mass ratioOrdered By: Rosario Bruno on 03-14-2023 Albumin/Globulin [Mass ratio] 1.6 {ratio} [facility] Serum or plasma anion gap de terminationOrdered By: Rosario Bruno on 03-14-2023 Anion gap [Moles/Vol] 7.7 mmol/L 6.0-15.0 [facility] Serum or plasma high density lipoprotein (HDL) cholesterol measurementOrdered By: Rosario Bruno on 03-14-2023 Cholesterol in HDL [Mass/Vol] 35 mg/dL 23-92 [facility] Comment on above: HDL CHOL ATP-III CLA SSIFICATION Cardiovascular RiskHDL > or equal to 60 mg/dL LOWHDL < 40 mg/dL HIGH Serum or plasma total choles terol/high density lipoprotein (HDL) cholesterol mass ratOrdered By: Rosario Bruno on 03-14-2023 Cholesterol.total/Choles terol in HDL [Mass ratio] 3.8 {ratio} <5.0 [facility] Sodium [Moles/volume] in Ser um or PlasmaOrdered By: Rosario Bruno on 03-14-2023 Sodium [Moles/Vol] 137 mmol/L 136-145 [facility] Triglyceride [Mass/volume] i n Serum or PlasmaOrdered By: Rosario Bruno on 03-14-2023 Triglyceride [Mass/Vol] 97 mg/dL 0-149 [facility] Comment on above: TRIG ATP III CLASSIF ICATIONTRIG less than 150 mg/dL NormalTRIG 150-199 mg/dL Borderline highTRIG 200-500 mg/dL High TRIG greater than 500 mg/dL Very highStandard traceable to the Center for Disease Conrtrol and Prevention (CDC) test method. Urea nitrogen [Mass/volume] in Serum or PlasmaOrdered By: Rosario Bruno on 03-14-2023 Urea nitrogen [Mass/Vol] 12 mg/dL 7-25 [facility] Urine microalbumin/creatinin e mass ratioOrdered By: Rosario Bruno on 03-14-2023 Albumin/Creatinine DL <= 20 mg/L (U) [Mass ratio] TNP [facility] Comment on above: Test not performed WBC Auto (Bld) [#/Vol]Ordere d By: Rosario Bruno on 03-14-2023 WBC (Bld) [#/Vol] 5.5 10*3/uL 4.1-10.5 [facility] Vital Signs Date Time Vital Sign Value Performing Clinician Facility 07-29-2024 13:22-0400 Body height 180.34 cm Rosario Bruno APRN Work Phone: [facility] 07-29-2024 13:22-0400 Body mass index (BMI) [Ratio] 34.2 kg/m2 Rosario Bruno APRN Work Phone: [facility] 07-29-2024 13:22-0400 Body temperature 98.1 [degF] Rosario Dohertydaquankaterinanaldo COLLECTIONS ANALYST Work Phone: [facility] 07-29-2024 13:22-0400 Body weight 111.13 kg Rosaroi Bruno COLLECTIONS ANALYST Work Phone: [facility] 07-29-2024 13:22-0400 Diastolic blood pressure 64 mm[Hg] Rosario Dohertydaquankaterinanaldo COLLECTIONS ANALYST Work Phone: [facility] 07-29-2024 13:22-0400 Heart rate 84 /min Rosario Dohertydaquankaterinanaldo COLLECTIONS ANALYST Work Phone: [facility] 07-29-2024 13:22-0400 SaO2% (BldA) [Mass fraction] 96 % Rosario Dohertysanaz COLLECTIONS ANALYST Work Phone: [facility] 07-29-2024 13:22-0400 Systolic blood pressure 116 mm[Hg] Rosario Dohertydaquankaterinanaldo COLLECTIONS ANALYST Work Phone: [facility] 07-22-2024 11:38-0400 Body height 180.34 cm Rosario Artisnaldo COLLECTIONS ANALYST Work Phone: [facility] 07-22-2024 11:38-0400 Body mass index (BMI) [Ratio] 32.8 kg/m2 Rosario Dohertydaquankaterinanaldo COLLECTIONS ANALYST Work Phone: [facility] 07-22-2024 11:38-0400 Body temperature 96.5 [degF] Rosario Dohertydaquankaterinanaldo COLLECTIONS ANALYST Work Phone: [facility] 07-22-2024 11:38-0400 Body weight 106.59 kg Rosario Artisnaldo COLLECTIONS ANALYST Work Phone: [facility] 07-22-2024 11:38-0400 Diastolic blood pressure 60 mm[Hg] Rosario Kiana COLLECTIONS ANALYST Work Phone: [facility] 07-22-2024 11:38-0400 Heart rate 82 /min Rosario Barreramariano COLLECTIONS ANALYST Work Phone: [facility] 07-22-2024 11:38-0400 SaO2% (BldA) [Mass fraction] 96 % Rosario Artisnaldo COLLECTIONS ANALYST Work Phone: [facility] 07-22-2024 11:38-0400 Systolic blood pressure 102 mm[Hg] Rosario Barreramariano COLLECTIONS ANALYST Work Phone: [facility] 07-14-2024 10:37-0400 Body height 180.3 cm Devora Arvizu MD Work Phone: [facility] 07-14-2024 10:37-0400 Body mass index (BMI) [Ratio] 33.89 kg/m2 Devora Arvizu MD Work Phone: [facility] 07-14-2024 10:37-0400 Body weight 110.22 kg Devora Arvizu MD Work Phone: [facility] 07-14-2024 10:37-0400 Diastolic blood pressure 70 mm[Hg] Devora Arvizu MD Work Phone: [facility] 07-14-2024 10:37-0400 Heart rate 92 /min Devora Arvizu MD Work Phone: [facility] 07-14-2024 10:37-0400 Respiratory rate 18 /min Devora Arvizu MD Work Phone: [facility] 07-14-2024 10:37-0400 SaO2% (BldA) [Mass fraction] 99 % Dveora Arvizu MD Work Phone: [facility] 07-14-2024 10:37-0400 Systolic blood pressure 110 mm[Hg] Devora Arvizu MD Work Phone: [facility] 06-09-2024 10:33-0400 Body height 180.3 cm Devora Arvizu MD Work Phone: [facility] 06-09-2024 10:33-0400 Body mass index (BMI) [Ratio] 33.33 kg/m2 Devora Arvizu MD Work Phone: [facility] 06-09-2024 10:33-0400 Body weight 108.41 kg Devora Arvizu MD Work Phone: [facility] 06-09-2024 10:33-0400 Diastolic blood pressure 68 mm[Hg] Devora Arvizu MD Work Phone: [facility] 06-09-2024 10:33-0400 Heart rate 86 /min Devora Arvizu MD Work Phone: [facility] 06-09-2024 10:33-0400 Respiratory rate 18 /min Devora Arvizu MD Work Phone: [facility] 06-09-2024 10:33-0400 SaO2% (BldA) [Mass fraction] 99 % Devora Arvizu MD Work Phone: [facility] 06-09-2024 10:33-0400 Systolic blood pressure 110 mm[Hg] Devora Arvizu MD Work Phone: [facility] 05-24-2024 09:57-0400 Body height 180.3 cm Eli Dubose MD Work Phone: [facility] 05-24-2024 09:57-0400 Body mass index (BMI) [Ratio] 33.89 kg/m2 Eli Dubose MD Work Phone: [facility] 05-24-2024 09:57-0400 Body temperature 96.8 [degF] Eli Dubose MD Work Phone: [facility] 05-24-2024 09:57-0400 Body weight 110.22 kg Eli Dubose MD Work Phone: [facility] 05-24-2024 09:57-0400 Diastolic blood pressure 78 mm[Hg] Eli Dubose MD Work Phone: [facility] 05-24-2024 09:57-0400 Heart rate 90 /min Eli Dubose MD Work Phone: [facility] 05-24-2024 09:57-0400 Respiratory rate 16 /min Eli Dubose MD Work Phone: [facility] 05-24-2024 09:57-0400 Systolic blood pressure 122 mm[Hg] Eli Dubose MD Work Phone: [facility] 04-14-2024 13:30-0500 Body height 180.34 cm Rosario Bruno APRN Work Phone: [facility] 04-14-2024 13:30-0500 Body mass index (BMI) [Ratio] 34.2 kg/m2 Rosario Bruno APRN Work Phone: [facility] 04-14-2024 13:30-0500 Body temperature 97.4 [degF] Rosario Bruno APRN Work Phone: [facility] 04-14-2024 13:30-0500 Body weight 111.58 kg Rosario Bruno APRN Work Phone: [facility] 04-14-2024 13:30-0500 Diastolic blood pressure 70 mm[Hg] Rosario Bruno APRN Work Phone: [facility] 04-14-2024 13:30-0500 Heart rate 96 /min Rosario Bruno APRN Work Phone: [facility] 04-14-2024 13:30-0500 SaO2% (BldA) [Mass fraction] 100 % Rosario Bruno APRN Work Phone: [facility] 04-14-2024 13:30-0500 Systolic blood pressure 114 mm[Hg] Rosario Bruno APRN Work Phone: [facility] 02-04-2024 08:10-0500 Body height 180.3 cm Pac 4 Work Phone: [facility] 02-04-2024 08:10-0500 Body mass index (BMI) [Ratio] 33.52 kg/m2 Pac 4 Work Phone: [facility] 02-04-2024 08:10-0500 Body temperature 97.11 [degF] Pac 4 Work Phone: [facility] 02-04-2024 08:10-0500 Body weight 109 kg Pac 4 Work Phone: [facility] 02-04-2024 08:10-0500 Diastolic blood pressure 66 mm[Hg] Pac 4 Work Phone: [facility] Comment on above: MAP: 78 02-04-2024 08:10-0500 Heart rate 82 /min Pac 4 Work Phone: [facility] 02-04-2024 08:10-0500 Respiratory rate 18 /min Pac 4 Work Phone: [facility] 02-04-2024 08:10-0500 SaO2% (BldA) [Mass fraction] 98 % Pac 4 Work Phone: [facility] 02-04-2024 08:10-0500 Systolic blood pressure 103 mm[Hg] Pac 4 Work Phone: [facility] Comment on above: MAP: 78 11-26-2023 09:05-0400 Heart rate 95 /min Russell Parra APRN.LENDING CONSULTANT Work Phone: [facility] 11-26-2023 09:05-0400 Respiratory rate 17 /min Russell Parra APRN.LENDING CONSULTANT Work Phone: [facility] 11-26-2023 09:05-0400 SaO2% (BldA) [Mass fraction] 99 % Russell Parra APRN.LENDING CONSULTANT Work Phone: [facility] 11-04-2023 12:50-0400 Diastolic blood pressure 69 mm[Hg] ROSETTA Bruno Work Phone: [facility] 11-04-2023 12:50-0400 Heart rate 66 /min COLLECTIONS ANALYST Rosario Bessydaquanacher Work Phone: [facility] 11-04-2023 12:50-0400 Respiratory rate 16 /min COLLECTIONS ANALYST Rosario Bessyrbacher Work Phone: [facility] 11-04-2023 12:50-0400 SaO2% (BldA) [Mass fraction] 96 % COLLECTIONS ANALYST Rosario Bessyrbacher Work Phone: [facility] 11-04-2023 12:50-0400 Systolic blood pressure 115 mm[Hg] COLLECTIONS ANALYST Rosario Hollyacher Work Phone: [facility] 11-04-2023 10:53-0400 Body height 180.34 cm COLLECTIONS ANALYST Rosario Hollyacher Work Phone: [facility] 11-04-2023 10:53-0400 Body temperature 98.1 [degF] COLLECTIONS ANALYST Rosario Bessyrbacher Work Phone: [facility] 11-04-2023 10:53-0400 Body weight 102 kg COLLECTIONS ANALYST Rosario Barreraacher Work Phone: [facility] 10-28-2023 13:01-0400 Body height 180.34 cm COLLECTIONS ANALYST Rosario Bessydaquanacher Work Phone: [facility] 10-28-2023 13:01-0400 Body mass index (BMI) [Ratio] 32.8 kg/m2 COLLECTIONS ANALYST Rosario Hollyacher Work Phone: [facility] 10-28-2023 13:01-0400 Body weight 106.59 kg COLLECTIONS ANALYST Rosario Bessyrbacher Work Phone: [facility] 10-28-2023 13:01-0400 Diastolic blood pressure 74 mm[Hg] COLLECTIONS ANALYSTRalph Dohertyrbacher Work Phone: [facility] 10-28-2023 13:01-0400 Heart rate 101 /min COLLECTIONS ANALYST Rosario Bessyrbacher Work Phone: [facility] 10-28-2023 13:01-0400 SaO2% (BldA) [Mass fraction] 96 % COLLECTIONS ANALYST Rosario Bessyrbacher Work Phone: [facility] 10-28-2023 13:01-0400 Systolic blood pressure 116 mm[Hg] COLLECTIONS ANALYST Rosario Bessyrbacher Work Phone: [facility] 05-06-2023 09:26-0500 Diastolic blood pressure 68 mm[Hg] COLLECTIONS ANALYSTRalph SchreiberRosario Besysrbacher Work Phone: [facility] 05-06-2023 09:26-0500 Heart rate 68 /min COLLECTIONS ANALYSTRalph Dohertyrbacher Work Phone: [facility] 05-06-2023 09:26-0500 Respiratory rate 16 /min COLLECTIONS ANALYST Rosario Bessyrbacher Work Phone: [facility] 05-06-2023 09:26-0500 SaO2% (BldA) [Mass fraction] 98 % COLLECTIONS ANALYST Rosario Bessyrbacher Work Phone: [facility] 05-06-2023 09:26-0500 Systolic blood pressure 149 mm[Hg] COLLECTIONS ANALYSTRalph Dohertyrbacher Work Phone: [facility] 05-06-2023 07:19-0500 Body height 180.34 cm COLLECTIONS ANALYSTRalph SchreiberRosario Bessyrbacher Work Phone: [facility] 05-06-2023 07:19-0500 Body weight 99.79 kg COLLECTIONS ANALYSTRalph SchreiberRosario Bessyrbacher Work Phone: [facility] 03-12-2023 14:30-0500 Body height 180.34 cm Rosario Bruno Other [facility] 03-12-2023 14:30-0500 Body mass index (BMI) [Ratio] 30.12 kg/m2 Rosario Bruno Other [facility] Other 03-12-2023 14:30-0500 Body weight 97.98 kg Rosario Bruno Other [facility] Other 03-12-2023 14:30-0500 Body weight 97.97 kg COLLECTIONS ANALYST Rosario Bruno Work Phone: [facility] 03-12-2023 14:30-0500 Diastolic blood pressure 70 mm[Hg] Rosario Bruno Other [facility] 03-12-2023 14:30-0500 SaO2% (BldA) [Mass fraction] 98 % Rosario Bruno Other [facility] Other 03-12-2023 14:30-0500 Systolic blood pressure 112 mm[Hg] Rosario Bruno Other [facility] Encounters Encounter Date Encounter Type Care Provider Facility Start: 07-29-2024 End: 07-29-2024 ambulatory Rosario Bruno APRN Work Phone: [facility] Work Phone: Start: 07-29-2024 End: 07-29-2024 Patient encounter procedure Rosario Bruno APRN [facility] Phone[facility]: Start: 07-22-2024 End: 07-22-2024 ambulatory Rosario Bruno APRN Work Phone: [facility] Work Phone: Start: 07-22-2024 End: 07-22-2024 Patient encounter procedure Rosario Bruno APRN Work Phone: [facility] Work Phone: Start: 07-14-2024 End: 07-14-2024 Bamboo flowsheet Devora Arvizu MD Work Phone: [facility] Start: 07-14-2024 End: 07-14-2024 Bamboo flowsheet Devora Arvizu MD Work Phone: [facility] Start: 07-14-2024 End: 07-14-2024 ambulatory DEVORA ARVIZU Not Available Start: 07-14-2024 End: 07-14-2024 Office outpatient visit 25 minutes Devora Arvizu MD Work Phone: [facility] Comment on above: Type 2 diabetes demarco itus with hyperglycemia, without long-term current use of insulin ([facility]) (Primary Dx); Vitamin D deficiency; Encounter for dietary consultation Start: 07-08-2024 End: 07-08-2024 Patient encounter procedure Rosario Bruno APRN Work Phone: [facility] [address] Work Phone: Start: 07-08-2024 End: 07-08-2024 ambulatory Rosario Bruno APRN Work Phone: [facility] Work Phone: Start: 07-01-2024 End: 07-01-2024 Subsequent hospital visit by physician Fatemeh Momin [facility] Comment on above: Unsteady gait Start: 07-01-2024 End: 07-01-2024 ambulatory [facility] Start: 06-30-2024 Registered Recurring Rosario Bruno APRN Work Phone: [facility] Start: 06-30-2024 ambulatory Rosario Bruno Fac ility:[facility] Start: 06-17-2024 End: 06-17-2024 Subsequent hospital visit by physician Fatemeh Sorenson Schedule [facility] Comment on above: Unsteady gait; Diabetic polyneuropathy associated with type 2 diabetes mellitus Start: 06-17-2024 End: 06-17-2024 ambulatory [facility] Start: 06-09-2024 End: 06-09-2024 Office outpatient new 45 minutes Devora Arvizu MD Work Phone: [facility] Comment on above: Type 2 diabetes demarco itus with hyperglycemia, without long-term current use of insulin ([facility]) (Primary Dx); Vitamin D deficiency; Encounter for dietary consultation; Class 1 obesity due to excess calories with serious comorbidity and body mass index (BMI) of 33.0 to 33.9 in adult Start: 06-09-2024 End: 06-09-2024 ambulatory DEVORA ARVIZU Not Available Start: 06-03-2024 Non-patient / Non-visit Annalisa Bruno APRN Work Phone: [facility] Work Phone: Start: 05-24-2024 End: 05-24-2024 ambulatory [facility] Start: 05-24-2024 End: 05-24-2024 Office outpatient new 60 minutes Eli Dubose MD Work Phone: [facility] Comment on above: Unsteady gait (Prima ry Dx); Diabetic polyneuropathy associated with type 2 diabetes mellitus (Multi); SCOTT (obstructive sleep apnea) Start: 05-21-2024 Non-patient / Non-visit Annalisa Bruno APRN Work Phone: [facility] Physician [facility] Work Phone: Start: 05-11-2024 End: 05-11-2024 Telephone encounter [facility] Comment on above: 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 Work Phone: Start: 03-30-2024 End: 03-30-2024 Orders Only Lorena Bernstein MD Work Phone: Otolaryngology Comment on above: Asymmetrical sensori neural hearing loss (Primary Dx); Tinnitus, left ear; Balance problem; Vestibular hypofunction of left ear Start: 02-05-2024 End: 02-06-2024 Telephone encounter Lorena Bernstein MD Work Phone: Otolaryngology Start: 02-05-2024 End: 02-05-2024 ambulatory NUPUR SMEAL Facility:[facility] Start: 02-05-2024 End: 02-05-2024 Patient encounter procedure Nupur Smeal AUD Work Phone: Audiology Comment on above: Asymmetrical sensori neural hearing loss (Primary Dx) Start: 02-04-2024 End: 02-04-2024 ambulatory LORENA BERNSTEIN Facility:[facility] Start: 02-04-2024 End: 02-04-2024 Subsequent hospital visit by physician Mri [facility] (Lg Bore/1.5t) Radiology MRI Comment on above: Asymmetrical sensori neural hearing loss [H90.3] Start: 02-04-2024 End: 02-04-2024 [place] [address] Work Phone: Pre Anesthesia Comment on above: Pre-op evaluation (P rimary Dx); Type 2 diabetes mellitus with diabetic neuropathy, without long-term current use of insulin (HCC); Mixed hyperlipidemia; Anxiety; Depression, unspecified depression type; Obstructive sleep apnea; Nicotine dependence, cigarettes, with unspecified nicotine-induced disorders; Marijuana use; Obesity (BMI 30-39.9) Start: 02-04-2024 End: 02-04-2024 Preprocedural examination done [facility] 4 Work Phone: [facility] Work Phone: Start: 01-15-2024 End: 01-15-2024 ambulatory JO-ANN MAHAJAN Facility:[facility] Start: 01-15-2024 End: 01-15-2024 Patient encounter procedure Jo-Ann Mahajan PhD Work Phone: Audiology Comment on above: Asymmetrical sensori neural hearing loss (Primary Dx); Vestibular hypofunction of left ear; Tinnitus, left ear Start: 01-13-2024 End: 01-13-2024 Orders Only Lorena Bernstein MD Work Phone: Otolaryngology Comment on above: Asymmetrical sensori neural hearing loss (Primary Dx); Sensorineural hearing loss (SNHL) of both ears Start: 12-31-2023 End: 12-31-2023 ambulatory LORENA BERNSTEIN Facility:[facility] Start: 12-31-2023 End: 12-31-2023 Patient encounter procedure Lorena Bernstein MD Work Phone: Otolaryngology Comment on above: Asymmetrical sensori neural hearing loss (Primary Dx); Tinnitus, left ear; Balance problem; Vestibular hypofunction of left ear; Sensorineural hearing loss (SNHL) of both ears; Need for pneumococcal vaccine Start: 12-24-2023 End: 12-24-2023 ambulatory HERNAN HAMMOND Facility:[facility] Start: 12-24-2023 End: 12-24-2023 Patient encounter procedure Hernan Hammond AuD, CCC-A Work Phone: Audiology Comment on above: 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); Tinnitus of left ear; Vertigo Start: 12-12-2023 End: 12-12-2023 Telephone encounter Russell Parra APRN.CNP Work Phone: Otolaryngology Comment on above: Appointment Start: 12-02-2023 End: 12-12-2023 Telephone encounter Russell Parra APRN.CNP Work Phone: Otolaryngology Comment on above: Results Start: 11-28-2023 End: 11-28-2023 ambulatory MARILU HOU Facility:[facility] Start: 11-28-2023 End: 11-28-2023 Patient encounter procedure Marilu CROWLEY Work Phone: Audiology Comment on above: 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); Tinnitus of left ear; Ear pressure, right; Dizziness Start: 11-26-2023 End: 11-26-2023 ambulatory RUSSELL PARRA Facility:[facility] Start: 11-26-2023 End: 11-26-2023 Patient encounter procedure Hernan Crowley, [facility] Work Phone: Audiology Comment on above: Impacted cerumen of left ear (Primary Dx); Left-sided tinnitus; Vertigo Asymmetrical sensori neural hearing loss (Primary Dx); Tinnitus, left ear; Balance problem; Vestibular hypofunction of left ear; Impacted cerumen of left ear Start: 11-16-2023 End: 11-18-2023 Refayah Winn DO Work Phone: [facility] Comment on above: Primary insomnia (Pr imary Dx) Start: 11-04-2023 Non-patient / Non-visit ROSETTA Bruno Work Phone: [facility] Physician [facility] Gastroenterology Work Phone: Start: 11-04-2023 End: 11-04-2023 Admission to same day surgery center ROSETTA Bruno Work Phone: [facility] Work Phone: Start: 11-04-2023 End: 11-04-2023 ambulatory ROSETTA Bruno Work Phone: [facility] Work Phone: Start: 10-28-2023 End: 10-28-2023 Patient encounter procedure ROSETTA Bruno Work Phone: [facility] Physician [facility] Work Phone: Start: 05-06-2023 Non-patient / Non-visit ROSETTA Bruno Work Phone: [facility] G[facility] Work Phone: Start: 05-06-2023 End: 05-06-2023 Admission to same day surgery center COLLECTIONS ANALYST Rosario Kiana Work Phone: [facility] Work Phone: Start: 05-06-2023 End: 05-06-2023 ambulatory COLLECTIONS ANALYST Rosario Kiana Work Phone: [facility] Work Phone: Start: 03-25-2023 End: 03-25-2023 ambulatory Imad Asaad Other [employer] Other Start: 03-25-2023 Telephone encounter Imad Asaad [facility] [employer] [facility] Start: 03-18-2023 End: 03-18-2023 ambulatory Rosario Bruno Other [employer] Other Start: 03-18-2023 Telephone encounter Rosario Dohertyalvino her [facility] Start: 03-14-2023 End: 03-14-2023 ambulatory COLLECTIONS ANALYST Rosario Kiana Work Phone: [facility] Work Phone: Start: 03-14-2023 End: 03-14-2023 Patient encounter procedure COLLECTIONS ANALYST Rosariovanna Bruno Work Phone: [facility] [place] Work Phone: Start: 03-13-2023 End: 03-13-2023 ambulatory Rosario Kiana Other [employer] Other Start: 03-13-2023 Telephone encounter Rosario Dohertydaquanjennifer her [facility] Start: 03-12-2023 End: 03-12-2023 ambulatory Rosario Kiana Other [employer] Other Start: 03-12-2023 Office outpatient ne w 30 minutes Rosario Bruno [facility] Start: 03-12-2023 End: 03-12-2023 Patient encounter procedure COLLECTIONS ANALYSTRalph Bruno Work Phone: [facility] Physician [facility] Work Phone: Procedures Date Procedure Procedure Detail Performing Clinician Start: 07-14-2024 Gluc bld gluc mntr d ev cleared fda spec home use Devora Arvizu MD Work Phone: Start: 06-17-2024 Nerve conduction jeovanny dies 7-8 studies Eli Dubose MD Work Phone: Start: 06-09-2024 Gluc bld gluc mntr d ev cleared fda spec home use Devora Arvizu MD Work Phone: Start: 02-04-2024 Mri brain brain stem w/o w/contrast material Lorena Rhoda Bernstein MD Work Phone: Start: 02-04-2024 Ecg routine ecg w/le ast 12 lds i&r only Nia Montoya COLLECTIONS ANALYST.LENDING CONSULTANT Work Phone: Start: 11-28-2023 HEARING TEST/AUDIOGRAM Marilu CROWLEY Work Phone: Start: 11-26-2023 HEARING TEST/AUDIOGRAM Hernan Crowley, [facility] Work Phone: Start: 11-04-2023 Screening colonoscopy A PRN Rosario Bruno Work Phone: Start: 11-04-2023 Colonoscopy Fatemeh 1 Start: 05-06-2023 Screening colonoscopy A PRN Rosario Bruno Work Phone: Plan of Treatment Date Care Activity Detail Author Start: 11-03-2033 Screening for malignant neoplasm of colon [facility] Start: 11-15-2024 Influenza vaccination Influenz a Vaccine (Season Ended) [facility] Start: 07-14-2024 End: 07-14-2024 Patient encounter procedure 07/14/2024 10:20 AM EDT Office Visit [facility] [address] [place] [phone] Devora Arvizu MD [address] [place] [address] [facility] Start: 07-08-2024 Insulin C-peptide measurement [facility] Start: 07-01-2024 End: 07-01-2024 Patient encounter procedure [facility] Start: 06-09-2024 End: 06-09-2025 25-hydroxyvitamin D3 [Mass/volume] in Serum or Plasma Vitamin D 25 hydroxy Total Lab Routine Type 2 diabetes mellitus with hyperglycemia, without long-term current use of insulin ([facility]) Expected: 06/09/2024 (Approximate), Expires: 06/09/2025 [facility] Comment on above: Expected: 06/09/2024 (Approximate), Expires: 06/09/2025 Start: 06-09-2024 End: 06-09-2025 C-peptide C-peptide Lab Routine Type 2 diabetes mellitus with hyperglycemia, without long-term current use of insulin ([facility]) Expected: 06/09/2024 (Approximate), Expires: 06/09/2025 [facility] Work Phone: Comment on above: Expected: 06/09/2024 (Approximate), Expires: 06/09/2025 Start: 06-09-2024 End: 06-09-2025 Lipid 1996 panel - Serum or Plasma Lipid panel Lab Routine Type 2 diabetes mellitus with hyperglycemia, without long-term current use of insulin ([facility]/HCC) Expected: 06/09/2024 (Approximate), Expires: 06/09/2025 [facility] Comment on above: Expected: 06/09/2024 (Approximate), Expires: 06/09/2025 Start: 06-09-2024 End: 06-09-2025 Microalbumin/Creatinin e panel in random Urine Microalbumin / creatinine urine ratio Lab Routine Type 2 diabetes mellitus with hyperglycemia, without long-term current use of insulin (CMS/HCC) Expected: 06/09/2024 (Approximate), Expires: 06/09/2025 [facility] Comment on above: Expected: 06/09/2024 (Approximate), Expires: 06/09/2025 Start: 06-09-2024 End: 06-09-2025 Renal function panel Renal function panel Lab Routine Type 2 diabetes mellitus with hyperglycemia, without long-term current use of insulin ([facility]) Expected: 06/09/2024 (Approximate), Expires: 06/09/2025 [facility] Comment on above: Expected: 06/09/2024 (Approximate), Expires: 06/09/2025 Start: 06-02-2024 End: 06-02-2024 Patient encounter procedure 06/02/2024 1:00 PM EDT Office Visit Audiology [address] [place] [address] Hernan Hammond, AuD, CCC-A [address] [place] [address], [facility] [address] [place] [address] CI ACT Audiology Comment on above: CI ACT Start: 05-24-2024 End: 05-24-2025 EMG & nerve conduction EMG & nerve conduction Neurology Routine Unsteady gait Diabetic polyneuropathy associated with type 2 diabetes mellitus (Multi) Expected: 05/24/2024 (Approximate), Expires: 05/24/2025 [facility] [[email or web address] Service Area Work Phone: Comment on above: Expected: 05/24/2024 (Approximate), Expires: 05/24/2025 Start: 05-24-2024 End: 05-24-2025 MR Brain WO contrast MR brain wo IV contrast Imaging Routine Unsteady gait Expected: 05/24/2024, Expires: 05/24/2025 [facility] Work Phone: Comment on above: Expected: 05/24/2024 , Expires: 05/24/2025 Start: 05-24-2024 End: 05-24-2025 MR Cervical spine WO contrast MR cervical spine wo IV contrast Imaging Routine Unsteady gait Expected: 05/24/2024, Expires: 05/24/2025 [facility] Work Phone: Comment on above: Expected: 05/24/2024 , Expires: 05/24/2025 Start: 05-24-2024 End: 05-24-2025 MR Lumbar spine WO contrast MR lumbar spine wo IV contrast Imaging Routine Unsteady gait Expected: 05/24/2024, Expires: 05/24/2025 [facility] Work Phone: Comment on above: Expected: 05/24/2024 , Expires: 05/24/2025 Start: 05-06-2024 Hemoglobin A1c measurement [facility] Start: 04-05-2024 End: 04-05-2024 Patient encounter procedure Audiology Comment on above: CI ACT Start: 04-02-2024 End: 04-02-2024 Patient encounter procedure 04/02/2024 7:00 AM EST Office Visit Audiology [address] [place] [address] Fifi Mast, AUD [address] [place] [address] vestibular test battery Audiology Comment on above: vestibular test doug kacy Start: 03-08-2024 End: 03-08-2024 Patient encounter procedure 03/08/2024 12:00 PM EST Office Visit Audiology [address] [facility] [place] [address] Hernan Hammond AuD, CCC-A [address] [place] [address] CI ACT Audiology Comment on above: CI ACT Start: 03-03-2024 End: 03-03-2024 Patient encounter procedure 03/03/2024 1:00 PM EST Office Visit Audiology [address] [facility] [place] [address] Hernan Hammond AuD, CCC-A [address] [place] [address] CI ACT Audiology Comment on above: CI ACT Start: 03-01-2024 End: 03-01-2024 Patient encounter procedure 03/01/2024 10:55 AM EST Office Visit Otolaryngology [address] [facility] [address] [place] [id number] Kolby Fernandes PA-C [address] [facility] [address] [place] [id number] HIP POST OP Otolaryngology Comment on above: HIP POST OP Start: 02-20-2024 End: 02-20-2024 Admission to same day surgery center 02/20/2024 10:10 AM EST - 02/20/2024 1:05 PM EST Surgery Ambulatory Surgery [address] [place] [id number] Lorena Beard MD [address] [place] [phone] IMPLANT COCHLEAR DEVICE W/ MASTOIDECTOMY Ambulatory Surgery Comment on above: IMPLANT COCHLEAR DEV ICE W/ MASTOIDECTOMY Start: 02-20-2024 End: 02-20-2024 Cochlear device implantation w/wo mastoidectomy IMPLANT COCHLEAR DEVICE W/ MASTOIDECTOMY Asymmetrical sensorineural hearing loss Sensorineural hearing loss (SNHL) of both ears 02/20/2024 10:10 AM EST [facility] Start: 02-20-2024 Subsequent hospital visit by physician 02/20/2024 10:10 AM EST Hospital Encounter Ambulatory Surgery [address] [place] [id number] Lorena Beard MD [address] [place] [phone] Asymmetrical sensorineural hearing loss [H90.3], Sensorineural hearing loss (SNHL) of both ears [H90.3] Ambulatory Surgery Comment on above: Asymmetrical sensori neural hearing loss [H90.3], Sensorineural hearing loss (SNHL) of both ears [H90.3] Start: 02-20-2024 End: 02-20-2024 Admission to same day surgery center 02/20/2024 7:30 AM EST - 02/20/2024 10:10 AM EST Surgery Ambulatory Surgery [address] [place] [id number] Lorena Beard MD [address] [facility] 1st [place] [address] IMPLANT COCHLEAR DEVICE W/ MASTOIDECTOMY Ambulatory Surgery Comment on above: IMPLANT COCHLEAR DEV ICE W/ MASTOIDECTOMY Start: 02-20-2024 End: 02-20-2024 Cochlear device implantation w/wo mastoidectomy IMPLANT COCHLEAR DEVICE W/ MASTOIDECTOMY Asymmetrical sensorineural hearing loss Sensorineural hearing loss (SNHL) of both ears 02/20/2024 7:30 AM EST [facility] Start: 02-20-2024 Subsequent hospital visit by physician Ambulatory Surgery Comment on above: Asymmetrical sensori neural hearing loss [H90.3], Sensorineural hearing loss (SNHL) of both ears [H90.3] Start: 02-05-2024 End: 02-05-2024 Patient encounter procedure 02/05/2024 10:00 AM EST Office Visit Audiology [address] [address] Nupur Lai, AUD [address] [place] [address] group DS Audiology Comment on above: group DS Start: 02-04-2024 End: 05-05-2024 Basic metabolic 2000 panel - Serum or Plasma [facility] Work Phone: Comment on above: Expected: 02/04/2024 , Expires: 05/05/2024 Start: 02-04-2024 End: 05-05-2024 CBC panel - Blood by Automated count [facility] Comment on above: Expected: 02/04/2024 , Expires: 05/05/2024 Start: 02-04-2024 End: 05-05-2024 Hemoglobin A1c in Blood [facility] Comment on above: Expected: 02/04/2024 , Expires: 05/05/2024 Start: 02-04-2024 End: 02-04-2024 Patient encounter procedure 02/04/2024 1:20 PM EST Appointment Radiology MRI [address] [place], [place] [id number] Asymmetrical sensorineural hearing loss [H90.3]; Tinnitus, left ear [H93.12]; Balance problem [R26.89]; Vestibular hypofunction of left ear [H83.2X2]; Sensorineural hearing loss (SNHL) of both ears [ Radiology MRI Comment on above: Asymmetrical sensori neural hearing loss [H90.3]; Tinnitus, left ear [H93.12]; Balance problem [R26.89]; Vestibular hypofunction of left ear [H83.2X2]; Sensorineural hearing loss (SNHL) of both ears [ Start: 01-15-2024 End: 01-15-2024 Patient encounter procedure 01/15/2024 4:00 PM EDT Office Visit Audiology [address] [facility] [address] [place] [address] Jo-Ann Mahajan, PhD [address] [place] [address] vestibular test battery Audiology Comment on above: vestibular test doug kacy Start: 01-14-2024 End: 01-14-2024 Patient encounter procedure 01/14/2024 2:30 PM EDT Office Visit Otolaryngology [address] [facility] 100 [place] [address] [place] [address] [place] [address], [place] [address] Implant Eval review Otolaryngology Comment on above: Implant Eval review Start: 12-31-2023 End: 12-31-2023 Patient encounter procedure 12/31/2023 10:30 AM EDT Office Visit Otolaryngology [address] [facility] [address] [place] [address] [place] [address] [place] [address], [place] [address] Implant Eval review Otolaryngology Comment on above: Implant Eval review Start: 12-24-2023 End: 12-24-2023 Patient encounter procedure 12/24/2023 1:00 PM EDT Office Visit Audiology [address] [place] [address] Hernan Hammond, AuD, CCC-A [address] [facility] [place], [place] [phone] Dx: Asymmetric sensorineural deafness [H90.3]; Tinnitus, right ear [H93.11] Audiology Comment on above: Dx: Asymmetric senso rineural deafness [H90.3]; Tinnitus, right ear [H93.11] Start: 11-28-2023 End: 11-28-2023 Patient encounter procedure 11/28/2023 11:30 AM EDT Office Visit Audiology [address] [address] Marilu Hou, [place] [address] [place] [address] Audiogram Audiology Comment on above: Audiogram Start: 11-16-2023 COVID-19 Vaccine ( season) COVID-19 Vaccine ( season) [facility] Start: 11-16-2023 Covid-19 Vaccine ( season) Covid-19 Vaccine ( season) [facility] Start: 11-16-2023 Covid-19 Vaccine ( season) Covid-19 Vaccine ( season) [facility] Start: 11-16-2023 Influenza vaccination Influenza Vacc ine (#1) [facility] Start: 11-04-2023 [facility] Start: 10-28-2023 Patient referral [facility] Work Phone: Start: 09-18-2023 Shingrix Vaccine (2 of 2) Shingrix Vaccine (2 of 2) [facility] Start: 09-18-2023 Zoster Vaccines (2 o f 2) Zoster Vaccines (2 of 2) [facility] Start: 05-06-2023 [facility] Start: 2015 Diabetes Screening Diabetes Screenin g [facility] Start: 2015 Screening for malignant neoplasm of colon [facility] Start: 04-12-2011 Pneumococcal vaccination Pneumococcal Vaccine (2 of 2 - PCV) [facility] Start: 2005 Lipid panel Lipid Screening [facility] Start: 01-07-1992 DTaP/Tdap/Td Vaccine s (1 - Tdap) DTaP/Tdap/Td Vaccines (1 - Tdap) [facility] Start: 1989 Hepatitis B Vaccine (1 of 3 - 19+ 3-dose series) Hepatitis B Vaccine (1 of 3 - 19+ 3-dose series) [facility] Start: 1989 Hepatitis B Vaccines (1 of 3 - 19+ 3-dose series) Hepatitis B Vaccines (1 of 3 - 19+ 3-dose series) [facility] Start: 1989 Urine microalbumin profile DTaP,Tdap,Td Vaccine (1 - Tdap) [facility] Start: 01-07-1988 Annual PCP Team Chronic Disease Visit Annual PCP Team Chronic Disease Visit [facility] Start: 01-07-1988 Anxiety Screening Anxiety Screening [facility] Start: 01-07-1988 Depression Screening Depression Scre ening [facility] Start: 01-07-1988 Hepatitis B surface antibody level LDL Cholesterol [facility] Start: 01-07-1988 Hepatitis C screening Hepatitis C Sc reening [facility] Start: 01-07-1988 HIV screening HIV Screening [facility] Start: 01-07-1980 Diabetic foot examination Diabetic Foot Exam [facility] Start: 01-07-1980 Glaucoma screening [facility] Start: 01-07-1980 Hepatitis B screening Urine Albumin:Creatinine Ratio [facility] Start: 1975 Hemoglobin A1c measurement HbA1C [facility] Start: 1971 MMR Vaccines (1 of 1 - Standard series) MMR Vaccines (1 of 1 - Standard series) [facility] Start: 1970 HIV screening HIV Screening [facility] Start: 1970 Lipid panel Lipid Panel [facility] Start: 1970 Screening for malignant neoplasm of colon [facility] Start: 1970 Urine screening for protein Diabetes: Urine Protein Screening [facility] Start: 1970 Yearly Adult Physical Yearly Adult P hysical [facility] Cochlear device implantation w/wo mastoidectomy IMPLANT COCHLEAR DEVICE W/ MASTOIDECTOMY Asymmetrical sensorineural hearing loss Sensorineural hearing loss (SNHL) of both ears [facility] End: 04-29-2025 CT Temporal bone WO contrast CT TEMP BONES WO IVCON Radiology Routine Asymmetrical sensorineural hearing loss Tinnitus, left ear Balance problem Vestibular hypofunction of left ear 1 Occurrences starting 03/30/2024 until 04/29/2025 [facility] Work Phone: Comment on above: 1 Occurrences starti ng 03/30/2024 until 04/29/2025 ECG COMPLETE ECG COMPLETE ECG Routine Pre-op evaluation 02/04/2024 8:44 AM EST [facility] End: 01-29-2025 MR Brain WO and W contrast IV MRI BRAIN WO/W IVCON Radiology Routine Asymmetrical sensorineural hearing loss Tinnitus, left ear Balance problem Vestibular hypofunction of left ear Sensorineural hearing loss (SNHL) of both ears 1 Occurrences starting 12/31/2023 until 01/29/2025 [facility] Comment on above: 1 Occurrences starti ng 12/31/2023 until 01/29/2025 End: 07-01-2024 MR Brain WO contrast [facility] [[email or web address]] Service Area Work Phone: Comment on above: Once for 1 Occurrenc es starting 07/01/2024 until 07/01/2024 End: 07-01-2024 MR Cervical spine WO contrast [facility] [[email or web address]] Service Area Work Phone: Comment on above: Once for 1 Occurrenc es starting 07/01/2024 until 07/01/2024 End: 07-01-2024 MR Lumbar spine WO contrast [facility] [[email or web address]] Service Area Work Phone: Comment on above: Once for 1 Occurrenc es starting 07/01/2024 until 07/01/2024 Patient Education [facility] Work Phone: Patient referral [facility] Work Phone: [facility] VESTIBULAR TEST BATTERY VESTIBULAR TEST BATTERY Audiology Routine Asymmetrical sensorineural hearing loss Tinnitus, left ear Balance problem Vestibular hypofunction of left ear Sensorineural hearing loss (SNHL) of both ears Ordered: 12/31/2023 [facility] Work Phone: Comment on above: Ordered: 12/31/2023 XR Shoulder - right Views [facility] Immunizations Immunization Date Immunization Notes Care Provider Blane caraballo 12-31-2023 pneumococcal conjuga te (PCV20) vaccine, 20 valent (PREVNAR 20) Lorena Bernstein MD Work Phone: [facility] 12-31-2023 pneumococcal Conjuga te, unspecified formulation Lorena Bernstein MD Work Phone: [facility] 07-24-2023 zoster vaccine recombinant Lorena Bernstein MD Work Phone: [facility] 07-20-2020 COVID-19 original vaccine, age 12+ yr, monovalent (PFIZER-BIONTECH - PURPLE TOP) Lorena Bernstein MD Work Phone: [facility] 06-27-2020 COVID-19 original vaccine, age 12+ yr, monovalent (PFIZER-BIONTECH - PURPLE TOP) Lorena Bernstein MD Work Phone: [facility] 02-04-2019 influenza, injectabl e, quadrivalent, preservative free Lorena Bernstein MD Work Phone: [facility] 02-04-2019 influenza virus vacc ine, unspecified formulation Hernan Crowley, [facility] Work Phone: [facility] 04-12-2010 pneumococcal polysaccharide vaccine, 23 valent Lorena Bernstein MD Work Phone: [facility] Payers Date Payer Category Payer Self-pay 2023 Unknown [facility] MEDICAID [id number] 2023-Present [address] [place] [address] [id number] 2023 Medicaid [id number] 2023 Medicaid [id number] 1970 Unknown [id number] 1244 1970 Unknown [id number] 1246 1970 Unknown [id number]. 1246 1970 Unknown [id number] 1246 1970 Unknown [id number] 1246 1970 Unknown [id number]. 1259 1970 Unknown [id number] 1259 Private Health Insurance [facility] [id number] Unknown [id number] 531 Unknown [id number] 531 Unknown [id number] 531 Social History Date Type Detail Facility Start: 11-26-2023 End: 05-24-2024 Sex Assigned At [facility] Other Start: 1970 Sex Assigned At Male [facility] Start: 05-06-2023 End: 11-04-2023 Tobacco smoking status NHIS Smoker (finding) [facility] Start: 11-26-2023 End: 05-24-2024 Tobacco smoking status DCIS Smokes tobacco daily [facility] History of tobacco use Cigarette Smoker [facility] Start: 11-26-2023 End: 05-24-2024 Tobacco use and exposure User of smokeless tobacco [facility] History of tobacco use Snuff User [facility] Start: 11-26-2023 End: 05-24-2024 Alcoholic beverage intake Ex-drinker (finding) [facility] Start: 11-26-2023 End: 05-24-2024 History of Social function [facility] Start: 1970 Sex assigned at Not on file [facility] National Score (1-100), lower number is lower risk 80 [facility] Tobacco smoking status NHIS Tobacco smoking consumption unknown [facility] History of tobacco use Passive smoker [facility] Work Phone: History of tobacco use Chews Tobacco [facility] Work Phone: Start: 05-14-2024 End: 07-01-2024 Exposure to SARS-CoV-2 (event) Not sure [facility] Start: 07-09-2024 End: 07-29-2024 Sex Male (finding) [facility] Medical Equipment Procedure Code Equipment Code Equipment Origin al Text Equipment Identifier Dates Start: 03-19-2023 Goals Date Patient Goal Desired Activity /State Clinical Notes 03-12-2023 to 07-22-2024 Note Date & Type Note Facility 07-22-2024 Evaluation note Diagnosis Onset Date Resolution Current every day smoker acute July 22, 2024 11 :32am Foot ulcer, left acute July 22, 2024 11:32am PAD (peripheral artery disease) acute July 22, 2024 11 :32am Right foot ulcer acute July 22, 2024 11:32am Diarrhea acute July 29, 2024 1:02pm Right upper quadrant abdominal pain acute July 29, 2024 1 :02pm Type 2 diabetes mellitus without complication, without long-term current acute July 29, 2 025 1:02pm [facility] Work Phone: 1(249) 955-140304-30-2025 History of Present illness Narrative* Devora Arvizu MD - 07/14/2024 10:20 AM EDT Freddy Jorge is a 54 y.o. male Devora Arvizu MD presents with chief complaint of Diabetes Mellitus and Follow-up HPI: History of Present Illness The patient is a 54-year-old male who presents for follow-up of diabetes. The chief complaint is diabetes management. He reports satisfactory blood glucose levels, typicallyranging between 120 and 130. He has not yet utilized the continuous glucose monitor (CGM) due to technical difficulties with his phone, which he plans to resolve with his sister's assistance. He has been advised to increase his physical activity, which he has attempted by walking his dog. However, this has resulted in the development of foot sores, prompting him to invest in high-quality footwear. Current diabetes medications include metformin 1000 mg twice daily, Trulicity 3 mg, Jardiance, and Toujeo insulin at a dosage of 28 units. A healed ulcer is present on the dorsum of his left foot, and he plans to see a vascular surgeon. 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 he is on antibiotics from urgent care, currently he is on metformin started recently, Trulicity 1.5 mg once weekly used to be on Ozempic, Jardiance 25 mg once daily,never been on insulin, we will check his blood sugars by fingerstick SUBJECTIVE: MEDICATIONS: Current Outpatient Medications Medication Instructions Auvelity 45-105 MG tablet controlled-release 1 tablet, 2 times daily Blood Glucose Monitoring Suppl (ONE TOUCH ULTRA 2) w/Device kit Cobalamin Combinations (Vitamin Y03-Rubyc Acid) 500-400 MCG tablet 1 tablet, Daily Continuous Glucose Sensor (FreeStyle Carina 3 Plus Sensor) misc 1 Bar, Does not apply, Every 15 Days doxepin (SINEquan) 10 MG capsule TAKE 1 TO 2 CAPSULES BY MOUTH EVERY DAY AT BEDTIME empagliflozin (JARDIANCE) 25 mg, Daily RT FLUoxetine (PROZAC) 40 mg, Daily insulin glargine (TOUJEO SOLOSTAR (1 UNIT DIAL)) 30 Units, Subcutaneous, Nightly metFORMIN (GLUCOPHAGE) 500 mg, 2 times daily with meals OneTouch Ultra test strip 1 each, As needed pravastatin (PRAVACHOL) 10 mg, Daily Trulicity 3 mg, Subcutaneous, Every 7 days ALLERGIES: Allergies Allergen Reactions Lactose GI intolerance Latex Itching Past Medical History: Diagnosis Date Anxiety Asymmetrical sensorineural hearing loss Cerumen impaction Cigarette nicotine dependence without complication Decreased hearing Depression ([facility]/HCC) Hearing loss, right Hyperglycemia due to diabetes mellitus ([facility]/HCC) Marijuana use Maxillary sinusitis Mixed hyperlipidemia (CMS/HCC) Mixed hyperlipidemia (CMS/HCC) Neuropathy Non-healing skin lesion Tinnitus, left ear Tooth infection Type 2 diabetes mellitus with diabetic neuropathy ([facility]/HCC) Type 2 diabetes mellitus without complication, without long-term current use of insulin ([facility]) Vestibular hypofunction of left ear Past Surgical History: Procedure Laterality Date MOUTH SURGERY REVIEW OF SYMPTOMS: 14 POINT OF SYSTEM REVIEWED AND NEGATIVE OBJECTIVE: Constitutional: Afebrile @ home; no weakness or night sweats SKIN: No change in skin color; no itching, rash or lesions; no hair loss; HEENT: No HAs or injury; no dizziness; No difficulty with vision; no eye pain, discharge or lesions; no hearing loss or difficulty; no nasal discharge, NECK: No pain, limitation of motion, lumps or swollen glands RESP: No cough, wheezing or difficulty breathing. No CP with breathing; CARDIO: No CP , SOB or fatigue, No edema, palpitations or dyspnea with exertion GI: No N/V/D or abd. pain; good appetite with no recent change. No heart burn, liver or gallbladderdisease; no rectal bleeding or pain : No urinary pain , frequency or odor. MUSCULOSKELETAL: No muscle pain or cramps; no extremity weakness.No joint pain, stiffness, swellingor limitation of movement NEUROLOGY: No H/O seizures, stroke or fainting. No weakness, tremors. Hematology: No bleeding problems or excessive bruising ENDOCRINE: No increase in hunger, thirst or urination; admits compliance to medical management plan Feet: numbness tingling yes , ulcers or skin break no Had ulcer 2 x 2 cm in the dorsum of his foot Lab Results Component Value Date HGBA1C 7.3 07/14/2024 Lab Results Component Value Date GLU 164 07/14/2024 GLU 228 06/09/2024 GLU 249 (H) 02/04/2024 06/09/2024 10:33 AM 07/14/2024 10:37 AM Vitals BMI 33.33 kg/m2 33.89 kg/m2 BSA (m2) 2.33 m2 2.35 m2 Systolic 110 110 Diastolic 68 70 Heart Rate 86 92 SpO2 99 % 99 % Resp 18 18 Height (in) 5' 11 5' 11 Weight (lb) 239 243 Visit Report Report Report ASSESSMENT AND PLAN: Assessment/Plan Diagnoses and all orders for this visit: Type 2 diabetes mellitus with hyperglycemia, without long-term current use of insulin ([facility]) - POCT glucose manually resulted - POCT glycosylated hemoglobin (Hb A1C) docked device Vitamin D deficiency Encounter for dietary consultation Assessment & Plan 1. Diabetes Mellitus: - A1c level has improved to 7.3, and blood glucose is 164. - C-peptide shows 3, kidney function within normal limits, total cholesterol 138, HDL 41, triglycerides 149, LDL 67, vitamin D 30, and microalbumin in good range. - Discussed the current medication regimen, including metformin 1000 mg twice a day, Trulicity 3 mg, Jardiance, and Toujeo insulin 28 units. - Advised to continue current medications, increase Toujeo up to 30 units if needed, and maintain ahealthy diet and regular exercise. 2. Foot ulcer: Resolved - Healed ulcer on the dorsum of the left foot. - Physical exam confirms the ulcer is healed. - Plan to see a vascular surgeon for further evaluation and management. - No new prescriptions needed today. Follow-up: The patient will follow up in 4 months. documented in this encounterSaint [facility] [id number] History of Present illness Narrative* Devora Arvizu MD - 06/09/2024 10:40 AM EDT Freddy Jorge is a 54 y.o. 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 he is on antibiotics from urgent care, currently he is on metformin started recently, Trulicity 1.5 mg once weekly used to be on Ozempic, Jardiance 25 mg once daily,never been on insulin, we will check his blood sugars by fingerstick SUBJECTIVE: MEDICATIONS: Current Outpatient Medications Medication Instructions Auvelity 45-105 MG tablet controlled-release 1 tablet, 2 times daily Blood Glucose Monitoring Suppl (ONE TOUCH ULTRA 2) w/Device kit USE TO TEST BLOOD GLUCOSE TWICE A DAY NEEDED FOR TYPE 2 DIABETES Cobalamin Combinations (Vitamin U34-Ldtex Acid) 500-400 MCG tablet 1 tablet, Daily Continuous Glucose Sensor (FreeStyle Carina 3 Plus Sensor) misc 1 Bar, Does not apply, Every 15 Days doxepin (SINEquan) 10 MG capsule TAKE 1 TO 2 CAPSULES BY MOUTH EVERY DAY AT BEDTIME empagliflozin (JARDIANCE) 25 mg, Daily RT FLUoxetine (PROZAC) 40 mg, Daily insulin glargine (TOUJEO SOLOSTAR (1 UNIT DIAL)) 30 Units, Subcutaneous, Nightly metFORMIN (GLUCOPHAGE) 500 mg, 2 times daily with meals OneTouch Ultra test strip 1 each, As needed pravastatin (PRAVACHOL) 10 mg, Daily Trulicity 3 mg, Subcutaneous, Every 7 days ALLERGIES: Allergies Allergen Reactions Lactose GI intolerance Latex Itching Past Medical History: Diagnosis Date Anxiety Asymmetrical sensorineural hearing loss Cerumen impaction Cigarette nicotine dependence without complication Decreased hearing Depression (CMS/HCC) Hearing loss, right Hyperglycemia due to diabetes mellitus (CMS/HCC) Marijuana use Maxillary sinusitis Mixed hyperlipidemia (CMS/HCC) Mixed hyperlipidemia (CMS/HCC) Neuropathy Non-healing skin lesion Tinnitus, left ear Tooth infection Type 2 diabetes mellitus with diabetic neuropathy (CMS/HCC) Type 2 diabetes mellitus without complication, without long-term current use of insulin (CMS/HCC) Vestibular hypofunction of left ear Past Surgical History: Procedure Laterality Date MOUTH SURGERY REVIEW OF SYMPTOMS: 14 POINT OF SYSTEM REVIEWED AND NEGATIVE OBJECTIVE: Constitutional: Afebrile @ home; no weakness or night sweats SKIN: No change in skin color; no itching, rash or lesions; no hair loss; HEENT: No HAs or injury; no dizziness; No difficulty with vision; no eye pain, discharge or lesions; no hearing loss or difficulty; no nasal discharge, NECK: No pain, limitation of motion, lumps or swollen glands RESP: No cough, wheezing or difficulty breathing. No CP with breathing; CARDIO: No CP , SOB or fatigue, No edema, palpitations or dyspnea with exertion GI: No N/V/D or abd. pain; good appetite with no recent change. No heart burn, liver or gallbladderdisease; no rectal bleeding or pain : No urinary pain , frequency or odor. MUSCULOSKELETAL: No muscle pain or cramps; no extremity weakness.No joint pain, stiffness, swellingor limitation of movement NEUROLOGY: No H/O seizures, stroke or fainting. No weakness, tremors. Hematology: No bleeding problems or excessive bruising ENDOCRINE: No increase in hunger, thirst or urination; admits compliance to medical management plan Feet: numbness tingling yes , ulcers or skin break no Had ulcer 2 x 2 cm in the dorsum of his foot No results found for: HGBA1C Lab Results Component Value Date GLU 228 06/09/2024 GLU 249 (H) 02/04/2024 Visit Vitals BP 110/68 Pulse 86 Resp 18 Ht 5' 11 Wt 239 lb SpO2 99% BMI 33.33 kg/m BSA 2.33 m ASSESSMENT AND PLAN: Assessment/Plan Diagnoses and all orders for this visit: Type 2 diabetes mellitus with hyperglycemia, without long-term current use of insulin ([facility]) - POCT glucose manually resulted - Dulaglutide (Trulicity) 3 MG/0.5ML solution auto-injector; Inject 3 mg under the skin every 7 (seven) days - insulin glargine (Toujeo Solostar, 1 unit dial,) 300 UNIT/ML injection; Inject 30 Units under theskin at bedtime - Continuous Glucose Sensor (FreeStyle Carina 3 Plus Sensor) misc; 1 Bar Every 15 Days - C-peptide; Future - Vitamin D 25 hydroxy Total; Future - Microalbumin / creatinine urine ratio; Future - Lipid panel; Future - Renal function panel; Future I will increase metformin to 1000 twice a day, increase Trulicity to 3 mg once weekly, continue with Jardiance 25 mg once a day, start Toujeo 20 units increase up to 30 units, to keep blood sugar less than 150, I will send him CGM freestyle 3, and we will see him in 6 weeks. Vitamin D deficiency Encounter for dietary consultation Class 1 obesity due to excess calories with serious comorbidity and body mass index (BMI) of 33.0 to 33.9 in adult Diet and exercise reviewed with the patient Follow up in about 6 weeks (around 07/21/2024). documented in this encounterSaint Joseph Hospital of [id number] History of Present illness Narrative* Eli Dubose MD - 05/24/2024 9:45 AM EDT Subjective Freddy Jorge 54 y.o. 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 The patient saw an ENT and subsequently had an MRI of the brain and was told he had either an infection, scarring or a brain tumor. He had a second opinionand was told that he had a tooth infection that went to his left ear and causes hearing loss. He was also told that it went to his brain. The patient states that since that time he has had hearing loss and is going to get a left-sided cochlear implant. The patient states that his walking is intermittently unsteady. He feels that at times he is shuffling and feels that the symptoms are significantly worse of his eyes are closed. The patient denies any problems with coordination in his upper extremities. The patient denies that he is weak in his upper or lower extremities. The patient states that he has had diabetes for about 15 years and does have numbness in his lower extremities bilaterally. The patient states that he has a history of multiple concussions. He does have an intermittent headache that is mostly in the back of his head. He rates it at approximately a 2-3 out of 10 in severity. He denies any neck pain. He states that he has some intermittent back pain and will see a chiropractor about every 5 years. The patient states that he fell about 3 weeks ago and bruised his sternum. He feels that his unsteady gait is getting progressively worse. The patient was having a little bit of urinary urinary and fecal incontinence. The patient has decree sensation to Review of Systems Neurological: Positive for weakness. All other systems reviewed and are negative. There is no problem list on file for this patient. Past Medical History: Diagnosis Date Sleep apnea History reviewed. No pertinent surgical history. Social History Socioeconomic History Marital status: Spouse name: Not on file Number of children: Not on file Years of education: Not on file Highest education level: Not on file Occupational History Not on file Tobacco Use Smoking status: Every Day Types: Cigarettes Passive exposure: Current Smokeless tobacco: Current Types: Chew Vaping Use Vaping status: Every Day Substance and Sexual Activity Alcohol use: Not Currently Drug use: Never Sexual activity: Not on file Other Topics Concern Not on file Social History Narrative Not on file Social Drivers of Health Financial Resource Strain: Not on file Food Insecurity: Not on file Transportation Needs: Not on file Physical Activity: Not on file Stress: Not on file Social Connections: Not on file Intimate Partner Violence: Not on file Housing Stability: Not on file Family History Problem Relation Name Age of Onset Memory loss Mother Lupus Mother Memory loss Maternal Grandfather Parkinsonism Paternal Grandfather Current Outpatient Medications Medication Instructions Auvelity 45-105 mg tablet, IR and ER, biphasic 1 tablet, 2 times daily doxepin (SINEQUAN) 10 mg, Nightly empagliflozin (JARDIANCE) 25 mg, Daily RT metFORMIN (GLUCOPHAGE) 1,000 mg, 2 times daily (morning and late afternoon) pravastatin (PRAVACHOL) 10 mg, Daily RT Trulicity 1.5 mg, Weekly No Known Allergies Objective BP 122/78 (BP Location: Right arm) Pulse 90 Temp 36 C (96.8 F) Resp 16 Ht 1.803 m (5' 11 ) Wt 110 kg (243 lb) BMI 33.89 kg/m GENERAL APPEARANCE: No distress, alert and cooperative. CARDIOVASCULAR: Regular, rate and rhythm, without murmur. No carotid bruits. Pulses +2 and equal inall extremities. No edema, or tenderness to palpation. MENTAL STATE: Orientation was normal to time, place and person. Recent and remote memory was intact. Attention span and concentration were normal. Language testing was normal for comprehension, repetition, expression, and naming. Calculation was intact. The patient could correctly interpret a picture, and copy a diagram. General fund of knowledge was intact. Mini-mental status examination was performed with no errors. OPHTHALMOSCOPIC: The ophthalmoscopic exam normal. The fundi were well visualized with normal disc margins, clear vessels and vascular pulsations. No disc edema. The cup/disk ratio was not enlarged. No hemorrhages or exudates were present in the posterior segments that were visualized. CRANIAL NERVES: Cranial nerves were normal. CN 2- Visual Acuity OD: 20/20 (corrected) OS: 20/20 (corrected); visual lilly full to confrontation. CN 3, 4, 6- Pupils round, 4 mm in diameter, equally reactive to light. No ptosis. EOMs normal alignment, full range of movement, no nystagmus CN 5- Facial sensation intact bilaterally. Normal corneal reflexes. CN 7- Normal and symmetric facial strength. Nasolabial folds symmetric. CN 8- Hearing intact to finger rub, whisper in the right ear but there is no hearing in his left ear. CN 9- Palate elevates symmetrically. Normal gag reflex. CN 11- Normal strength of shoulder shrug and neck turning CN 12- Tongue midline, with normal bulk and strength; no fasciculations. MOTOR: Motor exam was normal. Muscle bulk and tone were normal in both upper and lower extremities.Muscle strength was 5/5 in distal and proximal muscles in both upper and lower extremities. No fasciculations, tremor or other abnormal movements were present. REFLEXES: Right/ Left: Biceps 2/2, brachioradialis 2/2, triceps 2/2, patellar 2/2, ankle 2/2 Babinski: toes downgoing to plantar stimulation. No clonus, frontal release signs or other pathologic reflexes present. SENSORY: The patient has decreased sensation to vibration sense in the lower extremities bilaterally in a length dependent manner. COORDINATION: QUANG were intact in upper and lower extremities. In UE- [id number] was intact and in LE- [id number] was intact without dysmetria or overshoot. GAIT: The patient's station was normal. He does have a positive Romberg. He has a steady gait. Assessment/Plan Impression: The patient is a 54-year-old male with a long history of diabetes and hearing loss in his left ear who presents with sore throat and ambulation. His neurological examination is abnormal and noted above. The differential diagnosis for his unsteady gait includes diabetic polyneuropathy, cervical stenosis, lumbar stenosis and cerebral infarction. Plan: The patient needs MRIs of the brain, cervical and lumbar spines. The patient needs a right upper and lower extremity EMG nerve conduction study. The patient needs tight blood sugar control. The patient should continue stroke risk factor modification. The patient needs to stop smoking cigarettes and chewing tobacco. I would like the patient to start aspirin 81 mg a day. The patient needs to stay as active as he can both mentally and physically. I discussed all these issues in detail with the patient and answered all of his questions. The patient follow-up with the [facility] in 4 months. [facility] Work Phone: [phone]) 802-387203-10-2025 Instructions* Patient Instructions* Eli Dubose MD - 05/24/2024 9:45 AM EDT The patient needs MRIs of the brain, cervical and lumbar spines. The patient needs a right upper and lower extremity EMG nerve conduction study. The patient needs tight blood sugar control. The patient should continue stroke risk factor modification. The patient needs to stop smoking cigarettes and chewing tobacco. I would like the patient to start aspirin 81 mg a day. The patient needs to stay as active as he can both mentally and physically. I discussed all these issues in detail with the patient and answered all of his questions. The patient follow-up with the [facility] in 4 months. [facility]Pro[facility] Work Phone: 1(307) 549-768802-25-2025 Telephone encounter Note* Telephone Encounter - Shira Issa - 05/11/2024 9:14 AM EST Reaching out to Freddy to see if he is interested in pursuing the cochlear implant again and whether his PCP feels that his diabetes is under control. Dr. Rhoda Bernstein needs his latest HgA1c resultand for him to schedule a CT. Left vm. Shira Issa Hearing Implant Shop Foreman [facility]02-25-2025 Miscellaneous Notes* Telephone Encounter - Shira Issa - 05/11/2024 9:14 AM EST Reaching out to Freddy to see if he is interested in pursuing the cochlear implant again and whether his PCP feels that his diabetes is under control. Dr. Rhoda Bernstein needs his latest HgA1c resultand for him to schedule a CT. Left vm. Shira Issa Hearing Implant Shop Foreman documented in this encounterSelect [facility] Evaluation note* Diagnosis Onset Date Resolution Status Admit Date Right shoulder pain acute Janua ry 2024 1:26pm Type 2 diabetes mellitus without complication, without long-term current us acute March 1:26pm [facility] Work Phone: 1(953) 183-705611-22-2024 Telephone encounter Note* Telephone Encounter - Lorena Beard MD - 02/06/2024 12:03 PM EST I spoke with the patient on the phone. I informed him that his cochlear implant will be postponed because preop labs show that his diabetes is not under good control. I informed him that I had spokenwith Dr. Meza his PCP and that he should follow up with Dr. Meza's office for further management ofhis diabetes before we can reschedule the surgery in 2024. 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 He agreed to get a temporal bone CT to further characterize the left ear. Electronically signed by: Lorena Bernstein MD 02/06/2024 12:10 PM [facility]11-22-2024 Miscellaneous Notes* Telephone Encounter - Lorena Beard MD - 02/06/2024 12:03 PM EST I spoke with the patient on the phone. I informed him that his cochlear implant will be postponed because preop labs show that his diabetes is not under good control. I informed him that I had spokenwith Dr. Meza his PCP and that he should follow up with Dr. Meza's office for further management ofhis diabetes before we can reschedule the surgery in 2024. 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 He agreed to get a temporal bone CT to further characterize the left ear. Electronically signed by: Lorena Bernstein MD 02/06/2024 12:10 PM documented in this encounterSelect [facility] History of Present illness Narrative* Nupur Lai, AUD - 02/05/2024 10:00 AM EST Images from the original note were not included. [facility] Section of Allied Hearing, Speech and Balance Services Audiology Device Selection Shared Medical Appointment (SMA) Patient Name: Freddy Jorge Date of : 1970 Visit Date: 02/05/2024 Referred by: Lorena Bernstein MD Patient signed the Shared Medical Waiver Form prior to the start of the session, acknowledging thatthe appointment was a group session and that all information presented in the group by other participants will be kept confidential. The patient was unaccompanied to today's visit. This visit was a 120 minute session that covered a variety of topics including cochlear implant expectations, device-specific information including the selected steel buffer, processor style and accessory options, and recommendations for next steps regarding hearing devices. AUDIOLOGIC & MEDICAL HISTORY (obtained today and from previous chart notes): This patient was referred for the Audiology Device Selection SMA following completion of an audiologic evaluation, cochlear implant evaluation (results below), and an individual consultation with Isabela Bernstein MD. Recall the patient has asymmetric sensorineural hearing loss and is a candidate for cochlear implant in the left ear. The patient has had hearing loss for 4 year(s) and has not beenwearing amplification. The patient does not have residual hearing that could be amplified acoustically in the ear to be implanted, if preserved. Based on the unaided audiogram, a contralateral hearing aid is recommended for bimodal configuration. Audiometric testing was completed at the [facility] on 11/28/2023 with the following results: RIGHT EAR: Hearing Sensitivity: WNL 250-2000 Hz sloping to moderately severe SNHL at 8000 Hz. Word Recognition Score: Excellent (100%). WRS is consistent with hearing sensitivity. Words were presented at 55 dB HL approximates (45-55 dB HL) intensity level for average conversational speech.TheNU-6 Ordered by Difficulty Word List (10 words) was used for testing. LEFT EAR: Hearing Sensitivity: No response at the levels of the equipment 125-8000 Hz. Word Recognition Score: Could not test due to degree of hearing loss. The patient completed a cochlear implant evaluation with Keo Overton on 12/24/2023. Aided speech perception scores revealed: Qkrhdmeit-Alejjma-Urcohilrx Words (CNC) Test Condition List # Phonemes [...] Right Ear 4 88% Bilateral 2 84% COUNSELING: At the time of this SMA, the patient has completed all pertinent medical and audiologic testing forcochlear implantation. They were approved for cochlear implantation at the HIP Team meeting on 01/15/2024. With respect to steel buffer, the care team selected [employer] and a CI632 Slim Modiolar electrode array. Today's appointment consisted of counseling from the mechanical technical service specialist regarding the following aspects ofcochlear implantation: How cochlear implants work and how this differs from traditional amplification Expectations for a cochlear implant recipient relative to speech understanding, sound awareness, etc. We reviewed advantages and limitations of cochlear implantation versus traditional amplification. Need for on-going special services and follow-up programming visits after implantation. Recommendations regarding bimodal listening and new hearing aid technology, if appropriate. Potential for hearing preservation and use of an acoustic component, if warranted. The importance of aural rehabilitation to success with a cochlear implant. Based on the discussion among the mechanical technical service specialist and the patient, the following device was selected: [employer]chlear [employer] Nucleus 8 ([id number]) in sand (color). Selected accessories include Mini Will 2+, Aqua Kit, and USB Vp Care Management. We do not expect that amplification of residual hearing may be possible post-op. An acoustic component was not ordered. Patient was made aware that the implant kit may include wireless accessories and/or Made for iPhoneor Android compatibility that requires pairing/setup. This setup is not included in the programmingof the cochlear implant system and patient is aware of responsibility for managing the setup of these devices, including that the setup fee is not covered by insurance. The patient will be provided contact information for Christina Dean, recipient transportation solutions manager, and a link to schedule an appointment with her at device activation. The patient was registered through [employer]. At the conclusion of today's counseling, Freddy Jorge completed the Cochlear Implant Quality ofLife (CIQOL) Expectations questionnaire ([facility]). This measure is scored on a scale of 0-100, with a lower score indicating lower expectations and a higher score indicating higher expectations across six domains (communication, emotional, entertainment, environment, listening effort, and social). The converted scores are as follows: Based on the converted scores, we additional counseling was provided regarding speech perception, understanding in background noise, ability to participate in complex listening environments, and localization . The patient expressed understanding of expectations after counseling. RECOMMENDATIONS: Proceed with cochlear implant surgery and post-implant activation series. Patient needs to be scheduled for device activation and post-activation series. Bill Esquivel. Doctor of Audiology (Keo) Electrical Systems Engineer This appointment was conducted under the direct supervision of Keo Camp. Keo Camp, CCC/A Clinical Child Welfare Worker Copied to: Keo Overton documented in this encounterSelect [facility]24 NoteHNO ID: [id number] Author: NUPUR LAI AUD Service: ? Author Type: Child Welfare Worker Type: Progress Notes Filed: 02/05/2024 12:55 Note Text: Head [facility] Section of Allied Hearing, Speech and Balance Services Audiology Device Selection Shared Medical Appointment (SMA) Patient Name: Freddy Jorge Date of : 1970 Visit Date: 02/05/2024 Referred by: Lorena Bernstein MD Patient signed the Shared Medical Waiver Form prior to the start of the session, acknowledging that the appointment was a group session and that all information presented in the group by other participants will be kept confidential. The patient was unaccompanied to today's visit. This visit was a 120 minute session that covered a variety of topics including cochlear implant expectations, device-specific information including the selected steel buffer, processor style and accessory options, and recommendations for next steps regarding hearing devices. AUDIOLOGIC AND MEDICAL HISTORY (obtained today and from previous chart notes): This patient was referred for the Audiology Device Selection SMA following completion of an audiologic evaluation, cochlear implant evaluation (results below), and an individual consultation with Lorena Bernstein MD. Recall the patient has asymmetric sensorineural hearing loss and is a candidate for cochlear implant in the left ear. The patient has had hearing loss for 4 year(s) and has not been wearing amplification. The patient does not have residual hearing that could be amplified acoustically in the ear to be implanted, if preserved. Based on the unaided audiogram, a contralateral hearing aid is recommended for bimodal configuration. Audiometric testing was completed at the [facility] on 11/28/2023 with the following results: RIGHT EAR: Hearing Sensitivity: WNL 250-2000 Hz [...] test due to degree of hearing loss. The patient completed a cochlear implant evaluation with Keo Overton on 12/24/2023. Aided speech perception scores revealed: Oefifctuc-Smuvwbq-Yiaccqtmq Words (CNC) Test Condition List # Phonemes [...] Right Ear 4 88% Bilateral 2 84% COUNSELING: At the time of this SMA, the patient has completed all pertinent medical and audiologic testing for cochlear implantation. They were approved for cochlear implantation at the HIP Team meeting on 01/15/2024. With respect to steel buffer, the care team selected [employer]ar [employer] and a CI632 Slim Modiolar electrode array. Today's appointment consisted of counseling from the mechanical technical service specialist regarding the following aspects of cochlear implantation: How cochlear implants work and how this differs from traditional amplification Expectations for a cochlear implant recipient relative to speech understanding, sound awareness, etc. We reviewed advantages and limitations of cochlear implantation versus traditional amplification. Need for on-going special services and follow-up programming visits after implantation. Recommendations regarding bimodal listening and new hearing aid technology, if appropriate. Potential for hearing preservation and use of an acoustic component, if warranted. The importance of aural rehabilitation to success with a cochlear implant. Based on the discussion among the mechanical technical service specialist and the patient, the following device was selected: [employer] Nucleus 8 ([id number]) in sand (color). Selected accessories include Mini Will 2+, Aqua Kit, and USB Vp Care Management. We do not expect that amplification of residual hearing may be possible post-op. An acoustic component was not ordered. Patient was made aware that the implant kit may include wireless accessories and/or Made for iPhone or Android compatibility that requires pairing/setup. This setup is not included in the programming of the cochlear implant system and patient is aware of responsibility for managing the setup of these devices, including that the setup fee is not covered by insurance. The patient will be provided contact information for Christina Dean, recipient transportation solutions manager, and a link to schedule an appointment with her at device activation. The patient was registered throug (more content not included)...[facility] 02-04-2024 History of Present illness Narrative* Shonna Dominguez RN - 02/04/2024 1:20 PM EST Radiology Service Progress Note DATE OF SERVICE: February 04, 2024 TIME: 1:26 PM PATIENT WEIGHT: 240 LBS PATIENT IDENTITY VERIFICATION COMPLETED USING TWO (2) STANDARD IDENTIFIERS: Name and Date of confirmed by patient verbally. FALL SCREENING: Has the patient had 2 falls in the last year or 1 fall with injury or currently using an Ambulatory Assistive Device (Walker, Cane, Wheelchair, Crutches, etc.)? No PATIENT GENDER DATA: Male ALLERGIES: Reviewed and unchanged CONTRAST ALLERGY: No EXAM: MRI - CONTRAST TYPE: GROUP II IV SITE: Ambulatory: A peripheral IV was started in the Right antecubital site with a Angio cath: 22 gauge. and A Saline lock was inserted per protocol IV SITE APPEARANCE: Clean,Dry and Intact SIGNATURE: Shonna Dominguez RN PATIENT NAME: Freddy Jorge DATE: February 04, 2024 TIME: 1:26 PM * Suly Driver RT(R) - 02/04/2024 1:20 PM EST Radiology Service Progress Note PATIENT NAME: Freddy Jorge DATE OF SERVICE: February 04, 2024 TIME: 1:38 PM PATIENT IDENTITY VERIFICATION COMPLETED USING TWO (2) IDENTIFIERS: Name and Date of confirmedby patient verbally and Name and Date of confirmed by identification band FALL SCREENING: Has the patient had 2 falls in the last year or 1 fall with injury or currently using an Ambulatory Assistive Device (Walker, Cane, Wheelchair, Crutches, etc.)? No PATIENT GENDER DATA: Male PATIENT RELEVANT IMPLANT DATA REVIEWED: Yes PATIENT PRESENTS WITH AN IMPLANTABLE OR ATTACHED PAINTER TOUCH UP: No RADIOLOGY DEPARTMENT: MR; Exam(s) Completed: Head: IAC/CPA PERIPHERAL IV DATA: Site assessment: Clean,Dry and Intact, Site disposition Discontinued SIGNED BY: RT Lamont(R) February 04, 2024 1:38 PM documented in this encounterSelect Medical [facility]-2024 NoteHNO ID: [id number] Author: SHONNA DOMINGUEZ RN Service: Nursing Author Type: Registered Nurse Type: Progress Notes Filed: 02/04/2024 13:33 Note Text: Radiology Service Progress Note DATE OF SERVICE: February 04, 2024 TIME: 1:26 PM PATIENT WEIGHT: 240 LBS PATIENT IDENTITY VERIFICATION COMPLETED USING TWO (2) STANDARD IDENTIFIERS: Name and Date of confirmed by patient verbally. FALL SCREENING: Has the patient had 2 falls in the last year or 1 fall with injury or currently using an Ambulatory Assistive Device (Walker, Cane, Wheelchair, Crutches, etc.)? No PATIENT GENDER DATA: Male ALLERGIES: Reviewed and unchanged CONTRAST ALLERGY: No EXAM: MRI - CONTRAST TYPE: GROUP II IV SITE: Ambulatory: A peripheral IV was started in the Right antecubital site with a Angio cath: 22 gauge. and A Saline lock was inserted per protocol IV SITE APPEARANCE: Clean,Dry and Intact SIGNATURE: Shonna Dominguez RN PATIENT NAME: Freddy Jorge DATE: February 04, 2024 TIME: 1:26 [facility]11-20-2024 NoteHNO ID: [id number] Author: SULY DRIVER RT(R) Service: ? Author Type: Technologist Type: Progress Notes Filed: 02/04/2024 13:38 Note Text: Radiology Service Progress Note PATIENT NAME: Freddy Jorge DATE OF SERVICE: February 04, 2024 TIME: 1:38 PM PATIENT IDENTITY VERIFICATION COMPLETED USING TWO (2) IDENTIFIERS: Name and Date of confirmed by patient verbally and Name and Date of confirmed by identification band FALL SCREENING: Has the patient had 2 falls in the last year or 1 fall with injury or currently using an Ambulatory Assistive Device (Walker, Cane, Wheelchair, Crutches, etc.)? No PATIENT GENDER DATA: Male PATIENT RELEVANT IMPLANT DATA REVIEWED: Yes PATIENT PRESENTS WITH AN IMPLANTABLE OR ATTACHED PAINTER TOUCH UP: No RADIOLOGY DEPARTMENT: MR; Exam(s) Completed: Head: IAC/CPA PERIPHERAL IV DATA: Site assessment: Clean,Dry and Intact, Site disposition Discontinued SIGNED BY: RT Lamont(R) February 04, 2024 1:38 [facility]11-20-2024 Instructions* Patient Instructions* Nia Montoya APRN.LENDING CONSULTANT - 02/04/2024 9:07 AM EST PATIENT PREOPERATIVE INSTRUCTIONS Lorena Beard MD has scheduled you for your procedure at this surgery center: [facility]: [phone] --[address] [place] [address] Location is near [facility]. Please read below carefully for your personalized instructions. Dietary Restrictions: - No solid food after midnight. - You may have 12 ounces of clear liquids (water, clear juices such as apple juice or gatorade, carbonated beverages, clear tea, black coffee -NO CREAM OR SUGAR ) until 2 hours before scheduled arrival at facility. Medications: Unless instructed differently below, stay on all of your prescription medications until your surgery. Approved medications to take the morning of surgery with a sip of water: NONE HOLD EMPAGLIFLOZIN (JARDIANCE) 3 DAYS BEFORE SURGERY HOLD DULAGLUTIDE (TRULICITY) WEEKLY INJECTION DOSE ONE FULL WEEK PRIOR TO SCHEDULED SURGERY DATE , LAST DOSE Friday02/07/2024 - No diabetic medication the morning of surgery. - NO MARIJUANA 1 WEEK PRIOR TO SURGERY If you start any new medications after today's visit, please contact the surgeon's office. Blood Thinning Medications: - Stop NSAIDS (Ibuprofen, Advil, Aleve, Motrin, Celebrex, Mobic, etc.) 7 days before surgery, as directed by your surgeon. - Stop Aspirin 7 days before surgery, as directed by your surgeon. - Stop ALL herbal and dietary supplements 7 days before surgery. - You may take Tylenol (Acetaminophen) or any of your pain medications that do not contain aspirin or NSAIDS as needed. Important Reminders: - If you use CPAP/BIPAP, bring the machine with you to the surgery center. - If you are prescribed inhalers for breathing, continue using them. - Candy, mints, and tobacco products are NOT permitted the morning of surgery. - Hearing aids, dentures and glasses may be worn the morning of surgery. - NO jewelry, body piercings, makeup, hairpins or contacts are to be worn the day of surgery. If you develop symptoms such as a fever, cold, or flu, or have other changes to your health within TWO DAYS of scheduled surgery or the morning of surgery, please contact the surgery center above. Personal Belongings: -Please have photo ID and insurance cards. -If you do not have a copy of advance directives on file with us, please bring a copy with you on the day of surgery. - Leave ALL valuables and money at home or with family members. For Outpatient Procedures: - YOU MUST HAVE A RESPONSIBLE ONION TIER TAKE YOU HOME. A FACILITY SUPERVISOR OR JUVENILE JUSTICE SPECIALIST CANNOT BE MADE A RESPONSIBLE ONION TIER. - We recommend that a responsible person stays with you overnight to take care of you. - You cannot stay in a hotel alone after outpatient surgery. You will not be permitted to have yoursurgery, if you do not have someone to take care of you. Arrival Time for Surgery: - The Surgery Center or hospital where you are having surgery will call the afternoon before surgery (or Friday for Friday surgery) with a scheduled arrival time. - If you have not heard by 4 pm, please contact the surgery center above. Please be aware that emergency situations arise, which may delay or change your surgical time. If this happens, we will notify you as soon as possible and regret any inconvenience. If you already have an Advance Directive, please fax a copy to [phone] or email to for it to be added to your chart. If you do not have an Advance Directive, you can find the appropriate form and more information at [email or web address]. We recommend that youcomplete the Advance Directive form found on the website and bring it with you the day of your surgery. It can be witnessed and scanned into your chart that day. documented in this encounterSelect [facility] History and physical note * Nia Montoya APRN.CNP - 02/04/2024 8:30 AM EST Images from the original note were not included. [facility] HISTORY AND PHYSICAL EXAMINATION SERVICE DATE: 02/04/2024 SERVICE TIME: 8:36 AM PRIMARY CARE PHYSICIAN: Rosario Bruno NP Assessment Patient has the following medical conditions which may affect ace-operative course: Type 2 diabetes mellitus with diabetic neuropathy, unspecified (HCC) Assessment: Managed with empagliflozin (JARDIANCE) , dulaglutide (TRULICITY) weekly injection, lastdose Friday01/31/2024 Pt. aware to hold dulaglutide (TRULICITY) weekly injection one full week prior to scheduled surgerydate Managed by PCP updated HgbA1c, BMP Mixed hyperlipidemia Assessment: Managed with Statin , Follows with PCP Anxiety Assessment: Pt. reports mood is stable with medication Depression Assessment: Pt. reports mood is stable with medication Obstructive sleep apnea Assessment: Compliant with CPAP Nicotine dependence, cigarettes, with unspecified nicotine-induced disorders Assessment: Cigarette smoker for 30 years, was at 3 ppd, now down to 1 ppd Cessation with strategies encouraged. Marijuana use Assessment: Nightly for sleep, gummies Pt. aware cessation week prior to surgery Obesity (BMI 30-39.9) Assessment: Body mass index is 33.52 kg/m . Weight reduction encouraged. [place] Activity Status Index: METS: Walk indoors, such as around the house (1.75 METs) Do light work around the house, such as dusting or washing dishes (2.70 METs) Take care of self; that is eating, dressing, bathing, using the toilet (2.75 METs) Walk a block or two on level ground (2.75 METs) Do moderate work around the house, such as vacuuming, sweeping floors, or carrying in groceries (3.50 METs) Do yardwork, such as raking leaves, weeding, or pushing a power mower (4.50 METs) Climb a flight of stairs or walk up a hill (5.50 METs) DASI Score: 23.45 Patient denies any chest pain or undue shortness of breath with the above physical activity. Clinical Frailty Scale: 3. Well, with treated comorbid disease ANESTHESIA FINDINGS: Intubation History: No history of difficult intubation Significant Anesthesia Considerations: none Airway History: Pt. denies any family history of adverse anesthetic events including MH. No history of difficult airway I - PHYSICAL EVALUATION AIRWAY Patient intubated: No. Mallampati: III. TM distance: >3 FB. Neck ROM: full ROM without neurological symptoms. Mouth opening: adequate. Short neck: yes. Thick neck: yes [place] present: yes (mustache/ short [place]) Lip Bite Test: III Microretrognathia/Micronagthia/Recessed Chin: No DENTAL Dentures, upper: partial. Dentures, lower: partial. II - ANESTHESIA PLAN Anesthetic plan additional comments: *PACC/TCI - anesthesia choice. Beta Sharad Monitoring Plan Post Procedure Analgesic Plan Prepared for Surgery: optimally prepared for surgery, pending [see comment]. RESULTS CONSULTS: Planned Anesthetic: anesthesia choice The Following Tests/Procedures Have Been Initiated: Orders Placed This Encounter BMP Standing Status: Future Number of Occurrences: 1 Standing Expiration Date: 05/05/2024 Complete Blood Count Standing Status: Future Number of Occurrences: 1 Standing Expiration Date: 05/05/2024 Hemoglobin A1C Standing Status: Future Number of Occurrences: 1 Standing Expiration Date: 05/05/2024 ECG (IN OFFICE) REASON FOR VISIT: Freddy Jorge is a 54 year old male who is scheduled for Procedure(s): IMPLANT COCHLEAR DEVICE W/ MASTOIDECTOMY (Left) at the request of Dr. Lorena Bernstein for consultation. My final recommendation will be communicated back to the requesting physician by way of sharedmedical record or letter. Subjective COVID-19 Immunization Status Overdue - Covid-19 Vaccine () Overdue since 11/16/2023 07/20/2020 Imm Admin: COVID-19 original vaccine, age 12+ yr, monovalent (PFIZER- BIONTECH - PURPLE TOP) 06/27/2020 Imm Admin: COVID-19 original vaccine, age 12+ yr, monovalent (PFIZER- BIONTECH - PURPLE TOP) CHIEF COMPLAINT: surgery HPI: Patient is a 54 year old male with Asymmetrical sensorineural hearing loss, Sensorineural hearing loss (SNHL) of both ears that is recommended for surgery. He currently denies any pain, illnesses or infections. He reports an almost healed diabetic foot ulcer on right great toe; Follows with Dr. Salter ( [place]). REVIEW OF SYSTEMS: General: No weight loss, malaise or fevers. Neurological: Positive for: impaired sensorium (see HPI). Negative for: delirium, dementia, headaches, seizures, TIA and strokes. Respiratory: Positive for: tobacco use, obstructive sleep apnea and CPAP/BiPAP compliant. Negative for: asthma, current cough, bronchodilator used daily for the last 3 months, dyspnea, homeoxygen, orthopnea, pneumonia within 6 weeks and URI < 2 weeks. Cardiovascular: Positive for: hyperlipidemia and hypertension Negative for: atrial fibrillation, CAD, chest pain, CHF, DVT/PE and murmur/valvular heart disease. GI: No history of GI symptoms or problems. No history of esophageal varices, recent ascites, or ETOH greater than 2 drinks per day. : No history of dysuria, frequency or incontinence, stones or chronic kidney disease. No difficulty urinating, nocturia > 1 time per night or hematuria. Endocrine: Positive for: diabetes mellitus and diabetic neuropathy. Negative for: diabetic nephropathy, diabetic retinopathy, hyperthyroidism, hypothyroidism and hyperparathyroidism. Hematology: No history of bleeding or clotting disorder. Patient is not taking anti-coagulation or platelet medications. No history of hematological symptoms or problems. Oncology: No history of CA metastasis, chemo within 30 days, or radiotherapy within 90 days. No history of oncological symptoms or problems. Psych: Positive for: anxiety, depression and Marijuana Use. Product type: Edible. Route of administration: Oral. Frequency: Daily (nightly for sleep). Musculoskeletal: Negative for joint pain or swelling, back pain or muscle pain. Skin: right great toe diabetic ulcer, almost healed Negative for: itching and rash. Implanted Devices: No implanted devices. PAST MEDICAL HISTORY Diagnosis Date DMII (diabetes mellitus, type 2) (HCC) SCOTT (obstructive sleep apnea) PAST SURGICAL HISTORY Procedure Laterality Date COLONOSCOPY SCREENING FAMILY HISTORY Problem Relation Age of Onset Diabetes Mother Systemic Lupus Erythematosus Mother Arthritis Father Social History Tobacco Use Smoking status: Every Day Types: Cigarettes Smokeless tobacco: Current Types: Snuff Vaping Use Vaping status: Some Days Substances: Flavoring Devices: Disposable Substance Use Topics Alcohol use: Not Currently Drug use: Yes Types: Marijuana Comment: for sleep Prior to Admission medications as of 02/04/24 0905 Medication Sig Last Dose Taking TRULICITY 1.5 mg/0.5 mL pen injector INJECT 1.5 MG SUBCUTANEOUSLY ONCE A WEEK Taking Yes empagliflozin (JARDIANCE) 25 mg tablet once daily. Taking Yes FLUoxetine (PROZAC) 20 mg capsule once daily. Taking Yes pravastatin (PRAVACHOL) 10 mg tablet Take 10 mg by mouth once daily. Taking Yes doxepin capsule 10 mg TAKE 1 TO 2 CAPSULES BY MOUTH EVERY DAY AT BEDTIME Patient not taking: Reported on 02/04/2024 Not Taking No medication comments found. ALLERGIES Allergen Reactions Lactose GI Upset Latex Itching Objective PHYSICAL EXAM: General: alert and oriented (x 3) and healthy appearance. Pertinent negatives noted - not distressed. Skin: normal color, no rash or lesions. except right great toe ( inferior aspect), healing 1 cm ulcer, normal skin color, no erythema or s/sx of infection. HEENT: EOM intact, pupils equal round and pupils reactive to light. Pertinent negatives noted - no carotid bruit. Cardiovascular: regular rate and rhythm, normal S1 and S2, no rub, murmurs, or gallop. Pulse characterized as regular. Respiratory: normal breath sounds, no wheezes or crackles. No chest wall deformity or tenderness. Abdomen: bowel sounds present and soft. Pertinent negatives noted - not tender. Extremities: no deformity, no edema or tenderness, no joint swelling or clubbing. Neurological: normal cognition and motor skills. Gait normal. No weakness or sensory deficit. PAIN ASSESSMENT: VITALS: BP 103/66[MAP: 78[ Pulse 82 Temp (Src) 97.1 (Temporal) Resp 18 Ht 5' 11 (1.80m) Wt 240 lb 4.8 oz (109.0kg) SpO2 98% BMI 33.53 kg/(m^2). Diagnostic tests reviewed for today's visit: Lab Value Units Date High Low HB No results within date range. HCT No results within date range. WBC No results within date range. PLT No results within date range. NA No results within date range. K No results within date range. GLUC No results within date range. BUN No results within date range. CREAT No results within date range. PTSEC No results within date range. INR No results within date range. APTT No results within date range. ALT No results within date range. AST No results within date range. TBILI No results within date range. TSH No results within date range. Lab Value Units Date High Low HCGQT No results within date range. UHCG No results within date range. HCG, BODY* No results within date range. Lab Value Units Date High Low ABORHD No results within date range. ABSCREEN No results within date range. No results found for: HBA1C Recent Results (from the past 8760 hour(s)) ECG COMPLETE Collection Time: 02/04/24 8:44 AM Result Value Ventricular Rate 71 Atrial Rate 71 P-R Interval 184 QRS Duration 94 QT Interval 378 QTC Calculation (Bazett) 410 Calculated P Edison 58 Calculated R Edison 62 Calculated T Edison 39 Impression NORMAL SINUS RHYTHM NORMAL ECG Instructions Given to Patient: Instructions located in the after visit summary. Patient given verbal and written preop instructions and voices comprehension and compliance. SIGNATURE: Nia Montoya APRN.LENDING CONSULTANT PATIENT NAME: Freddy Jorge DATE: 02/04/2024 TIME: 8:36 AM [facility]11-20-2024 History and physical note* Nia Montoya APRN.CNP - 02/04/2024 8:30 AM EST Images from the original note were not included. [facility] HISTORY AND PHYSICAL EXAMINATION SERVICE DATE: 02/04/2024 SERVICE TIME: 8:36 AM PRIMARY CARE PHYSICIAN: Rosario Bruno NP Assessment Patient has the following medical conditions which may affect ace-operative course: Type 2 diabetes mellitus with diabetic neuropathy, unspecified (HCC) Assessment: Managed with empagliflozin (JARDIANCE) , dulaglutide (TRULICITY) weekly injection, lastdose Friday01/31/2024 Pt. aware to hold dulaglutide (TRULICITY) weekly injection one full week prior to scheduled surgerydate Managed by PCP updated HgbA1c, BMP Mixed hyperlipidemia Assessment: Managed with Statin , Follows with PCP Anxiety Assessment: Pt. reports mood is stable with medication Depression Assessment: Pt. reports mood is stable with medication Obstructive sleep apnea Assessment: Compliant with CPAP Nicotine dependence, cigarettes, with unspecified nicotine-induced disorders Assessment: Cigarette smoker for 30 years, was at 3 ppd, now down to 1 ppd Cessation with strategies encouraged. Marijuana use Assessment: Nightly for sleep, gummies Pt. aware cessation week prior to surgery Obesity (BMI 30-39.9) Assessment: Body mass index is 33.52 kg/m . Weight reduction encouraged. [place] Activity Status Index: METS: Walk indoors, such as around the house (1.75 METs) Do light work around the house, such as dusting or washing dishes (2.70 METs) Take care of self; that is eating, dressing, bathing, using the toilet (2.75 METs) Walk a block or two on level ground (2.75 METs) Do moderate work around the house, such as vacuuming, sweeping floors, or carrying in groceries (3.50 METs) Do yardwork, such as raking leaves, weeding, or pushing a power mower (4.50 METs) Climb a flight of stairs or walk up a hill (5.50 METs) DASI Score: 23.45 Patient denies any chest pain or undue shortness of breath with the above physical activity. Clinical Frailty Scale: 3. Well, with treated comorbid disease ANESTHESIA FINDINGS: Intubation History: No history of difficult intubation Significant Anesthesia Considerations: none Airway History: Pt. denies any family history of adverse anesthetic events including MH. No history of difficult airway I - PHYSICAL EVALUATION AIRWAY Patient intubated: No. Mallampati: III. TM distance: >3 FB. Neck ROM: full ROM without neurological symptoms. Mouth opening: adequate. Short neck: yes. Thick neck: yes [place] present: yes (mustache/ short [place]) Lip Bite Test: III Microretrognathia/Micronagthia/Recessed Chin: No DENTAL Dentures, upper: partial. Dentures, lower: partial. II - ANESTHESIA PLAN Anesthetic plan additional comments: *PACC/TCI - anesthesia choice. Beta Sharad Monitoring Plan Post Procedure Analgesic Plan Prepared for Surgery: optimally prepared for surgery, pending [see comment]. RESULTS CONSULTS: Planned Anesthetic: anesthesia choice The Following Tests/Procedures Have Been Initiated: Orders Placed This Encounter BMP Standing Status: Future Number of Occurrences: 1 Standing Expiration Date: 05/05/2024 Complete Blood Count Standing Status: Future Number of Occurrences: 1 Standing Expiration Date: 05/05/2024 Hemoglobin A1C Standing Status: Future Number of Occurrences: 1 Standing Expiration Date: 05/05/2024 ECG (IN OFFICE) REASON FOR VISIT: Freddy Jorge is a 54 year old male who is scheduled for Procedure(s): IMPLANT COCHLEAR DEVICE W/ MASTOIDECTOMY (Left) at the request of Dr. Lorena Bernstein for consultation. My final recommendation will be communicated back to the requesting physician by way of sharedmedical record or letter. Subjective COVID-19 Immunization Status Overdue - Covid-19 Vaccine () Overdue since 11/16/2023 07/20/2020 Imm Admin: COVID-19 original vaccine, age 12+ yr, monovalent (PFIZER- BIONTECH - PURPLE TOP) 06/27/2020 Imm Admin: COVID-19 original vaccine, age 12+ yr, monovalent (PFIZER- BIONTECH - PURPLE TOP) CHIEF COMPLAINT: surgery HPI: Patient is a 54 year old male with Asymmetrical sensorineural hearing loss, Sensorineural hearing loss (SNHL) of both ears that is recommended for surgery. He currently denies any pain, illnesses or infections. He reports an almost healed diabetic foot ulcer on right great toe; Follows with Dr. Salter ( [place]). REVIEW OF SYSTEMS: General: No weight loss, malaise or fevers. Neurological: Positive for: impaired sensorium (see HPI). Negative for: delirium, dementia, headaches, seizures, TIA and strokes. Respiratory: Positive for: tobacco use, obstructive sleep apnea and CPAP/BiPAP compliant. Negative for: asthma, current cough, bronchodilator used daily for the last 3 months, dyspnea, homeoxygen, orthopnea, pneumonia within 6 weeks and URI < 2 weeks. Cardiovascular: Positive for: hyperlipidemia and hypertension Negative for: atrial fibrillation, CAD, chest pain, CHF, DVT/PE and murmur/valvular heart disease. GI: No history of GI symptoms or problems. No history of esophageal varices, recent ascites, or ETOH greater than 2 drinks per day. : No history of dysuria, frequency or incontinence, stones or chronic kidney disease. No difficulty urinating, nocturia > 1 time per night or hematuria. Endocrine: Positive for: diabetes mellitus and diabetic neuropathy. Negative for: diabetic nephropathy, diabetic retinopathy, hyperthyroidism, hypothyroidism and hyperparathyroidism. Hematology: No history of bleeding or clotting disorder. Patient is not taking anti-coagulation or platelet medications. No history of hematological symptoms or problems. Oncology: No history of CA metastasis, chemo within 30 days, or radiotherapy within 90 days. No history of oncological symptoms or problems. Psych: Positive for: anxiety, depression and Marijuana Use. Product type: Edible. Route of administration: Oral. Frequency: Daily (nightly for sleep). Musculoskeletal: Negative for joint pain or swelling, back pain or muscle pain. Skin: right great toe diabetic ulcer, almost healed Negative for: itching and rash. Implanted Devices: No implanted devices. PAST MEDICAL HISTORY Diagnosis Date DMII (diabetes mellitus, type 2) (HCC) SCOTT (obstructive sleep apnea) PAST SURGICAL HISTORY Procedure Laterality Date COLONOSCOPY SCREENING FAMILY HISTORY Problem Relation Age of Onset Diabetes Mother Systemic Lupus Erythematosus Mother Arthritis Father Social History Tobacco Use Smoking status: Every Day Types: Cigarettes Smokeless tobacco: Current Types: Snuff Vaping Use Vaping status: Some Days Substances: Flavoring Devices: Disposable Substance Use Topics Alcohol use: Not Currently Drug use: Yes Types: Marijuana Comment: for sleep Prior to Admission medications as of 02/04/24 0905 Medication Sig Last Dose Taking TRULICITY 1.5 mg/0.5 mL pen injector INJECT 1.5 MG SUBCUTANEOUSLY ONCE A WEEK Taking Yes empagliflozin (JARDIANCE) 25 mg tablet once daily. Taking Yes FLUoxetine (PROZAC) 20 mg capsule once daily. Taking Yes pravastatin (PRAVACHOL) 10 mg tablet Take 10 mg by mouth once daily. Taking Yes doxepin capsule 10 mg TAKE 1 TO 2 CAPSULES BY MOUTH EVERY DAY AT BEDTIME Patient not taking: Reported on 02/04/2024 Not Taking No medication comments found. ALLERGIES Allergen Reactions Lactose GI Upset Latex Itching Objective PHYSICAL EXAM: General: alert and oriented (x 3) and healthy appearance. Pertinent negatives noted - not distressed. Skin: normal color, no rash or lesions. except right great toe ( inferior aspect), healing 1 cm ulcer, normal skin color, no erythema or s/sx of infection. HEENT: EOM intact, pupils equal round and pupils reactive to light. Pertinent negatives noted - no carotid bruit. Cardiovascular: regular rate and rhythm, normal S1 and S2, no rub, murmurs, or gallop. Pulse characterized as regular. Respiratory: normal breath sounds, no wheezes or crackles. No chest wall deformity or tenderness. Abdomen: bowel sounds present and soft. Pertinent negatives noted - not tender. Extremities: no deformity, no edema or tenderness, no joint swelling or clubbing. Neurological: normal cognition and motor skills. Gait normal. No weakness or sensory deficit. PAIN ASSESSMENT: VITALS: BP 103/66[MAP: 78[ Pulse 82 Temp (Src) 97.1 (Temporal) Resp 18 Ht 5' 11 (1.80m) Wt 240 lb 4.8 oz (109.0kg) SpO2 98% BMI 33.53 kg/(m^2). Diagnostic tests reviewed for today's visit: Lab Value Units Date High Low HB No results within date range. HCT No results within date range. WBC No results within date range. PLT No results within date range. NA No results within date range. K No results within date range. GLUC No results within date range. BUN No results within date range. CREAT No results within date range. PTSEC No results within date range. INR No results within date range. APTT No results within date range. ALT No results within date range. AST No results within date range. TBILI No results within date range. TSH No results within date range. Lab Value Units Date High Low HCGQT No results within date range. UHCG No results within date range. HCG, BODY* No results within date range. Lab Value Units Date High Low ABORHD No results within date range. ABSCREEN No results within date range. No results found for: HBA1C Recent Results (from the past 8760 hour(s)) ECG COMPLETE Collection Time: 02/04/24 8:44 AM Result Value Ventricular Rate 71 Atrial Rate 71 P-R Interval 184 QRS Duration 94 QT Interval 378 QTC Calculation (Bazett) 410 Calculated P Edison 58 Calculated R Edison 62 Calculated T Edison 39 Impression NORMAL SINUS RHYTHM NORMAL ECG Instructions Given to Patient: Instructions located in the after visit summary. Patient given verbal and written preop instructions and voices comprehension and compliance. SIGNATURE: Nia Montoya APRN.CNP PATIENT NAME: Freddy Jorge DATE: 02/04/2024 TIME: 8:36 AM [facility] History of Present illness Narrative* Jo-Ann Mahajan, PhD - 01/15/2024 4:00 PM EDT Images from the original note were not included. [facility] Section of Audiology Cochlear Implant Candidacy Vestibular Test Battery Name: Freddy Jorge [facility]#: [id number] Date of Service: 01/15/2024 Date of : 1970 Age: [age] year old Referred by: Lorena Carvalho MD And is a patient of Rosario Bruno NP Referred for: Cochlear implant candidacy vestibular and balance evaluation. Referral documented: In an order in [facility] Pretest Instructions: All pretest instructions were completed prior to testing: no alcohol, no medication for dizziness/motion sickness, no sedatives (sleep aids, tranquilizers, antihistamines), no eye makeup and only have a light meal prior to testing. Impressions and Recommendations OVERALL IMPRESSIONS: normal peripheral vestibular responses in the right ear. Abnormal peripheral vestibular responses in the left ear based on 70% caloric weakness, reduced cervical vestibular evoked myogenic potentials (VEMP) amplitude and abnormal vestibulo-ocular reflex (VOR) gain with evidenceof corrective saccades on video head impulse test (vHIT) of the semi-circular canals. Based on these findings, there are no vestibular contraindications for cochlear implant candidacy considerations the left ear. The remainder of today's evaluation revealed the following: - Normal observation of gait and transfers. - Normal score (>/= 10 points) obtained on the modified Dynamic Gait Index (mDGI) indicating normal gait performance with varying gait speeds and horizontal and vertical head movements. - Postural control findings demonstrate a vestibular dysfunction pattern indicating difficulty in using vestibular information alone for maintenance of stance observed during the Modified Clinical Test of Sensory Integration on Balance (mCTSIB). Abnormal increased body sway and/or fall reactions observed during the eyes closed, foam condition. RECOMMENDATIONS: - Continue medical follow up with Lorena Carvalho MD and the Hearing Implant Team - Consider referral to vestibular and balance therapy to address imbalance concerns (uncompensated left vestibulopathy). - Consider re-evaluation as medically indicated. - Consider maintaining a healthy sleep schedule in addition to diet, hydration, and exercise. The results and recommendations were explained to Freddy Jorge and he expressed understanding of the information. History Present Illness Freddy Jorge is seen today for cochlear implantation candidacy evaluation. HIP team is current considering a left cochlear implant. Freddy reports past vertigo when he experienced sudden hearing loss in his left ear 4 years ago and imbalance. He describes imbalance that occurs sometimes with movement and only lasts for seconds. He denies symptoms of imbalance in a dark or dimly lit room. Freddy has not fallen two or more times in the past year or fallen once with with injury and denies a fear of falling. Freddy is not currently using an ambulatory device. Aforementioned symptoms are impacting Freddy's quality of life: he senses that people are noticing his imbalance. Please refer to summary of past medical history section for further details of presenting symptoms, signs andrelevant past medical history. Symptom Ratin-4/10 today (0 = no symptoms, 10 = severe symptoms). SUMMARY OF PAST MEDICAL HISTORY: - Sudden onset hearing loss left ear 4 year ago with tinnitus and vertigo. Significant imbalance, nausea and vomiting at the time of onset. He went to the ER and reports brown/black discharge from ear. - difficulties with balance in the dark. - Slight spinning when in loud environments. Based on review of the patient's past medical history and chief complaint, the following clinical questions were explored during today's appointment: any vestibular contraindications for left sided CI? Plan for today's objective vestibular testing based on these clinical questions: Video Head ImpulseTest (VHIT) and Vestibular Evoked Myogenic Potentials (VEMPs), caloric irrigations. Medical History: ACTIVE PROBLEM LIST Asymmetrical Sensorineural Hearing Loss Tinnitus, Left Ear Vestibular Hypofunction of Left Ear Medications: Current Outpatient Medications on File Prior to Visit Medication Sig doxepin capsule 10 mg TAKE 1 TO 2 CAPSULES BY MOUTH EVERY DAY AT BEDTIME TRULICITY 1.5 mg/0.5 mL pen injector INJECT 1.5 MG SUBCUTANEOUSLY ONCE A WEEK empagliflozin (JARDIANCE) 25 mg tablet once daily. FLUoxetine (PROZAC) 20 mg capsule once daily. ramipril (ALTACE) 1.25 mg capsule 1 capsule. pravastatin (PRAVACHOL) 10 mg tablet Take 10 mg by mouth once daily. No current facility-administered medications on file prior to visit. Current medications with potential vestibular/balance side effects include: none Family/Social History: No family history on file. Family history of otologic or neurologic disorders: No Social History Tobacco Use Smoking status: Every Day Types: Cigarettes Smokeless tobacco: Current Types: Snuff Vaping Use Vaping status: Some Days Substances: Flavoring Devices: Disposable Substance Use Topics Alcohol use: Not Currently Drug use: Yes Types: Marijuana Comment: for sleep Physical/Vestibular Evaluation GENERAL: Cognitive Status: Alert, Oriented, and Cooperative EARS: Right ear: Ear canal clear and Eardrum visible Left ear: Ear canal clear and Eardrum visible EYES/OCULOMOTOR: Extra-ocular range of motion (CN III, IV, ): normal. Conjugate eye movements: Yes Smooth pursuit (horizontal and vertical): normal Saccades (horizontal, vertical, oblique): normal Cover uncover test: normal [id number]-[id number]-dgoxy test: normal NECK: Cervical rotation right restrictions: none. Reported pain: none Cervical rotation left restrictions: none. Reported pain: none Cervical extension restrictions: none. Reported pain: none Cervical flexion restrictions: none. Reported pain: none VESTIBULAR: Head impulses of semi-circular canals: normal Ocular counter roll: DNT GAIT AND BALANCE: Observation of gait and transfer: normal. Modified Dynamic Gait Index (mDGI): Total score 12/12. normal gait performance. Modified Clinical Test of Sensory Interaction on Balance (MCTSIB): abnormal postural control. Eyes open, firm surface: Fall Reactions: 0 Eyes closed , firm surface: Fall Reactions: 0 Eyes open, foam surface: Fall Reactions: 0 Eyes closed, foam surface: Fall Reactions: 2/3 OBJECTIVE VESTIBULAR MEASURES: Limited Videonystagmography Examination (VNG): CPT codes: 87363,96270 Description of Procedure: objective assessment of peripheral (e.g., low frequency horizontal canal VOR function) Procedure time: 20 minutes. Note: The fast component (direction) of all nystagmus is reported from the patient's perspective. Calibration procedure: unremarkable Spontaneous & Gaze-Evoked Nystagmus test Nystagmus center gaze with fixation: none. Temporal profile: n/a. Saccadic intrusions/oscillations:none. Symptoms: none. Nystagmus center gaze without fixation: none. Temporal profile: n/a. Saccadic intrusions/oscillations: none. Symptoms: none. Bithermal alternating water calorics (30 second irrigations, supine position): Unilateral Weakness (UW%): abnormal. 70% UW in the left ear. (Note: abnormal UW% >/= 25%) Directional Preponderance (DP%): normal. 15% right-beating nystagmus bias. (Note: abnormal DP% >/= 30%) Fixation Suppression Index (FI%): normal. (Note: abnormal FI% >/= 0.6) Nystagmus pre-caloric position (10 sec screening): none. Right ear: Warm (44 deg C): 27 d/s SPV avg. Cool (30 deg C) 19 d/s SPV avg. Total: 46 d/s SPV avg Left ear: Warm (44 deg C): 4 d/s SPV avg. Cool (30 deg C): 4 d/s SPV avg. Total: 8 d/s SPV avg Video Head Impulse Test (VHIT): CPT code: 80737 Description of Procedure: assessment of the angular vestibulo-ocular reflex (VOR) of all six semicircular canals. During vHIT, patients wear infrared goggles and their head is quickly moved in the plane of each semicircular canal. Measurements of VOR gain and corrective saccades are used to determine semicircular canal paresis. Procedure time: 20 minutes. Refer to scanned documents for details for vHIT raw data. Calibration procedure: unremarkable. Camera placement over the right eye. Lateral Canal VHIT: Abnormal. Cannot rule out lateral semicircular canal/VOR pathway involvement inthe left ear. Normal lateral semicircular canal VHIT responses in the right ear. (Note: abnormal gain < 0.80) Vertical Canal VHIT: Abnormal. Cannot rule out posterior semicircular canal/VOR involvement in the left ear. Normal anterior and posterior semicircular canal VHIT responses in the right ear. (Note: abnormal gain < 0.70) Suppression Head Impulse Test (SHIMP): Suppression responses both ears (residual high frequency VORresponse in the left ear). Right lateral gain: evidence of back-up saccades: Yes Left lateral gain: evidence of back-up saccades: Yes Vestibular Evoked Myogenic Potentials (VEMP): CPT code: 74874 Description of Procedure: short-latency myogenic potentials produced with sound or vibration originating from otolith organs (saccule and utricle). Cervical (cVEMPs) are recorded from the sternocleidomastoid muscles (patient in a semi- reclined position, head lifted and rotated away from ear stimulated): Ocular (oVEMPs) recorded from the inferior oblique extra-muscles (patient seated with 30 deg upward gaze). Screening for SSCD (superior semi-circular canal dehiscence) conducted if medically warranted. Procedure time: 30 minutes. Note: Integrity of the auditory stimulus, electrode placement and muscle contraction were verified.Otoscopy performed prior to testing confirming unoccluded canals. Amplitude and latency values represent best responses if more than 1 waveform is obtained. Refer to scanned documents for VEMP waveform details. Cervical (cVEMP): abnormal. Results are consistent with other pathologies involving the saccule, inferior vestibular nerve, and/or cVEMP pathway in the left ear. Normal VEMP responses in the right ear. Right ear: testing obtained with air conduction, amplitude and latencies normal; SSCD screen: not tested Left ear: testing obtained with air conduction, amplitude and latencies: reduced amplitude; SSCD screen: not tested Interaural amplitude difference cVEMP (abnormal > 30%): 40% (RE-LE/RE+LE)100 - abnormal Waveforms were scaled according to the average EMG values obtained throughout testing: Yes It was my pleasure to evaluate Freddy Jorge. If you have any questions regarding this information, please contact me at [phone]. Jo-Ann Mahajan, PhD CCC-A Section Head, Audiology Vestibular Child Welfare Worker copy to: MD Shira Pickens, [facility] Shop Foreman documented in this encounterSelect [facility] NoteHNO ID: [id number] Author: JO-ANN MAHAJAN, PhD Service: ? Author Type: Child Welfare Worker Type: Progress Notes Filed: 01/16/2024 07:38 Note Text: [facility] Section of Audiology Cochlear Implant Candidacy Vestibular Test Battery Name: Freddy Jorge [facility]#: [id number] Date of Service: 01/15/2024 Date of : 1970 Age: [age] year old Referred by: Lorena Cravalho MD And is a patient of Rosario Bruno NP Referred for: Cochlear implant candidacy vestibular and balance evaluation. Referral documented: In an order in [facility] Pretest Instructions: All pretest instructions were completed prior to testing: no alcohol, no medication for dizziness/motion sickness, no sedatives (sleep aids, tranquilizers, antihistamines), no eye makeup and only have a light meal prior to testing. Impressions and Recommendations OVERALL IMPRESSIONS: normal peripheral vestibular responses in the right ear. Abnormal peripheral vestibular responses in the left ear based on 70% caloric weakness, reduced cervical vestibular evoked myogenic potentials (VEMP) amplitude and abnormal vestibulo-ocular reflex (VOR) gain with evidence of corrective saccades on video head impulse test (vHIT) of the semi-circular canals. Based on these findings, there are no vestibular contraindications for cochlear implant candidacy considerations the left ear. The remainder of today's evaluation revealed the following: - Normal observation of gait and transfers. - Normal score (>/= 10 points) obtained on the modified Dynamic Gait Index (mDGI) indicating normal gait performance with varying gait speeds and horizontal and vertical head movements. - Postural control findings demonstrate a vestibular dysfunction pattern indicating difficulty in using vestibular information alone for maintenance of stance observed during the Modified Clinical Test of Sensory Integration on Balance (mCTSIB). Abnormal increased body sway and/or fall reactions observed during the eyes closed, foam condition. RECOMMENDATIONS: - Continue medical follow up with Lorena Carvalho MD and the Hearing Implant Team - Consider referral to vestibular and balance therapy to address imbalance concerns (uncompensated left vestibulopathy). - Consider re-evaluation as medically indicated. - Consider maintaining a healthy sleep schedule in addition to diet, hydration, and exercise. The results and recommendations were explained to Freddy Jorge and he expressed understanding of the information. History Present Illness Freddy Jorge is seen today for cochlear implantation candidacy evaluation. HIP team is current considering a left cochlear implant. Freddy reports past vertigo when he experienced sudden hearing loss in his left ear 4 years ago and imbalance. He describes imbalance that occurs sometimes with movement and only lasts for seconds. He denies symptoms of imbalance in a dark or dimly lit room. Freddy has not fallen two or more times in the past year or fallen once with with injury and denies a fear of falling. Freddy is not currently using an ambulatory device. Aforementioned symptoms are impacting Freddy's quality of life: he senses that people are noticing his imbalance. Please refer to summary of past medical history section for further details of presenting symptoms, signs and relevant past medical history. Symptom Ratin-4/10 today (0 = no symptoms, 10 = severe symptoms). SUMMARY OF PAST MEDICAL HISTORY: - Sudden onset hearing loss left ear 4 year ago with tinnitus and vertigo. Significant imbalance, nausea and vomiting at the time of onset. He went to the ER and reports brown/black discharge from ear. - difficulties with balance in the dark. - Slight spinning when in loud environments. Based on review of the patient's past medical history and chief complaint, the following clinical questions were explored during today's appointment: any vestibular contraindications for left sided CI? Plan for today's objective vestibular testing based on these clinical questions: Video Head Impulse Test (VHIT) and Vestibular Evoked Myogenic Potentials (VEMPs), caloric irrigations. Medical History: ACTIVE PROBLEM LIST Asymmetrical Sensorineural Hearing Loss Tinnitus, Left Ear Vestibular Hypofunction of Left Ear Medications: Current Outpatient Medications on File Prior to Visit Medication Sig doxepin capsule 10 mg TAKE 1 TO 2 CAPSULES BY MOUTH EVERY DAY AT BEDTIME TRULICITY 1.5 mg/0.5 mL pen injector INJECT 1.5 MG SUBCUTANEOUSLY ONCE A WEEK empagliflozin (JARDIANCE) 25 mg tablet once daily. FLUoxetine (PROZAC) 20 mg capsule once daily. ramipril (ALTACE) 1.25 mg capsule 1 capsule. pravastatin (PRAVACHOL) 10 mg tablet Take 10 mg by mouth once daily. No current facility-administered medications on file prior to visit. Current medications with potential vestibular/balance side effects include: n (more content not included)...[facility]10-16-2024 History of Present illness Narrative* Beatrice Garcia - 12/31/2023 10:30 AM EDT Images from the original note were not included. OTOLOGY & NEUROTOLOGY NEW PATIENT VISIT Date: 12/31/2023 Requested by: Russell Parra APRN.HUMBERTO/ Keo Burroughs, [facility]A PCP: Rosario Bruno NP Chief complaint: Ear Problem (New.. Self Referred c/o hearing loss c ringing, dizziness,imbalance x5 yrs. Denies otalgia/otorrhea) History of present illness: Freddy Jorge is a 53 year old male who was seen for cochlear implant. Patient was seen by Otolaryngology on . Based on the note from this visit patient suffered sudden onset of hearing lossin the left ear approximately 4 years ago. This was accompanied by tinnitus and vertigo. He was evaluated at that time at an outside mechanical technical service specialist and ENT office. MRI was completed in which results were negative for acoustic neuroma. Per Epic history Mr. Jorge had a dental infection that traveled to the ear. Unfortunately his hearing was basically absent in the left ear at that time. He was advisedto obtain a cross hearing aid or cochlear implant however at the time this was not covered by his insurance. As of 11/26/23 patient had not been using any sort of amplification since that time for theleft ear. His infection in the tooth eventually resolved but he was not sure about the infection in the left ear at the time of this visit. Patient reported having difficulties with his balance especially in dark environments. Continuous balance issues since loss of hearing (notices he has difficulty balancing without visual cues); Slight room-spinning/ disoriented sensation when in loud environments. Symptoms improve upon leaving those environments. 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 Family history of hearing loss includes his mother at an older age. Hearing loss: sudden hearing loss left ear began 4 years ago Better ear is right Use phone? Yes Aided: neither one Tinnitus: yes constant in left ear Vertigo: Yes Imbalance: Yes, since loss of hearing Ear pain: No Ear drainage: No Prior ear surgery/trauma: No Prevnar: No Pneumovax: No ACTIVE PROBLEM LIST Asymmetrical Sensorineural Hearing Loss Tinnitus, Left Ear Vestibular Hypofunction of Left Ear No past medical history on file. No past surgical history on file. Social History Tobacco Use Smoking status: Every Day Types: Cigarettes Smokeless tobacco: Current Types: Snuff Vaping Use Vaping status: Some Days Substances: Flavoring Devices: Disposable Substance Use Topics Alcohol use: Not Currently Drug use: Yes Types: Marijuana Comment: for sleep ALLERGIES Allergen Reactions Lactose GI Upset Latex Itching Current Outpatient Medications on File Prior to Visit Medication Sig doxepin capsule 10 mg TAKE 1 TO 2 CAPSULES BY MOUTH EVERY DAY AT BEDTIME TRULICITY 1.5 mg/0.5 mL pen injector INJECT 1.5 MG SUBCUTANEOUSLY ONCE A WEEK empagliflozin (JARDIANCE) 25 mg tablet once daily. FLUoxetine (PROZAC) 20 mg capsule once daily. ramipril (ALTACE) 1.25 mg capsule 1 capsule. pravastatin (PRAVACHOL) 10 mg tablet Take 10 mg by mouth once daily. No current facility-administered medications on file prior to visit. Review of system: Positive: As above Negative: Fever, shortness of breath There were no vitals taken for this visit. Appearance: Non-syndromic, cooperative, and calm Communication: Voice has adequate volume; No stridor or aesthenia Head/Face: Head and facial contours are symmetric Facial nerve 1/6 bilateral Skin: no skin lesions or scarring on face Ophthalmic: Full ocular motility intact; pupils symmetric; no nystagmus Ears: AD: Normal : Normal Rinne Schulz AD [phone] Nose: Dorsum straight; Nostrils clear Oral Cavity: Dentition good Oropharynx: Uvula midline; Mucosa pink and moist Neck: No LAD; thyroid without masses or enlargement Lymphatic: No lymphadenopathy or masses Neuro/Psych.: Alert and oriented x 3 Cranial nerves intact, except for hearing Data Review: Audio:Audiograms 11/28/2023 (After cerumen impaction was removed) 11/26/2023 (Did not test due to cerumen impaction) ASSESSMENT: (H90.3) Asymmetrical sensorineural hearing loss (primary encounter diagnosis) (H93.12) Tinnitus, left ear (R26.89) Balance problem (H83.2X2) Vestibular hypofunction of left ear (H90.3) Sensorineural hearing loss (SNHL) of both ears (Z23) Need for pneumococcal vaccine I discussed the nature of hearing loss and options for management with the help of diagrams and imaging studies. I discussed cochlear implant surgery, alternatives, risks, and answered all questions. PLAN: - Discuss at the next Hearing Implant Program meeting - Patient would like cochlear implant of left ear if approved - Informed patient of the tests/imaging, vaccine, and remaining process of being approved for to proceed cochlear implantation - Discussed details of procedure as well as the risks, benefits, what to expect during recovery, post surgical restrictions, and estimated healing time. - Explained next steps of the surgical planning and approval process - Patient would like to proceed with left Cochlear implantation - Prevnar vaccine administered during today's visit - No need to schedule a follow up. Provider will review imaging once completed and reach out to patient if there are any concerns Office Visit on 12/31/23 MRI BRAIN WO/W IVCON PNEUMOCOCCAL VACCINE, 20 VALENT (PREVNAR 20) VESTIBULAR TEST BATTERY Scribe Attestation: Beatrice Maki, am working as a Virtual biomedical engineering professor, attest that this documentation has been prepared under the direction and in the presence of Dr.Anh Rhoda Bernstein MD Electronically Signed By: Beatrice Garcia Virtual Nickel Plater.12/31/2023 Electronically signed by: Lorena Beard 12/31/2023 11:21 AM documented in this encounterSelect [facility]24 NoteHNO ID: [id number] Author: LORENA BEARD MD Service: ? Author Type: ? Type: Progress Notes Filed: 01/12/2024 16:58 Note Text: OTOLOGY AND NEUROTOLOGY NEW PATIENT VISIT Date: 12/31/2023 Requested by: Russell Parra APRN.HUMBERTO/ Marilu Hou, Keo, [facility] PCP: Rosario Bruno NP Chief complaint: Ear Problem (New.. Self Referred c/o hearing loss c ringing, dizziness,imbalance x 5 yrs. Denies otalgia/otorrhea) History of present illness: Freddy Jorge is a 53 year old male who was seen for cochlear implant. Patient was seen by Otolaryngology on . Based on the note from this visit patient suffered sudden onset of hearing loss in the left ear approximately 4 years ago. This was accompanied by tinnitus and vertigo. He was evaluated at that time at an outside mechanical technical service specialist and ENT office. MRI was completed in which results were negative for acoustic neuroma. Per Epic history Mr. Jorge had a dental infection that traveled to the ear. Unfortunately his hearing was basically absent in the left ear at that time. He was advised to obtain a cross hearing aid or cochlear implant however at the time this was not covered by his insurance. As of 11/26/23 patient had not been using any sort of amplification since that time for the left ear. His infection in the tooth eventually resolved but he was not sure about the infection in the left ear at the time of this visit. Patient reported having difficulties with his balance especially in dark environments. Continuous balance issues since loss of hearing (notices he has difficulty balancing without visual cues); Slight room-spinning/ disoriented sensation when in loud environments. Symptoms improve upon leaving those environments. 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 Family history of hearing loss includes his mother at an older age. Hearing loss: sudden hearing loss left ear began 4 years ago Better ear is right Use phone? Yes Aided: neither one Tinnitus: yes constant in left ear Vertigo: Yes Imbalance: Yes, since loss of hearing Ear pain: No Ear drainage: No Prior ear surgery/trauma: No Prevnar: No Pneumovax: No ACTIVE PROBLEM LIST Asymmetrical Sensorineural Hearing Loss Tinnitus, Left Ear Vestibular Hypofunction of Left Ear No past medical history on file. No past surgical history on file. Social History Tobacco Use Smoking status: Every Day Types: Cigarettes Smokeless tobacco: Current Types: Snuff Vaping Use Vaping status: Some Days Substances: Flavoring Devices: Disposable Substance Use Topics Alcohol use: Not Currently Drug use: Yes Types: Marijuana Comment: for sleep ALLERGIES Allergen Reactions Lactose GI Upset Latex Itching Current Outpatient Medications on File Prior to Visit Medication Sig doxepin capsule 10 mg TAKE 1 TO 2 CAPSULES BY MOUTH EVERY DAY AT BEDTIME TRULICITY 1.5 mg/0.5 mL pen injector INJECT 1.5 MG SUBCUTANEOUSLY ONCE A WEEK empagliflozin (JARDIANCE) 25 mg tablet once daily. FLUoxetine (PROZAC) 20 mg capsule once daily. ramipril (ALTACE) 1.25 mg capsule 1 capsule. pravastatin (PRAVACHOL) 10 mg tablet Take 10 mg by mouth once daily. No current facility-administered medications on file prior to visit. Review of system: Positive: As above Negative: Fever, shortness of breath There were no vitals taken for this visit. Appearance: Non-syndromic, cooperative, and calm Communication: Voice has adequate volume; No stridor or aesthenia Head/Face: Head and facial contours are symmetric Facial nerve 1/6 bilateral Skin: no skin lesions or scarring on face Ophthalmic: Full ocular motility intact; pupils symmetric; no nystagmus Ears: AD: Normal : Normal Rinne Schulz AD [phone] Nose: Dorsum straight; Nostrils clear Oral Cavity: Dentition good Oropharynx: Uvula midline; Mucosa pink and moist Neck: No LAD; thyroid without masses or enlargement Lymphatic: No lymphadenopathy or masses Neuro/Psych.: Alert and oriented x 3 Cranial nerves intact, except for hearing Data Review: Audio:Audiograms 11/28/2023 (After cerumen impaction was removed) 11/26/2023 (Did not test due to cerumen impaction) ASSESSMENT: (H90.3) Asymmetrical sensorineural hearing loss (primary encounter diagnosis) (H93.12) Tinnitus, left ear (R26.89) Balance problem (H83.2X2) Vestibular hypofunction of left ear (H90.3) Sensorineural hearing loss (SNHL) of both ears (Z23) Need for pneumococcal vaccine I discussed the nature of hearing loss and options for management with the help of diagrams and imaging studies. I discussed cochlear implant surgery, alternatives, risks, and answered all questions. PLAN: - Discuss at the next Hearing Implant Program meeting - Patient would like cochlear implant of left ear if approved - Informed patien (more content not included)...[facility] 12-24-2023 History of Present illness Narrative* Hernan Hammond, Keo, CCC-A - 12/24/2023 1:00 PM EDT Images from the original note were not included. [facility] Section of Allied Hearing, Speech and Balance Services ADULT COCHLEAR IMPLANT CANDIDACY EVALUATION Audiometric Testing Name: Freddy Jorge [facility]#: [id number] Date of Service: December 22, 2023 Date of : 1970 Age: [age] year old Referred by: Russell Parra CNP This patient was referred for an evaluation to determine cochlear implant candidacy. 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 He is not driving right now. His sister takes him to appointments. Occupational: semi-retired; not currently working Phone: uses speaker phone Television: increases tv volume Other Family Support: yes ; sister and friend can help him with listening practice; has smart phonethat he can use for listening practice. Concerns: Denied AUDIOMETRIC TESTING HEARING AID TEST RESULTS Left Phonak Vidhya Lumity 90-UP and Right Phonak Audeo [id number] clinic hearing aids were programmed to the patient s most recent audiogram. Devices were verified utilizing the Audioscan Aeponait equipment to NAL-NL 1 fitting methods. AIDED [...] the sound field at conversational level (60 spar machine operator); results were: Left SDT: could not detect that speech was present at 80 dB HL (limits of equipment) [id number] Words (CNC) Test Condition List # Phonemes [...] the left hearing aid. He thinks he possiblyheard a beeping sound from the hearing aid [...] more benefit from a cochlear implant in theLEFT ear than a hearing aid can provide [...] arriving at both ears to provide localization ability,noise suppression, and improved speech understanding. For this patient, the use both a cochlear implant and a hearing aid is the best option for optimal auditory performance. Potential Candidate Left Hearing Preservation No (*Hearing preservation candidates have low-frequency (125, 250, 500 Hz) airthresholds of less than 80 dB ) EAS candidate: No Pre-Activation Audio: No Activation: 2 Weeks Bimodal candidate: Yes The patient appears cognitively able to use auditory cues and is able to undergo an extensive rehabilitation process. He is able to participate in a post- cochlear implant rehabilitation program in order to achieve [...] minutes aided testing = 55 minutes TOTAL Keo Overton CCC/A copied to: MD Shira Bartholomew, HIP Coordinator documented in this encounterSelect Medical [facility] NoteHNO ID: [id number] Author: HERNAN HAMMOND AuD, CCC-A Service: ? Author Type: Child Welfare Worker Type: Progress Notes Filed: 12/24/2023 13:58 Note Text: [facility] Section of Allied Hearing, Speech and Balance Services ADULT COCHLEAR IMPLANT CANDIDACY EVALUATION Audiometric Testing Name: Freddy Jorge [facility]#: [id number] Date of Service: December 22, 2023 Date of : 1970 Age: [age] year old Referred by: Russell Parra CNP This patient was referred for an evaluation to determine cochlear implant candidacy. 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 Devices were verified utilizing the [employer] equipment to NAL-NL 1 fitting methods. AIDED [...] the sound field at conversational level (60 spar machine operator); results were: Left SDT: could not detect that speech was present at 80 dB HL (limits of equipment) Zfclejsyf-Hlnxzsu-Tubflsbmu Words (CNC) Test Condition List # Phonemes [...] from background noise, which (more content not included)...[facility]09-27-2024 Telephone encounter Note* Telephone Encounter - Russell Parra APRN.CNP - 12/12/2023 11:51 AM EDT appts are correct. Thank you, Russell Parra CNP [facility]09-27-2024 Miscellaneous Notes* Telephone Encounter - Russell Parra APRN.CNP - 12/12/2023 11:51 AM EDT appts are correct. Thank you, Russell Parra CNP * Telephone Encounter - Jennie Rodgers - 12/12/2023 9:57 AM EDT Freddy Jorge called today. : 1970 Allergies: Lactose and Latex (home) Reason for call: Patient calling in to get scheduled as requested by Russell Parra APRN.CNP. Patient has been scheduled for an Implant Eval with Dr. Hammond and also for an appointment with an research laboratory technician. Patient advised of all appointment details. Please review patient's appointments to ensure that he has been scheduled appropriately. Patient originally requested to see Russell Parra. Contact patient if scheduled incorrectly. Thank you! Patient last appointment: 12/02/2023 The patients preferred pharmacy has been captured for this encounter? [facility] December 12, 2023 10:00 AM documented [facility] encounter[facility] Telephone encounter Note * Telephone Encounter - Russell Parra APRN.CNP - 12/12/2023 11:50 AM EDT Thank you, Russell Parra CNP [facility]09-27-2024 Miscellaneous Notes* Telephone Encounter - Russell aPrra APRN.CNP - 12/12/2023 11:50 AM EDT Thank you, Russell Parra CNP * Telephone Encounter - Russell Parra APRN.CNP - 12/12/2023 9:29 AM EDT Please call patient. Please let him know because he is so young I would highly recommend that he sees the ear specialistto discuss options including cochlear implant. They may also be able to shed further light on his dizziness. I have placed a consultation, please assist with an appointment at the patient's earliest convenience. Thank you, Russell Parra CNP * Telephone Encounter - Niyah Puentes RN - 12/12/2023 9:04 AM EDT Patient called back. Below message was relayed. Pt stated he would like to find out which one will his insurance cover. Advised to reach out to hisinsurance to inquire about coverage. Patient also inquiring what Russell recommends and which one will overall be better for him. Please advise. * Telephone Encounter - Elizabeth Paz LPN - 12/02/2023 2:47 PM EDT Called patient twice. calls are being forwarded. No Answer. Unable to leave RAMESH Johnson * Telephone Encounter - Russell Parra APRN.CNP - 12/02/2023 7:41 AM EDT Please call patient. Please let him know that I did receive the results of his hearing test. He does presently have extreme hearing loss on the left. Basically, his left ear is not functioning in any noticeable way. As we discussed in the office he is welcome to meet with one of our research laboratory technician to discuss cochlear implant surgery which potentially could help restore hearing in the left ear. If he is interested in seeing one of the doctors to discuss this option please assist with scheduling an appointment at thepatient's earliest convenience with otology. He may also [...] the plan please let me know. Russell Parra APRN.CNP documented in this encounter[facility] Telephone encounter Note * Telephone Encounter - Jennie Rodgers - 12/12/2023 9:57 AM EDT Freddy Rosas Garrison called today. : 1970 Allergies: Lactose and Latex (home) Reason for call: Patient calling in to get scheduled as requested by Russell Parra APRN.CNP. Patient has been scheduled for an Implant Eval with Dr. Hammond and also for an appointment with an research laboratory technician. Patient advised of all appointment details. Please review patient's appointments to ensure that he has been scheduled appropriately. Patient originally requested to see Russell Parra. Contact patient if scheduled incorrectly. Thank you! Patient last appointment: 12/02/2023 The patients preferred pharmacy has been captured for this encounter? [facility] December 12, 2023 10:00 AM [facility]09-27-2024 Telephone encounter Note* Telephone Encounter - Russell Parra APRN.CNP - 12/12/2023 9:29 AM EDT Please call patient. Please let him know because he is so young I would highly recommend that he sees the ear specialistto discuss options including cochlear implant. They may also be able to shed further light on his dizziness. I have placed a consultation, please assist with an appointment at the patient's earliest convenience. Thank you, Russell Parra CNP [facility]09-27-2024 Telephone encounter Note* Telephone Encounter - Niyah Puentes RN - 12/12/2023 9:04 AM EDT Patient called back. Below message was relayed. Pt stated he would like to find out which one will his insurance cover. Advised to reach out to hisinsurance to inquire about coverage. Patient also inquiring what Russell recommends and which one will overall be better for him. Please advise. [facility]09-17-2024 Telephone encounter Note* Telephone Encounter - Elizabeth Paz LPN - 12/02/2023 2:47 PM EDT Called patient twice. calls are being forwarded. No Answer. Unable to leave RAMESH Johnson [facility]09-17-2024 Telephone encounter Note* Telephone Encounter - Russell Parra APRN.HUMBERTO - 12/02/2023 7:41 AM EDT Please call patient. Please let him know that I did receive the results of his hearing test. He does presently have extreme hearing loss on the left. Basically, his left ear is not functioning in any noticeable way. As we discussed in the office he is welcome to meet with one of our research laboratory technician to discuss cochlear implant surgery which potentially could help restore hearing in the left ear. If he is interested in seeing one of the doctors to discuss this option please assist with scheduling an appointment at thepatient's earliest convenience with otology. He may also [...] the plan please let me know. Russell Parra APRN.HUMBERTO [facility]09-13-2024 History of Present illness Narrative* Marilu HouKEO - 11/28/2023 11:30 AM EDT Images from the original note were not included. [facility] Head and Neck Department Section of Audiology AUDIOLOGIC EVALUATION REPORT Name: Freddy Jorge [facility]#: [id number] Date of Service: 11/28/2023 Date of : 1970 Age: [age] year old Referred by: Self Referred for: Evaluation of suspected change in hearing, tinnitus, or balance. Referral documented: No referral on file Patient's major complaints: Reduced hearing in the left ear, Tinnitus in the left ear, Dizziness/vertigo/imbalance, Pressure/fullness in the right ear Freddy Jorge was seen for a recheck audiologic evaluation. Previous audiologic evaluation was scheduled yesterday 11/26/2023. However, testing was deferred due impacted cerumen in the left ear. Cerumen removed by ENT Russell Parra CNP on 11/26/2023. Known history of sudden [...] evaluation of middle ear function. CPT code: 73978 RIGHT EAR: Negative (-184 daPa) pressure with reduced TM compliance (mobility). LEFT EAR: Negative (-120 daPa) pressure with reduced TM compliance (mobility). ACOUSTIC REFLEXES Description of procedure: This test is an objective measure of auditory and facial nerve pathways. CPT code: 28793, 22443 RIGHT EAR PROBE EAR: (ipsi right stimulus [...] objective evaluation hearing sensitivity via air and boneconduction and speech recognition testing. CPT code:34645 RIGHT EAR: Hearing Sensitivity: WNL 250-2000 Hz sloping to moderately severe SNHL at 8000 Hz. Word Recognition Score: Excellent (100%). WRS is consistent with hearing sensitivity. Words were presented at 55 dB HL approximates (45-55 dB HL) intensity level for average conversational speech.TheNU-6 Ordered by Difficulty Word List (10 words) was used for testing. LEFT EAR: Hearing Sensitivity: No response at the levels of the equipment 125-8000 Hz. Word Recognition Score: Could not test due to degree of hearing loss. RECOMMENDATIONS * Continue medical follow-up with Russell Parra CNP. * Consider otologic referral to Otology for medical evaluation. * The patient was counseled regarding the need to continue to monitor hearing and have regular hearing assessments. * The patient was counseled about hearing conservation and use of noise protectors. Information about hearing protection devices was provided to the patient. If custom HPDs are desired, please call [phone] to schedule an [facility] IMPRESSION appointment. * Pending medical evaluation and clearance, call [phone] to schedule an appointment for an implantable [...] + TM tympanic membrane documented in this encounter[facility] NoteHNO ID: [id number] Author: MARILU HOU AUD Service: ? Author Type: Child Welfare Worker Type: Progress Notes Filed: 11/28/2023 16:39 Note Text: [facility] Head and Neck Department Section of Audiology AUDIOLOGIC EVALUATION REPORT Name: Freddy Jorge [facility]#: [id number] Date of Service: 11/28/2023 Date of : 1970 Age: [age] year old Referred by: Self Referred for: Evaluation of suspected change in hearing, tinnitus, or balance. Referral documented: No referral on file Patient's major complaints: Reduced hearing in the left ear, Tinnitus in the left ear, Dizziness/vertigo/imbalance, Pressure/fullness in the right ear Freddy Jorge was seen for a recheck audiologic evaluation. Previous audiologic evaluation was scheduled yesterday 11/26/2023. However, testing was deferred due impacted cerumen in the left ear. Cerumen removed by ENT Russell Parra CNP on 11/26/2023. Known history of sudden [...] evaluation of middle ear function. CPT code: 00736 RIGHT EAR: Negative (-184 daPa) pressure with reduced TM compliance (mobility). LEFT EAR: Negative (-120 daPa) pressure with reduced TM compliance (mobility). ACOUSTIC REFLEXES Description of procedure: This test is an objective measure of auditory and facial nerve pathways. CPT code: 41859, 88403 RIGHT EAR PROBE EAR: (ipsi right stimulus [...] bone conduction and speech recognition testing. CPT code:38397 RIGHT EAR: Hearing Sensitivity: WNL 250-2000 Hz [...] RECOMMENDATIONS * Continue medical follow-up with Russell Parra CNP. * Consider otologic referral to Otology for medical evaluation. * The patient was counseled regarding the need to continue to monitor hearing and have regular hearing assessments. * The patient was counseled about hearing conservation and use of noise protectors. Information about hearing protect (more content not included)... [facility]09-11-2024 NoteHNO ID: [id number] Author: RUSSELL PARRA APRN.HUMBERTO Service: ? Author Type: Nurse Practitioner Type: Progress Notes Filed: 11/26/2023 15:37 Note Text: Mr. Jorge is a 53 year old male who comes in for evaluation of hearing loss. Apparently 4 years ago he had sudden onset of hearing loss in the left ear. This was accompanied by tinnitus and vertigo. He was evaluated at that time at an outside mechanical technical service specialist and ENT office. 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 Russell Parra APRN.[facility]09-11-2024 History of Present illness Narrative* Russell Parra APRN.[facility] - 11/26/2023 8:59 AM EDT Mr. Jorge is a 53 year old male who comes in for evaluation of hearing loss. Apparently 4 years ago he had sudden onset of hearing loss in the left ear. This was accompanied bytinnitus and vertigo. He was evaluated at that time at an outside mechanical technical service specialist and ENT office. He did have MRI which was negative for acoustic neuroma. There was significant infection from a dental infection that traveled to the ear. Unfortunately his hearing was basically absent in the left ear at that time. He was advised to obtain a cross hearing aid or cochlear implant however at the time thiswas not covered by his insurance so he has been not using any sort of amplification since that timefor the left ear. His infection in the tooth eventually resolved but he isn't sure about the infection in the left ear. He noticed that he continues to have significant difficulties with his balance especially in a darkenvironment. He continues to have significant left-sided tinnitus. 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 Russell Parra APRN.LENDING CONSULTANT documented in this encounter[facility] History of Present illness Narrative* Hernan Hammond AuD, CCC-A - 11/26/2023 8:00 AM EDT Images from the original note were not included. [facility] Head and Neck Department Section of Audiology AUDIOLOGIC EVALUATION REPORT Name: Freddy Jorge [facility]#: [id number] Date of Service: 11/26/2023 Date of : 1970 Age: [age] year old Referred by: Rosario Bruno CNP [address] [facility] [address] Referred for: Evaluation of suspected change in hearing, tinnitus, or balance. 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 He denied ear pain (0/10 in both ears), otorrhea, history of ear surgery, and chemotherapy/radiation. Freddy Jorge was seen for an initial audiologic evaluation. Refer to audiogram under Procedurestab for results. Risk of Falls Documentation for [...] evaluation of middle ear function. CPT code: 67769 RIGHT EAR: Flat with minimal TM mobility consistent with possible presence of ME fluid. LEFT EAR: Reduced ear canal volume and flat tympanogram consistent with impacted cerumen. Discontinued testing after tympanometry. RECOMMENDATIONS * Continue medical follow-up with ENT for cerumen management. * Test hearing after cerumen management Keo Martinez CCC-A BEVERLY Abbrev- iation Definition Degree of hearing sensitivity dB range WNL within normal limits WNL 0 - 20 SNHL sensorineural hearing loss Mild 20-40 CHL conductive hearing loss Moderate 40-55 MHL mixed hearing loss Moderately-Severe 55-70 WRS word recognition score Severe 70-90 ME middle ear Profound 90 + TM tympanic membrane documented in this encounterSelect [facility] NoteHNO ID: [id number] Author: HERNAN HAMMOND AuD, CCC-A Service: ? 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 He denied ear pain (0/10 in both ears), otorrhea, history of ear surgery, and chemotherapy/radiation. Freddy Jorge was seen for an initial audiologic evaluation. [...] evaluation of middle ear function. CPT code: 75761 RIGHT EAR: Flat with minimal TM mobility consistent with possible presence of ME fluid. LEFT EAR: Reduced ear canal volume and flat tympanogram consistent with impacted cerumen. Discontinued testing after tympanometry. RECOMMENDATIONS * Continue medical follow-up with ENT for cerumen management. * Test hearing after cerumen management Hernan Hammond, Keo, CCC-A BEVERLY Abbrev- iation Definition Degree of hearing sensitivity dB range WNL within normal limits WNL 0 - 20 SNHL sensorineural hearing loss Mild 20-40 CHL conductive hearing loss Moderate 40-55 MHL mixed hearing loss Moderately-Severe 55-70 WRS word recognition score Severe 70-90 ME middle ear Profound 90 + TM tympanic membraneSt. [facility]09[facility] Telephone encounter Note* Telephone Encounter - Nick Buckley MA - 11/18/2023 1:25 PM EDT This patient is only seen at [facility]. Okay to send? [id number] Miscellaneous Notes* Telephone Encounter - Nick Buckley MA - 11/18/2023 1:25 PM EDT This patient is only seen at [facility]. Okay to send? documented in this encounterSaint [facility] [id number] Procedure [place]02-20-2024 Procedure [place]01-02-2024 Evaluation note* Encounter Date Diagnosis Assessment Notes Treatment Notes Treatment Clinical Notes Mar, Type 2 diabetes mellitus without complication, without long-term current use of insulin (ICD-10 - E11.9) [employer] Other 12-28-2023 Evaluation note* Encounter Date Diagnosis Assessment Notes Treatment Notes Treatment Clinical Notes Feb, Type 2 diabetes mellitus without complication, without long-term current use of insulin (ICD-10 - E11.9) [employer] Other 12-27-2023 Evaluation note* Encounter Date Diagnosis [...] and willingness to quit at each appointment. [employer] Other Evaluation noteNo assessment information available [facility] Work Phone: Evaluation noteNo InformationNort [employer] Other Evaluation note* Diagnosis Onset Date Resolution Status Cigarette nicotine dependence without complication acute Depression acute Mixed hyperlipidemia acute Neuropathy acute Obstructive sleep apnea acut e [id number] [facility] Work Phone: Evaluation note* Diagnosis Impacted cerumen of left ear- Primary Impacted cerumen Left-sided tinnitus Unspecified tinnitus Vertigo Dizziness and giddiness [facility] Diagnosis Asymmetrical sensorineural hearing loss- Primary Sensorineural hearing loss, asymmetrical Tinnitus, left ear Balance problem Other symptoms involving nervous and musculoskeletal systems Vestibular hypofunction of left ear Impacted cerumen of left ear Impacted cerumen documented in this [facility]* Diagnosis Asymmetric SNHL (sensorineural hearing loss)- Primary Sensorineural hearing loss, asymmetrical Tinnitus of left ear Unspecified tinnitus Ear pressure, right Dizziness Dizziness and giddiness documented in this encounter [facility]* Diagnosis Asymmetric sensorineural deafness- Primary Tinnitus, right ear documented [facility] this [facility]* Diagnosis Asymmetric SNHL (sensorineural hearing loss)- Primary Sensorineural hearing loss, asymmetrical Tinnitus of left ear Unspecified tinnitus Vertigo Dizziness and giddiness documented in this [facility]* Diagnosis Asymmetrical sensorineural hearing loss- Primary Sensorineural hearing loss, asymmetrical Tinnitus, left ear Balance problem Other symptoms involving nervous and musculoskeletal systems Vestibular hypofunction of left ear Sensorineural hearing loss (SNHL) of both ears Need for pneumococcal vaccine Need for prophylactic vaccination against streptococcus pneumoniae (pneumococcus) documented in this encounter [facility]* Diagnosis Asymmetrical sensorineural hearing loss- Primary Sensorineural hearing loss, asymmetrical Sensorineural hearing loss (SNHL) of both ears Asymmetrical sensorineural hearing loss Sensorineural hearing loss, asymmetrical Sensorineural hearing loss (SNHL) of both ears documented in this encounter [facility]* Diagnosis Asymmetrical sensorineural hearing loss- Primary Sensorineural hearing loss, asymmetrical Vestibular hypofunction of left ear Tinnitus, left ear Asymmetrical sensorineural hearing loss Sensorineural hearing loss, asymmetrical Sensorineural hearing loss (SNHL) of both ears documented in this encounter [facility]* Diagnosis Asymmetrical sensorineural hearing loss Sensorineural hearing loss, asymmetrical Tinnitus, left ear Balance problem Other symptoms involving nervous and musculoskeletal systems Vestibular hypofunction of left ear Sensorineural hearing loss (SNHL) of both ears Pre-op evaluation- Primary Preoperative examination, unspecified Type 2 diabetes mellitus with diabetic neuropathy, without long-term current use of insulin (HCC) Mixed hyperlipidemia Anxiety Anxiety state, unspecified Depression, unspecified depression type Obstructive sleep apnea Obstructive sleep apnea (adult) (pediatric) Nicotine dependence, cigarettes, with unspecified nicotine-induced disorders Marijuana use Cannabis abuse, unspecified Obesity (BMI 30-39.9) Obesity, unspecified Asymmetrical sensorineural hearing loss Sensorineural hearing loss, asymmetrical Sensorineural hearing loss (SNHL) of both ears documented in this encounter [facility] note* Diagnosis Pre-op evaluation- Primary Preoperative examination, unspecified Type 2 diabetes mellitus with diabetic neuropathy, without long-term current use of insulin (HCC) Mixed hyperlipidemia Anxiety Anxiety state, unspecified Depression, unspecified depression type Obstructive sleep apnea Obstructive sleep apnea (adult) (pediatric) Nicotine dependence, cigarettes, with unspecified nicotine-induced disorders Marijuana use Cannabis abuse, unspecified Obesity (BMI 30-39.9) Obesity, unspecified Asymmetrical sensorineural hearing loss- Primary Sensorineural hearing loss, asymmetrical Asymmetrical sensorineural hearing loss Sensorineural hearing loss, asymmetrical Sensorineural hearing loss (SNHL) of both ears documented in this encounter [facility] note* Diagnosis Pre-op evaluation- Primary Preoperative examination, unspecified Type 2 diabetes mellitus with diabetic neuropathy, without long-term current use of insulin (HCC) Mixed hyperlipidemia Anxiety Anxiety state, unspecified Depression, unspecified depression type Obstructive sleep apnea Obstructive sleep apnea (adult) (pediatric) Nicotine dependence, cigarettes, with unspecified nicotine-induced disorders Marijuana use Cannabis abuse, unspecified Obesity (BMI 30-39.9) Obesity, unspecified Asymmetrical sensorineural hearing loss Sensorineural hearing loss, asymmetrical Sensorineural hearing loss (SNHL) of both ears * Assessment & Plan Note - Nia Montoya APRN.CNP - 02/04/2024 9:03 AM EST Associated Problem(s): Obesity (BMI 30-39.9) Assessment: Body mass index is 33.52 kg/m . Weight reduction encouraged. * Assessment & Plan Note - Nia Montoya APRN.CNP - 02/04/2024 9:00 AM EST Associated Problem(s): Marijuana use Assessment: Nightly for sleep, gummies Pt. aware cessation week prior to surgery * Assessment & Plan Note - Nia Montoya APRN.CNP - 02/04/2024 8:59 AM EST Associated Problem(s): Nicotine dependence, cigarettes, with unspecified nicotine-induced disorders Assessment: Cigarette smoker for 30 years, was at 3 ppd, now down to 1 ppd Cessation with strategies encouraged. * Assessment & Plan Note - Nia Montoya APRN.CNP - 02/04/2024 8:58 AM EST Associated Problem(s): Obstructive sleep apnea Assessment: Compliant with CPAP * Assessment & Plan Note - Nia Montoya APRN.CNP - 02/04/2024 8:58 AM EST Associated Problem(s): Depression Assessment: Pt. reports mood is stable with medication * Assessment & Plan Note - Nia Montoya APRN.CNP - 02/04/2024 8:57 AM EST Associated Problem(s): Anxiety Assessment: Pt. reports mood is stable with medication * Assessment & Plan Note - Nia Montoya APRN.CNP - 02/04/2024 8:56 AM EST Associated Problem(s): Mixed hyperlipidemia Assessment: Managed with Statin , Follows with PCP * Assessment & Plan Note - Nia Montoya APRN.CNP - 02/04/2024 8:56 AM EST Associated Problem(s): Type 2 diabetes mellitus with diabetic neuropathy, unspecified ([facility]) Assessment: Managed with empagliflozin (JARDIANCE) , dulaglutide (TRULICITY) weekly injection, lastdose Friday01/31/2024 Pt. aware to hold dulaglutide (TRULICITY) weekly injection one full week prior to scheduled surgerydate Managed by PCP updated HgbA1c, BMP [facility] Diagnosis Primary insomnia- Primary Persistent disorder of initiating or maintaining sleep documented in this encounter [facility] HealthcareEvaluation note* Diagnosis Pre-op evaluation- Primary Preoperative examination, unspecified Type 2 diabetes mellitus with diabetic neuropathy, without long-term current use of insulin ([facility]) Mixed hyperlipidemia Anxiety Anxiety state, unspecified Depression, unspecified depression type Obstructive sleep apnea Obstructive sleep apnea (adult) (pediatric) Nicotine dependence, cigarettes, with unspecified nicotine-induced disorders Marijuana use Cannabis abuse, unspecified Obesity (BMI 30-39.9) Obesity, unspecified Asymmetrical sensorineural hearing loss- Primary Sensorineural hearing loss, asymmetrical Tinnitus, left ear Balance problem Other symptoms involving nervous and musculoskeletal systems Vestibular hypofunction of left ear documented [facility] Diagnosis Unsteady gait- Primary Abnormality of gait Diabetic polyneuropathy associated with type 2 diabetes mellitus (Multi) SCOTT (obstructive sleep apnea) Obstructive sleep apnea (adult) (pediatric) documented in this encounter [facility] Work Phone: Evaluation note* Diagnosis Type 2 diabetes mellitus with hyperglycemia, without long-term current use of insulin ([facility])- Primary Vitamin D deficiency Encounter for dietary consultation Class 1 obesity due to excess calories with serious comorbidity and body mass index (BMI) of 33.0 to 33.9 in adult documented in this encounter [facility] HealthcareEvaluation note* Diagnosis Unsteady gait Abnormality of gait Diabetic polyneuropathy associated with type 2 diabetes mellitus documented in this encounter [facility] Work Phone: Evaluation note* Diagnosis Unsteady gait Abnormality of gait documented in this encounter [facility] Work Phone: Evaluation note* Diagnosis Type 2 diabetes mellitus with hyperglycemia, without long-term current use of insulin ([facility])- Primary Vitamin D deficiency Encounter for dietary consultation documented in this encounter [facility] and [facility] note Author Milena Cazares [facility] May 06, 2023 8:28am Note Date/Time May 06, 2023 8:28am [facility] [address] [place] [address] Gastroenterology H&P Signed Patient: Freddy Jorge MR#: [id number] : 1970 Acct:[id number] Age/Sex: 53 / M Adm Date: 4 Loc: Room: Type: [facility] Attending Dr: Milena Cazares MD Copies to: MD Rosario Bowen APRN, LENDING CONSULTANT~ Date of Service: 05/06/2023 HISTORY & PHYSICAL: [...] <Electronically signed by Milena Cazares MD> 05/06/23827 [facility] Work Phone: History and physical note Author Milena Cazares [facility] November 04, 2023 11:54am Note Date/Time November 04, 2023 11 :54am [facility] [address] [place] [address] Gastroenterology H&P Signed Patient: Freddy oJrge MR#: [id number] : 1970 Acct:[id number] Age/Sex: 53 / M Adm Date: 4 Loc: Room: Type: [facility] Attending Dr: Milena Cazares MD Copies to: MD Rosario Bowen APRN, LENDING CONSULTANT~ Date of Service: 11/04/2023 HISTORY & PHYSICAL: [...] <Electronically signed by Milena Cazares MD> 11/04/23 1158 [facility] Work Phone: History general Narrative - Reported* Type Description Date Medical History Type 2 Diabetes Medical History Sleep Apnea Medical History Hyperlipidemia Surgical History Oral Surgery [facility] Discharge instructions Additional Instructions DISCHARGE [...] NOT operate machinery such as power tools, Pili Popn mowers, SportyBirdwers, sewing machines, etc. for 24 hours. - [...] colonoscopy due to inadequate prep -Office number [phone]. [facility] Work Phone: Reason for referral (narrative)* Outpatient Procedure (Routine) - New Request Specialty Diagnoses / Procedures Referred By Oli t Referred To [facility] Diagnoses Pre-op evaluation Procedures ECG COMPLETE ECG ROUTINE ECG W/LEAST 12 LDS W/I&R Nia Montoya APRN.CNP [address] [place] [address] [facility] [address] [place] [address] Referral ID Status Reason Start Date Expiration Date Visits Requested Visits Authorized [id number] New Request Auto-Generat ed Referral 02/03/2025 1 1 [facility] for visit Narrative* Neurology (Routine) - Pending Review Specialty Diagnoses / Procedures Referred By Contac t Referred To Contact Diagnoses Unsteady gait Diabetic polyneuropathy associated with type 2 diabetes mellitus Procedures EMG & nerve conduction Eli Dubose MD [address] [facility] 4, [address] [address] Phone: tel: fax: Referral ID Status Reason Start Date Expiration Date V isits Requested Visits Authorized [id number] Pending Review 05/24/2024 05/24/2025 1 1 [facility] Work Phone: Reason for visit Narrative* Imaging (Routine) - Authorized Specialty Diagnoses / Procedures Referred By Contac t Referred To Contact Radiology Diagnoses Unsteady gait Procedures MR lumbar spine wo IV contrast Eli Dubose MD [address] [facility] 4, [facility] [address] [place] [address] Phone: tel: fax: Referral ID Status Reason Start Date Expiration Date Visits Requested Visits Authorized [id number] Authorized Perform Procedure 05/24/2024 05/24/2025 1 1 [facility] Work Phone: Reason for visit Narrative* Imaging (Routine) - Authorized Specialty Diagnoses / Procedures Referred By Oli t Referred To Contact Radiology Diagnoses Unsteady gait Procedures MR cervical spine wo IV contrast Eli Dubose MD [address] [facility] 4, [address] [place] [address] Phone: tel: fax: Referral ID Status Reason Start Date Expiration Date Visits Requested Visits Authorized [id number] Authorized Perform Procedure 05/24/2024 05/24/2025 1 1 [facility] Work Phone: reason for visit Narrative* Imaging (Routine) - Authorized Specialty Diagnoses / Procedures Referred By Oli t Referred To Contact Radiology Diagnoses Unsteady gait Procedures MR brain wo IV contrast Eli Dubose MD [address] [facility] 4, [facility] [address] [place] [address] Phone: tel: fax: Referral ID Status Reason Start Date Expiration Date Visits Requested Visits Authorized [id number] Authorized Perform Procedure 05/24/2024 05/24/2025 1 1 [facility] Work Phone: Reason for Referral Specialty Diagnoses / Procedures Referred By Oli pappas Referred To Contact CT IMAGING Diagnoses Asymmetrical sensorineural hearing loss Tinnitus, left ear Balance problem Vestibular hypofunction of left ear Procedures CT TEMP BONES WO IVCON CT ORBIT SELLA/POST FOSSA/EAR W/O CONTRAST MATRL Lorena Beard MD [address] [address] [place] [address] Referral ID Status Reason Start Date Expiration Date Visits Requested Visits Authorized [id number] New Request Auto-Generat ed Referral 03/30/2024 04/29/2025 1 1 Specialty Diagnoses / Procedures Referred By Oli pappas Referred To Contact MR IMAGING Diagnoses Asymmetrical sensorineural hearing loss Tinnitus, left ear Balance problem Vestibular hypofunction of left ear Sensorineural hearing loss (SNHL) of both ears Procedures MRI BRAIN WO/W IVCON MRI BRAIN BRAIN STEM W/O W/CONTRAST MATERIAL Lorena Beard MD [address] [facility] [address] [place] [address] [place] [address] Referral ID Status Reason Start Date Expiration Date Visits Requested Visits Authorized [id number] Pending Review Auto-Generat ed Referral 01/29/2025 1 1 Specialty Diagnoses / Procedures Referred By Contac t Referred To Contact Ent - Otolaryngology Diagnoses Asymmetric sensorineural deafness Tinnitus, right ear Procedures CONSULT TO ENT Russell Parra, COLLECTIONS ANALYST.LENDING CONSULTANT [address] [facility] [place] [address] Dante Moon MD [address] [place] [id number] Referral ID Status Reason Start Date Expiration Date Visits Requested Visits Authorized [id number] Ref Not Required PCP Requested Referral 12/12/2023 12/11/2024 1 1 Specialty Diagnoses / Procedures Referred By Contac t Referred To Contact Ent - Otolaryngology Diagnoses Asymmetric sensorineural deafness Tinnitus, right ear Procedures CONSULT TO ENT Russell Parra, COLLECTIONS ANALYST.[facility] [address] [facility] [place] [address] Lorena Beard MD [address] [place] [address] Referral ID Status Reason Start Date Expiration Date Visits Requested Visits Authorized [id number] Ref Not Required PCP Requested Referral 12/02/2023 12/01/2024 1 1 Specialty Diagnoses / Procedures Referred By Contac t Referred To Contact Procedures HEARING TEST/AUDIOGRAM COMPRE AUDIOMETRY THRESHOLD EVAL Hernan Cancino, AuD, CCC-A [address] [facility], [address] [place] [address] [facility] [address] [place] [address] Referral ID Status Reason Start Date Expiration Date Visits Requested Visits Authorized [id number] New Request Auto-Generat ed Referral 11/26/2023 11/26/2024 1 1 Reason due for screeni ng Diagnosis 1 Screening for colon cancer (Z12.11) Referral Organization [facility] Referring Provider First Name Rosario Referring Provider Last Name Kiana Referring Provider Specialty Nurse Pract itionenaldo Referred Organization [facility] Gastroenterolo gy Referred Provider Milena Cazares Referred Address [address] [facility] [address] ,[place], [place],[address] Referred Provider Specialty Gastroentero logy Referral Priority Routine General Notes Shey Morgan 10:33:26 AM >received today, referral faxed P2P Chief Complaint and Reason for Visit Chief Complaint Z12.5/E11.9/E78.2 Chief Complaint Establish Z12.5/E11.9/E78.2 Screening Screening Chief Complaint follow up Screening Screening Reason for Visit Cigarette nicotine d ependence without complication Depression Mixed hyperlipidemia Neuropathy Obstructive sleep apnea [id number] Chief Complaint Admit Date High blood sugar readings April 14, 2024 1:26pm Amb Documentation June 03, 2024 9:3 9am June 30, 2024 5:0 9pm Reason for Visit Admit Date Right shoulder pain April 14, 2024 1 :26pm Type 2 diabetes mellitus wit hout complication, without long-term current April 14, 2024 1:26pm Chief Complaint Admit Date Amb Documentation June 03, 2024 9:3 9am June 30, 2024 5:0 9pm E11.65 July 08, 2024 12: 49pm ulcer on L dorsal foot July 22, 2024 11: 32am Chief Complaint Admit Date Amb Documentation June 03, 2024 9:3 9am June 30, 2024 5:0 9pm E11.65 July 08, 2024 12: 49pm ulcer on L dorsal foot July 22, 2024 11: 32am Stomach Issues July 29, 2024 1:02p m Reason for Visit Admit Date Current every day smoker July 22, 2024 1 1:32am Foot ulcer, left July 22, 2024 11:32a m PAD (peripheral artery disease) July 22, 2024 11:32am Right foot ulcer July 22, 2024 11:32a m Diarrhea July 29, 2024 1:02p m Right upper quadrant abdominal pain July 29, 2024 1:02pm Type 2 diabetes mellitus wit hout complication, without long-term current us July 29, 2024 1:02pm Advance Directives Advance Directive Response Recorded Date/ Time Advance Directives No February 9:40am Advance Directive Response Recorded Date/ Time Advance Directives No February 10:40am Summary Purpose Family History No Family History Records Found Additional Source Comments REASON FOR VISIT (unrecogniz ed section and content) Reason Comments Earwax Reason Comments Hearing Loss Reason Comments Results Reason Comments Appointment Reason Comments Ear Problem New.. Self Referred c/o hearing loss c ringing, dizziness,imbalance x 5 yrs. Denies otalgia/otorrhea Reason Comments Balance/Incoordination Hearing Loss Reason Comments Radiology MRI Specialty Diagnoses / Procedures Referred By Oli pappas Referred To Contact MR IMAGING Diagnoses Asymmetrical sensorineural hearing loss Tinnitus, left ear Balance problem Vestibular hypofunction of left ear Sensorineural hearing loss (SNHL) of both ears Procedures MRI BRAIN WO/W IVCON MRI BRAIN BRAIN STEM W/O W/CONTRAST MATERIAL Lorena Beard MD [address] [facility] 1[address] [place] [address] [place] [address] Referral ID Status Reason Start Date Expiration Date V isits Requested Visits Authorized [id number] Closed Auto-Generate d Referral 01/20/2024 03/20/2024 1 1 Reason Comments Hearing Loss Reason Comments Med Refill 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 Reason Comments Weakness, Gen Reason Comments Diabetes NEW 2 WEEKS AGO A1C 10.0% STILL CLE[employer]ER T[employer]BE [employer] Specialty Diagnoses / Procedures Referred By Oli pappas Referred To Contact Endocrinology Diagnoses Type 2 diabetes mellitus without complications (CMS/HCC) Procedures LA OFFICE/OUTPATIENT NEW LOW MDM 30 MINUTES Devora Arvizu MD [address] [place] [address] Phone: tel: fax: Devora Arvizu MD [address] [place] [address] Phone: tel: fax: Referral ID Status Reason Start Date Expiration Date V isits Requested Visits Authorized [id number] Authorized 04/27/2024 10/24/2024 4 4 Reason Comments Diabetes Mellitus Follow-up Specialty Diagnoses / Procedures Referred By Oli t Referred To Contact Endocrinology Diagnoses Type 2 diabetes mellitus without complications Procedures LA OFFICE/OUTPATIENT NEW LOW MDM 30 MINUTES Devora Arviuz MD [address] [place] [address] Phone: tel: fax: Devora Arvizu MD [address] [place] [address] Phone: tel: fax: Care Teams (unrecognized sec tion and content) Team Status: Active Member Role Status Dates Rosario Bruno APRN STILL CLE[employer]ER TUBE-C Primary Care Provider Active Team Status: Inactive Member Role Status Dates Rosario Bruno APRN STILL CLE[employer] TU[employer]-C Primary Care Provider, Attending Provider Active Team Status: Inactive Member Role Status Dates Rosario Bruno APRN ST[employer] CLE[employer]BE-C Attending Provider Act romel Start: March 12, 2023 End: March 12, 2023 Team Status: Inactive Member Role Status Dates Rosario Bruno APRN ST[employer] CLE[employer] TUBE-C Primary Care Provider, Attending Provider Active Start: March 14, 2023 End: March 14, 2023 Team Status: Inactive Member Role Status Dates Rosario Bruno APRN STILL CLE[employer] TUBE-C Primary Care Provider Active Start: May 062023 End: May 06, 2023 Milena Cazares MD Attending Provider Active Start: May 06, 2023 End: May 06, 2023 Team Status: Active Member Role Status Dates Rosario Bruno APRN STILL CLE[employer] TUBE-C Primary Care Provider Active Start: May 062023 Milena Cazares MD Attending Provider, Other Provider Active Start: May 06, 2023 Team Status: Inactive Member Role Status Dates Rosario Bruno APRN ST[employer] CLE[employer] TUBE-C Primary Care Provider, Attending Provider Active Start: October 28, 2023 End: October 28, 2023 Team Status: Inactive Member Role Status Dates Rosario Bruno APRN STILL CLE[employer] TUBE-C Primary Care Provider Active Start: November 04, 2023 End: November 04, 2023 Milena Cazares MD Attending Provider Active Start: November 04, 2023 End: November 04, 2023 Team Status: Active Member Role Status Dates Rosario Bruno APRN ST[employer] CLE[employer] TUBE-C Primary Care Provider Active Start: October Milena Cazares MD Attending Provider, Other Provider Active Start: November 04, 2023 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 Relationship Specialty Start Date End Date Rosario Bruno NP [address] [place] [facility] [place] [address] PCP - General Nurse Practitioner 07/30/23 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 Relationship Specialty Start Date End Date Rosario Bruno NP [address] [place] [facility] [place] [address] PCP - General Nurse Practitioner 07/30/23 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 Relationship Specialty Start Date End Date Rosario Bruno NP [address] [place] [facility] [place] [address] PCP - General Nurse Practitioner 07/30/23 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 Relationship Specialty Start Date End Date Rosario Bruno NP [address] [place] [facility] [place] [address] PCP - General Nurse Practitioner 07/30/23 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 Relationship Specialty Start Date End Date Rosario Bruno NP [address] [place] [facility] [place] [address] PCP - General Nurse Practitioner 07/30/23 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 Relationship Specialty Start Date End Date Rosario Bruno NP [address] [place] [facility] [place] [address] PCP - General Nurse Practitioner 07/30/23 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 Relationship Specialty Start Date End Date Rosario Bruno NP [address] [place] [facility] [place] [address] PCP - General Nurse Practitioner 07/30/23 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 Relationship Specialty Start Date End Date Rosario Bruno NP [address] [place] [place] [address] PCP - General Nurse Practitioner 07/30/23 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 Relationship Specialty Start Date End Date Rosario Bruno NP [address] [place] [facility] [place] [address] PCP - General Nurse Practitioner 07/30/23 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 Relationship Specialty Start Date End Date Generic Provider, No [place] [address] PCP - General Budget Coordinator 06/09/24 Team Status: Inactive Member Role Status Dates Rosario Bruno APRN STILL CLE[employer] TUBE-C Primary Care Provider, Attending Provider Active Start: April 14, 2024 End: April 14, 2024 Team Status: Active Member Role Status Dates Rosario Bruno APRN STILL CLE[employer]ER TUBE-C Primary Care Provider, Attending Provider Active Start: May 21, 2024 Team Status: Active Member Role Status Dates Rosario Bruno APRN STILL CLE[employer]ER TUBE-C Primary Care Provider Active Start: June 03, 2024 Leta Benton CMA Attending Provider Active Start: June 03, 2024 Team Status: Active Member Role Status Dates Rosario Bruno APRN STILL CLEANER TUBE-C Primary Care Provider Active Start: June 30, 2024 Gurinder Millan MD Attending Provider Active Start: June 30, 2024 Team Status: Inactive Member Role Status Dates Rosario Bruno APRN STILL CLEANER TUBE-C Primary Care Provider Active Start: July 08, 2024 End: July 08, 2024 Devora Arvizu MD Attending Provider Active Sta rt: July 08, 2024 End: July 08, 2024 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 Relationship Specialty Start Date End Date Rosario Bruno NP [address] [place] [address] PCP - General Family Medicine 08/01/23 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 Relationship Specialty Start Date End Date Rosario Bruno NP [address] [place] [address] PCP - General Family Medicine 08/01/23 Team Status: Inactive Member Role Status Dates Rosario Bruno APRN STILL CLEANER TUBE-Morales Primary Care Provider Active Start: July 22, 2024 End: July 22, 2024 Adam Albert MD Active St art: July 22, 2024 End: July 22, 2024 VENKATA Campbell Attending Provider Active Start: July 22, 2024 End: July 22, 2024 Team Status: Inactive Member Role Status Dates Rosario Bruno APRN STILL CLEANER TUBEMarlena Primary Care Provider, Attending Provider Active Start: July 29, 2024 End: July 29, 2024 Goals (unrecognized section and content) Goals may be documented in a n alternate section Source Comments (unrecognize d section and content) In the event this informatio n is protected by the Federal Confidentiality of Alcohol and Drug Abuse Patient Records regulations: The Federal rules restrict any use of the information to criminally investigate or prosecute any alcohol or drug abuse patient.[facility] the event this information is protected by the Federal Confidentiality of Alcohol and Drug Abuse Patient Records regulations: The Federal rules restrict any use of the information to criminally investigate or prosecute any alcohol or drug abuse patient.[facility] the event this information is protected by the Federal Confidentiality of Alcohol and Drug Abuse Patient Records regulations: The Federal rules restrict any use of the information to criminally investigate or prosecute any alcohol or drug abuse patient.[facility] the event this information is protected by the Federal Confidentiality of Alcohol and Drug Abuse Patient Records regulations: The Federal rules restrict any use of the information to criminally investigate or prosecute any alcohol or drug abuse patient.[facility] DublinIn the event this information is protected by the Federal Confidentiality of Alcohol and Drug Abuse Patient Records regulations: The Federal rules restrict any use of the information to criminally investigate or prosecute any alcohol or drug abuse patient.[facility] DublinIn the event this information is protected by the Federal Confidentiality of Alcohol and Drug Abuse Patient Records regulations: The Federal rules restrict any use of the information to criminally investigate or prosecute any alcohol or drug abuse patient.[facility] DublinIn the event this information is protected by the Federal Confidentiality of Alcohol and Drug Abuse Patient Records regulations: The Federal rules restrict any use of the information to criminally investigate or prosecute any alcohol or drug abuse patient.[facility] DublinIn the event this information is protected by the Federal Confidentiality of Alcohol and Drug Abuse Patient Records regulations: The Federal rules restrict any use of the information to criminally investigate or prosecute any alcohol or drug abuse patient.[facility] DublinIn the event this information is protected by the Federal Confidentiality of Alcohol and Drug Abuse Patient Records regulations: The Federal rules restrict any use of the information to criminally investigate or prosecute any alcohol or drug abuse patient.[facility] DublinIn the event this information is protected by the Federal Confidentiality of Alcohol and Drug Abuse Patient Records regulations: The Federal rules restrict any use of the information to criminally investigate or prosecute any alcohol or drug abuse patient.[facility] DublinIn the event this information is protected by the Federal Confidentiality of Alcohol and Drug Abuse Patient Records regulations: The Federal rules restrict any use of the information to criminally investigate or prosecute any alcohol or drug abuse patient.[facility] DublinIn the event this information is protected by the Federal Confidentiality of Alcohol and Drug Abuse Patient Records regulations: The Federal rules restrict any use of the information to criminally investigate or prosecute any alcohol or drug abuse patient.[facility] DublinIn the event this information is protected by the Federal Confidentiality of Alcohol and Drug Abuse Patient Records regulations: The Federal rules restrict any use of the information to criminally investigate or prosecute any alcohol or drug abuse patient.[facility] DublinIn the event this information is protected by the Federal Confidentiality of Alcohol and Drug Abuse Patient Records regulations: The Federal rules restrict any use of the information to criminally investigate or prosecute any alcohol or drug abuse patient.[facility] DublinIn the event this information is protected by the Federal Confidentiality of Alcohol and Drug Abuse Patient Records regulations: The Federal rules restrict any use of the information to criminally investigate or prosecute any alcohol or drug abuse patient.[facility] (unrecognized sect ion and content) No Status Records FoundNo Status Records FoundNo Status Records FoundNo Status Records FoundNo Status Records Found INFORMATION SOURCE (unrecogn ized section and content) DATE CREATED AUTHOR 05/12/2024 [facility] DATE CREATED AUTHOR AUTHOR'S ORGANIZ ATION 05/25/2024 [facility] DATE CREATED AUTHOR AUTHOR'S ORGANIZ ATION 07/09/2024 [facility] DATE CREATED AUTHOR AUTHOR'S ORGANIZ ATION 07/15/[address] [facility] DATE CREATED AUTHOR AUTHOR'S ORGANIZ ATION 07/22/2024 [facility] FOR RECORDS PERTAINING TO PATIENTS WHO ARE [...] BE BASED ON THE PRIMARY CLINICAL RECORDS. [facility] [employer] [facility]. provides no warranty or guarantee of the accuracy or completeness of information in this document.
== END 2024-08-11 10:51 | disposition home or self-care (01) ==
LOC: US 10:50
PROVIDERS: Family Provider Family Medicine; PCP Nurse Practitioner Family; Visit Provider Nurse Practitioner Family
DX: R10.11 Right upper quadrant pain (principal); R19.7 Diarrhea, unspecified; K76.0 Fatty (change of) liver, not elsewhere classified
CPT/HCPCS: 76705

== ENCOUNTER 2024-08-18 14:27 | Outpatient (OUT) | payer OTHER, SELFPAY | END 2024-08-18 14:28 | disposition home or self-care (01) | LOC: WC 14:27 | PROVIDERS: Family Provider Family Medicine; PCP Nurse Practitioner Family; Visit Provider Physician Assistant | DX: E11.621 Type 2 diabetes mellitus with foot ulcer (principal); L97.422 Non-pressure chronic ulcer of left heel and midfoot with fat layer exposed | CPT/HCPCS: 11043 ==